=== PATIENT | female | born 1965 | race Caucasian/White ===

== ENCOUNTER 2016-12-06 13:57 | Inpatient (IN) | payer MEDICARE, OTHER ==
[~2016-12-06] VITALS: Ht 144.8 cm; Wt 118.2 kg
[~2016-12-06 13:57] MED LIST: ACET1TAB40 PO; ALBU8.5H3 INH; ASPI-664 PO; ATOR40TA68 PO; CLOP75TA27 PO; DIPH25CA6 PO; FLUO10CA66 PO; GLIP-95 PO; MONT10TA24 PO; NATE120T PO; NYST1POW22 TOPICAL; PANT40TA3 PO; ROPI0.25 PO; SILV20CR13 TOP; SITA1TAB5 PO; VALS80TA2 PO; ZOLP5TAB7 PO
[2016-12-06 14:06] VITALS: Ht 144.8 cm; Wt 118.2 kg
--- NOTE | 2016-12-06 16:15 | ERA ---
ER Documentation Chief Complaint Date/Time DATE: 12/06/16 TIME: 16:10 Chief Complaint CAME IN VIA INTAKE DUE TO SWELLING TO BILATERAL LEGS AND HIGH BP HPI 51-year-old female with history of diabetes mellitus type 2, hypertension, dyslipidemia, coronary artery disease, GERD, chronic venous stasis of the lower extremities and left lower extremity cellulitis presents the ED in her wheelchair complaining of increasing lower extremity swelling with redness of the left lower extremity. She was referred to the ED by Dr. Clarke her PCP for admission. Patient complains of mild, chronic, achy, nonradiating lower extremity pain. No relieving or exacerbating factors. Denies chest pain or palpitations. No abdominal pain, nausea or vomiting. No fevers or chills. She insists that she is compliant with her medications although her home health worker questions this. ROS All systems reviewed and are negative except as per history of present illness. Medications Home Meds Reported Medications Ibuprofen* (Ibuprofen*) 600 Mg Tablet, 600 MG PO BID Y for PAIN, TAB 12/06/16 Metformin Hcl* (Metformin Hcl*) 500 Mg Tablet, 500 MG PO WITH BREAKFAST DINNE, # 60 TAB 12/06/16 Paroxetine Hcl* (Paroxetine*) 10 Mg Tablet, 10 MG PO DAILY, TAB 12/06/16 Albuterol Sulfate* (Ventolin HFA*) 18 Gm Hfa.aer.ad, 2 PUFF INHALATION Q4H, #1 INHALER 12/06/16 Furosemide* (Lasix*) 20 Mg Tablet, 20 MG PO DAILY, TAB 12/06/16 Montelukast Sodium* (Montelukast Sodium*) 10 Mg Tablet, 10 MG PO QHS, #30 TAB 05/05/16 Glipizide* (Glipizide*) 10 Mg Tablet, 10 MG PO BID, TAB 05/05/16 Diphenhydramine Hcl* (Diphenhydramine Hcl*) 25 Mg Capsule, 25 MG PO BID Y for ITCHING, CAP 05/05/16 Atorvastatin* (Atorvastatin*) 40 Mg Tablet, 40 MG PO QHS, #30 TAB 05/05/16 Acetaminophen with Codeine (Acetaminophen-Cod #3 Tablet) 1 Each Tablet, 1 TAB PO Q6H Y for PAIN, #7 TAB 05/05/16 Zolpidem Tartrate* (Zolpidem Tartrate*) 5 Mg Tablet, 5 MG PO QHS Y for INSOMNIA , #30 TAB 05/05/16 Valsartan* (Diovan*) 80 Mg Tablet, 80 MG PO DAILY, TAB 05/05/16 Silver Sulfadiazine* (SSD*) 1% - 20 Gm Cream.gm., 1 APPLIC TOP BID, #1 TUB 05/05/16 Pantoprazole* (Protonix*) 40 Mg Tablet.dr, 40 MG PO DAILY, TAB 05/05/16 Nystatin (Nystatin Powder) 1 Each Powder.ea., 1 APPLIC TOPICAL BID, #1 BOTTLE 05/05/16 Ropinirole Hcl* (Ropinirole Hcl*) 0.25 Mg Tablet, 0.25 MG PO HS, TAB 05/05/16 Clopidogrel Bisulfate (Clopidogrel) 75 Mg Tablet, 75 MG PO DAILY, #30 TAB 05/05/16 Discontinued Reported Medications Albuterol Sulfate* (Proair HFA*) 8.5 Gm Hfa.aer.ad, 2 PUFF INH Q4H Y for WHEEZING AND SOB, #1 INHALER 05/05/16 Fluoxetine Hcl* (Prozac*) 10 Mg Capsule, 10 MG PO DAILY, CAP 05/05/16 Nateglinide* (Nateglinide*) 120 Mg Tablet, 120 MG PO AC MEALS, TAB 05/05/16 Sitagliptin Phos/Metformin HCl (Janumet 50-1,000 mg Tablet) 1 Each Tablet, 1 EACH PO BID, TAB 05/05/16 Aspirin (Low Dose Aspirin) 81 Mg Tablet.dr, 81 MG PO DAILY, #30 TAB 05/05/16 Allergies Allergies: Coded Allergies: Penicillins (Verified Allergy, Unknown, 12/06/16) PT STATES ALLERGY TO PENICILLIN PMhx/Soc Reviewed in chart. As per HPI. History of Surgery: Yes (LT LEG SX) Anesthesia Reaction: No Hx Neurological Disorder: No Hx Respiratory Disorders: No Hx Cardiac Disorders: Yes (HTN, HDL) Hx Psychiatric Problems: No Hx Miscellaneous Medical Probl: Yes (DM, cellulitis) Hx Alcohol Use: No Hx Substance Use: No Hx Tobacco Use: Yes Smoking Status: Current every day smoker FmHx No stroke or cancer. Not relevant to presenting complaint. Physical Exam Vitals Vital Signs Date Time Temp Pulse Resp B/P Pulse Ox O2 Delivery O2 Flow Rate FiO2 12/06/16 14:06 98.5 110 18 188/105 98 Physical Exam Const: Alert, chronically ill-appearing in moderate distress. Head: Atraumatic Eyes: Normal Conjunctiva. Pupils equal reactive to light. Right eye exotropia. ENT: Normal External Ears, Nose and Mouth. Neck: Full range of motion. No JVD. Resp: Breath sounds are equal and clear to auscultation bilaterally Cardio: Regular rate and rhythm, no murmurs Abd: Soft, obese. non tender, non distended. Normal bowel sounds. Large pannus with panniculitis. Skin: No petechiae or rashes Back: No midline or flank tenderness Ext: 4+ edema bilateral lower extremities. Left lower extremity erythematous with mild tenderness. No subcutaneous crepitus or lymphangitic streaking. Lateral distal third wound with necrosis and purulent drainage. Neur: Awake and alert Psych: Normal Mood and Affect Result Diagram: 12/06/16 1635 12/06/16 1635 Results 24 hrs Procedures/MDM DOCUMENTS REVIEWED: ED nurse prior records including multiple clinic notes and admission May 05, 2016 history and physical, progress notes and discharge summary. [employer]ICAL DECISION MAKIN-year-old female with history of diabetes mellitus type 2, hypertension, dyslipidemia, coronary artery disease, GERD, chronic venous stasis of the lower extremities and left lower extremity cellulitis presents the ED in her wheelchair complaining of increasing lower extremity swelling with redness of the left lower extremity. Patient with worsening lower extremity edema and cellulitis of the left lower extremity. Wound culture and vancomycin 1 g IV piggyback as per Dr. Delvalle. No criteria for systemic inflammatory response syndrome or sepsis. Patient will be admitted to [facility] for IV antibiotics, diuresis, wound care, further evaluation and management. Counseled patient regarding diagnosis, diagnostic results and plan for admission. CALLS/CONSULTS: Time 16:10, Dr. Delvalle, Recommends, wound culture, vancomycin and admission to [facility]. PATIENT CARE TRANSITIONED: Time: `16:15, Dr. Delvalle. Departure Diagnosis: Primary Impression: Cellulitis of left lower extremity Additional Impressions: Chronic venous insufficiency Chronic venous stasis dermatitis of both lower extremities Diabetes mellitus type 2 in obese Panniculitis Condition: Serious EDITH WATSON MD Dec 06, 2016 16:15 type 2, hypertension, dyslipidemia, coronary artery disease, GERD, chronic venous stasis of the lower extremities and left lower extremity cellulitis presents the ED in her wheelchair complaining of increasing lower extremity swelling with redness of the left lower extremity. Patient with worsening lower extremity edema and cellulitis of the left lower extremity. Wound culture and vancomycin 1 g IV piggyback as per Dr. Delvalle. No criteria for systemic inflammatory response syndrome or sepsis. Patient will be admitted to [facility] for IV antibiotics, diuresis, wound care, further evaluation and management. Counseled patient regarding diagnosis, diagnostic results and plan for admission. CALLS/CONSULTS: Time 16:10, Dr. Delvalle, Recommends, wound culture, vancomycin and admission to [facility]. PATIENT CARE TRANSITIONED: Time: `16:15, Dr. Delvalle. Departure Diagnosis: Primary Impression: Cellulitis of left lower extremity Additional Impressions: Chronic venous insufficiency Chronic venous stasis dermatitis of both lower extremities Diabetes mellitus type 2 in obese Condition: Serious EDITH WATSON MD Dec 06, 2016 16:15
[2016-12-06] MEDS ORDERED: LIDOCAINE 1% (MDV) 20 ML INJ SC ONE (16:30)
[2016-12-06] MEDS ORDERED: ONDANSETRON 4 MG INJ IV PRN ×2 (16:30→22:00)
[2016-12-06] MEDS ORDERED: VANCOMYCIN 1 GM (PMX) 250 ML IVPB ONE (16:30)
[2016-12-06] MEDS ORDERED: ACETAMINOPHEN 325 MG TAB PO PRN (16:30)
[2016-12-06] MEDS ORDERED: FUROSEMIDE 40 MG INJ IV ONE (16:30)
[2016-12-06 17:02] LABS: ADD SCAN DIFF NO
[2016-12-06 17:05] LABS: BASOPHILS % 0.7 % (0.0-2.0); EOSINOPHILS # 0.1 10^3/ul (0.0-0.5); EOSINOPHILS % 1.6 % (0.0-7.0); HEMATOCRIT 40.4 % (37.0-47.0); HEMOGLOBIN 12.7 g/dl (12.0-16.0); LYMPHOCYTES % 15.8 % (15.0-51.0); MEAN CORPUSCULAR HEMOGLOBIN 25.8 pg (29.0-33.0); MEAN CORPUSCULAR HGB CONC 31.4 g/dl (32.0-37.0); MEAN CORPUSCULAR VOLUME 82.1 fl (82.0-101.0); MEAN PLATELET VOLUME 10.7 fl (7.4-10.4); MONOCYTE # 0.6 10^3/ul (0.3-0.9); MONOCYTES % 9.3 % (0.0-11.0); NEUTROPHIL # 4.4 10^3/ul (1.6-7.5); NEUTROPHILS % 72.1 % (39.0-77.0); PLATELET COUNT 234 10^3/UL (140-415); RED BLOOD COUNT 4.92 10^6/ul (4.20-5.40); RED CELL DISTRIBUTION WIDTH 15.6 % (11.5-14.5); WHITE BLOOD COUNT 6.1 10^3/ul (4.8-10.8)
[2016-12-06 17:17] LABS: ALBUMIN 3.7 g/dl (3.3-4.9)
[2016-12-06 17:18] LABS: POTASSIUM 4.1 mmol/L (3.5-5.1)
[2016-12-06 17:20] LABS: ALBUMIN/GLOBULIN RATIO 1.15; BILIRUBIN,INDIRECT 0.8 mg/dl (0-1.1); BILIRUBIN,TOTAL 0.8 mg/dl (0.2-1.3); CREATININE 0.6 mg/dl (0.44-1.00); TOTAL PROTEIN 6.9 g/dl (6.1-8.1)
[2016-12-06 17:21] LABS: CALCIUM 8.9 mg/dl (8.4-10.2)
--- NOTE | 2016-12-06 18:03 | RADRPT ---
PROCEDURE: Chest x-ray CLINICAL INDICATION: Shortness of breath TECHNIQUE: Chest single view COMPARISON: 05/05/2016 FINDINGS: There is stable moderate cardiomegaly. Pulmonary vessels are borderline prominent. The lungs are c lear. The costophrenic angles are sharp. The visualized bony thorax is unremarkable. IMPRESSION: 1. Stable cardiomegaly. 2. Pulmonary vessels borderline prominent RPTAT: HH .Mark Palmer MD, MD Date Time Electronically viewed and signed by .Mark Palmer MD, on 12/06/2016 18:03 .W/
[2016-12-06] MEDS ORDERED: FURO-110 PO (18:06)
[2016-12-06] MEDS ORDERED: ALBU18HF INHALATION (18:06)
[2016-12-06] MEDS ORDERED: PARO10TA76 PO (18:07)
[2016-12-06] MEDS ORDERED: METF500T4 PO (18:07)
[2016-12-06] MEDS ORDERED: IBUP-1542 PO (18:08)
[2016-12-06 18:16] VITALS: TEMP 98.8
--- NOTE | 2016-12-06 21:53 | HP ---
Date/Time of Note Date/Time of Note DATE: 12/06/16 TIME: 21:44 Assessment/Plan VTE Prophylaxis VTE Prophylaxis Intervention: LMWH Lines/Catheters IV Catheter Type (from Nrs): Peripheral IV Urinary Cath still in place: No Assessment/Plan Chief Complaint/Hosp Course LLE WOUND Problems: Assessment/Plan Acute L Lower Extremity Cellulitis / venous stasis edema HX Large Left Venous stasis wound -> s/p debride ~SEVERAL mos ago PANCULTURE WOUND CULTURE EMPIRIC ATB ID EVAL * HX Wound Cx (+) K PNEUMO ESBL , MULTI DRUG RESISTANT ORGANISM PSEUDOMONAS SPECIES HX POST Excisional sharp debridement of the left lower extremity gangrenous wounds with wound vac placement WOUND CARE HX UTI HX Severe Panniculitis w/pendulous ABD sitting on severe bilateral groin macerated erythematous cellulitis / fungal + bacterial suspected hx R SHOULDER PAIN controlled DMT2 w/DM neuropathies ISS ACCU CHECK GERD COPD Asthma -> possible morbid obese ESTRELLA / hypoventilation syndrome HTN HLD Atherosclerosis HX ANEMIA- COUNT LOOKS COMPENSATED AT PRESENT CONT TO MONITOR BLOOD COUNT CLOSELY OBSERVE FOR BLEEDING AND HEMOLYSIS NO CONTRAINDICATION FOR LOVENOX CHECK COUNT IN AM WILL OBSERVE CLOSELY HPI/ROS Admit Date/Time Admit Date/Time Dec 06, 2016 at 16:27 Hx of Present Illness 51-year-old female with history of diabetes mellitus type 2, hypertension, dyslipidemia, coronary artery disease, chronic anemia,GERD, chronic venous stasis of the lower extremities and left lower extremity cellulitis presents the ED in her wheelchair complaining of increasing lower extremity swelling with redness of the left lower extremity. She was referred to the ED by Dr. Clarke her PCP for admission. Patient complains of mild, chronic, achy, nonradiating lower extremity pain. No relieving or exacerbating factors. Denies chest pain or palpitations. No abdominal pain, nausea or vomiting. No fevers or chills. She insists that she is compliant with her medications although her home health worker questions this. ROS ROS All systems reviewed and are negative except as per history of present illness. Medications Home Meds Reported Medications Albuterol Sulfate* (Proair HFA*) 8.5 Gm Hfa.aer.ad, 2 PUFF INH Q4H Y for WHEEZING AND SOB, #1 INHALER 05/05/16 Montelukast Sodium* (Montelukast Sodium*) 10 Mg Tablet, 10 MG PO QHS, #30 TAB 05/05/16 Glipizide* (Glipizide*) 10 Mg Tablet, 10 MG PO BID, TAB 05/05/16 Diphenhydramine Hcl* (Diphenhydramine Hcl*) 25 Mg Capsule, 25 MG PO Q6 Y for ITCHING, CAP 05/05/16 Atorvastatin* (Atorvastatin*) 40 Mg Tablet, 40 MG PO QHS, #30 TAB 05/05/16 Acetaminophen with Codeine (Acetaminophen-Cod #3 Tablet) 1 Each Tablet, 1 TAB PO Q6H Y for PAIN, #7 TAB 05/05/16 Zolpidem Tartrate* (Zolpidem Tartrate*) 5 Mg Tablet, 5 MG PO QHS Y for INSOMNIA , #30 TAB 05/05/16 Valsartan* (Diovan*) 80 Mg Tablet, 80 MG PO DAILY, TAB 05/05/16 Silver Sulfadiazine* (SSD*) 1% - 20 Gm Cream.gm., 1 APPLIC TOP BID, #1 TUB 05/05/16 Fluoxetine Hcl* (Prozac*) 10 Mg Capsule, 10 MG PO DAILY, CAP 05/05/16 Pantoprazole* (Protonix*) 40 Mg Tablet.dr, 40 MG PO DAILY, TAB 05/05/16 Nystatin (Nystatin Powder) 1 Each Powder.ea., 1 APPLIC TOPICAL BID, #1 BOTTLE 05/05/16 Ropinirole Hcl* (Ropinirole Hcl*) 0.25 Mg Tablet, 0.25 MG PO HS, TAB 05/05/16 Nateglinide* (Nateglinide*) 120 Mg Tablet, 120 MG PO AC MEALS, TAB 05/05/16 Sitagliptin Phos/Metformin HCl (Janumet 50-1,000 mg Tablet) 1 Each Tablet, 1 EACH PO BID, TAB 05/05/16 Clopidogrel Bisulfate (Clopidogrel) 75 Mg Tablet, 75 MG PO DAILY, #30 TAB 05/05/16 Aspirin (Low Dose Aspirin) 81 Mg Tablet.dr, 81 MG PO DAILY, #30 TAB 05/05/16 Allergies Allergies: Coded Allergies: Penicillins (Verified Allergy, Unknown, 05/05/16) PT STATES ALLERGY TO PENICILLIN PMhx/Soc Reviewed in chart. As per HPI. History of Surgery: Yes (LT LEG SX) Anesthesia Reaction: No Hx Neurological Disorder: No Hx Respiratory Disorders: No Hx Cardiac Disorders: Yes (HTN, HDL) Hx Psychiatric Problems: No Hx Miscellaneous Medical Probl: Yes (DM, cellulitis) Hx Alcohol Use: No Hx Substance Use: No Hx Tobacco Use: Yes Smoking Status: Current every day smoker FmHx No stroke or cancer. Not relevant to presenting complaint. PMH/Family/Social Social History Smoking Status: Current every day smoker Exam/Review of Systems Vital Signs Vitals Vital Signs Date Time Temp Pulse Resp B/P Pulse Ox O2 Delivery O2 Flow Rate FiO2 12/06/16 18:16 98.8 100 18 169/102 98 Exam Exam Physical Exam Const: Alert, chronically ill-appearing in moderate distress. Head: Atraumatic Eyes: Normal Conjunctiva. Pupils equal reactive to light. Right eye exotropia. ENT: Normal External Ears, Nose and Mouth. Neck: Full range of motion. No JVD. Resp: Breath sounds are equal and clear to auscultation bilaterally Cardio: Regular rate and rhythm, no murmurs Abd: Soft, obese. non tender, non distended. Normal bowel sounds. Large pannus with panniculitis. Skin: No petechiae or rashes Back: No midline or flank tenderness Ext: 4+ edema bilateral lower extremities. Left lower extremity erythematous with mild tenderness. No subcutaneous crepitus or lymphangitic streaking. Lateral distal third wound with necrosis and purulent drainage. Neur: Awake and alert Psych: Normal Mood and Affect Results 24 hrs Current Medications Medications (Trade) Dose Ordered Sig/Simran Route PRN Reason Start Time Stop Time Status Last Admin Dose Admin Vancomycin HCl (Vancocin) 250 ml @ 125 mls/hr ONCE ONCE IVPB 12/06/16 16:30 12/06/16 18:29 Furosemide (Lasix) 40 mg ONCE ONCE IV 12/06/16 16:30 12/06/16 16:31 Lidocaine (Xylocaine 1% (Mdv) 20 ml) 20 ml ONCE ONCE SC 12/06/16 16:30 12/06/16 16:31 Ondansetron HCl (Zofran Inj) 4 mg BRIDGE ORDER PRN IV NAUSEA AND/OR VOMITING 12/06/16 16:30 12/07/16 16:29 Acetaminophen (Tylenol Tab) 650 mg ER BRIDGE PRN PO MILD PAIN/FEVER 12/06/16 16:30 12/07/16 16:29 Labs Result Diagram: 12/06/16 1635 12/06/16 1635 BLUE JIMÉNEZ MD Dec 06, 2016 21:53
[2016-12-06] MEDS ORDERED: VANCOMYCIN IV PER PHARMACY XX SCH (22:00)
[2016-12-06] MEDS ORDERED: DOCUSATE SODIUM 100 MG CAP PO PRN (22:00)
[2016-12-06] MEDS ORDERED: NA PHOSPHATE/BIPHOS 133 ML ENEMA PR PRN (22:00)
[2016-12-06] MEDS ORDERED: BISACODYL 10 MG SUPP PR PRN (22:00)
[2016-12-06] MEDS ORDERED: NACL 0.9% 3 ML SYG IV SCH (22:00)
[2016-12-06] MEDS ORDERED: ONDANSETRON 4 MG TAB PO PRN (22:00)
[2016-12-06] MEDS ORDERED: BISACODYL (EC) 5 MG TAB PO PRN (22:00)
[2016-12-06] MEDS ORDERED: MAGNESIUM HYDROXIDE 30ML CUP PO PRN (22:00)
[2016-12-07] MEDS: ACETAMINOPHEN 325 MG TAB PO PRN ×2 (01:13→14:39)
[2016-12-07] MEDS: VANCOMYCIN 1.5 GM in SOD CHLORIDE 0.9% 250 ML IVPB SCH ×2 (02:31→13:09)
[2016-12-07 08:10] VITALS: BP 137/78; RESP 17
[2016-12-07] MEDS: ENOXAPARIN 40 MG/0.4 ML SYG SC SCH (08:53)
[2016-12-07] MEDS: FAMOTIDINE 20 MG TAB PO SCH ×2 (08:54→22:12)
[2016-12-07] MEDS ORDERED: IBUPROFEN 600 MG TAB PO PRN (09:30)
[2016-12-07] MEDS ORDERED: GLUCAGON 1 MG INJ IM PRN (09:30)
[2016-12-07] MEDS ORDERED: DEXTROSE 50% 50 ML SYRINGE IV PRN ×2 (09:30)
[2016-12-07] MEDS ORDERED: ZOLPIDEM 5 MG TAB PO PRN (09:30)
[2016-12-07] MEDS ORDERED: GLUCOSE GEL 15 GRAM TUBE PO PRN ×2 (09:30)
[2016-12-07] MEDS ORDERED: GLUCOSE GEL 15 GRAM TUBE BUCCAL PRN (09:30)
[2016-12-07] MEDS: INSULIN ASPART [NOVOLOG] 3 ML PEN SC SCH ×3 (12:00→21:00)
[2016-12-07] MEDS: PAROXETINE 10 MG TAB PO SCH (12:11)
[2016-12-07] MEDS: CLOPIDOGREL 75 MG TAB PO SCH (12:11)
[2016-12-07] MEDS: VALSARTAN 80 MG TAB PO SCH (12:11)
[2016-12-07] MEDS: NYSTATIN 30 GM POWDER BTL TOP SCH ×2 (12:11→22:14)
[2016-12-07] MEDS: SILVER SULFADIAZINE 1% 25 GM CR TOP SCH ×2 (12:11→22:14)
--- NOTE | 2016-12-07 12:45 | CONS ---
DATE OF ADMISSION: 12/06/2016 DATE OF CONSULTATION: 12/07/2016 REASON FOR CONSULTATION: Antibiotic management. HISTORY OF PRESENT ILLNESS: Xiomy Ellison is a 51-year-old female with a number of problems who com es in with acute left lower extremity cellulitis and venous stasis. Her past problems include: 1. Adult-onset diabetes mellitus. 2. Hypertension. 3. Dyslipidemia. 4. Coronary artery disease. 5. Anemia of chronic disease. 6. GERD. 7. Chronic venous stasis of lower extremities and left lower extremity cellulitis. The patient pre sented to the emergency room with increasing lower extremity swelling and redness. She was referred by Dr. Clarke her PCP. She complains of mild chronic aching, nonradiating lower extremity pain. On admission, her white count was 6.1, H and H of 12.7 and 40.4, platelet count 234,000. BUN and cr eatinine are 11/0.6. PAST MEDICAL HISTORY: Operations as outlined. FAMILY HISTORY: Noncontributory. SOCIAL HISTORY: She does not smoke, drink or abuse drugs. ALLERGIES: PENICILLIN. MEDICATIONS: Per chart. REVIEW OF SYSTEMS: As per HPI. PHYSICAL EXAMINATION: GENERAL: The patient is a well-developed, well-nourished female who is chronically ill-appearing, i n moderate distress. SKIN: Without generalized rash. HEENT: Within normal limits. NECK: Supple. LYMPH NODES: None palpable. CHEST: Decreased breath sounds at bases. HEART: Without murmur or gallop. ABDOMEN: Soft, obese, nontender, without organosplenomegaly or masses. She has a large pannus with panniculitis. EXTREMITIES: 4+ edema bilateral lower extremity. Left lower extremity is erythematous and mildly t sachin. The lateral distal third of the wound is necrotic and has purulent drainage. RECTAL AND GENITAL: Deferred. NEUROLOGIC: No focal neurological abnormalities. Of note, is the fact that the patient had previous surgery on the left leg. She was started on vanc omycin. We will check to see if she had blood cultures done or any cultures of the wound. I will d ictate my findings to Dr. Delvalle. Dictated By: FELISHA VIVAR MD, JD/FRACISCO Conf#: [id number] DID#: [id number]
--- NOTE | 2016-12-07 15:40 | RADRPT ---
Vent Rate: 86 bpm RR Interval: 0 msec MN Interval: 228 msec QRS Duration: 88 msec QT Interval: 574 msec QTC Interval: 686 msec P-R-T [place]: 69 - 87 - 70 degrees Sinus rhythm with marked sinus arrhythmia with 1st degree AV block Prolonged QT Abnormal ECG Electronically Signed By: Santana Drake [id number]
[2016-12-07] MEDS: metFORMIN 500 MG TAB PO SCH (17:21)
[2016-12-07 20:12] LABS: ADD UMIC YES; URINE BILIRUBIN (Dip) NEGATIVE (NEGATIVE); URINE BLOOD (Dip) 3+ (NEGATIVE); URINE COLOR LT. YELLOW (YELLOW); URINE GLUCOSE (Dip) NEGATIVE (NEGATIVE); URINE KETONES (Dip) NEGATIVE (NEGATIVE); URINE LEUKOCYTE ESTERASE (Dip) NEGATIVE (NEGATIVE); URINE NITRITE (Dip) NEGATIVE (NEGATIVE); URINE TOTAL PROTEIN (Dip) TRACE (NEGATIVE); URINE UROBILINOGEN (Dip) 0.2 E.U./dL (0.1-1.0)
[2016-12-07 20:29] VITALS: BP 141/87; RESP 20
[2016-12-07] MEDS ORDERED: glipiZIDE 10 MG TAB PO SCH (21:00)
[2016-12-07 21:01] LABS: BACTERIA,URINE FEW; SQUAMOUS EPITHELIAL CELL,UR RARE
[2016-12-07] MEDS: ATORVASTATIN 40 MG TAB PO SCH (22:12)
[2016-12-07] MEDS: ROPINIROLE 0.25 MG TAB PO SCH (22:12)
[2016-12-07] MEDS: MONTELUKAST 10 MG TAB PO SCH (22:12)
[2016-12-07] MEDS: DIPHENHYDRAMINE 25 MG CAP PO PRN (22:28)
--- NOTE | 2016-12-07 23:22 | PN ---
Date/Time of Note Date/Time of Note DATE: 12/07/16 TIME: 23:17 Assessment/Plan VTE Prophylaxis VTE Prophylaxis Intervention: LMWH Lines/Catheters IV [facility] Peripheral IV Urinary Cath still in place: No Assessment/Plan Chief Complaint/Hosp Course LLE WOUND acute left lower extremity cellulitis and venous stasis. CONT CURRENT TREATMENT MONITOR CULTURES WOUND CARE ID [id number] Adult-onset diabetes mellitus. ACCU CHECK ISS Hypertension. CONT CURRENT MEDS Dyslipidemia. Coronary artery disease. Anemia of chronic disease. GERD. Chronic venous stasis of lower extremities HX left lower extremity cellulitis. Problems: Subjective 24 Hr Interval Summary Free Text/Dictation ALL NOTED + PA IN SEEN BY ID ON IV ATB CULTURE-P Exam/Review of Systems Vital Signs Vitals Vital Signs Date Time Temp Pulse Resp B/P Pulse Ox O2 Delivery O2 Flow Rate FiO2 12/07/16 20:29 98.6 103 20 141/87 96 Intake and Output 12/06/16 12/06/16 12/07/16 15:00 23:00 07:00 Intake Total 250 ml 850 ml Output Total 2700 ml Balance 250 ml -1850 ml Exam GENERAL: The patient is a well-developed, well-nourished female who is chronically ill-appearing, in moderate distress. SKIN: Without generalized rash. HEENT: Within normal limits. NECK: Supple. LYMPH NODES: None palpable. CHEST: Decreased breath sounds at bases. HEART: Without murmur or gallop. ABDOMEN: Soft, obese, nontender, without organosplenomegaly or masses. She has a large pannus with panniculitis. EXTREMITIES: 4+ edema bilateral lower extremity. Left lower extremity is erythematous and mildly tender. The lateral distal third of the wound is necrotic and has purulent drainage. RECTAL AND GENITAL: Deferred. NEUROLOGIC: No focal neurological abnormalities. Results Result Diagram: 12/06/16 1635 12/06/16 1635 Results 24 hrs Laboratory Tests Test 12/07/16 04:15 12/07/16 08:06 12/07/16 11:59 12/07/16 17:10 Urine Color LT. YELLOW Urine Clarity SLIGHTLY CLOUDY Urine pH 5.5 Urine Specific [place] 1.015 Urine Ketones NEGATIVE Urine Nitrite NEGATIVE Urine Bilirubin NEGATIVE Urine Urobilinogen 0.2 E.U./dL Urine Leukocyte Esterase NEGATIVE Urine Microscopic RBC 10-25 Urine Microscopic WBC NONE SEEN Urine Squamous Epithelial Cells RARE Urine Bacteria FEW Urine Hemoglobin 3+ H Urine Glucose NEGATIVE Urine Total Protein TRACE Bedside Glucose 135 173 166 Test 12/07/16 22:20 Bedside Glucose 221 H Medications Medications Current Medications Ondansetron HCl (Zofran Tab) 4 mg Q6H PRN PO NAUSEA AND/OR VOMITING; Start 12/06 at 22:00 Ondansetron HCl (Zofran Inj) 4 mg Q6H PRN IV NAUSEA AND/OR VOMITING; Start 12/06 at 22:00 Acetaminophen (Tylenol Tab) 650 mg Q6H PRN PO PAIN LEVEL 1-3 OR FEVER Last administered on 12/07/16 14:39; Admin Dose 650 MG; Start 12/06/16 at 22:00 Acetaminophen/ Hydrocodone Bitart ([place] (5/325)) 1 tab Q6H PRN PO MODERATE PAIN LEVEL 4-6; Start 12/06/16 at 22:00 Docusate Sodium (Colace) 100 mg Q12H PRN PO CONSTIPATION; Start 12/06/16 at 22: 00 Magnesium Hydroxide (Milk Of Mag) 30 ml DAILY PRN PO CONSTIPATION; Start at 22:00 Bisacodyl (Dulcolax) 5 mg DAILY PRN PO CONSTIPATION; Start 12/06/16 at 22:00 Bisacodyl (Dulcolax Supp) 10 mg DAILY PRN SD CONSTIPATION; Start 12/06/16 at 22: 00 Sodium Biphosphate/ Sodium Phosphate (Fleet Enema) 133 ml DAILY PRN SD CONSTIPATION; Start 12/06/16 at 22:00 Famotidine (Pepcid) 20 mg Q12 PO Last administered on 12/07/16 22:12; Admin Dose 20 MG; Start 12/07/16 at 09:00 Enoxaparin Sodium 40 mg 40 mg DAILY SC ; Start 12/07/16 at 09:00 Vancomycin HCl/ Sodium Chloride (Vancocin/NS) 250 ml @ 83.333 mls/ hr Q12H IVPB Last administered on 12/07/16 13:09; Admin Dose 83.333 MLS/HR; Start at 02:00 Diagnostic Test (Pha) (Accu-Chek) 1 ea 02 XX ; Start 12/08/16 at 02:00 Miscellaneous Information 1 ea NOTE XX ; Start 12/07/16 at 09:30 Glucose (Glutose) 15 gm Q15M PRN PO DECREASED GLUCOSE; Start 12/07/16 at 09:30 Glucose (Glutose) 22.5 gm Q15M PRN PO DECREASED GLUCOSE; Start 12/07/16 at 09:30 Dextrose (D50w Syringe) 25 ml Q15M PRN IV DECREASED GLUCOSE; Start 12/07/16 at 09:30 Dextrose (D50w Syringe) 50 ml Q15M PRN IV DECREASED GLUCOSE; Start 12/07/16 at 09:30 Glucagon (Glucagen) 1 mg Q15M PRN IM DECREASED GLUCOSE; Start 12/07/16 at 09:30 Glucose (Glutose) 15 gm Q15M PRN BUCCAL DECREASED GLUCOSE; Start 12/07/16 at 09: 30 Atorvastatin Calcium (Lipitor) 40 mg HS PO Last administered on 12/07/16 22:12 ; Admin Dose 40 MG; Start 12/07/16 at 21:00 Clopidogrel Bisulfate (plaVIX) 75 mg DAILY PO Last administered on 12/07/16 12: 11; Admin Dose 75 MG; Start 12/07/16 at 11:00 Diphenhydramine HCl (Benadryl) 25 mg TID PRN PO ITCHING Last administered on 22:28; Admin Dose 25 MG; Start 12/07/16 at 09:30 Ibuprofen (Motrin) 600 mg BID PRN PO PAIN; Start 12/07/16 at 09:30 Montelukast Sodium (Singulair) 10 mg HS PO Last administered on 12/07/16 22:12 ; Admin Dose 10 MG; Start 12/07/16 at 21:00 Nystatin (Nystatin Powder) 1 applic BID TOP Last administered on 12/07/16 22:14 ; Admin Dose 1 APPLIC; Start 12/07/16 at 11:00 Paroxetine HCl (Paxil) 10 mg DAILY PO Last administered on 12/07/16 12:11; Admin Dose 10 MG; Start 12/07/16 at 11:00 Ropinirole HCl (Requip) 0.25 mg QHS PO Last administered on 12/07/16 22:12; Admin Dose 0.25 MG; Start 12/07/16 at 21:00 Valsartan (Diovan) 80 mg DAILY PO Last administered on 12/07/16 12:11; Admin Dose 80 MG; Start 12/07/16 at 10:00 Zolpidem Tartrate (Ambien) 5 mg HS PRN PO INSOMNIA; Start 12/07/16 at 09:30 Silver Sulfadiazine (Thermazene 1% 25 Gm) 1 applic BID TOP Last administered on 12/07/16 22:14; Admin Dose 1 APPLIC; Start 12/07/16 at 11:00 Miscellaneous Information (*Rx Drug Level Order Reminder*) 1 ONCE ONCE XX ; Start 12/08/16 at 13:00; Stop 12/08/16 at 13:01 BLUE JIMÉNEZ MD Dec 07, 2016 23:22
[2016-12-08] MEDS: ACCU-CHEK XX SCH (02:00)
[2016-12-08] MEDS ORDERED: ACCU-CHEK XX SCH (02:00)
[2016-12-08] MEDS: VANCOMYCIN 1.5 GM in SOD CHLORIDE 0.9% 250 ML IVPB SCH ×3 (02:27→23:07)
[2016-12-08] MEDS: INSULIN ASPART [NOVOLOG] 3 ML PEN SC SCH ×4 (07:44→21:00)
[2016-12-08 08:03] VITALS: BP 136/101; RESP 19
[2016-12-08] MEDS: ENOXAPARIN 40 MG/0.4 ML SYG SC SCH (08:32)
[2016-12-08] MEDS: PAROXETINE 10 MG TAB PO SCH (08:33)
[2016-12-08] MEDS: VALSARTAN 80 MG TAB PO SCH (08:33)
[2016-12-08] MEDS: CLOPIDOGREL 75 MG TAB PO SCH (08:33)
[2016-12-08] MEDS: FAMOTIDINE 20 MG TAB PO SCH ×2 (08:33→21:19)
[2016-12-08] MEDS: metFORMIN 500 MG TAB PO SCH ×2 (08:34→17:24)
[2016-12-08] MEDS: NYSTATIN 30 GM POWDER BTL TOP SCH ×2 (08:35→21:31)
[2016-12-08] MEDS: SILVER SULFADIAZINE 1% 25 GM CR TOP SCH ×2 (08:36→21:31)
[2016-12-08] MEDS: DIPHENHYDRAMINE 25 MG CAP PO PRN (08:38)
--- NOTE | 2016-12-08 10:05 | CONS ---
Date/Time of Note Date/Time of Note DATE: 12/08/16 TIME: 09:59 Consult Date/Type/Reason Admit Date/Time Dec 06, 2016 at 16:27 Initial Consult Date Marietta Ellison is a 51-year-old female with a number of problems who comes in with acute left lower extremity cellulitis and venous stasis. The patient presented to the emergency room with increasing lower extremity swelling and redness. She was referred by Dr. Clarke her PCP. She complains of mild chronic aching, nonradiating lower extremity pain. Of note, is the fact that the patient had previous surgery on the left leg. She was started on vancomycin. co persistent dry cough. seen by ID. PHYSICAL EXAMINATION: GENERAL: The patient is a well-developed, well-nourished female who is chronically ill-appearing, in moderate distress. SKIN: Without generalized rash. HEENT: Within normal limits. NECK: Supple. LYMPH NODES: None palpable. CHEST: Decreased breath sounds at bases. HEART: Without murmur or gallop. ABDOMEN: Soft, obese, nontender, without organosplenomegaly or masses. She has a large pannus with panniculitis. EXTREMITIES: 4+ edema bilateral lower extremity. Left lower extremity is erythematous and mildly tender. The lateral distal third of the wound is necrotic and has purulent drainage. RECTAL AND GENITAL: Deferred. NEUROLOGIC: No focal neurological abnormalities. Objective Vital Signs Date Time Temp Pulse Resp B/P Pulse Ox O2 Delivery O2 Flow Rate FiO2 12/08/16 08:03 97.8 95 19 136/101 98 Intake and Output 12/07/16 12/07/16 12/08/16 15:00 23:00 07:00 Intake Total 750 ml 250 ml Output Total 450 ml Balance 300 ml 250 ml Results/Medications Result Diagram: 12/06/16 1635 12/06/16 1635 Results 24 hrs Laboratory Tests Test 12/07/16 11:59 12/07/16 17:10 12/07/16 22:20 12/08/16 07:39 Bedside Glucose 173 166 221 H 263 H Medications Current Medications Ondansetron HCl (Zofran Tab) 4 mg Q6H PRN PO NAUSEA AND/OR VOMITING; Start 12/06 at 22:00 Ondansetron HCl (Zofran Inj) 4 mg Q6H PRN IV NAUSEA AND/OR VOMITING; Start 12/06 at 22:00 Acetaminophen (Tylenol Tab) 650 mg Q6H PRN PO PAIN LEVEL 1-3 OR FEVER Last administered on 12/07/16 14:39; Admin Dose 650 MG; Start 12/06/16 at 22:00 Acetaminophen/ Hydrocodone Bitart ([place] (5/325)) 1 tab Q6H PRN PO MODERATE PAIN LEVEL 4-6; Start 12/06/16 at 22:00 Docusate Sodium (Colace) 100 mg Q12H PRN PO CONSTIPATION; Start 12/06/16 at 22: 00 Magnesium Hydroxide (Milk Of Mag) 30 ml DAILY PRN PO CONSTIPATION; Start at 22:00 Bisacodyl (Dulcolax) 5 mg DAILY PRN PO CONSTIPATION; Start 12/06/16 at 22:00 Bisacodyl (Dulcolax Supp) 10 mg DAILY PRN [place] CONSTIPATION; Start 12/06/16 at 22: 00 Sodium Biphosphate/ Sodium Phosphate (Fleet Enema) 133 ml DAILY PRN [place] CONSTIPATION; Start 12/06/16 at 22:00 Famotidine (Pepcid) 20 mg Q12 PO Last administered on 12/08/16 08:33; Admin Dose 20 MG; Start 12/07/16 at 09:00 Enoxaparin Sodium 40 mg 40 mg DAILY SC ; Start 12/07/16 at 09:00 Vancomycin HCl/ Sodium Chloride (Vancocin/NS) 250 ml @ 83.333 mls/ hr Q12H IVPB Last administered on 12/08/16 02:27; Admin Dose 83.333 MLS/HR; Start at 02:00 Diagnostic Test (Pha) (Accu-Chek) 1 ea 02 XX ; Start 12/08/16 at 02:00 Miscellaneous Information 1 ea NOTE XX ; Start 12/07/16 at 09:30 Glucose (Glutose) 15 gm Q15M PRN PO DECREASED GLUCOSE; Start 12/07/16 at 09:30 Glucose (Glutose) 22.5 gm Q15M PRN PO DECREASED GLUCOSE; Start 12/07/16 at 09:30 Dextrose (D50w Syringe) 25 ml Q15M PRN IV DECREASED GLUCOSE; Start 12/07/16 at 09:30 Dextrose (D50w Syringe) 50 ml Q15M PRN IV DECREASED GLUCOSE; Start 12/07/16 at 09:30 Glucagon (Glucagen) 1 mg Q15M PRN IM DECREASED GLUCOSE; Start 12/07/16 at 09:30 Glucose (Glutose) 15 gm Q15M PRN BUCCAL DECREASED GLUCOSE; Start 12/07/16 at 09: 30 Atorvastatin Calcium (Lipitor) 40 mg HS PO Last administered on 12/07/16 22:12 ; Admin Dose 40 MG; Start 12/07/16 at 21:00 Clopidogrel Bisulfate (plaVIX) 75 mg DAILY PO Last administered on 12/08/16 08: 33; Admin Dose 75 MG; Start 12/07/16 at 11:00 Diphenhydramine HCl (Benadryl) 25 mg TID PRN PO ITCHING Last administered on 08:38; Admin Dose 25 MG; Start 12/07/16 at 09:30 Ibuprofen (Motrin) 600 mg BID PRN PO PAIN; Start 12/07/16 at 09:30 Montelukast Sodium (Singulair) 10 mg HS PO Last administered on 12/07/16 22:12 ; Admin Dose 10 MG; Start 12/07/16 at 21:00 Nystatin (Nystatin Powder) 1 applic BID TOP Last administered on 12/08/16 08:35 ; Admin Dose 1 APPLIC; Start 12/07/16 at 11:00 Paroxetine HCl (Paxil) 10 mg DAILY PO Last administered on 12/08/16 08:33; Admin Dose 10 MG; Start 12/07/16 at 11:00 Ropinirole HCl (Requip) 0.25 mg QHS PO Last administered on 12/07/16 22:12; Admin Dose 0.25 MG; Start 12/07/16 at 21:00 Valsartan (Diovan) 80 mg DAILY PO Last administered on 12/08/16 08:33; Admin Dose 80 MG; Start 12/07/16 at 10:00 Zolpidem Tartrate (Ambien) 5 mg HS PRN PO INSOMNIA; Start 12/07/16 at 09:30 Silver Sulfadiazine (Thermazene 1% 25 Gm) 1 applic BID TOP Last administered on 12/08/16 08:36; Admin Dose 1 APPLIC; Start 12/07/16 at 11:00 Miscellaneous Information (*Rx Drug Level Order Reminder*) 1 ONCE ONCE XX ; Start 12/08/16 at 13:00; Stop 12/08/16 at 13:01 Assessment/Plan Chief Complaint/Hosp Course 1. cellulitis- started on iv abx. id fu. 2. Hypertension. 3. Dyslipidemia. 4. Coronary artery disease. 5. Anemia of chronic disease. 6. GERD. 7. Chronic venous stasis of lower extremities and left lower extremity cellulitis. 8. Adult-onset diabetes mellitus. 9. cough- cxray neg. poss underlying copd/osas. trial of nebulizer. gentle diuresis. cough meds. Problems: GISSLELE EVANS MD Dec 08, 2016 10:05
[2016-12-08] MEDS: ALBUTEROL HFA 8 GM INHALER INH PRN (10:07)
[2016-12-08 10:27] LABS: ADD SCAN DIFF NO
[2016-12-08 10:44] LABS: BASOPHILS % 0.4 % (0.0-2.0); EOSINOPHILS # 0.2 10^3/ul (0.0-0.5); EOSINOPHILS % 3.7 % (0.0-7.0); HEMATOCRIT 40.2 % (37.0-47.0); HEMOGLOBIN 12.4 g/dl (12.0-16.0); LYMPHOCYTES # 0.6 10^3/ul (0.8-2.9); LYMPHOCYTES % 12.9 % (15.0-51.0); MEAN CORPUSCULAR HEMOGLOBIN 25.4 pg (29.0-33.0); MEAN CORPUSCULAR HGB CONC 30.8 g/dl (32.0-37.0); MEAN CORPUSCULAR VOLUME 82.4 fl (82.0-101.0); MEAN PLATELET VOLUME 10.7 fl (7.4-10.4); MONOCYTE # 0.4 10^3/ul (0.3-0.9); MONOCYTES % 8.2 % (0.0-11.0); NEUTROPHIL # 3.5 10^3/ul (1.6-7.5); NEUTROPHILS % 74.4 % (39.0-77.0); PLATELET COUNT 220 10^3/UL (140-415); RED BLOOD COUNT 4.88 10^6/ul (4.20-5.40); RED CELL DISTRIBUTION WIDTH 15.8 % (11.5-14.5); WHITE BLOOD COUNT 4.6 10^3/ul (4.8-10.8)
[2016-12-08] MEDS: GUAIFENESIN/DM 5ML CUP PO PRN (10:51)
[2016-12-08 10:52] LABS: ALBUMIN 3.1 g/dl (3.3-4.9); POTASSIUM 3.6 mmol/L (3.5-5.1)
[2016-12-08 10:54] LABS: CREATININE 0.5 mg/dl (0.44-1.00)
[2016-12-08 10:55] LABS: BILIRUBIN,INDIRECT 0.7 mg/dl (0-1.1); BILIRUBIN,TOTAL 0.7 mg/dl (0.2-1.3); TOTAL PROTEIN 6.5 g/dl (6.1-8.1)
[2016-12-08 10:56] LABS: ALBUMIN/GLOBULIN RATIO 0.91; CALCIUM 8.2 mg/dl (8.4-10.2)
[2016-12-08] MEDS: ALBUTEROL 0.083% (NEB) 2.5 MG/3 ML AMP HHN PRN (12:12)
--- NOTE | 2016-12-08 15:56 | CONS ---
Date/Time of Note Date/Time of Note DATE: 12/08/16 TIME: 15:56 Assessment/Plan Assessment/Plan Chief Complaint/Hosp Course ID PROGRESS NOTE CURRENT ABX=> Vanco IV + Start Levaquin tonight 24H INTERVAL SUMMARY * Resting confortably, no fevers, VSS, NAD * MICRO: GRAM STAIN Final POLYMORPH. LEUKOCYTE 1+ GRAM NEGATIVE RODS RARE WOUND CULTURE Preliminary Organism 1 STAPHYLOCOCCUS AUREUS QUANTITY 2+ PHYSICAL EXAMINATION: GENERAL: VSS, NAD, Afebrile -> Super Morbid obese HEENT: Unremarkable NECK: Supple -> increased neck circumference CHEST: Rise symmetrical, without dyspnea on observation HEART: Pulse RRR ABDOMEN: Soft (+)Pendulous ABD w/panniculitis EXTREMITIES: Warm 4+ edema bilateral lower extremity. Left lower extremity is erythematous and mildly tender. The lateral distal third of the wound is necrotic and has purulent drainage. ID ASSESSMENT 51 yo super morbid obese F w/BMI >56 admit with: 1. Acute BLEXT venous stasis edema w/ 4+ edema bilateral lower extremity=> Venous insufficiency is due to her super morbid obesity. * Hx of previous surgery on the left leg. 2. Acute LLEXT Cellulitis Left lower extremity is erythematous and mildly tender. The lateral distal third of the wound is necrotic and has purulent drainage. * GRAM STAIN Final POLYMORPH. LEUKOCYTE 1+ GRAM NEGATIVE RODS RARE WOUND CULTURE Preliminary Organism 1 STAPHYLOCOCCUS AUREUS QUANTITY 2+ 3. Panniculitis 4. Adult-onset diabetes mellitus. 5. Hypertension. 6. Dyslipidemia. 7. Coronary artery disease. 8. Anemia of chronic disease. 9. GERD. MRSA Nares -> will order tonight INVASIVES: PIV ABX ALLERGY: PCN CURRENT ABX: => Vanco IV + Start Levaquin tonight ID RECOMMENDATIONS 1. Continue Vanco IV and Start Levaquin high dose to cover GNR seen on Gram Stain => Pending final Micro GRAM NEGATIVE RODS RARE WOUND CULTURE Preliminary Organism 1 STAPHYLOCOCCUS AUREUS QUANTITY 2+ 2. Check MRSA Nares 3. Observe over the weekend on ABX -> Reassess by ID team next week . . Problems: Consultation Date/Type/Reason Admit Date/Time Dec 06, 2016 at 16:27 Initial Consult Date Exam/Review of Systems Vital Signs Vitals Vital Signs Date Time Temp Pulse Resp B/P Pulse Ox O2 Delivery O2 Flow Rate FiO2 12/08/16 12:15 95 18 97 21 12/08/16 08:03 97.8 136/101 Intake and Output 12/07/16 12/07/16 12/08/16 15:00 23:00 07:00 Intake Total 750 ml 250 ml Output Total 450 ml Balance 300 ml 250 ml Results Result Diagram: 12/08/16 1012 12/08/16 1012 Results 24 hrs Laboratory Tests Test 12/07/16 17:10 12/07/16 22:20 12/08/16 07:39 12/08/16 10:12 Bedside Glucose 166 221 H 263 H White Blood Count 4.6 #L Red Blood Count 4.88 Hemoglobin 12.4 Hematocrit 40.2 Mean Corpuscular Volume 82.4 Mean Corpuscular Hemoglobin 25.4 L Mean Corpuscular Hemoglobin Concent 30.8 L Red Cell Distribution Width 15.8 H Platelet Count 220 Mean Platelet Volume 10.7 H Neutrophils % 74.4 Lymphocytes % 12.9 L Monocytes % 8.2 Eosinophils % 3.7 Basophils % 0.4 Nucleated Red Blood Cells % 0.0 Neutrophils # 3.5 Lymphocytes # 0.6 L Monocytes # 0.4 Eosinophils # 0.2 Basophils # 0.0 Nucleated Red Blood Cells # 0.0 Sodium Level 140 Potassium Level 3.6 Chloride Level 103 Carbon Dioxide Level 23 Anion Gap 18 H Blood Urea Nitrogen 13 Creatinine 0.50 Glucose Level 180 Calcium Level 8.2 L Total Bilirubin 0.7 Direct Bilirubin 0.00 Indirect Bilirubin 0.7 Aspartate Amino Transf (AST/SGOT) 15 Alanine Aminotransferase (ALT/SGPT) 19 Alkaline Phosphatase 128 H Total Protein 6.5 Albumin 3.1 L Globulin 3.40 H Albumin/Globulin Ratio 0.91 Random Vancomycin Level 15.2 Test 12/08/16 11:22 Bedside Glucose 250 H Medications Medications Current Medications Ondansetron HCl (Zofran Tab) 4 mg Q6H PRN PO NAUSEA AND/OR VOMITING; Start 12/06 at 22:00 Ondansetron HCl (Zofran Inj) 4 mg Q6H PRN IV NAUSEA AND/OR VOMITING; Start 12/06 at 22:00 Acetaminophen (Tylenol Tab) 650 mg Q6H PRN PO PAIN LEVEL 1-3 OR FEVER Last administered on 12/07/16 14:39; Admin Dose 650 MG; Start 12/06/16 at 22:00 Acetaminophen/ Hydrocodone Bitart ([place] (5/325)) 1 tab Q6H PRN PO MODERATE PAIN LEVEL 4-6; Start 12/06/16 at 22:00 Docusate Sodium (Colace) 100 mg Q12H PRN PO CONSTIPATION; Start 12/06/16 at 22: 00 Magnesium Hydroxide (Milk Of Mag) 30 ml DAILY PRN PO CONSTIPATION; Start at 22:00 Bisacodyl (Dulcolax) 5 mg DAILY PRN PO CONSTIPATION; Start 12/06/16 at 22:00 Bisacodyl (Dulcolax Supp) 10 mg DAILY PRN [place] CONSTIPATION; Start 12/06/16 at 22: 00 Sodium Biphosphate/ Sodium Phosphate (Fleet Enema) 133 ml DAILY PRN [place] CONSTIPATION; Start 12/06/16 at 22:00 Famotidine (Pepcid) 20 mg Q12 PO Last administered on 12/08/16 08:33; Admin Dose 20 MG; Start 12/07/16 at 09:00 Enoxaparin Sodium 40 mg 40 mg DAILY SC ; Start 12/07/16 at 09:00 Vancomycin HCl/ Sodium Chloride (Vancocin/NS) 250 ml @ 83.333 mls/ hr Q12H IVPB Last administered on 12/08/16 11:59; Admin Dose 83.333 MLS/HR; Start at 02:00; Stop 12/08/16 at 16:00 Diagnostic Test (Pha) (Accu-Chek) 1 ea 02 XX ; Start 12/08/16 at 02:00 Miscellaneous Information 1 ea NOTE XX ; Start 12/07/16 at 09:30 Glucose (Glutose) 15 gm Q15M PRN PO DECREASED GLUCOSE; Start 12/07/16 at 09:30 Glucose (Glutose) 22.5 gm Q15M PRN PO DECREASED GLUCOSE; Start 12/07/16 at 09:30 Dextrose (D50w Syringe) 25 ml Q15M PRN IV DECREASED GLUCOSE; Start 12/07/16 at 09:30 Dextrose (D50w Syringe) 50 ml Q15M PRN IV DECREASED GLUCOSE; Start 12/07/16 at 09:30 Glucagon (Glucagen) 1 mg Q15M PRN IM DECREASED GLUCOSE; Start 12/07/16 at 09:30 Glucose (Glutose) 15 gm Q15M PRN BUCCAL DECREASED GLUCOSE; Start 12/07/16 at 09: 30 Atorvastatin Calcium (Lipitor) 40 mg HS PO Last administered on 12/07/16 22:12 ; Admin Dose 40 MG; Start 12/07/16 at 21:00 Clopidogrel Bisulfate (plaVIX) 75 mg DAILY PO Last administered on 12/08/16 08: 33; Admin Dose 75 MG; Start 12/07/16 at 11:00 Diphenhydramine HCl (Benadryl) 25 mg TID PRN PO ITCHING Last administered on 08:38; Admin Dose 25 MG; Start 12/07/16 at 09:30 Ibuprofen (Motrin) 600 mg BID PRN PO PAIN; Start 12/07/16 at 09:30 Montelukast Sodium (Singulair) 10 mg HS PO Last administered on 12/07/16 22:12 ; Admin Dose 10 MG; Start 12/07/16 at 21:00 Nystatin (Nystatin Powder) 1 applic BID TOP Last administered on 12/08/16 08:35 ; Admin Dose 1 APPLIC; Start 12/07/16 at 11:00 Paroxetine HCl (Paxil) 10 mg DAILY PO Last administered on 12/08/16 08:33; Admin Dose 10 MG; Start 12/07/16 at 11:00 Ropinirole HCl (Requip) 0.25 mg QHS PO Last administered on 12/07/16 22:12; Admin Dose 0.25 MG; Start 12/07/16 at 21:00 Valsartan (Diovan) 80 mg DAILY PO Last administered on 12/08/16 08:33; Admin Dose 80 MG; Start 12/07/16 at 10:00 Zolpidem Tartrate (Ambien) 5 mg HS PRN PO INSOMNIA; Start 12/07/16 at 09:30 Silver Sulfadiazine (Thermazene 1% 25 Gm) 1 applic BID TOP Last administered on 12/08/16 08:36; Admin Dose 1 APPLIC; Start 12/07/16 at 11:00 Guaifenesin/ Dextromethorphan 10 ml 10 ml Q4H PRN PO cough Last administered on 12/08/16 10:51; Admin Dose 10 ML; Start 12/08/16 at 11:00 Vancomycin HCl/ Sodium Chloride (Vancocin/NS) 250 ml @ 83.333 mls/ hr Q12H IVPB ; Start 12/08/16 at 23:00 [employer]Y [employer] DES[employer] Dec 08, 2016 15:56
[2016-12-08] MEDS: ACETAMINOPHEN 325 MG TAB PO PRN (16:19)
[2016-12-08] MEDS: ROPINIROLE 0.25 MG TAB PO SCH (21:19)
[2016-12-08] MEDS: ATORVASTATIN 40 MG TAB PO SCH (21:19)
[2016-12-08] MEDS: MONTELUKAST 10 MG TAB PO SCH (21:19)
[2016-12-08] MEDS: LEVOFLOXACIN 750MG/D5W (PMX) 150 ML IVPB SCH (21:22)
[2016-12-08 21:37] VITALS: BP 141/86; RESP 20
--- NOTE | 2016-12-08 23:25 | CONS ---
Date/Time of Note Date/Time of Note DATE: 12/08/16 TIME: 23:24 Assessment/Plan Assessment/Plan Chief Complaint/Hosp Course LLE WOUND acute left lower extremity cellulitis and venous stasis. CONT CURRENT TREATMENT MONITOR CULTURES WOUND CARE ID F-UP- Acute LLEXT Cellulitis Left lower extremity is erythematous and mildly tender. The lateral distal third of the wound is necrotic and has purulent drainage. * GRAM STAIN Final POLYMORPH. LEUKOCYTE 1+ GRAM NEGATIVE RODS RARE WOUND CULTURE Preliminary Organism 1 STAPHYLOCOCCUS AUREUS QUANTITY 2+ Vanco IV + Start Levaquin tonight Adult-onset diabetes mellitus. ACCU CHECK ISS Hypertension. CONT CURRENT MEDS Dyslipidemia. Coronary artery disease. Anemia of chronic disease. GERD. Chronic venous stasis of lower extremities HX left lower extremity cellulitis. Problems: Consultation Date/Type/Reason Admit Date/Time Dec 06, 2016 at 16:27 Initial Consult Date 12.06.16 Type of Consultation: HEMEONC Reason for Consultation ANEMIA Referring Provider: GISSELLE EVANS MD 24 HR Interval Summary Free Text/Dictation all noted on vanco seen by id Exam/Review of Systems Vital Signs Vitals Vital Signs Date Time Temp Pulse Resp B/P Pulse Ox O2 Delivery O2 Flow Rate FiO2 12/08/16 21:37 98.8 20 141/86 97 12/08/16 12:15 95 21 Intake and Output 12/07/16 12/07/16 12/08/16 14:59 22:59 06:59 Intake Total 750 ml 250 ml Output Total 450 ml Balance 300 ml 250 ml Exam GENERAL: The patient is a well-developed, well-nourished female who is chronically ill-appearing, in moderate distress. SKIN: Without generalized rash. HEENT: Within normal limits. NECK: Supple. LYMPH NODES: None palpable. CHEST: Decreased breath sounds at bases. HEART: Without murmur or gallop. ABDOMEN: Soft, obese, nontender, without organosplenomegaly or masses. She has a large pannus with panniculitis. EXTREMITIES: 4+ edema bilateral lower extremity. Left lower extremity is erythematous and mildly tender. The lateral distal third of the wound is necrotic and has purulent drainage. RECTAL AND GENITAL: Deferred. NEUROLOGIC: No focal neurological abnormalities. Results Result Diagram: 12/08/16 1012 12/08/16 1012 Results 24 hrs Laboratory Tests Test 12/08/16 07:39 12/08/16 10:12 12/08/16 11:22 12/08/16 17:12 Bedside Glucose 263 H 250 H 185 White Blood Count 4.6 #L Red Blood Count 4.88 Hemoglobin 12.4 Hematocrit 40.2 Mean Corpuscular Volume 82.4 Mean Corpuscular Hemoglobin 25.4 L Mean Corpuscular Hemoglobin Concent 30.8 L Red Cell Distribution Width 15.8 H Platelet Count 220 Mean Platelet Volume 10.7 H Neutrophils % 74.4 Lymphocytes % 12.9 L Monocytes % 8.2 Eosinophils % 3.7 Basophils % 0.4 Nucleated Red Blood Cells % 0.0 Neutrophils # 3.5 Lymphocytes # 0.6 L Monocytes # 0.4 Eosinophils # 0.2 Basophils # 0.0 Nucleated Red Blood Cells # 0.0 Sodium Level 140 Potassium Level 3.6 Chloride Level 103 Carbon Dioxide Level 23 Anion Gap 18 H Blood Urea Nitrogen 13 Creatinine 0.50 Glucose Level 180 Calcium Level 8.2 L Total Bilirubin 0.7 Direct Bilirubin 0.00 Indirect Bilirubin 0.7 Aspartate Amino Transf (AST/SGOT) 15 Alanine Aminotransferase (ALT/SGPT) 19 Alkaline Phosphatase 128 H Total Protein 6.5 Albumin 3.1 L Globulin 3.40 H Albumin/Globulin Ratio 0.91 Random Vancomycin Level 15.2 Test 12/08/16 21:26 Bedside Glucose 162 Medications Medications Current Medications Ondansetron HCl (Zofran Tab) 4 mg Q6H PRN PO NAUSEA AND/OR VOMITING; Start 12/06 at 22:00 Ondansetron HCl (Zofran Inj) 4 mg Q6H PRN IV NAUSEA AND/OR VOMITING; Start 12/06 at 22:00 Acetaminophen (Tylenol Tab) 650 mg Q6H PRN PO PAIN LEVEL 1-3 OR FEVER Last administered on 12/08/16t 16:19; Admin Dose 650 MG; Start 12/06/16 at 22:00 Acetaminophen/ Hydrocodone Bitart ([place] (5/325)) 1 tab Q6H PRN PO MODERATE PAIN LEVEL 4-6; Start 12/06/16 at 22:00 Docusate Sodium (Colace) 100 mg Q12H PRN PO CONSTIPATION; Start 12/06/16 at 22: 00 Magnesium Hydroxide (Milk Of Mag) 30 ml DAILY PRN PO CONSTIPATION; Start at 22:00 Bisacodyl (Dulcolax) 5 mg DAILY PRN PO CONSTIPATION; Start 12/06/16 at 22:00 Bisacodyl (Dulcolax Supp) 10 mg DAILY PRN [place] CONSTIPATION; Start 12/06/16 at 22: 00 Sodium Biphosphate/ Sodium Phosphate (Fleet Enema) 133 ml DAILY PRN [place] CONSTIPATION; Start 12/06/16 at 22:00 Famotidine (Pepcid) 20 mg Q12 PO Last administered on 12/08/16 21:19; Admin Dose 20 MG; Start 12/07/16 at 09:00 Enoxaparin Sodium (Lovenox) 40 mg DAILY SC ; Start 12/07/16 at 09:00 Diagnostic Test (Pha) (Accu-Chek) 1 ea 02 XX ; Start 12/08/16 at 02:00 Miscellaneous Information 1 ea NOTE XX ; Start 12/07/16 at 09:30 Glucose (Glutose) 15 gm Q15M PRN PO DECREASED GLUCOSE; Start 12/07/16 at 09:30 Glucose (Glutose) 22.5 gm Q15M PRN PO DECREASED GLUCOSE; Start 12/07/16 at 09:30 Dextrose (D50w Syringe) 25 ml Q15M PRN IV DECREASED GLUCOSE; Start 12/07/16 at 09:30 Dextrose (D50w Syringe) 50 ml Q15M PRN IV DECREASED GLUCOSE; Start 12/07/16 at 09:30 Glucagon (Glucagen) 1 mg Q15M PRN IM DECREASED GLUCOSE; Start 12/07/16 at 09:30 Glucose (Glutose) 15 gm Q15M PRN BUCCAL DECREASED GLUCOSE; Start 12/07/16 at 09: 30 Atorvastatin Calcium (Lipitor) 40 mg HS PO Last administered on 12/08/16 21:19 ; Admin Dose 40 MG; Start 12/07/16 at 21:00 Clopidogrel Bisulfate (plaVIX) 75 mg DAILY PO Last administered on 12/08/16 08: 33; Admin Dose 75 MG; Start 12/07/16 at 11:00 Diphenhydramine HCl (Benadryl) 25 mg TID PRN PO ITCHING Last administered on 08:38; Admin Dose 25 MG; Start 12/07/16 at 09:30 Ibuprofen (Motrin) 600 mg BID PRN PO PAIN; Start 12/07/16 at 09:30 Montelukast Sodium (Singulair) 10 mg HS PO Last administered on 12/08/16 21:19 ; Admin Dose 10 MG; Start 12/07/16 at 21:00 Nystatin (Nystatin Powder) 1 applic BID TOP Last administered on 12/08/16 21:31 ; Admin Dose 1 APPLIC; Start 12/07/16 at 11:00 Paroxetine HCl (Paxil) 10 mg DAILY PO Last administered on 12/08/16 08:33; Admin Dose 10 MG; Start 12/07/16 at 11:00 Ropinirole HCl (Requip) 0.25 mg QHS PO Last administered on 12/08/16 21:19; Admin Dose 0.25 MG; Start 12/07/16 at 21:00 Valsartan (Diovan) 80 mg DAILY PO Last administered on 12/08/16 08:33; Admin Dose 80 MG; Start 12/07/16 at 10:00 Zolpidem Tartrate (Ambien) 5 mg HS PRN PO INSOMNIA; Start 12/07/16 at 09:30 Silver Sulfadiazine (Thermazene 1% 25 Gm) 1 applic BID TOP Last administered on 12/08/16 21:31; Admin Dose 1 APPLIC; Start 12/07/16 at 11:00 Guaifenesin/ Dextromethorphan 10 ml 10 ml Q4H PRN PO cough Last administered on 12/08/16 10:51; Admin Dose 10 ML; Start 12/08/16 at 11:00 Vancomycin HCl 1.5 gm/Sodium Chloride 250 ml @ 83.333 mls/ hr Q12H IVPB Last administered on 12/08/16 23:07; Admin Dose 83.333 MLS/HR; Start 12/08/16 at 23:00 Levofloxacin/ Dextrose (Levaquin 750 Mg/ D5W 150 ml (Pmx)) 150 ml @ 100 mls/hr Q24H IVPB Last administered on 12/08/16 21:22; Admin Dose 100 MLS/HR; Start 12/08/16 at 21:00 BLUE JIMÉNEZ MD Dec 08, 2016 23:25
[2016-12-09] MEDS: ACETAMINOPHEN 325 MG TAB PO PRN ×2 (01:28→08:26)
[2016-12-09] MEDS: ACCU-CHEK XX SCH (02:00)
[2016-12-09 08:00] VITALS: BP 146/85; RESP 19
[2016-12-09] MEDS: INSULIN ASPART [NOVOLOG] 3 ML PEN SC SCH ×4 (08:00→21:48)
[2016-12-09] MEDS: metFORMIN 500 MG TAB PO SCH ×2 (08:21→17:33)
[2016-12-09] MEDS: CLOPIDOGREL 75 MG TAB PO SCH (08:21)
[2016-12-09] MEDS: VALSARTAN 80 MG TAB PO SCH (08:21)
[2016-12-09] MEDS: FAMOTIDINE 20 MG TAB PO SCH ×2 (08:21→21:29)
[2016-12-09] MEDS: PAROXETINE 10 MG TAB PO SCH (08:21)
[2016-12-09] MEDS: ENOXAPARIN 40 MG/0.4 ML SYG SC SCH (08:26)
[2016-12-09] MEDS: DIPHENHYDRAMINE 25 MG CAP PO PRN (10:01)
[2016-12-09] MEDS: VANCOMYCIN 1.5 GM in SOD CHLORIDE 0.9% 250 ML IVPB SCH ×2 (11:20→23:16)
--- NOTE | 2016-12-09 11:23 | CONS ---
Date/Time of Note Date/Time of Note DATE: 12/09/16 TIME: 11:22 Consult Date/Type/Reason Admit Date/Time Dec 06, 2016 at 16:27 Type of Consultation: med Ordering Provider: GISSELLE EVANS MD Marietta Ellison is a 51-year-old female with a number of problems who comes in with acute left lower extremity cellulitis and venous stasis. The patient presented to the emergency room with increasing lower extremity swelling and redness. She was referred by Dr. Clarke her PCP. She complains of mild chronic aching, nonradiating lower extremity pain. Of note, is the fact that the patient had previous surgery on the left leg. She was started on vancomycin. co persistent dry cough better on albuterol. seen by ID. PHYSICAL EXAMINATION: GENERAL: The patient is a well-developed, well-nourished female who is chronically ill-appearing, in moderate distress. SKIN: Without generalized rash. HEENT: Within normal limits. NECK: Supple. LYMPH NODES: None palpable. CHEST: Decreased breath sounds at bases. HEART: Without murmur or gallop. ABDOMEN: Soft, obese, nontender, without organosplenomegaly or masses. She has a large pannus with panniculitis. EXTREMITIES: 4+ edema bilateral lower extremity. Left lower extremity is erythematous and mildly tender. The lateral distal third of the wound is necrotic and has purulent drainage. RECTAL AND GENITAL: Deferred. NEUROLOGIC: No focal neurological abnormalities. Objective Vital Signs Date Time Temp Pulse Resp B/P Pulse Ox O2 Delivery O2 Flow Rate FiO2 12/09/16 08:00 97.5 92 19 146/85 97 12/08/16 12:15 21 Intake and Output 12/08/16 12/08/16 12/09/16 15:00 23:00 07:00 Intake Total 1330 ml 1000 ml Output Total 900 ml 800 ml Balance 430 ml 200 ml Results/Medications Result Diagram: 12/08/16 1012 12/08/16 1012 Results 24 hrs Laboratory Tests Test 12/08/16 17:12 12/08/16 21:26 12/09/16 07:43 Bedside Glucose 185 162 171 Medications Current Medications Ondansetron HCl (Zofran Tab) 4 mg Q6H PRN PO NAUSEA AND/OR VOMITING; Start 12/06 at 22:00 Ondansetron HCl (Zofran Inj) 4 mg Q6H PRN IV NAUSEA AND/OR VOMITING; Start 12/06 at 22:00 Acetaminophen (Tylenol Tab) 650 mg Q6H PRN PO PAIN LEVEL 1-3 OR FEVER Last administered on 12/09/16 08:26; Admin Dose 650 MG; Start 12/06/16 at 22:00 Acetaminophen/ Hydrocodone Bitart ([place] (5/325)) 1 tab Q6H PRN PO MODERATE PAIN LEVEL 4-6; Start 12/06/16 at 22:00 Docusate Sodium (Colace) 100 mg Q12H PRN PO CONSTIPATION; Start 12/06/16 at 22: 00 Magnesium Hydroxide (Milk Of Mag) 30 ml DAILY PRN PO CONSTIPATION; Start at 22:00 Bisacodyl (Dulcolax) 5 mg DAILY PRN PO CONSTIPATION; Start 12/06/16 at 22:00 Bisacodyl (Dulcolax Supp) 10 mg DAILY PRN [place] CONSTIPATION; Start 12/06/16 at 22: 00 Sodium Biphosphate/ Sodium Phosphate (Fleet Enema) 133 ml DAILY PRN [place] CONSTIPATION; Start 12/06/16 at 22:00 Famotidine (Pepcid) 20 mg Q12 PO Last administered on 12/09/16 08:21; Admin Dose 20 MG; Start 12/07/16 at 09:00 Enoxaparin Sodium (Lovenox) 40 mg DAILY SC Last administered on 12/09/16 08:26 ; Admin Dose 40 MG; Start 12/07/16 at 09:00 Diagnostic Test (Pha) (Accu-Chek) 1 ea 02 XX ; Start 12/08/16 at 02:00 Miscellaneous Information 1 ea NOTE XX ; Start 12/07/16 at 09:30 Glucose (Glutose) 15 gm Q15M PRN PO DECREASED GLUCOSE; Start 12/07/16 at 09:30 Glucose (Glutose) 22.5 gm Q15M PRN PO DECREASED GLUCOSE; Start 12/07/16 at 09:30 Dextrose (D50w Syringe) 25 ml Q15M PRN IV DECREASED GLUCOSE; Start 12/07/16 at 09:30 Dextrose (D50w Syringe) 50 ml Q15M PRN IV DECREASED GLUCOSE; Start 12/07/16 at 09:30 Glucagon (Glucagen) 1 mg Q15M PRN IM DECREASED GLUCOSE; Start 12/07/16 at 09:30 Glucose (Glutose) 15 gm Q15M PRN BUCCAL DECREASED GLUCOSE; Start 12/07/16 at 09: 30 Atorvastatin Calcium (Lipitor) 40 mg HS PO Last administered on 12/08/16 21:19 ; Admin Dose 40 MG; Start 12/07/16 at 21:00 Clopidogrel Bisulfate (plaVIX) 75 mg DAILY PO Last administered on 12/09/16 08: 21; Admin Dose 75 MG; Start 12/07/16 at 11:00 Diphenhydramine HCl (Benadryl) 25 mg TID PRN PO ITCHING Last administered on 10:01; Admin Dose 25 MG; Start 12/07/16 at 09:30 Ibuprofen (Motrin) 600 mg BID PRN PO PAIN; Start 12/07/16 at 09:30 Montelukast Sodium (Singulair) 10 mg HS PO Last administered on 12/08/16 21:19 ; Admin Dose 10 MG; Start 12/07/16 at 21:00 Nystatin (Nystatin Powder) 1 applic BID TOP Last administered on 12/08/16 21:31 ; Admin Dose 1 APPLIC; Start 12/07/16 at 11:00 Paroxetine HCl (Paxil) 10 mg DAILY PO Last administered on 12/09/16 08:21; Admin Dose 10 MG; Start 12/07/16 at 11:00 Ropinirole HCl (Requip) 0.25 mg QHS PO Last administered on 12/08/16 21:19; Admin Dose 0.25 MG; Start 12/07/16 at 21:00 Valsartan (Diovan) 80 mg DAILY PO Last administered on 12/09/16 08:21; Admin Dose 80 MG; Start 12/07/16 at 10:00 Zolpidem Tartrate (Ambien) 5 mg HS PRN PO INSOMNIA; Start 12/07/16 at 09:30 Silver Sulfadiazine (Thermazene 1% 25 Gm) 1 applic BID TOP Last administered on 12/08/16 21:31; Admin Dose 1 APPLIC; Start 12/07/16 at 11:00 Guaifenesin/ Dextromethorphan 10 ml 10 ml Q4H PRN PO cough Last administered on 12/08/16 10:51; Admin Dose 10 ML; Start 12/08/16 at 11:00 Vancomycin HCl 1.5 gm/Sodium Chloride 250 ml @ 83.333 mls/ hr Q12H IVPB Last administered on 12/09/16 11:20; Admin Dose 83.333 MLS/HR; Start 12/08/16 at 23:00 Levofloxacin/ Dextrose (Levaquin 750 Mg/ D5W 150 ml (Pmx)) 150 ml @ 100 mls/hr Q24H IVPB Last administered on 12/08/16 21:22; Admin Dose 100 MLS/HR; Start 12/08/16 at 21:00 Assessment/Plan Chief Complaint/Hosp Course 1. cellulitis- started on iv abx. id fu. 2. Hypertension. 3. Dyslipidemia. 4. Coronary artery disease. 5. Anemia of chronic disease. 6. GERD. 7. Chronic venous stasis of lower extremities and left lower extremity cellulitis. 8. Adult-onset diabetes mellitus. 9. cough- cxray neg. known history of copd. poss underlying osas. trial of nebulizer. gently diuresed. cough meds. Problems: GISSELLE EVANS MD Dec 09, 2016 11:23
[2016-12-09] MEDS: GUAIFENESIN/DM 5ML CUP PO PRN (11:27)
[2016-12-09] MEDS: NYSTATIN 30 GM POWDER BTL TOP SCH ×2 (14:46→21:38)
[2016-12-09] MEDS: SILVER SULFADIAZINE 1% 25 GM CR TOP SCH ×2 (14:46→21:39)
--- NOTE | 2016-12-09 16:36 | CONS ---
Date/Time of Note Date/Time of Note DATE: 12/09/16 TIME: 16:33 Assessment/Plan Assessment/Plan Chief Complaint/Hosp Course ID PROGRESS NOTE CURRENT ABX=> Vanco IV + Levaquin #2 24H INTERVAL SUMMARY * No new issues -- prefers to sleep -- requests nursing not come in unless she calls * Resting confortably, no fevers, VSS, NAD * MICRO: GRAM STAIN Final POLYMORPH. LEUKOCYTE 1+ GRAM NEGATIVE RODS RARE Organism 1 STAPHYLOCOCCUS AUREUS QUANTITY 2+ S AUREUS M.I.C. RX --------- --- CEFAZOLIN S CIPROFLOXACIN <=0.5 S CLARITHROMYCIN S CLINDAMYCIN <=0.25 S DOXYCYCLINE S ERYTHROMYCIN <=0.25 S LEVOFLOXACIN 0.25 S OXACILLIN 0.5 S PENICILLIN-G >=0.5 R RIFAMPIN <=0.5 S VANCOMYCIN <=0.5 S TRIMETHOPRIM/SULFAMETHOXAZOLE <=10 S PHYSICAL EXAMINATION: GENERAL: VSS, NAD, Afebrile -> Super Morbid obese HEENT: Unremarkable NECK: Supple -> increased neck circumference CHEST: Rise symmetrical, without dyspnea on observation HEART: Pulse RRR ABDOMEN: Soft (+)Pendulous ABD w/panniculitis EXTREMITIES: Warm 4+ edema bilateral lower extremity. Left lower extremity is erythematous and mildly tender. The lateral distal third of the wound is necrotic and has purulent drainage. ID ASSESSMENT 51 yo super morbid obese F w/BMI >56 admit with: 1. Acute BLEXT venous stasis edema w/ 4+ edema bilateral lower extremity=> Venous insufficiency is due to her super morbid obesity. * Hx of previous surgery on the left leg. 2. Acute LLEXT Cellulitis Left lower extremity is erythematous and mildly tender. The lateral distal third of the wound is necrotic and has purulent drainage. * GRAM STAIN Final POLYMORPH. LEUKOCYTE 1+ GRAM NEGATIVE RODS RARE WOUND CULTURE FINAL Organism 1 2+ STAPHYLOCOCCUS AUREUS = [place] QUANTITY 3. Panniculitis 4. Adult-onset diabetes mellitus. 5. Hypertension. 6. Dyslipidemia. 7. Coronary artery disease. 8. Anemia of chronic disease. 9. GERD. MRSA Nares -> will order tonight INVASIVES: PIV ABX ALLERGY: PCN CURRENT ABX: => Vanco IV + Levaquin #2 ID RECOMMENDATIONS 1. Continue Vanco IV and Started on Levaquin high dose to cover GNR seen on Gram Stain => GRAM NEGATIVE RODS RARE 2. Check MRSA Nares 3. Observe over the weekend on ABX -> Reassess by ID team next week . . . Problems: Consultation Date/Type/Reason Admit Date/Time Dec 06, 2016 at 16:27 Type of Consultation: ID Referring Provider: GISSELLE EVANS MD Exam/Review of Systems Vital Signs Vitals Vital Signs Date Time Temp Pulse Resp B/P Pulse Ox O2 Delivery O2 Flow Rate FiO2 12/09/16 08:00 97.5 92 19 146/85 97 12/08/16 12:15 21 Intake and Output 12/08/16 12/08/16 12/09/16 15:00 23:00 07:00 Intake Total 1330 ml 1000 ml Output Total 900 ml 800 ml Balance 430 ml 200 ml Results Result Diagram: 12/08/16 1012 12/08/16 1012 Results 24 hrs Laboratory Tests Test 12/08/16 17:12 12/08/16 21:26 12/09/16 07:43 12/09/16 13:55 Bedside Glucose 185 162 171 188 Medications Medications Current Medications Ondansetron HCl (Zofran Tab) 4 mg Q6H PRN PO NAUSEA AND/OR VOMITING; Start 12/06 at 22:00 Ondansetron HCl (Zofran Inj) 4 mg Q6H PRN IV NAUSEA AND/OR VOMITING; Start 12/06 at 22:00 Acetaminophen (Tylenol Tab) 650 mg Q6H PRN PO PAIN LEVEL 1-3 OR FEVER Last administered on 12/09/16t 08:26; Admin Dose 650 MG; Start 12/06/16 at 22:00 Acetaminophen/ Hydrocodone Bitart ([place] (5/325)) 1 tab Q6H PRN PO MODERATE PAIN LEVEL 4-6; Start 12/06/16 at 22:00 Docusate Sodium (Colace) 100 mg Q12H PRN PO CONSTIPATION; Start 12/06/16 at 22: 00 Magnesium Hydroxide (Milk Of Mag) 30 ml DAILY PRN PO CONSTIPATION; Start at 22:00 Bisacodyl (Dulcolax) 5 mg DAILY PRN PO CONSTIPATION; Start 12/06/16 at 22:00 Bisacodyl (Dulcolax Supp) 10 mg DAILY PRN [place] CONSTIPATION; Start 12/06/16 at 22: 00 Sodium Biphosphate/ Sodium Phosphate (Fleet Enema) 133 ml DAILY PRN [place] CONSTIPATION; Start 12/06/16 at 22:00 Famotidine (Pepcid) 20 mg Q12 PO Last administered on 12/09/16 08:21; Admin Dose 20 MG; Start 12/07/16 at 09:00 Enoxaparin Sodium (Lovenox) 40 mg DAILY SC Last administered on 12/09/16 08:26 ; Admin Dose 40 MG; Start 12/07/16 at 09:00 Diagnostic Test (Pha) (Accu-Chek) 1 ea 02 XX ; Start 12/08/16 at 02:00 Miscellaneous Information 1 ea NOTE XX ; Start 12/07/16 at 09:30 Glucose (Glutose) 15 gm Q15M PRN PO DECREASED GLUCOSE; Start 12/07/16 at 09:30 Glucose (Glutose) 22.5 gm Q15M PRN PO DECREASED GLUCOSE; Start 12/07/16 at 09:30 Dextrose (D50w Syringe) 25 ml Q15M PRN IV DECREASED GLUCOSE; Start 12/07/16 at 09:30 Dextrose (D50w Syringe) 50 ml Q15M PRN IV DECREASED GLUCOSE; Start 12/07/16 at 09:30 Glucagon (Glucagen) 1 mg Q15M PRN IM DECREASED GLUCOSE; Start 12/07/16 at 09:30 Glucose (Glutose) 15 gm Q15M PRN BUCCAL DECREASED GLUCOSE; Start 12/07/16 at 09: 30 Atorvastatin Calcium (Lipitor) 40 mg HS PO Last administered on 12/08/16 21:19 ; Admin Dose 40 MG; Start 12/07/16 at 21:00 Clopidogrel Bisulfate (plaVIX) 75 mg DAILY PO Last administered on 12/09/16 08: 21; Admin Dose 75 MG; Start 12/07/16 at 11:00 Diphenhydramine HCl (Benadryl) 25 mg TID PRN PO ITCHING Last administered on 10:01; Admin Dose 25 MG; Start 12/07/16 at 09:30 Ibuprofen (Motrin) 600 mg BID PRN PO PAIN; Start 12/07/16 at 09:30 Montelukast Sodium (Singulair) 10 mg HS PO Last administered on 12/08/16 21:19 ; Admin Dose 10 MG; Start 12/07/16 at 21:00 Nystatin (Nystatin Powder) 1 applic BID TOP Last administered on 12/09/16 14:46 ; Admin Dose 1 APPLIC; Start 12/07/16 at 11:00 Paroxetine HCl (Paxil) 10 mg DAILY PO Last administered on 12/09/16 08:21; Admin Dose 10 MG; Start 12/07/16 at 11:00 Ropinirole HCl (Requip) 0.25 mg QHS PO Last administered on 12/08/16 21:19; Admin Dose 0.25 MG; Start 12/07/16 at 21:00 Valsartan (Diovan) 80 mg DAILY PO Last administered on 12/09/16 08:21; Admin Dose 80 MG; Start 12/07/16 at 10:00 Zolpidem Tartrate (Ambien) 5 mg HS PRN PO INSOMNIA; Start 12/07/16 at 09:30 Silver Sulfadiazine (Thermazene 1% 25 Gm) 1 applic BID TOP Last administered on 12/09/16 14:46; Admin Dose 1 APPLIC; Start 12/07/16 at 11:00 Guaifenesin/ Dextromethorphan 10 ml 10 ml Q4H PRN PO cough Last administered on 12/09/16 11:27; Admin Dose 10 ML; Start 12/08/16 at 11:00 Vancomycin HCl 1.5 gm/Sodium Chloride 250 ml @ 83.333 mls/ hr Q12H IVPB Last administered on 12/09/16 11:20; Admin Dose 83.333 MLS/HR; Start 12/08/16 at 23:00 Levofloxacin/ Dextrose (Levaquin 750 Mg/ D5W 150 ml (Pmx)) 150 ml @ 100 mls/hr Q24H IVPB Last administered on 12/08/16t 21:22; Admin Dose 100 MLS/HR; Start 12/08/16 at 21:00 AMY SERVIN NP Dec 09, 2016 16:36
[2016-12-09] MEDS ORDERED: LIDOCAINE 5% PATCH TD SCH (20:00)
--- NOTE | 2016-12-09 20:31 | CONS ---
Date/Time of Note Date/Time of Note DATE: 12/09/16 TIME: 20:29 Assessment/Plan Assessment/Plan Chief Complaint/Hosp Course LLE WOUND acute left lower extremity cellulitis and venous stasis. CONT CURRENT TREATMENT MONITOR CULTURES WOUND CARE ID [id number]- Acute LLEXT Cellulitis Left lower extremity is erythematous and mildly tender. The lateral distal third of the wound is necrotic and has purulent drainage. * GRAM STAIN Final POLYMORPH. LEUKOCYTE 1+ GRAM NEGATIVE RODS RARE WOUND CULTURE Preliminary Organism 1 STAPHYLOCOCCUS AUREUS QUANTITY 2+ Vanco IV + Started on Levaquin L shoulder pain LIDODERM PATCH Adult-onset diabetes mellitus. ACCU CHECK ISS Hypertension. CONT CURRENT MEDS Dyslipidemia. Coronary artery disease. Anemia of chronic disease. GERD. Chronic venous stasis of lower extremities HX left lower extremity cellulitis. Problems: Consultation Date/Type/Reason Admit Date/Time Dec 06, 2016 at 16:27 Initial Consult Date 12.06.16 [facility] Referring Provider: GISSELLE EVANS MD 24 HR Interval Summary Free Text/Dictation all noted on atb refusing insulin and lovenox Exam/Review of Systems Vital Signs Vitals Vital Signs Date Time Temp Pulse Resp B/P Pulse Ox O2 Delivery O2 Flow Rate FiO2 12/09/16 08:00 97.5 92 19 146/85 97 12/08/16 12:15 21 Intake and Output 12/08/16 12/08/16 12/09/16 15:00 23:00 07:00 Intake Total 1330 ml 1000 ml Output Total 900 ml 800 ml Balance 430 ml 200 ml Exam PHYSICAL EXAMINATION: GENERAL: VSS, NAD, Afebrile -> Super Morbid obese HEENT: Unremarkable NECK: Supple -> increased neck circumference CHEST: Rise symmetrical, without dyspnea on observation HEART: Pulse RRR ABDOMEN: Soft (+)Pendulous ABD w/panniculitis EXTREMITIES: Warm 4+ edema bilateral lower extremity. Left lower extremity is erythematous and mildly tender. The lateral distal third of the wound is necrotic and has purulent drainage. Results Result Diagram: 12/08/16 1012 12/08/16 1012 Results 24 hrs Laboratory Tests Test 12/08/16 21:26 12/09/16 07:43 12/09/16 13:55 12/09/16 17:32 Bedside Glucose 162 171 188 147 Medications Medications Current Medications Ondansetron HCl (Zofran Tab) 4 mg Q6H PRN PO NAUSEA AND/OR VOMITING; Start 12/06 at 22:00 Ondansetron HCl (Zofran Inj) 4 mg Q6H PRN IV NAUSEA AND/OR VOMITING; Start 12/06 at 22:00 Acetaminophen (Tylenol Tab) 650 mg Q6H PRN PO PAIN LEVEL 1-3 OR FEVER Last administered on 12/09/16 08:26; Admin Dose 650 MG; Start 12/06/16 at 22:00 Acetaminophen/ Hydrocodone Bitart ([place] (5/325)) 1 tab Q6H PRN PO MODERATE PAIN LEVEL 4-6; Start 12/06/16 at 22:00 Docusate Sodium (Colace) 100 mg Q12H PRN PO CONSTIPATION; Start 12/06/16 at 22: 00 Magnesium Hydroxide (Milk Of Mag) 30 ml DAILY PRN PO CONSTIPATION; Start at 22:00 Bisacodyl (Dulcolax) 5 mg DAILY PRN PO CONSTIPATION; Start 12/06/16 at 22:00 Bisacodyl (Dulcolax Supp) 10 mg DAILY PRN [place] CONSTIPATION; Start 12/06/16 at 22: 00 Sodium Biphosphate/ Sodium Phosphate (Fleet Enema) 133 ml DAILY PRN [place] CONSTIPATION; Start 12/06/16 at 22:00 Famotidine (Pepcid) 20 mg Q12 PO Last administered on 12/09/16 08:21; Admin Dose 20 MG; Start 12/07/16 at 09:00 Enoxaparin Sodium (Lovenox) 40 mg DAILY SC Last administered on 12/09/16 08:26 ; Admin Dose 40 MG; Start 12/07/16 at 09:00 Diagnostic Test (Pha) (Accu-Chek) 1 ea 02 XX ; Start 12/08/16 at 02:00 Miscellaneous Information 1 ea NOTE XX ; Start 12/07/16 at 09:30 Glucose (Glutose) 15 gm Q15M PRN PO DECREASED GLUCOSE; Start 12/07/16 at 09:30 Glucose (Glutose) 22.5 gm Q15M PRN PO DECREASED GLUCOSE; Start 12/07/16 at 09:30 Dextrose (D50w Syringe) 25 ml Q15M PRN IV DECREASED GLUCOSE; Start 12/07/16 at 09:30 Dextrose (D50w Syringe) 50 ml Q15M PRN IV DECREASED GLUCOSE; Start 12/07/16 at 09:30 Glucagon (Glucagen) 1 mg Q15M PRN IM DECREASED GLUCOSE; Start 12/07/16 at 09:30 Glucose (Glutose) 15 gm Q15M PRN BUCCAL DECREASED GLUCOSE; Start 12/07/16 at 09: 30 Atorvastatin Calcium (Lipitor) 40 mg HS PO Last administered on 12/08/16 21:19 ; Admin Dose 40 MG; Start 12/07/16 at 21:00 Clopidogrel Bisulfate (plaVIX) 75 mg DAILY PO Last administered on 12/09/16 08: 21; Admin Dose 75 MG; Start 12/07/16 at 11:00 Diphenhydramine HCl (Benadryl) 25 mg TID PRN PO ITCHING Last administered on 10:01; Admin Dose 25 MG; Start 12/07/16 at 09:30 Ibuprofen (Motrin) 600 mg BID PRN PO PAIN; Start 12/07/16 at 09:30 Montelukast Sodium (Singulair) 10 mg HS PO Last administered on 12/08/16 21:19 ; Admin Dose 10 MG; Start 12/07/16 at 21:00 Nystatin (Nystatin Powder) 1 applic BID TOP Last administered on 12/09/16 14:46 ; Admin Dose 1 APPLIC; Start 12/07/16 at 11:00 Paroxetine HCl (Paxil) 10 mg DAILY PO Last administered on 12/09/16 08:21; Admin Dose 10 MG; Start 12/07/16 at 11:00 Ropinirole HCl (Requip) 0.25 mg QHS PO Last administered on 12/08/16 21:19; Admin Dose 0.25 MG; Start 12/07/16 at 21:00 Valsartan (Diovan) 80 mg DAILY PO Last administered on 12/09/16 08:21; Admin Dose 80 MG; Start 12/07/16 at 10:00 Zolpidem Tartrate (Ambien) 5 mg HS PRN PO INSOMNIA; Start 12/07/16 at 09:30 Silver Sulfadiazine (Thermazene 1% 25 Gm) 1 applic BID TOP Last administered on 12/09/16 14:46; Admin Dose 1 APPLIC; Start 12/07/16 at 11:00 Guaifenesin/ Dextromethorphan 10 ml 10 ml Q4H PRN PO cough Last administered on 12/09/16 11:27; Admin Dose 10 ML; Start 12/08/16 at 11:00 Vancomycin HCl 1.5 gm/Sodium Chloride 250 ml @ 83.333 mls/ hr Q12H IVPB Last administered on 12/09/16 11:20; Admin Dose 83.333 MLS/HR; Start 12/08/16 at 23:00 Levofloxacin/ Dextrose (Levaquin 750 Mg/ D5W 150 ml (Pmx)) 150 ml @ 100 mls/hr Q24H IVPB Last administered on 12/08/16 21:22; Admin Dose 100 MLS/HR; Start 12/08/16 at 21:00 Lidocaine (Lidoderm) 1 patch DAILY TD ; Start 12/09/16 at 21:00 BLUE JIMÉNEZ MD Dec 09, 2016 20:31
[2016-12-09 21:23] VITALS: BP 142/79; RESP 19
[2016-12-09] MEDS: ROPINIROLE 0.25 MG TAB PO SCH (21:29)
[2016-12-09] MEDS: LEVOFLOXACIN 750MG/D5W (PMX) 150 ML IVPB SCH (21:29)
[2016-12-09] MEDS: MONTELUKAST 10 MG TAB PO SCH (21:29)
[2016-12-09] MEDS: LIDOCAINE 5% PATCH TD SCH (21:34)
[2016-12-09] MEDS: ATORVASTATIN 40 MG TAB PO SCH (21:34)
--- NOTE | 2016-12-10 01:00 | RADRPT ---
PROCEDURE: XR Chest. CLINICAL INDICATION: Cough. Evaluate for infiltrates TECHNIQUE: Portable AP semi - erect view of the chest was obtained. COMPARISON: 12/06/2016 FINDINGS: The cardiomediastinal silhouette is enlarged but stable. No pulmonary infiltrates are demonstrated. Mild pulmonary vascular congestion is similar to the prior examination with suspected tiny bilater al pleural effusions. The osseous structures are intact with no evidence for acute abnormality. RPTAT:HJJR IMPRESSION: Chronic appearing congestive heart failure pattern is similar to the prior study of 12/06/2016 witho ut evidence of pulmonary infiltrates. Physician Molly Date Time Electronically viewed and signed by Physician Molly on 12/10/2016 01:00 /
[2016-12-10] MEDS: ACCU-CHEK XX SCH (02:00)
[2016-12-10] MEDS: INSULIN ASPART [NOVOLOG] 3 ML PEN SC SCH ×4 (08:00→21:00)
[2016-12-10 08:03] VITALS: BP 139/76; RESP 19
[2016-12-10] MEDS: CLOPIDOGREL 75 MG TAB PO SCH (08:04)
[2016-12-10] MEDS: LIDOCAINE 5% PATCH TD SCH (08:04)
[2016-12-10] MEDS: PAROXETINE 10 MG TAB PO SCH (08:04)
[2016-12-10] MEDS: VALSARTAN 80 MG TAB PO SCH (08:05)
[2016-12-10] MEDS: FAMOTIDINE 20 MG TAB PO SCH ×2 (08:05→22:03)
[2016-12-10] MEDS: metFORMIN 500 MG TAB PO SCH ×2 (08:05→17:55)
[2016-12-10] MEDS: DIPHENHYDRAMINE 25 MG CAP PO PRN (08:14)
[2016-12-10] MEDS: ENOXAPARIN 40 MG/0.4 ML SYG SC SCH (09:00)
[2016-12-10] MEDS: NYSTATIN 30 GM POWDER BTL TOP SCH ×2 (09:00→22:05)
[2016-12-10] MEDS: SILVER SULFADIAZINE 1% 25 GM CR TOP SCH ×2 (11:00→22:05)
[2016-12-10] MEDS: VANCOMYCIN 1.5 GM in SOD CHLORIDE 0.9% 250 ML IVPB SCH ×2 (11:44→23:56)
--- NOTE | 2016-12-10 11:50 | PN ---
DATE: 12/10/2016 SUBJECTIVE: The patient is stable, no acute events overnight. No fevers, chills, nausea, vomiting. No shortness breath. OBJECTIVE: VITAL SIGNS: Blood pressure 139/66, respiration 19, pulse 75, temperature 97.7. HEENT: Head is normocephalic. NECK: Supple. HEART: Regular rate. LUNGS: Show diminished breath sounds at the base. ABDOMEN: Soft, nontender to palpation without rebound or guarding. EXTREMITIES: Negative for clubbing, cyanosis. Trace edema. Positive wound noted on the right lowe r leg surrounding erythema noted with improvement. NEUROLOGIC: No focal deficits. DERMATOLOGIC: No rashes. MUSCULOSKELETAL: No joint effusions. LABORATORY DATA: Has been reviewed. ASSESSMENT AND PLAN: 1. Cellulitis of lower extremity of the left leg. The patient is clinically responding. Continue current antibiotic regimen. Follow up with Infectious Disease. 2. Lower extremity venous stasis wound. Continue wound care, dressing changes and follow up with p odiatry. 3. Diabetes. Continue Accu-Cheks and insulin sliding scale. 4. Hypertension. Continue current blood pressure regimen. 5. Dyslipidemia. Continue statin therapy. 6. Coronary artery disease. Continue medical management. 7. Anemia. Continue to monitor H and H levels. 8. Restless leg syndrome. Continue Requip. 9. Depression. Continue Paxil. 10. GI and deep venous thrombosis prophylaxis. Continue Pepcid and Lovenox. Dictated By: YISSEL CAMARGO/FRACISCO Conf#: [id number] DID#: [id number]
[2016-12-10 16:22] VITALS: BP 156/85
--- NOTE | 2016-12-10 17:04 | CONS ---
Date/Time of Note Date/Time of Note DATE: 12/10/16 TIME: 17:01 Assessment/Plan Assessment/Plan Chief Complaint/Hosp Course LLE WOUND, INFECTED acute left lower extremity cellulitis and venous stasis. CONT CURRENT TREATMENT MONITOR CULTURES WOUND CARE ID F-UP- Acute LLEXT Cellulitis Left lower extremity is erythematous and mildly tender. The lateral distal third of the wound is necrotic and has purulent drainage. * GRAM STAIN Final POLYMORPH. LEUKOCYTE 1+ GRAM NEGATIVE RODS RARE WOUND CULTURE Preliminary Organism 1 STAPHYLOCOCCUS AUREUS QUANTITY 2+ Vanco IV + Started on Levaquin IMPROVING MRSA Nares L shoulder pain LIDODERM PATCH Adult-onset diabetes mellitus. ACCU CHECK ISS Hypertension. CONT CURRENT MEDS Dyslipidemia. Coronary artery disease. Anemia of chronic disease. GERD. Chronic venous stasis of lower extremities HX left lower extremity cellulitis. Problems: Consultation Date/Type/Reason Admit Date/Time Dec 06, 2016 at 16:27 Initial Consult Date 12.06.16 [facility] Referring Provider: GISSELLE EVANS MD 24 HR Interval Summary Free Text/Dictation ALL NOTED + PAIN Exam/Review of Systems Vital Signs Vitals Vital Signs Date Time Temp Pulse Resp B/P Pulse Ox O2 Delivery O2 Flow Rate FiO2 12/10/16 16:22 156/85 12/10/16 08:03 97.7 95 19 98 12/08/16 12:15 21 Intake and Output 12/09/16 12/09/16 12/10/16 15:00 23:00 07:00 Intake Total 250 ml 1310 ml 730 ml Output Total 950 ml 800 ml Balance 250 ml 360 ml -70 ml Exam HEENT: Head is normocephalic. NECK: Supple. HEART: Regular rate. LUNGS: Show diminished breath sounds at the base. ABDOMEN: Soft, nontender to palpation without rebound or guarding. EXTREMITIES: Negative for clubbing, cyanosis. Trace edema. Positive wound noted on the right lower leg surrounding erythema noted with improvement. NEUROLOGIC: No focal deficits. DERMATOLOGIC: No rashes. MUSCULOSKELETAL: No joint effusions. Results Result Diagram: 12/08/16 1012 12/08/16 1012 Results 24 hrs Laboratory Tests Test 12/09/16 17:32 12/09/16 21:46 12/10/16 08:01 12/10/16 11:33 Bedside Glucose 147 204 128 184 Test 12/10/16 16:19 Bedside Glucose 211 Medications Medications Current Medications Ondansetron HCl (Zofran Tab) 4 mg Q6H PRN PO NAUSEA AND/OR VOMITING; Start 12/06 at 22:00 Ondansetron HCl (Zofran Inj) 4 mg Q6H PRN IV NAUSEA AND/OR VOMITING; Start 12/06 at 22:00 Acetaminophen (Tylenol Tab) 650 mg Q6H PRN PO PAIN LEVEL 1-3 OR FEVER Last administered on 12/09/16 08:26; Admin Dose 650 MG; Start 12/06/16 at 22:00 Acetaminophen/ Hydrocodone Bitart ([place] (5/325)) 1 tab Q6H PRN PO MODERATE PAIN LEVEL 4-6; Start 12/06/16 at 22:00 Docusate Sodium (Colace) 100 mg Q12H PRN PO CONSTIPATION; Start 12/06/16 at 22: 00 Magnesium Hydroxide (Milk Of Mag) 30 ml DAILY PRN PO CONSTIPATION; Start at 22:00 Bisacodyl (Dulcolax) 5 mg DAILY PRN PO CONSTIPATION; Start 12/06/16 at 22:00 Bisacodyl (Dulcolax Supp) 10 mg DAILY PRN [place] CONSTIPATION; Start 12/06/16 at 22: 00 Sodium Biphosphate/ Sodium Phosphate (Fleet Enema) 133 ml DAILY PRN [place] CONSTIPATION; Start 12/06/16 at 22:00 Famotidine (Pepcid) 20 mg Q12 PO Last administered on 12/10/16 08:05; Admin Dose 20 MG; Start 12/07/16 at 09:00 Enoxaparin Sodium (Lovenox) 40 mg DAILY SC Last administered on 12/09/16 08:26 ; Admin Dose 40 MG; Start 12/07/16 at 09:00 Diagnostic Test (Pha) (Accu-Chek) 1 ea 02 XX ; Start 12/08/16 at 02:00 Miscellaneous Information 1 ea NOTE XX ; Start 12/07/16 at 09:30 Glucose (Glutose) 15 gm Q15M PRN PO DECREASED GLUCOSE; Start 12/07/16 at 09:30 Glucose (Glutose) 22.5 gm Q15M PRN PO DECREASED GLUCOSE; Start 12/07/16 at 09:30 Dextrose (D50w Syringe) 25 ml Q15M PRN IV DECREASED GLUCOSE; Start 12/07/16 at 09:30 Dextrose (D50w Syringe) 50 ml Q15M PRN IV DECREASED GLUCOSE; Start 12/07/16 at 09:30 Glucagon (Glucagen) 1 mg Q15M PRN IM DECREASED GLUCOSE; Start 12/07/16 at 09:30 Glucose (Glutose) 15 gm Q15M PRN BUCCAL DECREASED GLUCOSE; Start 12/07/16 at 09: 30 Atorvastatin Calcium (Lipitor) 40 mg HS PO Last administered on 12/09/16 21:34 ; Admin Dose 40 MG; Start 12/07/16 at 21:00 Clopidogrel Bisulfate (plaVIX) 75 mg DAILY PO Last administered on 12/10/16 08 :04; Admin Dose 75 MG; Start 12/07/16 at 11:00 Diphenhydramine HCl (Benadryl) 25 mg TID PRN PO ITCHING Last administered on 08:14; Admin Dose 25 MG; Start 12/07/16 at 09:30 Ibuprofen (Motrin) 600 mg BID PRN PO PAIN; Start 12/07/16 at 09:30 Montelukast Sodium (Singulair) 10 mg HS PO Last administered on 12/09/16 21:29 ; Admin Dose 10 MG; Start 12/07/16 at 21:00 Nystatin (Nystatin Powder) 1 applic BID TOP Last administered on 12/10/16 09: 00; Admin Dose 1 APPLIC; Start 12/07/16 at 11:00 Paroxetine HCl (Paxil) 10 mg DAILY PO Last administered on 12/10/16 08:04; Admin Dose 10 MG; Start 12/07/16 at 11:00 Ropinirole HCl (Requip) 0.25 mg QHS PO Last administered on 12/09/16 21:29; Admin Dose 0.25 MG; Start 12/07/16 at 21:00 Valsartan (Diovan) 80 mg DAILY PO Last administered on 12/10/16 08:05; Admin Dose 80 MG; Start 12/07/16 at 10:00 Zolpidem Tartrate (Ambien) 5 mg HS PRN PO INSOMNIA; Start 12/07/16 at 09:30 Silver Sulfadiazine (Thermazene 1% 25 Gm) 1 applic BID TOP Last administered on 12/10/16 11:00; Admin Dose 1 APPLIC; Start 12/07/16 at 11:00 Guaifenesin/ Dextromethorphan 10 ml 10 ml Q4H PRN PO cough Last administered on 12/09/16 11:27; Admin Dose 10 ML; Start 12/08/16 at 11:00 Vancomycin HCl 1.5 gm/Sodium Chloride 250 ml @ 83.333 mls/ hr Q12H IVPB Last administered on 12/10/16 11:44; Admin Dose 83.333 MLS/HR; Start 12/08/16 at 23: 00 Levofloxacin/ Dextrose (Levaquin 750 Mg/ D5W 150 ml (Pmx)) 150 ml @ 100 mls/hr Q24H IVPB Last administered on 12/09/16 21:29; Admin Dose 100 MLS/HR; Start 12/08/16 at 21:00 Lidocaine (Lidoderm) 1 patch DAILY TD Last administered on 12/10/16 08:04; Admin Dose 1 PATCH; Start 12/09/16 at 21:00 Miscellaneous Information (*Rx Drug Level Order Reminder*) 1 ONCE ONCE XX ; Start 12/11/16 at 10:00; Stop 12/11/16 at 10:01 BLUE JIMÉNEZ MD Dec 10, 2016 17:04
--- NOTE | 2016-12-10 18:27 | PN ---
DATE: 12/10/2016 SUBJECTIVE: No acute changes. The patient is alert, looks comfortable. She is afebrile. Wound cu lture growing Staphylococcus aureus, oxacillin sensitive. ANTIMICROBIALS: She is on: 1. Vancomycin. 2. Levaquin. PHYSICAL EXAMINATION: GENERAL: Morbidly obese, middle-aged woman who is in no distress. HEENT: Head atraumatic, normocephalic. Sclerae anicteric. Buccal mucosa dry. NECK: Supple, trachea midline. CHEST: Rise symmetrical. Breath sounds diminished to bases. HEART: S1, S2. ABDOMEN: Soft, bowel tones present. EXTREMITIES: With bilateral edema, chronic lymphedema, left lower extremity open wound. ASSESSMENT: 1. Bilateral lower extremities, acute on chronic cellulitis with left lower extremity nonhealing ch ronic wound, cultures growing oxacillin-sensitive Staphylococcus aureus. 2. Pancolitis. 3. Diabetes. 4. Obesity. PLAN: The patient remained stable on appropriate antimicrobials and overall improving. Continue pr esent care. Dictated By: QUETA PARK [employer] for FELISHA MEDRAON/FRACISCO Conf#: [id number] DID#: [id number]
[2016-12-10 20:35] VITALS: BP 131/80; RESP 18
[2016-12-10] MEDS: ROPINIROLE 0.25 MG TAB PO SCH (22:02)
[2016-12-10] MEDS: MONTELUKAST 10 MG TAB PO SCH (22:03)
[2016-12-10] MEDS: ATORVASTATIN 40 MG TAB PO SCH (22:03)
[2016-12-10] MEDS: LEVOFLOXACIN 750MG/D5W (PMX) 150 ML IVPB SCH (22:04)
[2016-12-10] MEDS: ALBUTEROL 0.083% (NEB) 2.5 MG/3 ML AMP HHN PRN (22:23)
[2016-12-10] MEDS: HYDROCODONE/APAP (5/325) TAB PO PRN (22:58)
[2016-12-11] MEDS: ACCU-CHEK XX SCH (02:00)
[2016-12-11 07:44] VITALS: BP 138/85; RESP 19
[2016-12-11] MEDS: INSULIN ASPART [NOVOLOG] 3 ML PEN SC SCH ×4 (08:00→20:57)
[2016-12-11] MEDS: metFORMIN 500 MG TAB PO SCH ×2 (08:45→18:16)
[2016-12-11] MEDS: LIDOCAINE 5% PATCH TD SCH (08:45)
[2016-12-11] MEDS: HYDROCODONE/APAP (5/325) TAB PO PRN (08:45)
[2016-12-11] MEDS: CLOPIDOGREL 75 MG TAB PO SCH (08:45)
[2016-12-11] MEDS: VALSARTAN 80 MG TAB PO SCH (08:46)
[2016-12-11] MEDS: ENOXAPARIN 40 MG/0.4 ML SYG SC SCH (08:46)
[2016-12-11] MEDS: NYSTATIN 30 GM POWDER BTL TOP SCH ×2 (08:46→20:52)
[2016-12-11] MEDS: FAMOTIDINE 20 MG TAB PO SCH ×2 (08:46→20:43)
[2016-12-11] MEDS: PAROXETINE 10 MG TAB PO SCH (08:46)
[2016-12-11] MEDS: SILVER SULFADIAZINE 1% 25 GM CR TOP SCH ×2 (09:00→20:55)
[2016-12-11] MEDS: DIPHENHYDRAMINE 25 MG CAP PO PRN (09:29)
--- NOTE | 2016-12-11 11:35 | PN ---
DATE: 12/11/2016 SUBJECTIVE: The patient is stable, no acute events overnight. No fevers, chills, nausea or vomitin g. The patient is requesting to want to go home. No other events noted. OBJECTIVE: VITAL SIGNS: Blood pressure 138/85, respiration 19, pulse 92, temperature 98.9. HEENT: Head is normocephalic. NECK: Supple. HEART: Regular rate. LUNGS: Show diminished breath sounds at the base. ABDOMEN: Soft, nontender to palpation. No rebound or guarding. EXTREMITIES: Negative for clubbing, cyanosis. Positive wound noted. NEUROLOGIC: No change in exam. MEDICATIONS: The patient's medications have been reviewed. LABORATORY DATA: Currently pending. ASSESSMENT AND PLAN: 1. Cellulitis of the left lower leg. The patient is currently stable. Continue current antibiotic regimen. Follow up with Infectious Disease. 2. Left lower extremity venous stasis wound. Continue wound care, dressing changes. Follow podiat ry. 3. Diabetes. Continue Accu-Cheks, insulin sliding scale. 4. Hypertension. Continue current blood pressure regimen. 5. Dyslipidemia. Continue statin therapy. 6. Coronary artery disease. Continue current medical management. 7. Anemia. Continue to monitor hemoglobin and hematocrit levels. 8. Obstructive leg syndrome. Continue Requip. 9. Depression. Continue Paxil. 10. Gastrointestinal and deep venous thrombosis prophylaxis. Continue Pepcid, Lovenox. Dictated By: YISSEL CAMARGO/FRACISCO Conf#: [id number] DID#: [id number]
--- NOTE | 2016-12-11 12:52 | CONS ---
Date/Time of Note Date/Time of Note DATE: 12/11/16 TIME: 12:50 Assessment/Plan Assessment/Plan Chief Complaint/Hosp Course SUBJECTIVE: No acute changes. The patient is alert, looks comfortable. No fevers ANTIMICROBIALS: She is on: 1. Vancomycin. 2. Levaquin. PHYSICAL EXAMINATION: GENERAL: Morbidly obese, middle-aged woman who is in no distress. HEENT: Head atraumatic, normocephalic. Sclerae anicteric. Buccal mucosa dry. NECK: Supple, trachea midline. CHEST: Rise symmetrical. Breath sounds diminished to bases. HEART: S1, S2. ABDOMEN: Soft, bowel tones present. EXTREMITIES: With bilateral edema, chronic lymphedema, left lower extremity open wound. ASSESSMENT: 1. Bilateral lower extremities, acute on chronic cellulitis with left lower extremity nonhealing chronic wound, cultures growing oxacillin-sensitive Staphylococcus aureus. 2. Pancolitis. 3. Diabetes. 4. Obesity. PLAN: The patient remained stable, wants to go home, will change abx to oral Cipro for 2 weeks, pt to f/u at wound clinic outpatient for further rec-s, recommend to probiotics [facility] staff Problems: Consultation Date/Type/Reason Admit Date/Time Dec 06, 2016 at 16:27 Initial Consult Date Type of Consultation: id Referring Provider: GISSELLE EVANS MD Exam/Review of Systems Vital Signs Vitals Vital Signs Date Time Temp Pulse Resp B/P Pulse Ox O2 Delivery O2 Flow Rate FiO2 12/11/16 07:44 98.2 92 19 138/85 98 12/10/16 22:23 21 Intake and Output 12/10/16 12/10/16 12/11/16 15:00 23:00 07:00 Intake Total 250 ml 580 ml 880 ml Output Total 500 ml 1250 ml Balance 250 ml 80 ml -370 ml Results Result Diagram: 12/08/16 1012 12/08/16 1012 Results 24 hrs Laboratory Tests Test 12/10/16 16:19 12/10/16 22:01 12/11/16 07:59 Bedside Glucose 211 200 139 Medications Medications Current Medications Ondansetron HCl (Zofran Tab) 4 mg Q6H PRN PO NAUSEA AND/OR VOMITING; Start 12/06 at 22:00 Ondansetron HCl (Zofran Inj) 4 mg Q6H PRN IV NAUSEA AND/OR VOMITING; Start 12/06 at 22:00 Acetaminophen (Tylenol Tab) 650 mg Q6H PRN PO PAIN LEVEL 1-3 OR FEVER Last administered on 12/09/16 08:26; Admin Dose 650 MG; Start 12/06/16 at 22:00 Acetaminophen/ Hydrocodone Bitart ([place] (5/325)) 1 tab Q6H PRN PO MODERATE PAIN LEVEL 4-6 Last administered on 12/11/16 08:45; Admin Dose 1 TAB; Start 12/06/16 at 22:00 Docusate Sodium (Colace) 100 mg Q12H PRN PO CONSTIPATION; Start 12/06/16 at 22: 00 Magnesium Hydroxide (Milk Of Mag) 30 ml DAILY PRN PO CONSTIPATION; Start at 22:00 Bisacodyl (Dulcolax) 5 mg DAILY PRN PO CONSTIPATION; Start 12/06/16 at 22:00 Bisacodyl (Dulcolax Supp) 10 mg DAILY PRN [place]STIPATION; Start 12/06/16 at 22: 00 Sodium Biphosphate/ Sodium Phosphate (Fleet Enema) 133 ml DAILY PRN [place] CONSTIPATION; Start 12/06/16 at 22:00 Famotidine (Pepcid) 20 mg Q12 PO Last administered on 12/11/16 08:46; Admin Dose 20 MG; Start 12/07/16 at 09:00 Enoxaparin Sodium (Lovenox) 40 mg DAILY SC Last administered on 12/09/16 08:26 ; Admin Dose 40 MG; Start 12/07/16 at 09:00 Diagnostic Test (Pha) (Accu-Chek) 1 ea 02 XX ; Start 12/08/16 at 02:00 Miscellaneous Information 1 ea NOTE XX ; Start 12/07/16 at 09:30 Glucose (Glutose) 15 gm Q15M PRN PO DECREASED GLUCOSE; Start 12/07/16 at 09:30 Glucose (Glutose) 22.5 gm Q15M PRN PO DECREASED GLUCOSE; Start 12/07/16 at 09:30 Dextrose (D50w Syringe) 25 ml Q15M PRN IV DECREASED GLUCOSE; Start 12/07/16 at 09:30 Dextrose (D50w Syringe) 50 ml Q15M PRN IV DECREASED GLUCOSE; Start 12/07/16 at 09:30 Glucagon (Glucagen) 1 mg Q15M PRN IM DECREASED GLUCOSE; Start 12/07/16 at 09:30 Glucose (Glutose) 15 gm Q15M PRN BUCCAL DECREASED GLUCOSE; Start 12/07/16 at 09: 30 Atorvastatin Calcium (Lipitor) 40 mg HS PO Last administered on 12/10/16 22:03 ; Admin Dose 40 MG; Start 12/07/16 at 21:00 Clopidogrel Bisulfate (plaVIX) 75 mg DAILY PO Last administered on 12/11/16 08 :45; Admin Dose 75 MG; Start 12/07/16 at 11:00 Diphenhydramine HCl (Benadryl) 25 mg TID PRN PO ITCHING Last administered on 09:29; Admin Dose 25 MG; Start 12/07/16 at 09:30 Ibuprofen (Motrin) 600 mg BID PRN PO PAIN; Start 12/07/16 at 09:30 Montelukast Sodium (Singulair) 10 mg HS PO Last administered on 12/10/16 22:03 ; Admin Dose 10 MG; Start 12/07/16 at 21:00 Nystatin (Nystatin Powder) 1 applic BID TOP Last administered on 12/11/16 08: 46; Admin Dose 1 APPLIC; Start 12/07/16 at 11:00 Paroxetine HCl (Paxil) 10 mg DAILY PO Last administered on 12/11/16 08:46; Admin Dose 10 MG; Start 12/07/16 at 11:00 Ropinirole HCl (Requip) 0.25 mg QHS PO Last administered on 12/10/16 22:02; Admin Dose 0.25 MG; Start 12/07/16 at 21:00 Valsartan (Diovan) 80 mg DAILY PO Last administered on 12/11/16 08:46; Admin Dose 80 MG; Start 12/07/16 at 10:00 Zolpidem Tartrate (Ambien) 5 mg HS PRN PO INSOMNIA; Start 12/07/16 at 09:30 Silver Sulfadiazine (Thermazene 1% 25 Gm) 1 applic BID TOP Last administered on 12/10/16 22:05; Admin Dose 1 APPLIC; Start 12/07/16 at 11:00 Guaifenesin/ Dextromethorphan 10 ml 10 ml Q4H PRN PO cough Last administered on 12/09/16 11:27; Admin Dose 10 ML; Start 12/08/16 at 11:00 Vancomycin HCl 1.5 gm/Sodium Chloride 250 ml @ 83.333 mls/ hr Q12H IVPB Last administered on 12/10/16 23:56; Admin Dose 83.333 MLS/HR; Start 12/08/16 at 23: 00 Levofloxacin/ Dextrose (Levaquin 750 Mg/ D5W 150 ml (Pmx)) 150 ml @ 100 mls/hr Q24H IVPB Last administered on 12/10/16 22:04; Admin Dose 100 MLS/HR; Start at 21:00 Lidocaine (Lidoderm) 1 patch DAILY TD Last administered on 12/11/16 08:45; Admin Dose 1 PATCH; Start 12/09/16 at 21:00 QUETA PARK NP Dec 11, 2016 12:52
[2016-12-11] MEDS: ROPINIROLE 0.25 MG TAB PO SCH (20:43)
[2016-12-11] MEDS: MONTELUKAST 10 MG TAB PO SCH (20:43)
[2016-12-11] MEDS: ATORVASTATIN 40 MG TAB PO SCH (20:43)
[2016-12-11] MEDS: LEVOFLOXACIN 750MG/D5W (PMX) 150 ML IVPB SCH (20:57)
[2016-12-11 21:05] VITALS: BP 160/88; RESP 18
--- NOTE | 2016-12-11 21:24 | CONS ---
Date/Time of Note Date/Time of Note DATE: 12/11/16 TIME: 21:17 Assessment/Plan Assessment/Plan Chief Complaint/Hosp Course LLE WOUND, INFECTED acute left lower extremity cellulitis and venous stasis. CONT CURRENT TREATMENT MONITOR CULTURES WOUND CARE ID F-UP- Acute LLEXT Cellulitis Left lower extremity is erythematous and mildly tender. The lateral distal third of the wound is necrotic and has purulent drainage. * GRAM STAIN Final POLYMORPH. LEUKOCYTE 1+ GRAM NEGATIVE RODS RARE WOUND CULTURE Preliminary Organism 1 STAPHYLOCOCCUS AUREUS QUANTITY 2+ Vanco IV + Started on Levaquin IMPROVING MRSA Nares L shoulder pain LIDODERM PATCH Adult-onset diabetes mellitus. ACCU CHECK ISS Hypertension. CONT CURRENT MEDS Dyslipidemia. Coronary artery disease. Anemia of chronic disease. GERD. Chronic venous stasis of lower extremities HX left lower extremity cellulitis. Problems: Consultation Date/Type/Reason Admit Date/Time Dec 06, 2016 at 16:27 Initial Consult Date 12.06.16 [facility] Referring Provider: GISSELLE EVANS MD 24 HR Interval Summary Free Text/Dictation The patient is stable, no acute events overnight. No fevers, chills, nausea or vomiting. The patient is requesting to want to go home. No other events noted. noncompliant with insulin coverage pain better controlled Exam/Review of Systems Vital Signs Vitals Vital Signs Date Time Temp Pulse Resp B/P Pulse Ox O2 Delivery O2 Flow Rate FiO2 12/11/16 07:44 98.2 92 19 138/85 98 12/10/16 22:23 21 Intake and Output 12/10/16 12/10/16 12/11/16 15:00 23:00 07:00 Intake Total 250 ml 580 ml 880 ml Output Total 500 ml 1250 ml Balance 250 ml 80 ml -370 ml Exam HEENT: Head is normocephalic. NECK: Supple. HEART: Regular rate. LUNGS: Show diminished breath sounds at the base. ABDOMEN: Soft, nontender to palpation without rebound or guarding. EXTREMITIES: Negative for clubbing, cyanosis. Trace edema. Positive wound noted on the right lower leg surrounding erythema noted with improvement. NEUROLOGIC: No focal deficits. DERMATOLOGIC: No rashes. MUSCULOSKELETAL: No joint effusions. Results Result Diagram: 12/08/16 1012 12/08/16 1012 Results 24 hrs Laboratory Tests Test 12/10/16 22:01 12/11/16 07:59 12/11/16 17:02 12/11/16 20:48 Bedside Glucose 200 139 141 165 Medications Medications Current Medications Ondansetron HCl (Zofran Tab) 4 mg Q6H PRN PO NAUSEA AND/OR VOMITING; Start 12/06 at 22:00 Ondansetron HCl (Zofran Inj) 4 mg Q6H PRN IV NAUSEA AND/OR VOMITING; Start 12/06 at 22:00 Acetaminophen (Tylenol Tab) 650 mg Q6H PRN PO PAIN LEVEL 1-3 OR FEVER Last administered on 12/09/16 08:26; Admin Dose 650 MG; Start 12/06/16 at 22:00 Acetaminophen/ Hydrocodone Bitart ([place] (5/325)) 1 tab Q6H PRN PO MODERATE PAIN LEVEL 4-6 Last administered on 12/11/16 08:45; Admin Dose 1 TAB; Start 12/06/16 at 22:00 Docusate Sodium (Colace) 100 mg Q12H PRN PO CONSTIPATION; Start 12/06/16 at 22: 00 Magnesium Hydroxide (Milk Of Mag) 30 ml DAILY PRN PO CONSTIPATION; Start at 22:00 Bisacodyl (Dulcolax) 5 mg DAILY PRN PO CONSTIPATION; Start 12/06/16 at 22:00 Bisacodyl (Dulcolax Supp) 10 mg DAILY PRN [place] CONSTIPATION; Start 12/06/16 at 22: 00 Sodium Biphosphate/ Sodium Phosphate (Fleet Enema) 133 ml DAILY PRN [place] CONSTIPATION; Start 12/06/16 at 22:00 Famotidine (Pepcid) 20 mg Q12 PO Last administered on 12/11/16 20:43; Admin Dose 20 MG; Start 12/07/16 at 09:00 Enoxaparin Sodium (Lovenox) 40 mg DAILY SC Last administered on 12/09/16 08:26 ; Admin Dose 40 MG; Start 12/07/16 at 09:00 Diagnostic Test (Pha) (Accu-Chek) 1 ea 02 XX ; Start 12/08/16 at 02:00 Miscellaneous Information 1 ea NOTE XX ; Start 12/07/16 at 09:30 Glucose (Glutose) 15 gm Q15M PRN PO DECREASED GLUCOSE; Start 12/07/16 at 09:30 Glucose (Glutose) 22.5 gm Q15M PRN PO DECREASED GLUCOSE; Start 12/07/16 at 09:30 Dextrose (D50w Syringe) 25 ml Q15M PRN IV DECREASED GLUCOSE; Start 12/07/16 at 09:30 Dextrose (D50w Syringe) 50 ml Q15M PRN IV DECREASED GLUCOSE; Start 12/07/16 at 09:30 Glucagon (Glucagen) 1 mg Q15M PRN IM DECREASED GLUCOSE; Start 12/07/16 at 09:30 Glucose (Glutose) 15 gm Q15M PRN BUCCAL DECREASED GLUCOSE; Start 12/07/16 at 09: 30 Atorvastatin Calcium (Lipitor) 40 mg HS PO Last administered on 12/11/16 20:43 ; Admin Dose 40 MG; Start 12/07/16 at 21:00 Clopidogrel Bisulfate (plaVIX) 75 mg DAILY PO Last administered on 12/11/16 08 :45; Admin Dose 75 MG; Start 12/07/16 at 11:00 Diphenhydramine HCl (Benadryl) 25 mg TID PRN PO ITCHING Last administered on 09:29; Admin Dose 25 MG; Start 12/07/16 at 09:30 Ibuprofen (Motrin) 600 mg BID PRN PO PAIN; Start 12/07/16 at 09:30 Montelukast Sodium (Singulair) 10 mg HS PO Last administered on 12/11/16 20:43 ; Admin Dose 10 MG; Start 12/07/16 at 21:00 Nystatin (Nystatin Powder) 1 applic BID TOP Last administered on 12/11/16 20: 52; Admin Dose 1 APPLIC; Start 12/07/16 at 11:00 Paroxetine HCl (Paxil) 10 mg DAILY PO Last administered on 12/11/16 08:46; Admin Dose 10 MG; Start 12/07/16 at 11:00 Ropinirole HCl (Requip) 0.25 mg QHS PO Last administered on 12/11/16 20:43; Admin Dose 0.25 MG; Start 12/07/16 at 21:00 Valsartan (Diovan) 80 mg DAILY PO Last administered on 12/11/16 08:46; Admin Dose 80 MG; Start 12/07/16 at 10:00 Zolpidem Tartrate (Ambien) 5 mg HS PRN PO INSOMNIA; Start 12/07/16 at 09:30 Silver Sulfadiazine (Thermazene 1% 25 Gm) 1 applic BID TOP Last administered on 12/11/16 20:55; Admin Dose 1 APPLIC; Start 12/07/16 at 11:00 Guaifenesin/ Dextromethorphan 10 ml 10 ml Q4H PRN PO cough Last administered on 12/09/16 11:27; Admin Dose 10 ML; Start 12/08/16 at 11:00 Levofloxacin/ Dextrose (Levaquin 750 Mg/ D5W 150 ml (Pmx)) 150 ml @ 100 mls/hr Q24H IVPB Last administered on 12/10/16 22:04; Admin Dose 100 MLS/HR; Start at 21:00 Lidocaine (Lidoderm) 1 patch DAILY TD Last administered on 12/11/16 08:45; Admin Dose 1 PATCH; Start 12/09/16 at 21:00 BLUE JIMÉNEZ MD Dec 11, 2016 21:24
[2016-12-12] MEDS: HYDROCODONE/APAP (5/325) TAB PO PRN (00:20)
[2016-12-12] MEDS: ACCU-CHEK XX SCH (02:00)
[2016-12-12 07:35] VITALS: BP 147/81; RESP 20
[2016-12-12] MEDS: INSULIN ASPART [NOVOLOG] 3 ML PEN SC SCH ×4 (08:00→20:28)
[2016-12-12] MEDS: LIDOCAINE 5% PATCH TD SCH (08:37)
[2016-12-12] MEDS: FAMOTIDINE 20 MG TAB PO SCH ×2 (08:38→20:27)
[2016-12-12] MEDS: VALSARTAN 80 MG TAB PO SCH (08:38)
[2016-12-12] MEDS: CLOPIDOGREL 75 MG TAB PO SCH (08:38)
[2016-12-12] MEDS: DIPHENHYDRAMINE 25 MG CAP PO PRN ×2 (08:38→20:31)
[2016-12-12] MEDS: metFORMIN 500 MG TAB PO SCH ×2 (08:38→17:14)
[2016-12-12] MEDS: PAROXETINE 10 MG TAB PO SCH (08:38)
[2016-12-12] MEDS: ENOXAPARIN 40 MG/0.4 ML SYG SC SCH (09:00)
--- NOTE | 2016-12-12 10:35 | PN ---
DATE: 12/12/2016 SUBJECTIVE: The patient is stable, no acute events overnight. No fevers, chills, nausea, vomiting. OBJECTIVE: VITAL SIGNS: Blood pressure 147/81, respirations 20, pulse 80, temperature 98.6. HEENT: Head is normocephalic. NECK: Supple. HEART: Regular rate. LUNGS: Show diminished breath sounds at base. ABDOMEN: Soft, nontender to palpation without rebound or guarding. EXTREMITIES: Negative for clubbing, cyanosis, or edema on her right leg. Left leg has noted wound with surrounding erythema, improved. NEUROLOGIC: No change in exam. MEDICATIONS: The patient's medications have been reviewed. LABORATORY DATA: Have been reviewed. ASSESSMENT AND PLAN: 1. Cellulitis lower leg. The patient is currently stable. Continue current antibiotic regimen. 2. Left lower extremity venous stasis wound. Continue wound care, dressing changes. We will place a vascular surgical consult with Dr. Louise for evaluation. 3. Diabetes, continue Accu-Cheks and sliding scale. 4. Hypertension. Continue current blood pressure regimen. 5. Dyslipidemia. Continue statin therapy. 6. History of coronary artery disease. Continue current medical management. 7. Anemia. Continue to monitor hemoglobin and hematocrit levels. 8. Restless leg syndrome. Continue Requip. 9. Depression. Continue Paxil. 10. Gastrointestinal prophylaxis, continue Pepcid and Lovenox. Dictated By: YISSEL CAMARGO/FRACISCO Conf#: [id number] DID#: [id number]
[2016-12-12] MEDS: ALBUTEROL 0.083% (NEB) 2.5 MG/3 ML AMP HHN PRN ×2 (11:52→18:11)
[2016-12-12] MEDS: NYSTATIN 30 GM POWDER BTL TOP SCH ×2 (15:00→20:27)
--- NOTE | 2016-12-12 15:36 | CONS ---
Date/Time of Note Date/Time of Note DATE: 12/12/16 TIME: 15:35 Assessment/Plan Assessment/Plan Chief Complaint/Hosp Course SUBJECTIVE: No acute changes. The patient is alert, looks comfortable. No fevers ANTIMICROBIALS: Levaquin PHYSICAL EXAMINATION: GENERAL: Morbidly obese, middle-aged woman who is in no distress. HEENT: Head atraumatic, normocephalic. Sclerae anicteric. Buccal mucosa dry. NECK: Supple, trachea midline. CHEST: Rise symmetrical. Breath sounds diminished to bases. HEART: S1, S2. ABDOMEN: Soft, bowel tones present. EXTREMITIES: With bilateral edema, chronic lymphedema, left lower extremity open wound. ASSESSMENT: 1. Bilateral lower extremities, acute on chronic cellulitis with left lower extremity nonhealing chronic wound, cultures growing oxacillin-sensitive Staphylococcus aureus. 2. Pancolitis. 3. Diabetes. 4. Obesity. PLAN: The patient remained stable, continue abx, local wound care, probiotics, topical Clindamycin DW staff Problems: Consultation Date/Type/Reason Admit Date/Time Dec 06, 2016 at 16:27 Type of Consultation: id Referring Provider: GISSELLE EVANS MD Exam/Review of Systems Vital Signs Vitals Vital Signs Date Time Temp Pulse Resp B/P Pulse Ox O2 Delivery O2 Flow Rate FiO2 12/12/16 11:53 88 18 96 21 12/12/16 07:35 98.6 147/81 Intake and Output 12/11/16 12/11/16 12/12/16 15:00 23:00 07:00 Intake Total 720 ml 600 ml Output Total 1050 ml 1400 ml Balance -330 ml -800 ml Results Result Diagram: 12/08/16 1012 12/08/16 1012 Results 24 hrs Laboratory Tests Test 12/11/16 17:02 12/11/16 20:48 12/12/16 11:37 Bedside Glucose 141 165 204 Medications Medications Current Medications Ondansetron HCl (Zofran Tab) 4 mg Q6H PRN PO NAUSEA AND/OR VOMITING; Start 12/06 at 22:00 Ondansetron HCl (Zofran Inj) 4 mg Q6H PRN IV NAUSEA AND/OR VOMITING; Start 12/06 at 22:00 Acetaminophen (Tylenol Tab) 650 mg Q6H PRN PO PAIN LEVEL 1-3 OR FEVER Last administered on 12/09/16 08:26; Admin Dose 650 MG; Start 12/06/16 at 22:00 Acetaminophen/ Hydrocodone Bitart (Winter (5/325)) 1 tab Q6H PRN PO MODERATE PAIN LEVEL 4-6 Last administered on 12/12/16 00:20; Admin Dose 1 TAB; Start 12/06/16 at 22:00 Docusate Sodium (Colace) 100 mg Q12H PRN PO CONSTIPATION; Start 12/06/16 at 22: 00 Magnesium Hydroxide (Milk Of Mag) 30 ml DAILY PRN PO CONSTIPATION; Start at 22:00 Bisacodyl (Dulcolax) 5 mg DAILY PRN PO CONSTIPATION; Start 12/06/16 at 22:00 Bisacodyl (Dulcolax Supp) 10 mg DAILY PRN [place] CONSTIPATION; Start 12/06/16 at 22: 00 Sodium Biphosphate/ Sodium Phosphate (Fleet Enema) 133 ml DAILY PRN [place] CONSTIPATION; Start 12/06/16 at 22:00 Famotidine (Pepcid) 20 mg Q12 PO Last administered on 12/12/16 08:38; Admin Dose 20 MG; Start 12/07/16 at 09:00 Enoxaparin Sodium (Lovenox) 40 mg DAILY SC Last administered on 12/09/16 08:26 ; Admin Dose 40 MG; Start 12/07/16 at 09:00 Diagnostic Test (Pha) (Accu-Chek) 1 ea 02 XX ; Start 12/08/16 at 02:00 Miscellaneous Information 1 ea NOTE XX ; Start 12/07/16 at 09:30 Glucose (Glutose) 15 gm Q15M PRN PO DECREASED GLUCOSE; Start 12/07/16 at 09:30 Glucose (Glutose) 22.5 gm Q15M PRN PO DECREASED GLUCOSE; Start 12/07/16 at 09:30 Dextrose (D50w Syringe) 25 ml Q15M PRN IV DECREASED GLUCOSE; Start 12/07/16 at 09:30 Dextrose (D50w Syringe) 50 ml Q15M PRN IV DECREASED GLUCOSE; Start 12/07/16 at 09:30 Glucagon (Glucagen) 1 mg Q15M PRN IM DECREASED GLUCOSE; Start 12/07/16 at 09:30 Glucose (Glutose) 15 gm Q15M PRN BUCCAL DECREASED GLUCOSE; Start 12/07/16 at 09: 30 Atorvastatin Calcium (Lipitor) 40 mg HS PO Last administered on 12/11/16 20:43 ; Admin Dose 40 MG; Start 12/07/16 at 21:00 Clopidogrel Bisulfate (plaVIX) 75 mg DAILY PO Last administered on 12/12/16 08 :38; Admin Dose 75 MG; Start 12/07/16 at 11:00 Diphenhydramine HCl (Benadryl) 25 mg TID PRN PO ITCHING Last administered on 08:38; Admin Dose 25 MG; Start 12/07/16 at 09:30 Ibuprofen (Motrin) 600 mg BID PRN PO PAIN; Start 12/07/16 at 09:30 Montelukast Sodium (Singulair) 10 mg HS PO Last administered on 12/11/16 20:43 ; Admin Dose 10 MG; Start 12/07/16 at 21:00 Nystatin (Nystatin Powder) 1 applic BID TOP Last administered on 12/11/16 20: 52; Admin Dose 1 APPLIC; Start 12/07/16 at 11:00 Paroxetine HCl (Paxil) 10 mg DAILY PO Last administered on 12/12/16 08:38; Admin Dose 10 MG; Start 12/07/16 at 11:00 Ropinirole HCl (Requip) 0.25 mg QHS PO Last administered on 12/11/16 20:43; Admin Dose 0.25 MG; Start 12/07/16 at 21:00 Valsartan (Diovan) 80 mg DAILY PO Last administered on 12/12/16 08:38; Admin Dose 80 MG; Start 12/07/16 at 10:00 Zolpidem Tartrate (Ambien) 5 mg HS PRN PO INSOMNIA; Start 12/07/16 at 09:30 Silver Sulfadiazine (Thermazene 1% 25 Gm) 1 applic BID TOP Last administered on 12/11/16 20:55; Admin Dose 1 APPLIC; Start 12/07/16 at 11:00 Guaifenesin/ Dextromethorphan 10 ml 10 ml Q4H PRN PO cough Last administered on 12/09/16 11:27; Admin Dose 10 ML; Start 12/08/16 at 11:00 Levofloxacin/ Dextrose (Levaquin 750 Mg/ D5W 150 ml (Pmx)) 150 ml @ 100 mls/hr Q24H IVPB Last administered on 12/10/16 22:04; Admin Dose 100 MLS/HR; Start at 21:00 Lidocaine (Lidoderm) 1 patch DAILY TD Last administered on 12/12/16 08:37; Admin Dose 1 PATCH; Start 12/09/16 at 21:00 QUETA PARK NP Dec 12, 2016 15:36
[2016-12-12] MEDS: SILVER SULFADIAZINE 1% 25 GM CR TOP SCH ×2 (16:00→20:28)
[2016-12-12] MEDS: CIPROFLOXACIN 500 MG TAB GTB SCH (17:13)
[2016-12-12 19:30] VITALS: BP 144/98; RESP 18
[2016-12-12] MEDS: MONTELUKAST 10 MG TAB PO SCH (20:27)
[2016-12-12] MEDS: ATORVASTATIN 40 MG TAB PO SCH (20:27)
[2016-12-12] MEDS: CLINDAMYCIN 1% 30 GM GEL TOP SCH (20:27)
[2016-12-12] MEDS: ROPINIROLE 0.25 MG TAB PO SCH (20:27)
[2016-12-12] MEDS: LACTOBACILLUS CHEW TAB PO SCH (20:27)
--- NOTE | 2016-12-12 23:34 | CONS ---
Date/Time of Note Date/Time of Note DATE: 12/12/16 TIME: 23:33 Assessment/Plan Assessment/Plan Chief Complaint/Hosp Course LLE WOUND, INFECTED acute left lower extremity cellulitis and venous stasis. CONT CURRENT TREATMENT MONITOR CULTURES WOUND CARE ID [id number]- Acute LLEXT Cellulitis Left lower extremity is erythematous and mildly tender. The lateral distal third of the wound is necrotic and has purulent drainage. * GRAM STAIN Final POLYMORPH. LEUKOCYTE 1+ GRAM NEGATIVE RODS RARE WOUND CULTURE Preliminary Organism 1 STAPHYLOCOCCUS AUREUS QUANTITY 2+ Vanco IV + Started on Levaquin IMPROVING MRSA Nares L shoulder pain LIDODERM PATCH Adult-onset diabetes mellitus. ACCU CHECK ISS PVD VASC SURGERY EVAL Hypertension. CONT CURRENT MEDS Dyslipidemia. Coronary artery disease. Anemia of chronic disease. GERD. Chronic venous stasis of lower extremities HX left lower extremity cellulitis. Problems: Consultation Date/Type/Reason Admit Date/Time Dec 06, 2016 at 16:27 Initial Consult Date 12.06.16 Type of Consultation: [facility] Referring Provider: GISSELLE EVANS MD 24 HR Interval Summary Free Text/Dictation ALL NOTED D/W DR MIJARES [facility] SURGERY CALLED Exam/Review of Systems Vital Signs Vitals Vital Signs Date Time Temp Pulse Resp B/P Pulse Ox O2 Delivery O2 Flow Rate FiO2 12/12/16 19:30 97.7 99 18 144/98 97 12/12/16 18:16 2.0 12/12/16 18:12 21 Intake and Output 12/11/16 12/11/16 12/12/16 15:00 23:00 07:00 Intake Total 720 ml 600 ml Output Total 1050 ml 1400 ml Balance -330 ml -800 ml Exam HEENT: Head is normocephalic. NECK: Supple. HEART: Regular rate. LUNGS: Show diminished breath sounds at base. ABDOMEN: Soft, nontender to palpation without rebound or guarding. EXTREMITIES: Negative for clubbing, cyanosis, or edema on her right leg. Left leg has noted wound with surrounding erythema, improved. NEUROLOGIC: No change in exam. Results Result Diagram: 12/08/16 1012 12/08/16 1012 Results 24 hrs Laboratory Tests Test 12/12/16 11:37 12/12/16 16:49 12/12/16 20:26 Bedside Glucose 204 132 135 Medications Medications Current Medications Ondansetron HCl (Zofran Tab) 4 mg Q6H PRN PO NAUSEA AND/OR VOMITING; Start 12/06 at 22:00 Ondansetron HCl (Zofran Inj) 4 mg Q6H PRN IV NAUSEA AND/OR VOMITING; Start 12/06 at 22:00 Acetaminophen (Tylenol Tab) 650 mg Q6H PRN PO PAIN LEVEL 1-3 OR FEVER Last administered on 12/09/16 08:26; Admin Dose 650 MG; Start 12/06/16 at 22:00 Acetaminophen/ Hydrocodone Bitart ([place] (5/325)) 1 tab Q6H PRN PO MODERATE PAIN LEVEL 4-6 Last administered on 12/12/16 00:20; Admin Dose 1 TAB; Start 12/06/16 at 22:00 Docusate Sodium (Colace) 100 mg Q12H PRN PO CONSTIPATION; Start 12/06/16 at 22: 00 Magnesium Hydroxide (Milk Of Mag) 30 ml DAILY PRN PO CONSTIPATION; Start at 22:00 Bisacodyl (Dulcolax) 5 mg DAILY PRN PO CONSTIPATION; Start 12/06/16 at 22:00 Bisacodyl (Dulcolax Supp) 10 mg DAILY PRN [place] CONSTIPATION; Start 12/06/16 at 22: 00 Sodium Biphosphate/ Sodium Phosphate (Fleet Enema) 133 ml DAILY PRN [place] CONSTIPATION; Start 12/06/16 at 22:00 Famotidine (Pepcid) 20 mg Q12 PO Last administered on 12/12/16 20:27; Admin Dose 20 MG; Start 12/07/16 at 09:00 Enoxaparin Sodium (Lovenox) 40 mg DAILY SC Last administered on 12/09/16 08:26 ; Admin Dose 40 MG; Start 12/07/16 at 09:00 Diagnostic Test (Pha) (Accu-Chek) 1 ea 02 XX ; Start 12/08/16 at 02:00 Miscellaneous Information 1 ea NOTE XX ; Start 12/07/16 at 09:30 Glucose (Glutose) 15 gm Q15M PRN PO DECREASED GLUCOSE; Start 12/07/16 at 09:30 Glucose (Glutose) 22.5 gm Q15M PRN PO DECREASED GLUCOSE; Start 12/07/16 at 09:30 Dextrose (D50w Syringe) 25 ml Q15M PRN IV DECREASED GLUCOSE; Start 12/07/16 at 09:30 Dextrose (D50w Syringe) 50 ml Q15M PRN IV DECREASED GLUCOSE; Start 12/07/16 at 09:30 Glucagon (Glucagen) 1 mg Q15M PRN IM DECREASED GLUCOSE; Start 12/07/16 at 09:30 Glucose (Glutose) 15 gm Q15M PRN BUCCAL DECREASED GLUCOSE; Start 12/07/16 at 09: 30 Atorvastatin Calcium (Lipitor) 40 mg HS PO Last administered on 12/12/16 20:27 ; Admin Dose 40 MG; Start 12/07/16 at 21:00 Clopidogrel Bisulfate (plaVIX) 75 mg DAILY PO Last administered on 12/12/16 08 :38; Admin Dose 75 MG; Start 12/07/16 at 11:00 Diphenhydramine HCl (Benadryl) 25 mg TID PRN PO ITCHING Last administered on 20:31; Admin Dose 25 MG; Start 12/07/16 at 09:30 Ibuprofen (Motrin) 600 mg BID PRN PO PAIN; Start 12/07/16 at 09:30 Montelukast Sodium (Singulair) 10 mg HS PO Last administered on 12/12/16 20:27 ; Admin Dose 10 MG; Start 12/07/16 at 21:00 Nystatin (Nystatin Powder) 1 applic BID TOP Last administered on 12/12/16 20: 27; Admin Dose 1 APPLIC; Start 12/07/16 at 11:00 Paroxetine HCl (Paxil) 10 mg DAILY PO Last administered on 12/12/16 08:38; Admin Dose 10 MG; Start 12/07/16 at 11:00 Ropinirole HCl (Requip) 0.25 mg QHS PO Last administered on 12/12/16 20:27; Admin Dose 0.25 MG; Start 12/07/16 at 21:00 Valsartan (Diovan) 80 mg DAILY PO Last administered on 12/12/16 08:38; Admin Dose 80 MG; Start 12/07/16 at 10:00 Zolpidem Tartrate (Ambien) 5 mg HS PRN PO INSOMNIA; Start 12/07/16 at 09:30 Silver Sulfadiazine (Thermazene 1% 25 Gm) 1 applic BID TOP Last administered on 12/12/16 20:28; Admin Dose 1 APPLIC; Start 12/07/16 at 11:00 Guaifenesin/ Dextromethorphan (Robitussin Dm Liquid Cup) 10 ml Q4H PRN PO cough Last administered on 12/09/16 11:27; Admin Dose 10 ML; Start 12/08/16 at 11 :00 Lidocaine (Lidoderm) 1 patch DAILY TD Last administered on 12/12/16 08:37; Admin Dose 1 PATCH; Start 12/09/16 at 21:00 Ciprofloxacin (Cipro) 500 mg BID@06,18 GTB Last administered on 12/12/16 17:13 ; Admin Dose 500 MG; Start 12/12/16 at 18:00 Clindamycin Phosphate (Clindamycin 1% Gel) 1 applic BID TOP Last administered on 12/12/16 20:27; Admin Dose 1 APPLIC; Start 12/12/16 at 21:00 Lactobacillus Acidoph/Bulgaricus (Floranex) 1 tab BID PO Last administered on 20:27; Admin Dose 1 TAB; Start 12/12/16 at 21:00 BLUE JIMÉNEZ MD Dec 12, 2016 23:34
[2016-12-13] MEDS: ACCU-CHEK XX SCH (02:00)
[2016-12-13] MEDS: CIPROFLOXACIN 500 MG TAB GTB SCH ×2 (05:34→17:10)
[2016-12-13 07:53] VITALS: BP 103/96; RESP 16
[2016-12-13] MEDS: INSULIN ASPART [NOVOLOG] 3 ML PEN SC SCH ×4 (07:53→20:16)
[2016-12-13] MEDS: VALSARTAN 80 MG TAB PO SCH (08:07)
[2016-12-13] MEDS: CLOPIDOGREL 75 MG TAB PO SCH (08:11)
[2016-12-13] MEDS: LACTOBACILLUS CHEW TAB PO SCH ×2 (08:11→20:16)
[2016-12-13] MEDS: metFORMIN 500 MG TAB PO SCH ×2 (08:11→17:32)
[2016-12-13] MEDS: FAMOTIDINE 20 MG TAB PO SCH ×2 (08:11→20:16)
[2016-12-13] MEDS: PAROXETINE 10 MG TAB PO SCH (08:11)
[2016-12-13] MEDS: ENOXAPARIN 40 MG/0.4 ML SYG SC SCH (08:12)
[2016-12-13] MEDS: LIDOCAINE 5% PATCH TD SCH (08:12)
[2016-12-13] MEDS: CLINDAMYCIN 1% 30 GM GEL TOP SCH (10:58)
[2016-12-13] MEDS: NYSTATIN 30 GM POWDER BTL TOP SCH ×2 (10:58→20:17)
[2016-12-13] MEDS: SILVER SULFADIAZINE 1% 25 GM CR TOP SCH (10:58)
[2016-12-13] MEDS: ALBUTEROL HFA 8 GM INHALER INH PRN (11:04)
--- NOTE | 2016-12-13 11:23 | PN ---
DATE: 12/13/2016 SUBJECTIVE: The patient is stable, no acute events overnight. The patient is arousable. The patie nt has refused blood draws. The patient is refusing insulin. No other events noted. OBJECTIVE: VITAL SIGNS: Blood pressure 103/96, respirations 16, pulse 87, temperature 97.7. HEENT: Head is normocephalic. NECK: Supple. HEART: Regular rate. LUNGS: Show diminished breath sounds at the base. ABDOMEN: Soft, nontender to palpation without rebound or guarding. EXTREMITIES: The patient has a noted wound on the left lower leg with surrounding erythema that has improved. DERMATOLOGIC: No rashes. MUSCULOSKELETAL: No joint effusions. NEUROLOGIC: No change in exam. MEDICATIONS: Have been reviewed. LABORATORY DATA: Have been reviewed. ASSESSMENT AND PLAN: 1. Cellulitis, left lower extremity. The patient is currently stable. Continue current medical re gimen. 2. Left lower extremity venous stasis wound. The patient's wound appears to be stable. A vascular surgical consult was placed for Dr. Louise for evaluation to see if debridement is necessary. O therwise, continue current treatment plan. 3. Diabetes. Continue current insulin regimen. 4. Hypertension. Continue current blood pressure regimen. 5. Continue statin therapy. 6. History of coronary artery disease. Continue current medical management. 7. Anemia. Continue to monitor hemoglobin and hematocrit levels. 8. Restless legs syndrome. Continue Requip. 9. Depression. Continue Paxil. 10. Gastrointestinal and deep venous thrombosis prophylaxis. Continue Pepcid and Lovenox. Dictated By: YISSEL CAMARGO/FRACISCO Conf#: [id number] DID#: [id number]
[2016-12-13] MEDS: ALBUTEROL 0.083% (NEB) 2.5 MG/3 ML AMP HHN PRN ×2 (13:38→22:12)
--- NOTE | 2016-12-13 14:47 | CONS ---
Date/Time of Note Date/Time of Note DATE: 12/13/16 TIME: 14:46 Assessment/Plan Assessment/Plan Chief Complaint/Hosp Course SUBJECTIVE: No acute changes. Looks comfortable. No fevers ANTIMICROBIALS: Cipro, topical Clindamycin PHYSICAL EXAMINATION: GENERAL: Morbidly obese, middle-aged woman who is in no distress. HEENT: Head atraumatic, normocephalic. Sclerae anicteric. Buccal mucosa dry. NECK: Supple, trachea midline. CHEST: Rise symmetrical. Breath sounds diminished to bases. HEART: S1, S2. ABDOMEN: Soft, bowel tones present. EXTREMITIES: With bilateral edema, chronic lymphedema, left lower extremity open wound. ASSESSMENT: 1. Bilateral lower extremities, acute on chronic cellulitis with left lower extremity nonhealing chronic wound, cultures growing oxacillin-sensitive Staphylococcus aureus. 2. Pancolitis. 3. Diabetes. 4. Obesity. PLAN: The patient remained stable, continue abx, local wound care, probiotics, topical Clindamycin DW staff Problems: Consultation Date/Type/Reason Admit Date/Time Dec 06, 2016 at 16:27 Type of Consultation: id Referring Provider: GISSELLE EVANS MD Exam/Review of Systems Vital Signs Vitals Vital Signs Date Time Temp Pulse Resp B/P Pulse Ox O2 Delivery O2 Flow Rate FiO2 12/13/16 14:01 2.0 12/13/16 13:37 90 20 98 Nasal Cannula 12/13/16 07:53 97.7 103/96 12/12/16 18:12 21 Intake and Output 12/12/16 12/12/16 12/13/16 15:00 23:00 07:00 Intake Total 1120 ml 360 ml Output Total 800 ml Balance 320 ml 360 ml Results Results 24 hrs Laboratory Tests Test 12/12/16 16:49 12/12/16 20:26 12/13/16 07:50 12/13/16 11:09 Bedside Glucose 132 135 161 153 Medications Medications Current Medications Ondansetron HCl (Zofran Tab) 4 mg Q6H PRN PO NAUSEA AND/OR VOMITING; Start 12/06 at 22:00 Ondansetron HCl (Zofran Inj) 4 mg Q6H PRN IV NAUSEA AND/OR VOMITING; Start 12/06 at 22:00 Acetaminophen (Tylenol Tab) 650 mg Q6H PRN PO PAIN LEVEL 1-3 OR FEVER Last administered on 12/09/16 08:26; Admin Dose 650 MG; Start 12/06/16 at 22:00 Acetaminophen/ Hydrocodone Bitart ([place] (5/325)) 1 tab Q6H PRN PO MODERATE PAIN LEVEL 4-6 Last administered on 12/12/16 00:20; Admin Dose 1 TAB; Start 12/06/16 at 22:00 Docusate Sodium (Colace) 100 mg Q12H PRN PO CONSTIPATION; Start 12/06/16 at 22: 00 Magnesium Hydroxide (Milk Of Mag) 30 ml DAILY PRN PO CONSTIPATION; Start at 22:00 Bisacodyl (Dulcolax) 5 mg DAILY PRN PO CONSTIPATION; Start 12/06/16 at 22:00 Bisacodyl (Dulcolax Supp) 10 mg DAILY PRN [place] CONSTIPATION; Start 12/06/16 at 22: 00 Sodium Biphosphate/ Sodium Phosphate (Fleet Enema) 133 ml DAILY PRN [place] CONSTIPATION; Start 12/06/16 at 22:00 Famotidine (Pepcid) 20 mg Q12 PO Last administered on 12/13/16 08:11; Admin Dose 20 MG; Start 12/07/16 at 09:00 Enoxaparin Sodium (Lovenox) 40 mg DAILY SC Last administered on 12/09/16 08:26 ; Admin Dose 40 MG; Start 12/07/16 at 09:00 Diagnostic Test (Pha) (Accu-Chek) 1 ea 02 XX ; Start 12/08/16 at 02:00 Miscellaneous Information 1 ea NOTE XX ; Start 12/07/16 at 09:30 Glucose (Glutose) 15 gm Q15M PRN PO DECREASED GLUCOSE; Start 12/07/16 at 09:30 Glucose (Glutose) 22.5 gm Q15M PRN PO DECREASED GLUCOSE; Start 12/07/16 at 09:30 Dextrose (D50w Syringe) 25 ml Q15M PRN IV DECREASED GLUCOSE; Start 12/07/16 at 09:30 Dextrose (D50w Syringe) 50 ml Q15M PRN IV DECREASED GLUCOSE; Start 12/07/16 at 09:30 Glucagon (Glucagen) 1 mg Q15M PRN IM DECREASED GLUCOSE; Start 12/07/16 at 09:30 Glucose (Glutose) 15 gm Q15M PRN BUCCAL DECREASED GLUCOSE; Start 12/07/16 at 09: 30 Atorvastatin Calcium (Lipitor) 40 mg HS PO Last administered on 12/12/16 20:27 ; Admin Dose 40 MG; Start 12/07/16 at 21:00 Clopidogrel Bisulfate (plaVIX) 75 mg DAILY PO Last administered on 12/13/16 08 :11; Admin Dose 75 MG; Start 12/07/16 at 11:00 Diphenhydramine HCl (Benadryl) 25 mg TID PRN PO ITCHING Last administered on 20:31; Admin Dose 25 MG; Start 12/07/16 at 09:30 Ibuprofen (Motrin) 600 mg BID PRN PO PAIN; Start 12/07/16 at 09:30 Montelukast Sodium (Singulair) 10 mg HS PO Last administered on 12/12/16 20:27 ; Admin Dose 10 MG; Start 12/07/16 at 21:00 Nystatin (Nystatin Powder) 1 applic BID TOP Last administered on 12/13/16 10: 58; Admin Dose 1 APPLIC; Start 12/07/16 at 11:00 Paroxetine HCl (Paxil) 10 mg DAILY PO Last administered on 12/13/16 08:11; Admin Dose 10 MG; Start 12/07/16 at 11:00 Ropinirole HCl (Requip) 0.25 mg QHS PO Last administered on 12/12/16 20:27; Admin Dose 0.25 MG; Start 12/07/16 at 21:00 Valsartan (Diovan) 80 mg DAILY PO Last administered on 12/12/16 08:38; Admin Dose 80 MG; Start 12/07/16 at 10:00 Zolpidem Tartrate (Ambien) 5 mg HS PRN PO INSOMNIA; Start 12/07/16 at 09:30 Silver Sulfadiazine (Thermazene 1% 25 Gm) 1 applic BID TOP Last administered on 12/13/16 10:58; Admin Dose 1 APPLIC; Start 12/07/16 at 11:00 Guaifenesin/ Dextromethorphan (Robitussin Dm Liquid Cup) 10 ml Q4H PRN PO cough Last administered on 12/09/16 11:27; Admin Dose 10 ML; Start 12/08/16 at 11 :00 Lidocaine (Lidoderm) 1 patch DAILY TD Last administered on 12/13/16 08:12; Admin Dose 1 PATCH; Start 12/09/16 at 21:00 Ciprofloxacin (Cipro) 500 mg BID@06,18 GTB Last administered on 12/13/16 05:34 ; Admin Dose 500 MG; Start 12/12/16 at 18:00 Clindamycin Phosphate (Clindamycin 1% Gel) 1 applic BID TOP Last administered on 12/13/16 10:58; Admin Dose 1 APPLIC; Start 12/12/16 at 21:00 Lactobacillus Acidoph/Bulgaricus (Floranex) 1 tab BID PO Last administered on 08:11; Admin Dose 1 TAB; Start 12/12/16 at 21:00 QUETA PARK NP Dec 13, 2016 14:47
--- NOTE | 2016-12-13 17:18 | HP ---
DATE OF ADMISSION: 12/06/2016 TYPE OF CONSULTATION: Vascular surgery consultation. Dear Doctors: Ms. Ellison is a 51-year-old female with a plethora of medical conditions known to our vascular surg derek service secondary to longstanding history of bilateral lower extremity venous insufficiency and a left lower extremity venous stasis ulcer (CEAP classification 6), whom had been following up with us regarding to her local wound care. This wound originally was significantly large and gaping in s [facility] and we have been managing it over the past few months with local wound care and wound VAC therap y. The patient's wound has come along really well and essentially has almost healed. Unfortunately , she now presents with lower extremity cellulitis of the left lower extremity and was admitted for IV antibiotics. At the moment, the patient denies shortness of breath, chest pain, nausea, vomiting , fever or chills. She denies lower extremity rest pain or discomfort. PAST MEDICAL HISTORY: Entails diabetes, hypertension, dyslipidemia, coronary artery disease, anemia of chronic disease, GERD, bilateral lower extremity venous insufficiency with chronic venous stasis ulcer of lower extremities, recurrent cellulitis, morbidly obese, wheelchair bound, nonambulatory. PAST SURGICAL HISTORY: Multiple debridements of the left lower extremity, peripheral neuropathy, hy poventilation syndrome, COPD. FAMILY HISTORY: Positive for hypertension, coronary artery disease. SOCIAL HISTORY: Smoker. Denies alcohol or illicit drug abuse. PHYSICAL EXAMINATION: GENERAL: Alert and oriented x3, no apparent distress. HEENT: Normocephalic, atraumatic. Poor dentition. Mucosa moist. NECK: Supple. No carotid bruit. PULMONARY: Clear to auscultation bilaterally. No crackles. CARDIOVASCULAR: S1, S2 present. No murmurs. ABDOMEN: Soft, nontender, nondistended. Bowel sounds positive. Large truncal obesity. RIGHT LOWER EXTREMITY: Unable to palpate the femoral pulse secondary to body habitus. Nonpalpable pedal pulses secondary to edema and body habitus. Motor, sensory is intact, although the patient no t very mobile at her knee joint and her hip. Capillary refill about 3 seconds. She does have edema of about 2+. LEFT LOWER EXTREMITY: Unable to palpate the femoral pulse secondary to body habitus. Unable to pal aaron the pedal pulses secondary to edema. Motor, sensory is limited secondary to patient not being very mobile at the knee or the hip. The patient has been wheelchair bound for a long period of time . Capillary refill 3 to 4 seconds. There is a ramirez ulcer that has decreased in size tremendously m easuring 5 x 1 x 0.3 cm with some surrounding erythema. The wound essentially almost healed with a dry scab and some fibrinous tissue, edema 2 to 3+. ASSESSMENT AND PLAN: Bilateral lower extremity venous insufficiency and chronic venous stasis ulcer (CEAP classification 6). the patient has developed a new recurrent left lower extremity malcom lulitis in the vicinity of her venous stasis ulcer. At the moment, the patient has been managed wit h local wound care and compression dressings, although I am concerned that the patient has been comp liant recently as she has significant edema. The wound, although it has scabs and some fibrinous ti ssue, it is mostly clean and no further surgical intervention would be needed. We will plan to plac e the patient on an Aquacel silver or a Azul silver specialty dressings in order to facilitate the remainder of the wound to close. Would recommend for the patient to have 14 days of IV antibiotics and follow up with us in our [facility] wound clinic in about a week to 2 weeks. Discussed vascular optimization (BP meds, diet and nutrition, exercise, sugar control, weight loss, antiplatelets). Discussed findings, plan and management with the patient and she understands. Thank you for allowing us to partake in the care of your patient. Please call with any questions. Dictated By: BACILIO ANTUNEZ/FRACISCO Conf#: [id number] DID#: [id number]
[2016-12-13] MEDS: HYDROCODONE/APAP (5/325) TAB PO PRN (17:36)
--- NOTE | 2016-12-13 18:28 | RADRPT ---
PROCEDURE: US bilateral lower extremity arteries. CLINICAL INDICATION: Bilateral leg pain. Claudication that interferes significantly with the janee ent's lifestyle. Left calf nonhealing ulcer and gangrene. TECHNIQUE: Multiple longitudinal and transverse images of the bilateral lower extremity arteries w ere obtained with abdul scale, pulsed Doppler, and color Doppler imaging. COMPARISON: No prior studies are available for comparison. FINDINGS: Right DRAINMAN:71 cm/sec PSFA:71 cm/sec MSFA:93 cm/sec DSFA:88 cm/sec POP:54 cm/sec WASTE PICKER:75 cm/sec DPA:27 cm/sec Left DRAINMAN:56 cm/sec PSFA:84 cm/sec MSFA:83 cm/sec DSFA:82 cm/sec POP:53 cm/sec WASTE PICKER:61 cm/sec DPA:39 cm/sec The right ankle-brachial index is 1.2 and the left ankle-brachial index is unobtainable due to patie nt inability to tolerate the blood pressure cuff. There is normal triphasic flow throughout the vadim rial system bilaterally. Mild plaque is present in the superficial femoral arteries bilaterally. IMPRESSION: 1. Mild plaque formation without evidence for hemodynamically significant stenosis or occlusion. RPTAT: QQ .Brian Wood MD, MD Date Time Electronically viewed and signed by .Brian Wood MD, on 12/13/2016 18:27 .R/
--- NOTE | 2016-12-13 19:29 | CONS ---
Date/Time of Note Date/Time of Note DATE: 12/13/16 TIME: 19:29 Assessment/Plan Assessment/Plan Chief Complaint/Hosp Course LLE WOUND, INFECTED acute left lower extremity cellulitis and venous stasis. CONT CURRENT TREATMENT MONITOR CULTURES WOUND CARE ID F-UP- Acute LLEXT Cellulitis Left lower extremity is erythematous and mildly tender. The lateral distal third of the wound is necrotic and has purulent drainage. * GRAM STAIN Final POLYMORPH. LEUKOCYTE 1+ GRAM NEGATIVE RODS RARE WOUND CULTURE Preliminary Organism 1 STAPHYLOCOCCUS AUREUS QUANTITY 2+ POST Vanco IV + Started on Levaquin IMPROVING- ON Cipro, topical Clindamycin MRSA Nares L shoulder pain LIDODERM PATCH Adult-onset diabetes mellitus. ACCU CHECK ISS PVD VASC SURGERY EVAL Hypertension. CONT CURRENT MEDS Dyslipidemia. Coronary artery disease. Anemia of chronic disease. GERD. Chronic venous stasis of lower extremities HX left lower extremity cellulitis. WILL D/W PT HOME VS SNF FOR WOUND CARE Problems: Consultation Date/Type/Reason Admit Date/Time Dec 06, 2016 at 16:27 Initial Consult Date 12.06.16 Type of Consultation: [facility] Referring Provider: GISSELLE EVANS MD 24 HR Interval Summary Free Text/Dictation ALL NOTED PER VASCULAR- Bilateral lower extremity venous insufficiency and chronic venous stasis ulcer (CEAP classification 6). the patient has developed a new recurrent left lower extremity cellulitis in the vicinity of her venous stasis ulcer. At the moment, the patient has been managed with local wound care and compression dressings, although I am concerned that the patient has been compliant recently as she has significant edema. The wound, although it has scabs and some fibrinous tissue, it is mostly clean and no further surgical intervention would be needed. We will plan to place the patient on an Aquacel silver or a Azul silver specialty dressings in order to facilitate the remainder of the wound to close. Would recommend for the patient to have 14 days of IV antibiotics and follow up with us in our outpatient wound clinic in about a week to 2 weeks. PT WANT TO GO HOME Exam/Review of Systems Vital Signs Vitals Vital Signs Date Time Temp Pulse Resp B/P Pulse Ox O2 Delivery O2 Flow Rate FiO2 12/13/16 14:01 2.0 12/13/16 13:37 90 20 98 Nasal Cannula 12/13/16 07:53 97.7 103/96 12/12/16 18:12 21 Intake and Output 12/12/16 12/12/16 12/13/16 15:00 23:00 07:00 Intake Total 1120 ml 360 ml Output Total 800 ml Balance 320 ml 360 ml Exam ANTIMICROBIALS: Cipro, topical Clindamycin PHYSICAL EXAMINATION: GENERAL: Morbidly obese, middle-aged woman who is in no distress. HEENT: Head atraumatic, normocephalic. Sclerae anicteric. Buccal mucosa dry. NECK: Supple, trachea midline. CHEST: Rise symmetrical. Breath sounds diminished to bases. HEART: S1, S2. ABDOMEN: Soft, bowel tones present. EXTREMITIES: With bilateral edema, chronic lymphedema, left lower extremity open wound.- LOOKS BETTER Results Results 24 hrs Laboratory Tests Test 12/12/16 20:26 12/13/16 07:50 12/13/16 11:09 12/13/16 17:06 Bedside Glucose 135 161 153 151 Medications Medications Current Medications Ondansetron HCl (Zofran Tab) 4 mg Q6H PRN PO NAUSEA AND/OR VOMITING; Start 12/06 at 22:00 Ondansetron HCl (Zofran Inj) 4 mg Q6H PRN IV NAUSEA AND/OR VOMITING; Start 12/06 at 22:00 Acetaminophen (Tylenol Tab) 650 mg Q6H PRN PO PAIN LEVEL 1-3 OR FEVER Last administered on 12/09/16 08:26; Admin Dose 650 MG; Start 12/06/16 at 22:00 Acetaminophen/ Hydrocodone Bitart ([place] (5/325)) 1 tab Q6H PRN PO MODERATE PAIN LEVEL 4-6 Last administered on 12/13/16 17:36; Admin Dose 1 TAB; Start 12/06/16 at 22:00 Docusate Sodium (Colace) 100 mg Q12H PRN PO CONSTIPATION; Start 12/06/16 at 22: 00 Magnesium Hydroxide (Milk Of Mag) 30 ml DAILY PRN PO CONSTIPATION; Start at 22:00 Bisacodyl (Dulcolax) 5 mg DAILY PRN PO CONSTIPATION; Start 12/06/16 at 22:00 Bisacodyl (Dulcolax Supp) 10 mg DAILY PRN [place] CONSTIPATION; Start 12/06/16 at 22: 00 Sodium Biphosphate/ Sodium Phosphate (Fleet Enema) 133 ml DAILY PRN [place] CONSTIPATION; Start 12/06/16 at 22:00 Famotidine (Pepcid) 20 mg Q12 PO Last administered on 12/13/16 08:11; Admin Dose 20 MG; Start 12/07/16 at 09:00 Enoxaparin Sodium (Lovenox) 40 mg DAILY SC Last administered on 12/09/16 08:26 ; Admin Dose 40 MG; Start 12/07/16 at 09:00 Diagnostic Test (Pha) (Accu-Chek) 1 ea 02 XX ; Start 12/08/16 at 02:00 Miscellaneous Information 1 ea NOTE XX ; Start 12/07/16 at 09:30 Glucose (Glutose) 15 gm Q15M PRN PO DECREASED GLUCOSE; Start 12/07/16 at 09:30 Glucose (Glutose) 22.5 gm Q15M PRN PO DECREASED GLUCOSE; Start 12/07/16 at 09:30 Dextrose (D50w Syringe) 25 ml Q15M PRN IV DECREASED GLUCOSE; Start 12/07/16 at 09:30 Dextrose (D50w Syringe) 50 ml Q15M PRN IV DECREASED GLUCOSE; Start 12/07/16 at 09:30 Glucagon (Glucagen) 1 mg Q15M PRN IM DECREASED GLUCOSE; Start 12/07/16 at 09:30 Glucose (Glutose) 15 gm Q15M PRN BUCCAL DECREASED GLUCOSE; Start 12/07/16 at 09: 30 Atorvastatin Calcium (Lipitor) 40 mg HS PO Last administered on 12/12/16 20:27 ; Admin Dose 40 MG; Start 12/07/16 at 21:00 Clopidogrel Bisulfate (plaVIX) 75 mg DAILY PO Last administered on 12/13/16 08 :11; Admin Dose 75 MG; Start 12/07/16 at 11:00 Diphenhydramine HCl (Benadryl) 25 mg TID PRN PO ITCHING Last administered on 20:31; Admin Dose 25 MG; Start 12/07/16 at 09:30 Ibuprofen (Motrin) 600 mg BID PRN PO PAIN; Start 12/07/16 at 09:30 Montelukast Sodium (Singulair) 10 mg HS PO Last administered on 12/12/16 20:27 ; Admin Dose 10 MG; Start 12/07/16 at 21:00 Nystatin (Nystatin Powder) 1 applic BID TOP Last administered on 12/13/16 10: 58; Admin Dose 1 APPLIC; Start 12/07/16 at 11:00 Paroxetine HCl (Paxil) 10 mg DAILY PO Last administered on 12/13/16 08:11; Admin Dose 10 MG; Start 12/07/16 at 11:00 Ropinirole HCl (Requip) 0.25 mg QHS PO Last administered on 12/12/16 20:27; Admin Dose 0.25 MG; Start 12/07/16 at 21:00 Valsartan (Diovan) 80 mg DAILY PO Last administered on 12/12/16 08:38; Admin Dose 80 MG; Start 12/07/16 at 10:00 Zolpidem Tartrate (Ambien) 5 mg HS PRN PO INSOMNIA; Start 12/07/16 at 09:30 Guaifenesin/ Dextromethorphan (Robitussin Dm Liquid Cup) 10 ml Q4H PRN PO cough Last administered on 12/09/16 11:27; Admin Dose 10 ML; Start 12/08/16 at 11 :00 Lidocaine (Lidoderm) 1 patch DAILY TD Last administered on 12/13/16 08:12; Admin Dose 1 PATCH; Start 12/09/16 at 21:00 Ciprofloxacin (Cipro) 500 mg BID@06,18 GTB Last administered on 12/13/16 17:10 ; Admin Dose 500 MG; Start 12/12/16 at 18:00 Lactobacillus Acidoph/Bulgaricus (Floranex) 1 tab BID PO Last administered on 08:11; Admin Dose 1 TAB; Start 12/12/16 at 21:00 BLUE JIMÉNEZ MD Dec 13, 2016 19:29
[2016-12-13] MEDS: MONTELUKAST 10 MG TAB PO SCH (20:16)
[2016-12-13] MEDS: ATORVASTATIN 40 MG TAB PO SCH (20:16)
[2016-12-13 20:17] VITALS: BP 172/94; RESP 19
[2016-12-13] MEDS: ROPINIROLE 0.25 MG TAB PO SCH (20:27)
[2016-12-13 20:30] VITALS: BP 152/68; PULSE 95
[2016-12-13] MEDS: DIPHENHYDRAMINE 25 MG CAP PO PRN (20:31)
[2016-12-14] MEDS: ACCU-CHEK XX SCH (02:00)
[2016-12-14] MEDS: CIPROFLOXACIN 500 MG TAB GTB SCH ×2 (05:28→06:00)
[2016-12-14 07:10] VITALS: BP 132/89; RESP 16
[2016-12-14] MEDS: INSULIN ASPART [NOVOLOG] 3 ML PEN SC SCH (08:00)
[2016-12-14] MEDS: metFORMIN 500 MG TAB PO SCH (08:36)
[2016-12-14] MEDS: ENOXAPARIN 40 MG/0.4 ML SYG SC SCH (08:37)
[2016-12-14] MEDS: LIDOCAINE 5% PATCH TD SCH (08:37)
[2016-12-14] MEDS: CLOPIDOGREL 75 MG TAB PO SCH (08:37)
[2016-12-14] MEDS: FAMOTIDINE 20 MG TAB PO SCH (08:37)
[2016-12-14] MEDS: VALSARTAN 80 MG TAB PO SCH (08:37)
[2016-12-14] MEDS: PAROXETINE 10 MG TAB PO SCH (08:37)
[2016-12-14] MEDS: LACTOBACILLUS CHEW TAB PO SCH (08:37)
[2016-12-14] MEDS: NYSTATIN 30 GM POWDER BTL TOP SCH (08:38)
[2016-12-14] MEDS: DIPHENHYDRAMINE 25 MG CAP PO PRN (08:43)
--- NOTE | 2016-12-14 10:53 | PN ---
Date/Time of Note Date/Time of Note DATE: 12/14/16 TIME: 10:52 Assessment/Plan Lines/Catheters IV Catheter Type (from [facility]): [facility] (from [facility]): No Assessment/Plan Chief Complaint/Hosp Course -Bilateral lower extremity venous insufficiency and chronic venous stasis ulcer (CEAP classification 6). It seems the patient has developed a new recurrent left lower extremity cellulitis in the vicinity of her venous stasis ulcer. At the moment, the patient has been managed with local wound care and compression dressings, although I am concerned that the patient has been compliant recently as she has significant edema. The wound, although it has scabs and some fibrinous tissue, it is mostly clean and no further surgical intervention would be needed. We will plan to place the patient on an Aquacel silver or a Azul silver specialty dressings in order to facilitate the remainder of the wound to close. -Would recommend for the patient to have 14 days of PO antibiotics and follow up with us in our outpatient wound clinic in about a week to 2 weeks. -Discussed vascular optimization (BP meds, diet and nutrition, exercise, sugar control, weight loss, antiplatelets). -Discussed findings, plan and management with the patient and she understands. -Thank you for allowing us to partake in the care of your patient. Please call with any questions. Problems: Subjective 24 Hr Interval Summary no new vascular events overnight Exam/Review of Systems Vital Signs Vitals Vital Signs Date Time Temp Pulse Resp B/P Pulse Ox O2 Delivery O2 Flow Rate FiO2 12/14/16 07:10 97.8 94 16 132/89 98 12/13/16 22:13 21 12/13/16 14:01 2.0 12/13/16 13:37 Nasal Cannula Intake and Output 12/13/16 12/13/16 12/14/16 15:00 23:00 07:00 Intake Total 1680 ml 480 ml Balance 1680 ml 480 ml Exam Free Text/Dictation GENERAL: Alert and oriented x3, PULMONARY: Clear to auscultation bilaterally. No crackles. CARDIOVASCULAR: S1, S2 present. No murmurs. ABDOMEN: Soft, nontender, nondistended. Bowel sounds positive. Large truncal obesity. RIGHT LOWER EXTREMITY: Unable to palpate the femoral pulse secondary to body habitus. Nonpalpable pedal pulses secondary to edema and body habitus. Motor, sensory is intact, although the patient not very mobile at her knee joint and her hip. Capillary refill about 3 seconds. She does have edema of about 2+. LEFT LOWER EXTREMITY: Unable to palpate the femoral pulse secondary to body habitus. Unable to palpate the pedal pulses secondary to edema. Motor, sensory is limited secondary to patient not being very mobile at the knee or the hip. The patient has been wheelchair bound for a long period of time. Capillary refill 3 to 4 seconds. There is a ramirez ulcer that has decreased in size tremendously measuring 5 x 1 x 0.3 cm with some surrounding erythema. The wound essentially almost healed with a dry scab and some fibrinous tissue, edema 2 to 3+. BACILIO CHAPA MD Dec 14, 2016 10:53 BACILIO CHAPA MD Dec 14, 2016 10:53
--- NOTE | 2016-12-14 11:20 | CONS ---
Date/Time of Note Date/Time of Note DATE: 12/14/16 TIME: 11:20 Assessment/Plan Assessment/Plan Chief Complaint/Hosp Course LLE WOUND, INFECTED acute left lower extremity cellulitis and venous stasis. CONT CURRENT TREATMENT MONITOR CULTURES WOUND CARE ID F-UP- Acute LLEXT Cellulitis Left lower extremity is erythematous and mildly tender. The lateral distal third of the wound is necrotic and has purulent drainage. * GRAM STAIN Final POLYMORPH. LEUKOCYTE 1+ GRAM NEGATIVE RODS RARE WOUND CULTURE Preliminary Organism 1 STAPHYLOCOCCUS AUREUS QUANTITY 2+ POST Vanco IV + Started on Levaquin IMPROVING- ON Cipro, topical Clindamycin MRSA Nares L shoulder pain LIDODERM PATCH Adult-onset diabetes mellitus. ACCU CHECK ISS PVD VASC SURGERY EVAL Hypertension. CONT CURRENT MEDS Dyslipidemia. Coronary artery disease. Anemia of chronic disease. GERD. Chronic venous stasis of lower extremities HX left lower extremity cellulitis. WILL D/W PT HOME VS SNF FOR WOUND CARE Problems: Consultation Date/Type/Reason Admit Date/Time Dec 06, 2016 at 16:27 Initial Consult Date 12.06.16 Type of Consultation: [facility] Referring Provider: GISSELLE EVANS MD 24 HR Interval Summary Free Text/Dictation ALL NOTED IMPROVING GOING HOME ON ORAL AB AND WOUND CARE Exam/Review of Systems Vital Signs Vitals Vital Signs Date Time Temp Pulse Resp B/P Pulse Ox O2 Delivery O2 Flow Rate FiO2 12/14/16 07:10 97.8 94 16 132/89 98 12/13/16 22:13 21 12/13/16 14:01 2.0 12/13/16 13:37 Nasal Cannula Intake and Output 12/13/16 12/13/16 12/14/16 14:59 22:59 06:59 Intake Total 1680 ml 480 ml Balance 1680 ml 480 ml Results Results 24 hrs Laboratory Tests Test 12/13/16 17:06 12/13/16 20:15 Bedside Glucose 151 160 Medications Medications Current Medications Ondansetron HCl (Zofran Tab) 4 mg Q6H PRN PO NAUSEA AND/OR VOMITING; Start 12/06 at 22:00 Ondansetron HCl (Zofran Inj) 4 mg Q6H PRN IV NAUSEA AND/OR VOMITING; Start 12/06 at 22:00 Acetaminophen (Tylenol Tab) 650 mg Q6H PRN PO PAIN LEVEL 1-3 OR FEVER Last administered on 12/09/16 08:26; Admin Dose 650 MG; Start 12/06/16 at 22:00 Acetaminophen/ Hydrocodone Bitart ([place] (5/325)) 1 tab Q6H PRN PO MODERATE PAIN LEVEL 4-6 Last administered on 12/13/16 17:36; Admin Dose 1 TAB; Start 12/06/16 at 22:00 Docusate Sodium (Colace) 100 mg Q12H PRN PO CONSTIPATION; Start 12/06/16 at 22: 00 Magnesium Hydroxide (Milk Of Mag) 30 ml DAILY PRN PO CONSTIPATION; Start at 22:00 Bisacodyl (Dulcolax) 5 mg DAILY PRN PO CONSTIPATION; Start 12/06/16 at 22:00 Bisacodyl (Dulcolax Supp) 10 mg DAILY PRN [place] CONSTIPATION; Start 12/06/16 at 22: 00 Sodium Biphosphate/ Sodium Phosphate (Fleet Enema) 133 ml DAILY PRN [place] CONSTIPATION; Start 12/06/16 at 22:00 Famotidine (Pepcid) 20 mg Q12 PO Last administered on 12/14/16 08:37; Admin Dose 20 MG; Start 12/07/16 at 09:00 Enoxaparin Sodium (Lovenox) 40 mg DAILY SC Last administered on 12/09/16 08:26 ; Admin Dose 40 MG; Start 12/07/16 at 09:00 Diagnostic Test (Pha) (Accu-Chek) 1 ea 02 XX ; Start 12/08/16 at 02:00 Miscellaneous Information 1 ea NOTE XX ; Start 12/07/16 at 09:30 Glucose (Glutose) 15 gm Q15M PRN PO DECREASED GLUCOSE; Start 12/07/16 at 09:30 Glucose (Glutose) 22.5 gm Q15M PRN PO DECREASED GLUCOSE; Start 12/07/16 at 09:30 Dextrose (D50w Syringe) 25 ml Q15M PRN IV DECREASED GLUCOSE; Start 12/07/16 at 09:30 Dextrose (D50w Syringe) 50 ml Q15M PRN IV DECREASED GLUCOSE; Start 12/07/16 at 09:30 Glucagon (Glucagen) 1 mg Q15M PRN IM DECREASED GLUCOSE; Start 12/07/16 at 09:30 Glucose (Glutose) 15 gm Q15M PRN BUCCAL DECREASED GLUCOSE; Start 12/07/16 at 09: 30 Atorvastatin Calcium (Lipitor) 40 mg HS PO Last administered on 12/13/16 20:16 ; Admin Dose 40 MG; Start 12/07/16 at 21:00 Clopidogrel Bisulfate (plaVIX) 75 mg DAILY PO Last administered on 12/14/16 08 :37; Admin Dose 75 MG; Start 12/07/16 at 11:00 Diphenhydramine HCl (Benadryl) 25 mg TID PRN PO ITCHING Last administered on 08:43; Admin Dose 25 MG; Start 12/07/16 at 09:30 Ibuprofen (Motrin) 600 mg BID PRN PO PAIN; Start 12/07/16 at 09:30 Montelukast Sodium (Singulair) 10 mg HS PO Last administered on 12/13/16 20:16 ; Admin Dose 10 MG; Start 12/07/16 at 21:00 Nystatin (Nystatin Powder) 1 applic BID TOP Last administered on 12/14/16 08: 38; Admin Dose 1 APPLIC; Start 12/07/16 at 11:00 Paroxetine HCl (Paxil) 10 mg DAILY PO Last administered on 12/14/16 08:37; Admin Dose 10 MG; Start 12/07/16 at 11:00 Ropinirole HCl (Requip) 0.25 mg QHS PO Last administered on 12/13/16 20:27; Admin Dose 0.25 MG; Start 12/07/16 at 21:00 Valsartan (Diovan) 80 mg DAILY PO Last administered on 12/14/16 08:37; Admin Dose 80 MG; Start 12/07/16 at 10:00 Zolpidem Tartrate (Ambien) 5 mg HS PRN PO INSOMNIA; Start 12/07/16 at 09:30 Guaifenesin/ Dextromethorphan (Robitussin Dm Liquid Cup) 10 ml Q4H PRN PO cough Last administered on 12/09/16 11:27; Admin Dose 10 ML; Start 12/08/16 at 11 :00 Lidocaine (Lidoderm) 1 patch DAILY TD Last administered on 12/14/16 08:37; Admin Dose 1 PATCH; Start 12/09/16 at 21:00 Ciprofloxacin (Cipro) 500 mg BID@06,18 GTB Last administered on 12/13/16 17:10 ; Admin Dose 500 MG; Start 12/12/16 at 18:00 Lactobacillus Acidoph/Bulgaricus (Floranex) 1 tab BID PO Last administered on 08:37; Admin Dose 1 TAB; Start 12/12/16 at 21:00 BLUE JIMÉNEZ MD Dec 14, 2016 11:20
--- NOTE | 2016-12-14 12:06 | DS ---
DATE OF ADMISSION: 12/06/2016 DATE OF DISCHARGE: 12/14/2016 HOSPITAL COURSE: This is a 51-year-old female with a past medical history of chronic venous stasis ulcer on the left lower extremity, history of cellulitis, history of diabetes, history of coronary a rtery disease, history of peripheral vascular disease, history of restless legs syndrome, history of depression, history of insomnia who presented to [facility] with worsening lower leg cellulitis. The patient was previously admitted to [facility] with a similar diagnosis was treated with IV antibiotics and discharged home. The patient now presents again, was subsequently admitted to med/surg. In terms of patient's cellulitis, she was seen by infectious dis ease, Dr. Lemus. The patient was placed on IV antibiotics and then converted over to oral p.o. ant ibiotics. She had good clinical response and cellulitis has improved significantly. The patient wi ll continue a 10-day oral course per Infectious Disease. The patient was also seen by vascular surg erica, Dr. Louise, for evaluation of her wound. Per Dr. Louise, the patient's wound is stable a nd can be managed in outpatient setting. The patient will have home health services for wound care. The patient's other medical problems including diabetes, hypertension, coronary artery disease, re stless leg syndrome, depression, have all been stable during the hospital course. Currently at this time, the patient is stable and will be discharged home, where she will follow up with her primary care physician in 1 week's time. She will follow up with Dr. Louise at the [facility] service in 1 to 2 weeks' time. The patient will have home health provided. At the time of discharge, the patient is stable, in no acute distress. FINAL DIAGNOSES: 1. Cellulitis, left lower extremity, resolving. 2. Left lower extremity venous stasis wounds. 3. Diabetes. 4. Hypertension. 5. Dyslipidemia. 6. Coronary artery disease. 7. Anemia. 8. Restless legs syndrome. 9. Depression. 10. Debility. FINAL MEDICATIONS: See reconciliation list. Please note, the patient will also be on doxycycline 1 00 mg p.o. b.i.d. for 10 days. Please note at the time of discharge, the patient is stable, in no acute distress. Please note I spent over 40 minutes of time preparing the patient's discharge. Dictated By: YISSEL CAMARGO/FRACISCO Conf#: [id number] DID#: [id number]
== END 2016-12-14 11:22 | disposition home health service (06) | DRG 603 ==
LOC: FTE 13:57 → PP2 16:27
PROVIDERS: ADMIT Internal Medicine Hematology & Oncology; ATTEND Internal Medicine Hematology & Oncology
DX: L03.116 Cellulitis of left lower limb (principal); E11.40 Type 2 diabetes mellitus with diabetic neuropathy, unspecified; E11.51 Type 2 diabetes mellitus with diabetic peripheral angiopathy without gangrene; L97.929 Non-pressure chronic ulcer of unspecified part of left lower leg with unspecified severity; Z68.43 Body mass index [BMI] 50.0-59.9, adult; I83.029 Varicose veins of left lower extremity with ulcer of unspecified site; K21.9 Gastro-esophageal reflux disease without esophagitis; J44.9 Chronic obstructive pulmonary disease, unspecified; I10 Essential (primary) hypertension; E78.5 Hyperlipidemia, unspecified; I25.10 Atherosclerotic heart disease of native coronary artery without angina pectoris; D63.8 Anemia in other chronic diseases classified elsewhere; M79.3 Panniculitis, unspecified; G25.81 Restless legs syndrome; F32.9 Major depressive disorder, single episode, unspecified; M25.512 Pain in left shoulder; A49.01 Methicillin susceptible Staphylococcus aureus infection, unspecified site; E66.01 Morbid (severe) obesity due to excess calories
CPT/HCPCS: 36415; 71010; 80053; 80202; 81001; 81003; 82962; 83036; 85025; 87040; 87070; 87081; 93005; 93922; 94640; 94664; 96365; 96375; 97162; J1650; J1815; J1940; J1956; J3370; J7050

== ENCOUNTER 2017-02-25 14:13 | Inpatient (IN) | payer MEDICARE, OTHER ==
[~2017-02-25] VITALS: Ht 152.4 cm; Wt 143.6 kg
[~2017-02-25 14:13] MED LIST changes: -ACET1TAB40 PO; +ALBU18HF INHALATION; -ALBU8.5H3 INH; -ASPI-664 PO; -FLUO10CA66 PO; +FURO-110 PO; +IBUP-1542 PO; +METF500T4 PO; -NATE120T PO; +PARO10TA76 PO; -SITA1TAB5 PO
[2017-02-25 14:27] VITALS: Ht 152.4 cm; Wt 143.6 kg
[2017-02-25] MEDS ORDERED: FUROSEMIDE 20 MG INJ IV STA (17:20)
[2017-02-25] MEDS ORDERED: FLUO10CA17 PO (17:43)
[2017-02-25] MEDS ORDERED: SILV400C TP (17:48)
--- NOTE | 2017-02-25 18:07 | RADRPT ---
PROCEDURE: XR Chest. CLINICAL INDICATION: Chest pain. TECHNIQUE: Single frontal view. COMPARISON: 12/09/2016. FINDINGS: There is mild interstitial pulmonary disease bilaterally consistent with pulmonary edema. The lungs are otherwise clear. The heart is enlarged. There is no pleural effusion. There is no pneumothorax. IMPRESSION: 1. Cardiomegaly. 2. Mild pulmonary edema. 3. Otherwise normal chest x-ray. RPTAT: QQ .Brian Wood MD, MD Date Time Electronically viewed and signed by .Brian Wood MD, MD on 02/25/2017 18:07 .R/
[2017-02-25 18:58] LABS: ADD SCAN DIFF NO
[2017-02-25 19:00] LABS: ABNORMAL IP MESSAGE 1; BASOPHILS % 0.7 % (0.0-2.0); EOSINOPHILS # 0.1 10^3/ul (0.0-0.5); EOSINOPHILS % 1.9 % (0.0-7.0); HEMATOCRIT 46.3 % (37.0-47.0); HEMOGLOBIN 14.1 g/dl (12.0-16.0); LYMPHOCYTES # 0.8 10^3/ul (0.8-2.9); LYMPHOCYTES % 14.3 % (15.0-51.0); MEAN CORPUSCULAR HEMOGLOBIN 24.2 pg (29.0-33.0); MEAN CORPUSCULAR HGB CONC 30.5 g/dl (32.0-37.0); MEAN CORPUSCULAR VOLUME 79.4 fl (82.0-101.0); MONOCYTE # 0.5 10^3/ul (0.3-0.9); MONOCYTES % 9.6 % (0.0-11.0); NEUTROPHIL # 3.9 10^3/ul (1.6-7.5); NEUTROPHILS % 72.9 % (39.0-77.0); PLATELET COUNT 176 10^3/UL (140-415); RED BLOOD COUNT 5.83 10^6/ul (4.20-5.40); RED CELL DISTRIBUTION WIDTH 21.2 % (11.5-14.5); WHITE BLOOD COUNT 5.4 10^3/ul (4.8-10.8)
[2017-02-25 19:24] LABS: ALBUMIN 4.5 g/dl (3.3-4.9); ALBUMIN/GLOBULIN RATIO 1.45; BILIRUBIN,INDIRECT 0.6 mg/dl (0-1.1); BILIRUBIN,TOTAL 0.6 mg/dl (0.2-1.3); CALCIUM 8.9 mg/dl (8.4-10.2); CREATININE 0.59 mg/dl (0.44-1.00); POTASSIUM 4.8 mmol/L (3.5-5.1); TOTAL PROTEIN 7.6 g/dl (6.1-8.1)
[2017-02-25 19:36] LABS: TROPONIN-I 0.013 ng/ml (0.00-0.12)
[2017-02-25 20:54] LABS: INR 1.19; PROTIME 15.2 Sec (12.2-14.2); PT RATIO 1.2
[2017-02-25 20:55] LABS: PARTIAL THROMBOPLASTIN TIME 29.8 Sec (25.0-35.0)
[2017-02-25 21:30] VITALS: TEMP 98.2
--- NOTE | 2017-02-25 21:48 | ERA ---
ER Documentation Chief Complaint Date/Time DATE: 02/25/17 TIME: 21:46 Chief Complaint Complains of unable to urinate, abdominal pain and SOB HPI This a 51-year-old female complains of shortness of breath gradually getting worse over the past week. The patient is morbidly obese and relatively nonambulatory. The patient states she has had this problem before where she gets water in her lungs. She states. She also says that she has had no cough no chest pain. She says her shortness of breath has been getting worse because she is retaining water. She says that her legs are getting more swollen as well as her abdomen. ROS All systems reviewed and are negative except as per history of present illness. Medications Home Meds Reported Medications Silver Sulfadiazine (Silver Sulfadiazine) 400 Gm Cream..g., 400 GM TP NEEDED Y for PRN APPLY TO INFECTED AREA 02/25/17 Fluoxetine Hcl* (Fluoxetine Hcl*) 10 Mg Capsule, 10 MG PO DAILY, CAP 02/25/17 Ibuprofen* (Ibuprofen*) 600 Mg Tablet, 600 MG PO Q4H Y for PAIN, TAB 12/06/16 Metformin Hcl* (Metformin Hcl*) 500 Mg Tablet, 500 MG PO WITH BREAKFAST DINNE, # 60 TAB 12/06/16 Paroxetine Hcl* (Paroxetine*) 10 Mg Tablet, 10 MG PO DAILY, TAB 12/06/16 Albuterol Sulfate* (Ventolin HFA*) 18 Gm Hfa.aer.ad, 2 PUFF INHALATION Q4H Y for SHORTNESS OF BREATH, #1 INHALER 12/06/16 Furosemide* (Lasix*) 20 Mg Tablet, 20 MG PO DAILY, TAB 12/06/16 Montelukast Sodium* (Montelukast Sodium*) 10 Mg Tablet, 10 MG PO DAILY, #30 TAB 05/05/16 Glipizide* (Glipizide*) 10 Mg Tablet, 10 MG PO BID, TAB 05/05/16 Diphenhydramine Hcl* (Diphenhydramine Hcl*) 25 Mg Capsule, 25 MG PO TID Y for ITCHING, CAP 05/05/16 Atorvastatin* (Atorvastatin*) 40 Mg Tablet, 40 MG PO DAILY, #30 TAB 05/05/16 Zolpidem Tartrate* (Zolpidem Tartrate*) 5 Mg Tablet, 5 MG PO QHS Y for INSOMNIA , #30 TAB 05/05/16 Valsartan* (Diovan*) 80 Mg Tablet, 80 MG PO DAILY, TAB 05/05/16 Silver Sulfadiazine* (SSD*) 1% - 20 Gm Cream.gm., 1 APPLIC TOP BID, #1 TUB 05/05/16 Pantoprazole* (Protonix*) 40 Mg Tablet.dr, 40 MG PO DAILY, TAB 05/05/16 Nystatin (Nystatin Powder) 1 Each Powder.ea., 1 APPLIC TOPICAL BID, #1 BOTTLE 05/05/16 Ropinirole Hcl* (Ropinirole Hcl*) 0.25 Mg Tablet, 0.25 MG PO DAILY, TAB 05/05/16 Clopidogrel Bisulfate (Clopidogrel) 75 Mg Tablet, 75 MG PO DAILY, #30 TAB 05/05/16 Allergies Allergies: Coded Allergies: Penicillins (Verified Allergy, Unknown, 02/25/17) PT STATES ALLERGY TO PENICILLIN PMhx/Soc History of Surgery: No Anesthesia Reaction: No Hx Neurological Disorder: No Hx Respiratory Disorders: Yes (asthma) Hx Cardiac Disorders: Yes (hypertension) Hx Psychiatric Problems: No Hx Miscellaneous Medical Probl: Yes (R shoulder pain, asthma,htn,htnLLE cellultis s/p debridement) Hx Alcohol Use: No Hx Substance Use: No Hx Tobacco Use: Yes Smoking Status: Current every day smoker FmHx Family History: No coronary disease Physical Exam Vitals Vital Signs Date Time Temp Pulse Resp B/P Pulse Ox O2 Delivery O2 Flow Rate FiO2 02/25/17 21:30 98.2 97 20 151/86 99 Nasal Cannula 2.0 02/25/17 19:11 104 22 157/95 99 Nasal Cannula 2.0 02/25/17 18:53 Nasal Cannula 2 02/25/17 14:27 98.6 103 20 197/109 95 Physical Exam Const: Well-developed, well-nourished Head: Atraumatic, normocephalic Eyes: Normal Conjunctiva, PERRLA, EOMI, normal sclera, no nystagmus ENT: Normal External Ears, Nose and Mouth, moist mucus membranes. Neck: Full range of motion. No meningismus, no lymphadenopathy. Resp: Clear to auscultation bilaterally, no wheezing, rhonchi, rales Cardio: Regular rate and rhythm, no murmurs, S1 S2 present positive gallop Abd: Soft, non tender x 4, massive pannus with edema and hardness normal bowel sounds, no guarding or rebound, no pulsitile abdominal masses or bruits Skin: No petechiae or rashes, no ecchymosis , no maculopapular rash Back: No midline or flank tenderness Ext: No cyanosis severe edema to both legs and edema to her pannus, FROM x 4, normal inspection, neurovascularly intact x 4 Neur: Awake and alert, STR 5/5 x 4, sensation intact x 4, no focal findings, cerebellum intact Psych: Normal Mood and Affect Result Diagram: 02/25/17182902/25/171829 Results 24 hrs Laboratory Tests Test 02/25/17 18:30 02/25/17 18:55 White Blood Count 5.410^3/ul Red Blood Count 5.8310^6/ul Hemoglobin 14.1g/dl Hematocrit 46.3% Mean Corpuscular Volume 79.4fl Mean Corpuscular Hemoglobin 24.2pg Mean Corpuscular Hemoglobin Concent 30.5g/dl Red Cell Distribution Width 21.2% Platelet Count 49836^3/UL Mean Platelet Volume fl Neutrophils % 72.9% Lymphocytes % 14.3% Monocytes % 9.6% Eosinophils % 1.9% Basophils % 0.7% Nucleated Red Blood Cells % 0.0/100WBC Neutrophils # 3.910^3/ul Lymphocytes # 0.810^3/ul Monocytes # 0.510^3/ul Eosinophils # 0.110^3/ul Basophils # 0.010^3/ul Nucleated Red Blood Cells # 0.010^3/ul Sodium Level 141mmol/L Potassium Level 4.8mmol/L Chloride Level 103mmol/L Carbon Dioxide Level 27mmol/L Anion Gap 16 Blood Urea Nitrogen 16mg/dl Creatinine 0.59mg/dl Glucose Level 127mg/dl Calcium Level 8.9mg/dl Total Bilirubin 0.6mg/dl Direct Bilirubin 0.00mg/dl Indirect Bilirubin 0.6mg/dl Aspartate Amino Transf (AST/SGOT) 26IU/L Alanine Aminotransferase (ALT/SGPT) 24IU/L Alkaline Phosphatase 133IU/L Troponin I 0.013ng/ml B-Type Natriuretic Peptide 3020PG/ML Total Protein 7.6g/dl Albumin 4.5g/dl Globulin 3.10g/dl Albumin/Globulin Ratio 1.45 Prothrombin Time 15.2Sec Prothrombin Time Ratio 1.2 INR International Normalized Ratio 1.19 Activated Partial Thromboplast Time 29.8Sec Current Medications Medications (Trade) Dose Ordered Sig/Simran Route PRN Reason Start Time Stop Time Status Last Admin Dose Admin Furosemide (Lasix) 60 mg ONCE STAT IV 02/25/17 17:20 02/25/17 17:22 DC 02/25/17 18:48 Procedures/MDM EKG: Rate/Rhythm: Normal sinus rhythm with a first-degree AV block QRS, ST, QT: NORMAL ND, QRS, prolonged QT] Impression: Abnormal EKG] PROCEDURE: XR Chest. CLINICAL INDICATION: Chest pain. TECHNIQUE: Single frontal view. COMPARISON: 12/09/2016. FINDINGS: There is mild interstitial pulmonary disease bilaterally consistent with pulmonary edema. The lungs are otherwise clear. The heart is enlarged. There is no pleural effusion. There is no pneumothorax. IMPRESSION: 1. Cardiomegaly. 2. Mild pulmonary edema. 3. Otherwise normal chest x-ray. RPTAT: QQ .Brian Wood MD, MD Date Time Electronically viewed and signed by .Brian Wood MD, MD on 02/25/2017 18:07 .R/ CC: LENA CARR DO Patient received IV Lasix. Will get sonogram of her legs and admit for diuresis Departure Diagnosis: Primary Impression: CHF (congestive heart failure) Qualified Code: I50.9 - Congestive heart failure, unspecified congestive heart failure chronicity, unspecified congestive heart failure type Condition: Stable LENA CARR DO Feb 25, 2017 21:48
[2017-02-25] MEDS ORDERED: ONDANSETRON 4 MG INJ IV PRN (22:00)
[2017-02-25] MEDS ORDERED: ACETAMINOPHEN 325 MG TAB PO PRN (22:00)
[2017-02-25 22:35] VITALS: BP 141/89; PULSE 96
--- NOTE | 2017-02-25 23:00 | RADRPT ---
PROCEDURE: US bilateral lower extremity venous Doppler CLINICAL INDICATION: Bilateral swelling TECHNIQUE: Multiple sonographic images of the bilateral lower extremity deep venous system was obt ained utilizing grayscale, color-flow, compressive sonography and Doppler imaging with augmentation. COMPARISON: There are no similar studies submitted for comparison. FINDINGS: The examination is limited by body habitus. Extensive edema. The lower extremity veins are not vis ualized. IMPRESSION: Nondiagnostic examination. Lower extremity deep veins are not visualized due to body habitus. RPTAT: HIKT .Daljit Leigh MD, MD Date Time Electronically viewed and signed by .Daljit Leigh MD, MD on 02/25/2017 23:00 .T/
[2017-02-25 23:31] VITALS: PULSE 100
[2017-02-26] VITALS (13 sets, daily range): BP systolic 108–148; BP diastolic 55–81; PULSE 80–100; RESP 18–20
[2017-02-26] MEDS ORDERED: ACETAMINOPHEN 325 MG TAB PO PRN
[2017-02-26] MEDS ORDERED: ZOLPIDEM 5 MG TAB PO PRN (00:30)
[2017-02-26] MEDS ORDERED: PROVENTIL HFA 6.7GM INHALER INH PRN (00:30)
[2017-02-26] MEDS ORDERED: GLUCAGON 1 MG INJ IM PRN (01:00)
[2017-02-26] MEDS ORDERED: GLUCOSE GEL 15 GRAM TUBE BUCCAL PRN (01:00)
[2017-02-26] MEDS ORDERED: DEXTROSE 50% 50 ML SYRINGE IV PRN ×2 (01:00)
[2017-02-26] MEDS ORDERED: GLUCOSE GEL 15 GRAM TUBE PO PRN ×2 (01:00)
[2017-02-26] MEDS: ACCU-CHEK XX SCH (01:32)
[2017-02-26] MEDS ORDERED: ACCU-CHEK XX SCH (02:00)
[2017-02-26] MEDS: FUROSEMIDE 20 MG INJ IV SCH ×2 (06:09→17:59)
[2017-02-26] MEDS: INSULIN ASPART [NOVOLOG] 3 ML PEN SC SCH ×4 (07:55→21:00)
[2017-02-26] MEDS: NYSTATIN 15 GM POWDER BTL TOP SCH ×2 (08:57→21:51)
[2017-02-26] MEDS: ROPINIROLE 0.25 MG TAB PO SCH (08:58)
[2017-02-26] MEDS: VALSARTAN 80 MG TAB PO SCH (08:58)
[2017-02-26] MEDS: MONTELUKAST 10 MG TAB PO SCH (08:58)
[2017-02-26] MEDS: ATORVASTATIN 40 MG TAB PO SCH (08:58)
[2017-02-26] MEDS: POTASSIUM CHLORIDE (SR) 20 MEQ TAB PO SCH (08:58)
[2017-02-26] MEDS: CLOPIDOGREL 75 MG TAB PO SCH (08:58)
[2017-02-26] MEDS: PANTOPRAZOLE (EC) 40 MG TAB PO SCH (08:58)
[2017-02-26] MEDS: ENOXAPARIN 40 MG/0.4 ML SYG SC SCH (08:59)
[2017-02-26] MEDS: PAROXETINE 10 MG TAB PO SCH (08:59)
[2017-02-26] MEDS: FLUOXETINE 10 MG CAP PO SCH (08:59)
[2017-02-26] MEDS: DIPHENHYDRAMINE 25 MG CAP PO PRN (09:08)
[2017-02-26] MEDS: ALBUTEROL 18 GM INHALER INH PRN (09:57)
--- NOTE | 2017-02-26 16:18 | HP ---
Date/Time of Note Date/Time of Note DATE: 02/26/17 TIME: 15:53 Assessment/Plan VTE Prophylaxis VTE Prophylaxis Intervention: SCD's Lines/Catheters IV C[facility]ter [facility]from [facility] Urinary Cath still in place: Yes Reason Cath still needed: urinary retention Assessment/Plan Assessment/Plan -CHF exacerbation, continue Lasix. Dr. Slater is following in cardiology consultation. -Coronary artery disease, continue Plavix. -Hypertension -Hyperlipidemia, continue statin. -COPD -Diabetes mellitus type 2, will check hemoglobin A1c, continue Lantus and NovoLog per mild algorithm sliding scale. -Morbid obesity with BMI of 61. -Peripheral vascular disease Further recommendations based on clinical course. Plan of care discussed with Dr. Randall. HPI/ROS Admit Date/Time Admit Date/Time Feb 25, 2017 at 21:45 Hx of Present Illness The patient is 51-year-old female with extensive past medical history which includes morbid obesity, wheelchair bound, diabetes, hypertension, dyslipidemia , coronary artery disease, anemia of chronic disease, GERD, bilateral lower extremity cellulitis, peripheral vascular disease, COPD, hypoventilation syndrome. Patient presented to the emergency room with complaints of bilateral lower extremities edema, abdominal swelling and shortness of breath. Chest x- ray revealed cardiomegaly and pulmonary edema. Patient was giving intravenous Lasix in the emergency room and admitted for further evaluation and management to telemetry floor. Patient denies any chest pain denies any nausea vomiting diarrhea. ROS Per HPI PMH/Family/Social Past Medical History Per HPI Past Surgical History Past Surgical Hx: other (Multiple bilateral lower extremity wound debridement) Family History Significant Family History: heart disease, hypertension Social History Alcohol Use: none Smoking Status: Former smoker Drug Use: none Exam/Review of Systems Vital Signs Vitals Vital Signs Date Time Temp Pulse Resp B/P Pulse Ox O2 Delivery O2 Flow Rate FiO2 02/26/17 15:16 97.6 90 20 108/55 65 02/25/17 22:35 Nasal Cannula 2.0 Intake and Output 02/25/17 02/25/17 02/26/17 15:00 23:00 07:00 Intake Total 200 ml Output Total 2300 ml Balance -2100 ml Exam Constitutional: alert, oriented Head: atraumatic, normocephalic Neck: supple Respiratory: diminished breath sounds Cardiovascular: nl pulses, regular rate and rhythm Gastrointestinal: non-tender, soft Extremities: edema, other Neurological: nl mental status Skin: nl turgor Labs Result Diagram: 02/25/170 02/25/17 1830 Medications Medications Current Medications Enoxaparin Sodium (Lovenox) 40 mg DAILY SC ; Start 02/26/17 at 09:00 Acetaminophen (Tylenol Tab) 650 mg Q6H PRN PO PAIN AND OR ELEVATED TEMP; Start 02/26/17 at 00:00 Potassium Chloride (Klor-Con 20) 20 meq DAILY PO Last administered on 08:58; Admin Dose 20 MEQ; Start 02/26/17 at 09:00 Insulin Glargine (Lantus) 10 unit DAILY@20 SC ; Start 02/26/17 at 20:00 Diagnostic Test (Pha) (Accu-Chek) 1 ea 02 XX ; Start 02/26/17 at 02:00 Diagnostic Test (Pha) (Accu-Chek) 1 ea 02 XX ; Start 02/26/17 at 02:00 Atorvastatin Calcium (Lipitor) 40 mg DAILY PO Last administered on 02/26/17 08 :58; Admin Dose 40 MG; Start 02/26/17 at 09:00 Clopidogrel Bisulfate (plaVIX) 75 mg DAILY PO Last administered on 02/26/17 08 :58; Admin Dose 75 MG; Start 02/26/17 at 09:00 Diphenhydramine HCl (Benadryl) 25 mg TID PRN PO ITCHING Last administered on 09:08; Admin Dose 25 MG; Start 02/26/17 at 00:30 Fluoxetine HCl (Prozac) 10 mg DAILY PO Last administered on 02/26/17 08:59; Admin Dose 10 MG; Start 02/26/17 at 09:00 Montelukast Sodium (Singulair) 10 mg DAILY PO Last administered on 02/26/17 08 :58; Admin Dose 10 MG; Start 02/26/17 at 09:00 Nystatin 1 applic BID TOP Last administered on 02/26/17 08:57; Admin Dose 1 APPLIC; Start 02/26/17 at 09:00 Pantoprazole (Protonix Tab) 40 mg DAILY PO Last administered on 02/26/17 08:58 ; Admin Dose 40 MG; Start 02/26/17 at 09:00 Paroxetine HCl (Paxil) 10 mg DAILY PO Last administered on 02/26/17 08:59; Admin Dose 10 MG; Start 02/26/17 at 09:00 Ropinirole HCl (Requip) 0.25 mg DAILY PO Last administered on 02/26/17 08:58; Admin Dose 0.25 MG; Start 02/26/17 at 09:00 Valsartan (Diovan) 80 mg DAILY PO Last administered on 02/26/17 08:58; Admin Dose 80 MG; Start 02/26/17 at 09:00 Zolpidem Tartrate (Ambien) 5 mg QHS PRN PO INSOMNIA; Start 02/26/17 at 00:30 Miscellaneous Information 1 ea NOTE XX ; Start 02/26/17 at 01:00 Glucose (Glutose) 15 gm Q15M PRN PO DECREASED GLUCOSE; Start 02/26/17 at 01:00 Glucose (Glutose) 22.5 gm Q15M PRN PO DECREASED GLUCOSE; Start 02/26/17 at 01: 00 Dextrose (D50w Syringe) 25 ml Q15M PRN IV DECREASED GLUCOSE; Start 02/26/17 at 01:00 Dextrose (D50w Syringe) 50 ml Q15M PRN IV DECREASED GLUCOSE; Start 02/26/17 at 01:00 Glucagon (Glucagen) 1 mg Q15M PRN IM DECREASED GLUCOSE; Start 02/26/17 at 01:00 Glucose (Glutose) 15 gm Q15M PRN BUCCAL DECREASED GLUCOSE; Start 02/26/17 at 01 :00 Albuterol (Ventolin Hfa) 2 puff Q4H PRN INH SHORTNESS OF BREATH Last administered on 02/26/17 09:57; Admin Dose 2 PUFF; Start 02/26/17 at 01:00 ADENIKE DE GUZMAN Feb 26, 2017 16:04
--- NOTE | 2017-02-26 18:21 | CONS ---
Date/Time of Note Date/Time of Note DATE: 02/26/17 TIME: 18:20 Assessment/Plan Assessment/Plan Chief Complaint/Hosp Course MICROCYTOSIS PROCEED WITH W-UP HX ANEMIA MONITOR CLOSELY LOOKS COMPENSATED AT PRESENT LEUKOPENIA RESOLVED MONITOR CHF exacerbation, continue Lasix. Dr. Slater is following in cardiology consultation. Coronary artery disease, continue Plavix. Hypertension Hyperlipidemia, continue statin. COPD Diabetes mellitus type 2, will check hemoglobin A1c, continue Lantus and NovoLog per mild algorithm sliding scale. Morbid obesity with BMI of 61. Peripheral vascular disease Problems: Consultation Date/Type/Reason Admit Date/Time Feb 25, 2017 at 21:45 Initial Consult Date Type of Consultation: HEMEONC Reason for Consultation MICROCYTOSIS ANEMIA Referring Provider: MARILU FRIED MD 24 HR Interval Summary Free Text/Dictation The patient is 51-year-old female with extensive past medical history which includes morbid obesity, wheelchair bound, diabetes, hypertension, dyslipidemia , coronary artery disease, anemia of chronic disease, GERD, bilateral lower extremity cellulitis, peripheral vascular disease, COPD, hypoventilation syndrome. Patient presented to the emergency room with complaints of bilateral lower extremities edema, abdominal swelling and shortness of breath. Chest x- ray revealed cardiomegaly and pulmonary edema. Patient was giving intravenous Lasix in the emergency room and admitted for further evaluation and management to telemetry floor. Patient denies any chest pain denies any nausea vomiting diarrhea. SHE WAS NOTED TO HAVE MICROCYTOSIS,SHE ALSO HAS A HX ANEMIA AND LEUKOPENIA I WAS ASKED TO PROVIDE HEMEONC CONSULT Exam/Review of Systems Vital Signs Vitals Vital Signs Date Time Temp Pulse Resp B/P Pulse Ox O2 Delivery O2 Flow Rate FiO2 02/26/17 16:32 85 02/26/17 15:16 97.6 20 108/55 65 02/25/17 22:35 Nasal Cannula 2.0 Intake and Output 02/25/17 02/25/17 02/26/17 15:00 23:00 07:00 Intake Total 200 ml Output Total 2300 ml Balance -2100 ml Exam Constitutional: alert, oriented Head: atraumatic, normocephalic Neck: supple Respiratory: diminished breath sounds Cardiovascular: nl pulses, regular rate and rhythm Gastrointestinal: non-tender, soft Extremities: edema 2+, other Neurological: nl mental status Skin: nl turgor Results Result Diagram: 02/25/17182902/25/17 1830 Results 24 hrs Laboratory Tests Test 02/25/17 18:30 02/25/17 18:55 02/26/17 08:04 02/26/17 12:28 White Blood Count 5.4 Red Blood Count 5.83 H Hemoglobin 14.1 Hematocrit 46.3 Mean Corpuscular Volume 79.4 L Mean Corpuscular Hemoglobin 24.2 L Mean Corpuscular Hemoglobin Concent 30.5 L Red Cell Distribution Width 21.2 #H Platelet Count 176 Mean Platelet Volume Neutrophils % 72.9 Lymphocytes % 14.3 L Monocytes % 9.6 Eosinophils % 1.9 Basophils % 0.7 Nucleated Red Blood Cells % 0.0 Neutrophils # 3.9 Lymphocytes # 0.8 Monocytes # 0.5 Eosinophils # 0.1 Basophils # 0.0 Nucleated Red Blood Cells # 0.0 Sodium Level 141 Potassium Level 4.8 Chloride Level 103 Carbon Dioxide Level 27 Anion Gap 16 Blood Urea Nitrogen 16 Creatinine 0.59 Glucose Level 127 Calcium Level 8.9 Total Bilirubin 0.6 Direct Bilirubin 0.00 Indirect Bilirubin 0.6 Aspartate Amino Transf (AST/SGOT) 26 Alanine Aminotransferase (ALT/SGPT) 24 Alkaline Phosphatase 133 H Troponin I 0.013 B-Type Natriuretic Peptide 3020 H Total Protein 7.6 Albumin 4.5 Globulin 3.10 Albumin/Globulin Ratio 1.45 Prothrombin Time 15.2 H Prothrombin Time Ratio 1.2 INR International Normalized Ratio 1.19 Activated Partial Thromboplast Time 29.8 Bedside Glucose 127 122 Test 02/26/17 17:23 Bedside Glucose 128 Medications Medications Current Medications Enoxaparin Sodium (Lovenox) 40 mg DAILY SC ; Start 02/26/17 at 09:00 Acetaminophen (Tylenol Tab) 650 mg Q6H PRN PO PAIN AND OR ELEVATED TEMP; Start 02/26/17 at 00:00 Potassium Chloride (Klor-Con 20) 20 meq DAILY PO Last administered on t 08:58; Admin Dose 20 MEQ; Start 02/26/17 at 09:00 Insulin Glargine (Lantus) 10 unit DAILY@20 SC ; Start 02/26/17 at 20:00 Diagnostic Test (Pha) (Accu-Chek) 1 ea 02 XX ; Start 02/26/17 at 02:00 Atorvastatin Calcium (Lipitor) 40 mg DAILY PO Last administered on 02/26/17 08 :58; Admin Dose 40 MG; Start 02/26/17 at 09:00 Clopidogrel Bisulfate (plaVIX) 75 mg DAILY PO Last administered on 02/26/17 08 :58; Admin Dose 75 MG; Start 02/26/17 at 09:00 Diphenhydramine HCl (Benadryl) 25 mg TID PRN PO ITCHING Last administered on 09:08; Admin Dose 25 MG; Start 02/26/17 at 00:30 Fluoxetine HCl (Prozac) 10 mg DAILY PO Last administered on 02/26/17 08:59; Admin Dose 10 MG; Start 02/26/17 at 09:00 Montelukast Sodium (Singulair) 10 mg DAILY PO Last administered on 02/26/17 08 :58; Admin Dose 10 MG; Start 02/26/17 at 09:00 Nystatin 1 applic BID TOP Last administered on 02/26/17 08:57; Admin Dose 1 APPLIC; Start 02/26/17 at 09:00 Pantoprazole (Protonix Tab) 40 mg DAILY PO Last administered on 02/26/17 08:58 ; Admin Dose 40 MG; Start 02/26/17 at 09:00 Paroxetine HCl (Paxil) 10 mg DAILY PO Last administered on 02/26/17 08:59; Admin Dose 10 MG; Start 02/26/17 at 09:00 Ropinirole HCl (Requip) 0.25 mg DAILY PO Last administered on 02/26/17 08:58; Admin Dose 0.25 MG; Start 02/26/17 at 09:00 Valsartan (Diovan) 80 mg DAILY PO Last administered on 02/26/17 08:58; Admin Dose 80 MG; Start 02/26/17 at 09:00 Zolpidem Tartrate (Ambien) 5 mg QHS PRN PO INSOMNIA; Start 02/26/17 at 00:30 Miscellaneous Information 1 ea NOTE XX ; Start 02/26/17 at 01:00 Glucose (Glutose) 15 gm Q15M PRN PO DECREASED GLUCOSE; Start 02/26/17 at 01:00 Glucose (Glutose) 22.5 gm Q15M PRN PO DECREASED GLUCOSE; Start 02/26/17 at 01: 00 Dextrose (D50w Syringe) 25 ml Q15M PRN IV DECREASED GLUCOSE; Start 02/26/17 at 01:00 Dextrose (D50w Syringe) 50 ml Q15M PRN IV DECREASED GLUCOSE; Start 02/26/17 at 01:00 Glucagon (Glucagen) 1 mg Q15M PRN IM DECREASED GLUCOSE; Start 02/26/17 at 01:00 Glucose (Glutose) 15 gm Q15M PRN BUCCAL DECREASED GLUCOSE; Start 02/26/17 at 01 :00 Albuterol (Ventolin Hfa) 2 puff Q4H PRN INH SHORTNESS OF BREATH Last administered on 02/26/17t 09:57; Admin Dose 2 PUFF; Start 02/26/17 at 01:00 Linagliptin (Tradjenta) 5 mg DAILY PO ; Start 02/27/17 at 09:00 BLUE JIMÉNEZ MD Feb 26, 2017 18:20
[2017-02-26] MEDS: INSULIN GLARGINE [LANtus] 3 ML PEN SC SCH (21:56)
[2017-02-26] MEDS ORDERED: IBUPROFEN 200 MG TAB PO PRN (23:30)
[2017-02-26] MEDS: ALBUTEROL/IPRATROPIUM (NEB) 3 ML AMP HHN SCH (23:37)
[2017-02-27] VITALS (7 sets, daily range): BP systolic 115–150; BP diastolic 64–94; PULSE 95; RESP 17–19
[2017-02-27] MEDS ORDERED: ACCU-CHEK XX SCH (02:00)
[2017-02-27] MEDS: ACCU-CHEK XX SCH (02:00)
[2017-02-27] MEDS: FUROSEMIDE 20 MG INJ IV SCH ×2 (06:29→17:42)
[2017-02-27] MEDS: INSULIN ASPART [NOVOLOG] 3 ML PEN SC SCH ×4 (07:55→21:00)
[2017-02-27] MEDS: PANTOPRAZOLE (EC) 40 MG TAB PO SCH (08:04)
[2017-02-27] MEDS: DIPHENHYDRAMINE 25 MG CAP PO PRN (08:05)
[2017-02-27] MEDS ORDERED: VITAMIN A & D 5 GM OINT PACKET TOP ONE (08:08)
[2017-02-27] MEDS: MONTELUKAST 10 MG TAB PO SCH (08:09)
[2017-02-27] MEDS: NYSTATIN 15 GM POWDER BTL TOP SCH ×2 (08:09→21:58)
[2017-02-27] MEDS: ROPINIROLE 0.25 MG TAB PO SCH (08:09)
[2017-02-27] MEDS: FLUOXETINE 10 MG CAP PO SCH (08:09)
[2017-02-27] MEDS: ATORVASTATIN 40 MG TAB PO SCH (08:09)
[2017-02-27] MEDS: POTASSIUM CHLORIDE (SR) 20 MEQ TAB PO SCH (08:09)
[2017-02-27] MEDS: CLOPIDOGREL 75 MG TAB PO SCH (08:09)
[2017-02-27] MEDS: PAROXETINE 10 MG TAB PO SCH (08:09)
[2017-02-27] MEDS: LINAGLIPTIN 5 MG TABLET PO SCH (08:09)
[2017-02-27] MEDS: VALSARTAN 80 MG TAB PO SCH (08:10)
[2017-02-27] MEDS: ENOXAPARIN 40 MG/0.4 ML SYG SC SCH (08:10)
[2017-02-27] MEDS: ALBUTEROL/IPRATROPIUM (NEB) 3 ML AMP HHN SCH ×3 (08:53→16:01)
--- NOTE | 2017-02-27 14:59 | CONS ---
Date/Time of Note Date/Time of Note DATE: 02/27/17 TIME: 14:58 Assessment/Plan Assessment/Plan Chief Complaint/Hosp Course MICROCYTOSIS PROCEED WITH W-UP HX ANEMIA MONITOR CLOSELY LOOKS COMPENSATED AT PRESENT LEUKOPENIA RESOLVED MONITOR CHF exacerbation, continue Lasix. Dr. Slater is following in cardiology consultation. Coronary artery disease, continue Plavix. Hypertension Hyperlipidemia, continue statin. COPD Diabetes mellitus type 2, will check hemoglobin A1c, continue Lantus and NovoLog per mild algorithm sliding scale. Morbid obesity with BMI of 61. Peripheral vascular disease Problems: Consultation Date/Type/Reason Admit Date/Time Feb 25, 2017 at 21:45 Type of Consultation: [facility] Referring Provider: MARILU FRIED MD 24 HR Interval Summary Free Text/Dictation ALL NOTED Exam/Review of Systems Vital Signs Vitals Vital Signs Date Time Temp Pulse Resp B/P Pulse Ox O2 Delivery O2 Flow Rate FiO2 02/27/17 12:49 83 24 98 21 02/27/17 11:15 97.7 122/72 02/26/17 20:00 1.0 02/25/17 22:35 Nasal Cannula Intake and Output 02/26/17 02/26/17 02/27/17 15:00 23:00 07:00 Intake Total 500 ml 400 ml Output Total 1500 ml 1850 ml Balance -1000 ml -1450 ml Exam Constitutional: alert, oriented Head: atraumatic, normocephalic Neck: supple Respiratory: diminished breath sounds Cardiovascular: nl pulses, regular rate and rhythm Gastrointestinal: non-tender, soft Extremities: edema 2+, other Neurological: nl mental status Skin: nl turgor Results Result Diagram: 02/25/17 1830 02/25/17 1830 Results 24 hrs Laboratory Tests Test 02/26/17 17:23 02/26/17 21:53 02/27/17 07:53 02/27/17 12:30 Bedside Glucose 128 132 137 143 Medications Medications Current Medications Enoxaparin Sodium (Lovenox) 40 mg DAILY SC ; Start 02/26/17 at 09:00 Acetaminophen (Tylenol Tab) 650 mg Q6H PRN PO PAIN AND OR ELEVATED TEMP; Start 02/26/17 at 00:00 Potassium Chloride (Klor-Con 20) 20 meq DAILY PO Last administered on t 08:09; Admin Dose 20 MEQ; Start 02/26/17 at 09:00 Insulin Glargine (Lantus) 10 unit DAILY@20 SC ; Start 02/26/17 at 20:00 Diagnostic Test (Pha) (Accu-Chek) 1 ea 02 XX ; Start 02/26/17 at 02:00 Atorvastatin Calcium (Lipitor) 40 mg DAILY PO Last administered on 02/27/17 08 :09; Admin Dose 40 MG; Start 02/26/17 at 09:00 Clopidogrel Bisulfate (plaVIX) 75 mg DAILY PO Last administered on 02/27/17 08 :09; Admin Dose 75 MG; Start 02/26/17 at 09:00 Diphenhydramine HCl (Benadryl) 25 mg TID PRN PO ITCHING Last administered on 08:05; Admin Dose 25 MG; Start 02/26/17 at 00:30 Fluoxetine HCl (Prozac) 10 mg DAILY PO Last administered on 02/27/17 08:09; Admin Dose 10 MG; Start 02/26/17 at 09:00 Montelukast Sodium (Singulair) 10 mg DAILY PO Last administered on 02/27/17 08 :09; Admin Dose 10 MG; Start 02/26/17 at 09:00 Nystatin 1 applic BID TOP Last administered on 02/27/17 08:09; Admin Dose 1 APPLIC; Start 02/26/17 at 09:00 Pantoprazole (Protonix Tab) 40 mg DAILY PO Last administered on 02/27/17 08:04 ; Admin Dose 40 MG; Start 02/26/17 at 09:00 Paroxetine HCl (Paxil) 10 mg DAILY PO Last administered on 02/27/17 08:09; Admin Dose 10 MG; Start 02/26/17 at 09:00 Ropinirole HCl (Requip) 0.25 mg DAILY PO Last administered on 02/27/17 08:09; Admin Dose 0.25 MG; Start 02/26/17 at 09:00 Valsartan (Diovan) 80 mg DAILY PO Last administered on 02/27/17 08:10; Admin Dose 80 MG; Start 02/26/17 at 09:00 Zolpidem Tartrate (Ambien) 5 mg QHS PRN PO INSOMNIA; Start 02/26/17 at 00:30 Miscellaneous Information 1 ea NOTE XX ; Start 02/26/17 at 01:00 Glucose (Glutose) 15 gm Q15M PRN PO DECREASED GLUCOSE; Start 02/26/17 at 01:00 Glucose (Glutose) 22.5 gm Q15M PRN PO DECREASED GLUCOSE; Start 02/26/17 at 01: 00 Dextrose (D50w Syringe) 25 ml Q15M PRN IV DECREASED GLUCOSE; Start 02/26/17 at 01:00 Dextrose (D50w Syringe) 50 ml Q15M PRN IV DECREASED GLUCOSE; Start 02/26/17 at 01:00 Glucagon (Glucagen) 1 mg Q15M PRN IM DECREASED GLUCOSE; Start 02/26/17 at 01:00 Glucose (Glutose) 15 gm Q15M PRN BUCCAL DECREASED GLUCOSE; Start 02/26/17 at 01 :00 Albuterol (Ventolin Hfa) 2 puff Q4H PRN INH SHORTNESS OF BREATH Last administered on 02/26/17 09:57; Admin Dose 2 PUFF; Start 02/26/17 at 01:00 Linagliptin (Tradjenta) 5 mg DAILY PO Last administered on 02/27/17 08:09; Admin Dose 5 MG; Start 02/27/17 at 09:00 Ibuprofen (Motrin) 200 mg Q6H PRN PO PAIN OR TEMP ABOVE 38C; Start 02/26/17 at 23:30 BLUE JIMÉNEZ MD Feb 27, 2017 14:58
--- NOTE | 2017-02-27 16:06 | CONS ---
Date/Time of Note Date/Time of Note DATE: 02/27/17 TIME: 16:02 Assessment/Plan Assessment/Plan Chief Complaint/Hosp Course IMP: 1.CHF-? systolic vs Diastolic acute on chronic 2.HTN 3.HL 4.LE wound/PAD 5.LE edema 6.cad 7. DM Recc: -Tele -serial ecg's -ANDREW -Continue statin -Continue lasix diuresis -Continue diovan Problems: Consultation Date/Type/Reason Admit Date/Time Feb 25, 2017 at 21:45 Date of Consultation: Feb 27, 2017 Type of Consultation: cardiology Reason for Consultation CHF Referring Provider: MARILU FRIED MD Hx of Present Illness The patient is 51-year-old female with extensive past medical history which includes morbid obesity, wheelchair bound, diabetes, hypertension, dyslipidemia , coronary artery disease, anemia of chronic disease, GERD, bilateral lower extremity cellulitis, peripheral vascular disease, COPD, hypoventilation syndrome. Patient presented to the emergency room with complaints of bilateral lower extremities edema, abdominal swelling and shortness of breath. Chest x- ray revealed cardiomegaly and pulmonary edema. Patient was giving intravenous Lasix in the emergency room and admitted for further evaluation and management to telemetry floor. Patient denies any chest pain denies any nausea vomiting diarrhea. Constitutional: no complaints Eyes: no complaints ENT: no complaints Respiratory: shortness of breath Cardiovascular: edema Gastrointestinal: no complaints Genitourinary: no complaints Musculoskeletal: bone/joint pain, swelling Skin: no complaints Neurologic: no complaints Lymphatic: no complaints Psychological: no complaints Past Medical History Medical History: no pertinent history Past Surgical History Past Surgical Hx: other (Multiple bilateral lower extremity wound debridement) Social History Alcohol Use: none Smoking Status: Former smoker Drug Use: none Exam/Review of Systems Vital Signs Vitals Vital Signs Date Time Temp Pulse Resp B/P Pulse Ox O2 Delivery O2 Flow Rate FiO2 02/27/17 15:28 98.3 79 17 126/72 96 02/27/17 12:49 21 02/26/17 20:00 1.0 02/25/17 22:35 Nasal Cannula Intake and Output 02/26/17 02/26/17 02/27/17 15:00 23:00 07:00 Intake Total 500 ml 400 ml Output Total 1500 ml 1850 ml Balance -1000 ml -1450 ml Exam Constitutional: alert Psych: no complaints Head: normocephalic ENMT: mucosa pink and moist Neck: jvd (9 cm water), supple Respiratory: diminished breath sounds (at base/B) Cardiovascular: regular rate and rhythm Gastrointestinal: non-tender, soft Musculoskeletal: muscle tone (normal) Extremities: pitting pedal edema (bilateral) Neurological: other (No focal deficits) Results Result Diagram: 02/25/17 1830 02/25/17 1830 Results 24 hrs Laboratory Tests Test 02/26/17 17:23 02/26/17 21:53 02/27/17 07:53 02/27/17 12:30 Bedside Glucose 128 132 137 143 Medications Medications Current Medications Enoxaparin Sodium (Lovenox) 40 mg DAILY SC ; Start 02/26/17 at 09:00 Acetaminophen (Tylenol Tab) 650 mg Q6H PRN PO PAIN AND OR ELEVATED TEMP; Start 02/26/17 at 00:00 Potassium Chloride (Klor-Con 20) 20 meq DAILY PO Last administered on 08:09; Admin Dose 20 MEQ; Start 02/26/17 at 09:00 Insulin Glargine (Lantus) 10 unit DAILY@20 SC ; Start 02/26/17 at 20:00 Diagnostic Test (Pha) (Accu-Chek) 1 ea 02 XX ; Start 02/26/17 at 02:00 Atorvastatin Calcium (Lipitor) 40 mg DAILY PO Last administered on 02/27/17 08 :09; Admin Dose 40 MG; Start 02/26/17 at 09:00 Clopidogrel Bisulfate (plaVIX) 75 mg DAILY PO Last administered on 02/27/17 08 :09; Admin Dose 75 MG; Start 02/26/17 at 09:00 Diphenhydramine HCl (Benadryl) 25 mg TID PRN PO ITCHING Last administered on 08:05; Admin Dose 25 MG; Start 02/26/17 at 00:30 Fluoxetine HCl (Prozac) 10 mg DAILY PO Last administered on 02/27/17 08:09; Admin Dose 10 MG; Start 02/26/17 at 09:00 Montelukast Sodium (Singulair) 10 mg DAILY PO Last administered on 02/27/17 08 :09; Admin Dose 10 MG; Start 02/26/17 at 09:00 Nystatin 1 applic BID TOP Last administered on 02/27/17 08:09; Admin Dose 1 APPLIC; Start 02/26/17 at 09:00 Pantoprazole (Protonix Tab) 40 mg DAILY PO Last administered on 02/27/17 08:04 ; Admin Dose 40 MG; Start 02/26/17 at 09:00 Paroxetine HCl (Paxil) 10 mg DAILY PO Last administered on 02/27/17 08:09; Admin Dose 10 MG; Start 02/26/17 at 09:00 Ropinirole HCl (Requip) 0.25 mg DAILY PO Last administered on 02/27/17 08:09; Admin Dose 0.25 MG; Start 02/26/17 at 09:00 Valsartan (Diovan) 80 mg DAILY PO Last administered on 02/27/17 08:10; Admin Dose 80 MG; Start 02/26/17 at 09:00 Zolpidem Tartrate (Ambien) 5 mg QHS PRN PO INSOMNIA; Start 02/26/17 at 00:30 Miscellaneous Information 1 ea NOTE XX ; Start 02/26/17 at 01:00 Glucose (Glutose) 15 gm Q15M PRN PO DECREASED GLUCOSE; Start 02/26/17 at 01:00 Glucose (Glutose) 22.5 gm Q15M PRN PO DECREASED GLUCOSE; Start 02/26/17 at 01: 00 Dextrose (D50w Syringe) 25 ml Q15M PRN IV DECREASED GLUCOSE; Start 02/26/17 at 01:00 Dextrose (D50w Syringe) 50 ml Q15M PRN IV DECREASED GLUCOSE; Start 02/26/17 at 01:00 Glucagon (Glucagen) 1 mg Q15M PRN IM DECREASED GLUCOSE; Start 02/26/17 at 01:00 Glucose (Glutose) 15 gm Q15M PRN BUCCAL DECREASED GLUCOSE; Start 02/26/17 at 01 :00 Albuterol (Ventolin Hfa) 2 puff Q4H PRN INH SHORTNESS OF BREATH Last administered on 02/26/17 09:57; Admin Dose 2 PUFF; Start 02/26/17 at 01:00 Linagliptin (Tradjenta) 5 mg DAILY PO Last administered on 02/27/17 08:09; Admin Dose 5 MG; Start 02/27/17 at 09:00 Ibuprofen (Motrin) 200 mg Q6H PRN PO PAIN OR TEMP ABOVE 38C; Start 02/26/17 at 23:30 JACQUELINE HORNE Feb 27, 2017 16:06
--- NOTE | 2017-02-27 16:52 | PN ---
Date/Time of Note Date/Time of Note DATE: 02/27/17 TIME: 16:47 Assessment/Plan VTE Prophylaxis VTE Prophylaxis Intervention: SCD's Lines/Catheters IV Catheter Type (from Nrs): Saline Lock Urinary Cath still in place: Yes Reason Cath still needed: urinary retention Assessment/Plan Chief Complaint/Hosp Course Patient refused a lab draw, denies shortness of breath denies chest pain, complaints of bilateral lower extremity swelling and anasarca, blood sugar is well controlled. Assessment/Plan -CHF exacerbation, continue Lasix. Dr. Slater is following in cardiology consultation. -Coronary artery disease, continue Plavix. -Hypertension -Hyperlipidemia, continue statin. -COPD -Diabetes mellitus type 2, will check hemoglobin A1c, continue Lantus and NovoLog per mild algorithm sliding scale. -Morbid obesity with BMI of 61. -Peripheral vascular disease Further recommendations based on clinical course. Plan of care discussed with Dr. Randall. Problems: Exam/Review of Systems Vital Signs Vitals Vital Signs Date Time Temp Pulse Resp B/P Pulse Ox O2 Delivery O2 Flow Rate FiO2 02/27/17 16:01 80 20 97 21 02/27/17 15:28 98.3 126/72 02/26/17 20:00 1.0 02/25/17 22:35 Nasal Cannula Intake and Output 02/26/17 02/26/17 02/27/17 15:00 23:00 07:00 Intake Total 500 ml 400 ml Output Total 1500 ml 1850 ml Balance -1000 ml -1450 ml Exam Constitutional: alert, oriented Head: atraumatic, normocephalic Neck: supple Respiratory: diminished breath sounds Cardiovascular: nl pulses, regular rate and rhythm Gastrointestinal: non-tender, soft Extremities: edema, other Neurological: nl mental status Skin: nl turgor Results Result Diagram: 02/25/17 1830 02/25/17 1830 Results 24 hrs Laboratory Tests Test 02/26/17 17:23 02/26/17 21:53 02/27/17 07:53 02/27/17 12:30 Bedside Glucose 128 132 137 143 Medications Medications Current Medications Enoxaparin Sodium (Lovenox) 40 mg DAILY SC ; Start 02/26/17 at 09:00 Acetaminophen (Tylenol Tab) 650 mg Q6H PRN PO PAIN AND OR ELEVATED TEMP; Start 02/26/17 at 00:00 Potassium Chloride (Klor-Con 20) 20 meq DAILY PO Last administered on 08:09; Admin Dose 20 MEQ; Start 02/26/17 at 09:00 Insulin Glargine (Lantus) 10 unit DAILY@20 SC ; Start 02/26/17 at 20:00 Diagnostic Test (Pha) (Accu-Chek) 1 ea 02 XX ; Start 02/26/17 at 02:00 Atorvastatin Calcium (Lipitor) 40 mg DAILY PO Last administered on 02/27/17 08 :09; Admin Dose 40 MG; Start 02/26/17 at 09:00 Clopidogrel Bisulfate (plaVIX) 75 mg DAILY PO Last administered on 02/27/17 08 :09; Admin Dose 75 MG; Start 02/26/17 at 09:00 Diphenhydramine HCl (Benadryl) 25 mg TID PRN PO ITCHING Last administered on 08:05; Admin Dose 25 MG; Start 02/26/17 at 00:30 Fluoxetine HCl (Prozac) 10 mg DAILY PO Last administered on 02/27/17 08:09; Admin Dose 10 MG; Start 02/26/17 at 09:00 Montelukast Sodium (Singulair) 10 mg DAILY PO Last administered on 02/27/17 08 :09; Admin Dose 10 MG; Start 02/26/17 at 09:00 Nystatin 1 applic BID TOP Last administered on 02/27/17 08:09; Admin Dose 1 APPLIC; Start 02/26/17 at 09:00 Pantoprazole (Protonix Tab) 40 mg DAILY PO Last administered on 02/27/17 08:04 ; Admin Dose 40 MG; Start 02/26/17 at 09:00 Paroxetine HCl (Paxil) 10 mg DAILY PO Last administered on 02/27/17 08:09; Admin Dose 10 MG; Start 02/26/17 at 09:00 Ropinirole HCl (Requip) 0.25 mg DAILY PO Last administered on 02/27/17 08:09; Admin Dose 0.25 MG; Start 02/26/17 at 09:00 Valsartan (Diovan) 80 mg DAILY PO Last administered on 02/27/17 08:10; Admin Dose 80 MG; Start 02/26/17 at 09:00 Zolpidem Tartrate (Ambien) 5 mg QHS PRN PO INSOMNIA; Start 02/26/17 at 00:30 Miscellaneous Information 1 ea NOTE XX ; Start 02/26/17 at 01:00 Glucose (Glutose) 15 gm Q15M PRN PO DECREASED GLUCOSE; Start 02/26/17 at 01:00 Glucose (Glutose) 22.5 gm Q15M PRN PO DECREASED GLUCOSE; Start 02/26/17 at 01: 00 Dextrose (D50w Syringe) 25 ml Q15M PRN IV DECREASED GLUCOSE; Start 02/26/17 at 01:00 Dextrose (D50w Syringe) 50 ml Q15M PRN IV DECREASED GLUCOSE; Start 02/26/17 at 01:00 Glucagon (Glucagen) 1 mg Q15M PRN IM DECREASED GLUCOSE; Start 02/26/17 at 01:00 Glucose (Glutose) 15 gm Q15M PRN BUCCAL DECREASED GLUCOSE; Start 02/26/17 at 01 :00 Albuterol (Ventolin Hfa) 2 puff Q4H PRN INH SHORTNESS OF BREATH Last administered on 02/26/17 09:57; Admin Dose 2 PUFF; Start 02/26/17 at 01:00 Linagliptin (Tradjenta) 5 mg DAILY PO Last administered on 02/27/17 08:09; Admin Dose 5 MG; Start 02/27/17 at 09:00 Ibuprofen (Motrin) 200 mg Q6H PRN PO PAIN OR TEMP ABOVE 38C; Start 02/26/17 at 23:30 ADENIKE DE GUZMAN Feb 27, 2017 16:52
[2017-02-27] MEDS: INSULIN GLARGINE [LANtus] 3 ML PEN SC SCH (21:56)
[2017-02-28] MEDS: ACCU-CHEK XX SCH (02:00)
[2017-02-28 02:09] VITALS: BP 120/71; RESP 16
[2017-02-28] MEDS: IBUPROFEN 200 MG TAB PO PRN ×2 (04:27→18:03)
[2017-02-28] MEDS: FUROSEMIDE 20 MG INJ IV SCH ×2 (06:00→17:21)
[2017-02-28 07:51] VITALS: BP 125/65; RESP 18
[2017-02-28] MEDS: INSULIN ASPART [NOVOLOG] 3 ML PEN SC SCH ×4 (08:04→20:39)
[2017-02-28] MEDS: FLUOXETINE 10 MG CAP PO SCH (08:18)
[2017-02-28] MEDS: LINAGLIPTIN 5 MG TABLET PO SCH (08:18)
[2017-02-28] MEDS: PANTOPRAZOLE (EC) 40 MG TAB PO SCH (08:18)
[2017-02-28] MEDS: ATORVASTATIN 40 MG TAB PO SCH (08:18)
[2017-02-28] MEDS: DIPHENHYDRAMINE 25 MG CAP PO PRN (08:18)
[2017-02-28] MEDS: MONTELUKAST 10 MG TAB PO SCH (08:18)
[2017-02-28] MEDS: CLOPIDOGREL 75 MG TAB PO SCH (08:19)
[2017-02-28] MEDS: ROPINIROLE 0.25 MG TAB PO SCH (08:19)
[2017-02-28] MEDS: POTASSIUM CHLORIDE (SR) 20 MEQ TAB PO SCH (08:19)
[2017-02-28] MEDS: VALSARTAN 80 MG TAB PO SCH (08:19)
[2017-02-28] MEDS: ENOXAPARIN 40 MG/0.4 ML SYG SC SCH (08:23)
[2017-02-28] MEDS: ALBUTEROL/IPRATROPIUM (NEB) 3 ML AMP HHN SCH ×3 (08:51→17:33)
[2017-02-28] MEDS: PAROXETINE 10 MG TAB PO SCH (09:20)
[2017-02-28] MEDS: NYSTATIN 15 GM POWDER BTL TOP SCH ×2 (09:21→20:42)
[2017-02-28 10:12] LABS: ADD SCAN DIFF NO
[2017-02-28 10:27] LABS: ABNORMAL IP MESSAGE 1; BASOPHILS % 0.5 % (0.0-2.0); EOSINOPHILS # 0.1 10^3/ul (0.0-0.5); EOSINOPHILS % 1.9 % (0.0-7.0); HEMATOCRIT 43.1 % (37.0-47.0); HEMOGLOBIN 12.9 g/dl (12.0-16.0); LYMPHOCYTES # 0.6 10^3/ul (0.8-2.9); LYMPHOCYTES % 9.9 % (15.0-51.0); MEAN CORPUSCULAR HEMOGLOBIN 23.6 pg (29.0-33.0); MEAN CORPUSCULAR HGB CONC 29.9 g/dl (32.0-37.0); MEAN CORPUSCULAR VOLUME 78.9 fl (82.0-101.0); MEAN PLATELET VOLUME 10.4 fl (7.4-10.4); MONOCYTE # 0.5 10^3/ul (0.3-0.9); MONOCYTES % 9.1 % (0.0-11.0); NEUTROPHIL # 4.6 10^3/ul (1.6-7.5); NEUTROPHILS % 78.3 % (39.0-77.0); PLATELET COUNT 200 10^3/UL (140-415); RED BLOOD COUNT 5.46 10^6/ul (4.20-5.40); RED CELL DISTRIBUTION WIDTH 21.6 % (11.5-14.5); WHITE BLOOD COUNT 5.8 10^3/ul (4.8-10.8)
--- NOTE | 2017-02-28 10:39 | RADRPT ---
Vent Rate: 88 bpm RR Interval: 0 msec WA Interval: 226 msec QRS Duration: 86 msec QT Interval: 436 msec QTC Interval: 527 msec P-R-T [place]: 64 - 89 - 66 degrees Sinus rhythm with 1st degree AV block Possible Left atrial enlargement Low voltage QRS Nonspecific T wave abnormality Prolonged QT Abnormal ECG Electronically Signed By: Marcelino Barnard [id number]
[2017-02-28 10:51] LABS: CALCIUM 8.4 mg/dl (8.4-10.2); CREATININE 0.68 mg/dl (0.44-1.00); POTASSIUM 3.7 mmol/L (3.5-5.1)
[2017-02-28 12:12] LABS: CHOL/HDL RATIO 5.1 RATIO
[2017-02-28] MEDS ORDERED: SILVER SULFADIAZINE 1% 25 GM CR TOP SCH (13:00)
--- NOTE | 2017-02-28 13:21 | CONS ---
Date/Time of Note Date/Time of Note DATE: 02/28/17 TIME: 13:18 Assessment/Plan Assessment/Plan Chief Complaint/Hosp Course IMP: 1.CHF-? systolic vs Diastolic acute on chronic 2.HTN 3.HL 4.LE wound/PAD 5.LE edema 6.cad 7. DM Recc: -Tele -serial ecg's -Await Echo -Complete ANDREW -Continue statin -Continue lasix diuresis as patient will comply -Continue diovan Problems: Consultation Date/Type/Reason Admit Date/Time Feb 25, 2017 at 21:45 Initial Consult Date 02/27/17 Type of Consultation: cardiology Reason for Consultation CHF Referring Provider: MARILU FRIED MD Exam/Review of Systems Vital Signs Vitals Vital Signs Date Time Temp Pulse Resp B/P Pulse Ox O2 Delivery O2 Flow Rate FiO2 02/28/17 08:51 98 18 94 21 02/28/17 07:51 97.8 125/65 02/27/17 21:50 1.0 02/25/17 22:35 Nasal Cannula Intake and Output 02/27/17 02/27/17 02/28/17 15:00 23:00 07:00 Intake Total 950 ml 740 ml Output Total 1550 ml 300 ml Balance -600 ml 440 ml Exam Review of Systems: CONSTITUTIONAL: No fevers, chills. PULMONARY: ongoing sob/orthopnea CARDIOVASCULAR: No chest pain/palpitations GASTROINTESTINAL: No nausea/vomiting. GENITOURINARY: No hematuria/dysuria. MUSCULOSKELETAL: No myagias/arthalgias. PSYCHIATRIC: The patient denies depression. NEUROLOGIC: No weakness Constitutional: alert Psych: no complaints Head: normocephalic ENMT: mucosa pink and moist Neck: jvd (9-10 cm wter), supple Respiratory: diminished breath sounds (at bases/B) Cardiovascular: regular rate and rhythm Gastrointestinal: non-tender, other (obese), soft Musculoskeletal: muscle tone (normal) Extremities: pitting pedal edema (bilateral) Results Result Diagram: 02/28/17 0945 02/28/17 0945 Results 24 hrs Laboratory Tests Test 02/27/17 17:41 02/27/17 21:54 02/28/17 08:03 02/28/17 09:00 Bedside Glucose 134 138 164 Hemoglobin A1c 8.3 H Test 02/28/17 09:45 02/28/17 12:19 White Blood Count 5.8 Red Blood Count 5.46 H Hemoglobin 12.9 Hematocrit 43.1 Mean Corpuscular Volume 78.9 L Mean Corpuscular Hemoglobin 23.6 L Mean Corpuscular Hemoglobin Concent 29.9 L Red Cell Distribution Width 21.6 H Platelet Count 200 Mean Platelet Volume 10.4 Neutrophils % 78.3 H Lymphocytes % 9.9 L Monocytes % 9.1 Eosinophils % 1.9 Basophils % 0.5 Nucleated Red Blood Cells % 0.0 Neutrophils # 4.6 Lymphocytes # 0.6 L Monocytes # 0.5 Eosinophils # 0.1 Basophils # 0.0 Nucleated Red Blood Cells # 0.0 Sodium Level 138 Potassium Level 3.7 Chloride Level 99 Carbon Dioxide Level 30 Anion Gap 13 Blood Urea Nitrogen 17 Creatinine 0.68 Glucose Level 145 Calcium Level 8.4 Triglycerides Level 74 Cholesterol Level 119 LDL Cholesterol, Calculated 81 HDL Cholesterol 23 L Cholesterol/HDL Ratio 5.1 Bedside Glucose 155 Medications Medications Current Medications Enoxaparin Sodium (Lovenox) 40 mg DAILY SC ; Start 02/26/17 at 09:00 Acetaminophen (Tylenol Tab) 650 mg Q6H PRN PO PAIN AND OR ELEVATED TEMP; Start 02/26/17 at 00:00 Potassium Chloride (Klor-Con 20) 20 meq DAILY PO Last administered on 08:19; Admin Dose 20 MEQ; Start 02/26/17 at 09:00 Insulin Glargine (Lantus) 10 unit DAILY@20 SC ; Start 02/26/17 at 20:00 Diagnostic Test (Pha) (Accu-Chek) 1 ea 02 XX ; Start 02/26/17 at 02:00 Atorvastatin Calcium (Lipitor) 40 mg DAILY PO Last administered on 02/28/17 08 :18; Admin Dose 40 MG; Start 02/26/17 at 09:00 Clopidogrel Bisulfate (plaVIX) 75 mg DAILY PO Last administered on 02/28/17 08 :19; Admin Dose 75 MG; Start 02/26/17 at 09:00 Diphenhydramine HCl (Benadryl) 25 mg TID PRN PO ITCHING Last administered on 08:18; Admin Dose 25 MG; Start 02/26/17 at 00:30 Fluoxetine HCl (Prozac) 10 mg DAILY PO Last administered on 02/28/17 08:18; Admin Dose 10 MG; Start 02/26/17 at 09:00 Montelukast Sodium (Singulair) 10 mg DAILY PO Last administered on 02/28/17 08 :18; Admin Dose 10 MG; Start 02/26/17 at 09:00 Nystatin 1 applic BID TOP Last administered on 02/28/17 09:21; Admin Dose 1 APPLIC; Start 02/26/17 at 09:00 Pantoprazole (Protonix Tab) 40 mg DAILY PO Last administered on 02/28/17 08:18 ; Admin Dose 40 MG; Start 02/26/17 at 09:00 Paroxetine HCl (Paxil) 10 mg DAILY PO Last administered on 02/28/17 09:20; Admin Dose 10 MG; Start 02/26/17 at 09:00 Ropinirole HCl (Requip) 0.25 mg DAILY PO Last administered on 02/28/17 08:19; Admin Dose 0.25 MG; Start 02/26/17 at 09:00 Valsartan (Diovan) 80 mg DAILY PO Last administered on 02/28/17 08:19; Admin Dose 80 MG; Start 02/26/17 at 09:00 Zolpidem Tartrate (Ambien) 5 mg QHS PRN PO INSOMNIA; Start 02/26/17 at 00:30 Miscellaneous Information 1 ea NOTE XX ; Start 02/26/17 at 01:00 Glucose (Glutose) 15 gm Q15M PRN PO DECREASED GLUCOSE; Start 02/26/17 at 01:00 Glucose (Glutose) 22.5 gm Q15M PRN PO DECREASED GLUCOSE; Start 02/26/17 at 01: 00 Dextrose (D50w Syringe) 25 ml Q15M PRN IV DECREASED GLUCOSE; Start 02/26/17 at 01:00 Dextrose (D50w Syringe) 50 ml Q15M PRN IV DECREASED GLUCOSE; Start 02/26/17 at 01:00 Glucagon (Glucagen) 1 mg Q15M PRN IM DECREASED GLUCOSE; Start 02/26/17 at 01:00 Glucose (Glutose) 15 gm Q15M PRN BUCCAL DECREASED GLUCOSE; Start 02/26/17 at 01 :00 Albuterol (Ventolin Hfa) 2 puff Q4H PRN INH SHORTNESS OF BREATH Last administered on 02/26/17 09:57; Admin Dose 2 PUFF; Start 02/26/17 at 01:00 Linagliptin (Tradjenta) 5 mg DAILY PO Last administered on 02/28/17 08:18; Admin Dose 5 MG; Start 02/27/17 at 09:00 Ibuprofen (Motrin) 200 mg Q6H PRN PO PAIN OR TEMP ABOVE 38C Last administered on 02/28/17 04:27; Admin Dose 200 MG; Start 02/27/17 at 20:30 JACQUELINE HORNE Feb 28, 2017 13:21
--- NOTE | 2017-02-28 16:04 | PN ---
Date/Time of Note Date/Time of Note DATE: 02/28/17 TIME: 16:03 Assessment/Plan VTE Prophylaxis VTE Prophylaxis Intervention: other Lines/Catheters IV [facility] Type [facility] Saline Lock Urinary Cath still in place: Yes Assessment/Plan Assessment/Plan -CHF exacerbation, continue Lasix. Dr. Slater is following in cardiology consultation. -Coronary artery disease, continue Plavix. -Hypertension -Hyperlipidemia, continue statin. -COPD -Diabetes mellitus type 2, will check hemoglobin A1c, continue Lantus and NovoLog per mild algorithm sliding scale. -Morbid obesity with BMI of 61. -Peripheral vascular disease Further recommendations based on clinical course. Plan of care discussed with Dr. Randall. Exam/Review of Systems Vital Signs Vitals Vital Signs Date Time Temp Pulse Resp B/P Pulse Ox O2 Delivery O2 Flow Rate FiO2 02/28/17 13:59 Nasal Cannula 2.0 02/28/17 13:52 83 20 96 21 02/28/17 07:51 97.8 125/65 Intake and Output 02/27/17 02/27/17 02/28/17 15:00 23:00 07:00 Intake Total 950 ml 740 ml Output Total 1550 ml 300 ml Balance -600 ml 440 ml Exam Constitutional: alert, oriented, well developed Respiratory: clear to auscultation, normal air movement Cardiovascular: nl pulses, regular rate and rhythm Gastrointestinal: nl liver, spleen, non-tender Genitourinary - Female: other Extremities: normal pulses Skin: nl turgor Lymph: nontender Results Result Diagram: 02/28/17 0945 02/28/17 0945 Results 24 hrs Laboratory Tests Test 02/27/17 17:41 02/27/17 21:54 02/28/17 08:03 02/28/17 09:00 Bedside Glucose 134 138 164 Hemoglobin A1c 8.3 H Test 02/28/17 09:45 02/28/17 12:19 White Blood Count 5.8 Red Blood Count 5.46 H Hemoglobin 12.9 Hematocrit 43.1 Mean Corpuscular Volume 78.9 L Mean Corpuscular Hemoglobin 23.6 L Mean Corpuscular Hemoglobin Concent 29.9 L Red Cell Distribution Width 21.6 H Platelet Count 200 Mean Platelet Volume 10.4 Neutrophils % 78.3 H Lymphocytes % 9.9 L Monocytes % 9.1 Eosinophils % 1.9 Basophils % 0.5 Nucleated Red Blood Cells % 0.0 Neutrophils # 4.6 Lymphocytes # 0.6 L Monocytes # 0.5 Eosinophils # 0.1 Basophils # 0.0 Nucleated Red Blood Cells # 0.0 Sodium Level 138 Potassium Level 3.7 Chloride Level 99 Carbon Dioxide Level 30 Anion Gap 13 Blood Urea Nitrogen 17 Creatinine 0.68 Glucose Level 145 Calcium Level 8.4 Triglycerides Level 74 Cholesterol Level 119 LDL Cholesterol, Calculated 81 HDL Cholesterol 23 L Cholesterol/HDL Ratio 5.1 Bedside Glucose 155 Medications Medications Current Medications Enoxaparin Sodium (Lovenox) 40 mg DAILY SC ; Start 02/26/17 at 09:00 Acetaminophen (Tylenol Tab) 650 mg Q6H PRN PO PAIN AND OR ELEVATED TEMP; Start 02/26/17 at 00:00 Potassium Chloride (Klor-Con 20) 20 meq DAILY PO Last administered on 08:19; Admin Dose 20 MEQ; Start 02/26/17 at 09:00 Insulin Glargine (Lantus) 10 unit DAILY@20 SC ; Start 02/26/17 at 20:00 Diagnostic Test (Pha) (Accu-Chek) 1 ea 02 XX ; Start 02/26/17 at 02:00 Atorvastatin Calcium (Lipitor) 40 mg DAILY PO Last administered on 02/28/17 08 :18; Admin Dose 40 MG; Start 02/26/17 at 09:00 Clopidogrel Bisulfate (plaVIX) 75 mg DAILY PO Last administered on 02/28/17 08 :19; Admin Dose 75 MG; Start 02/26/17 at 09:00 Diphenhydramine HCl (Benadryl) 25 mg TID PRN PO ITCHING Last administered on 08:18; Admin Dose 25 MG; Start 02/26/17 at 00:30 Fluoxetine HCl (Prozac) 10 mg DAILY PO Last administered on 02/28/17 08:18; Admin Dose 10 MG; Start 02/26/17 at 09:00 Montelukast Sodium (Singulair) 10 mg DAILY PO Last administered on 02/28/17 08 :18; Admin Dose 10 MG; Start 02/26/17 at 09:00 Nystatin 1 applic BID TOP Last administered on 02/28/17 09:21; Admin Dose 1 APPLIC; Start 02/26/17 at 09:00 Pantoprazole (Protonix Tab) 40 mg DAILY PO Last administered on 02/28/17 08:18 ; Admin Dose 40 MG; Start 02/26/17 at 09:00 Paroxetine HCl (Paxil) 10 mg DAILY PO Last administered on 02/28/17 09:20; Admin Dose 10 MG; Start 02/26/17 at 09:00 Ropinirole HCl (Requip) 0.25 mg DAILY PO Last administered on 02/28/17 08:19; Admin Dose 0.25 MG; Start 02/26/17 at 09:00 Valsartan (Diovan) 80 mg DAILY PO Last administered on 02/28/17 08:19; Admin Dose 80 MG; Start 02/26/17 at 09:00 Zolpidem Tartrate (Ambien) 5 mg QHS PRN PO INSOMNIA; Start 02/26/17 at 00:30 Miscellaneous Information 1 ea NOTE XX ; Start 02/26/17 at 01:00 Glucose (Glutose) 15 gm Q15M PRN PO DECREASED GLUCOSE; Start 02/26/17 at 01:00 Glucose (Glutose) 22.5 gm Q15M PRN PO DECREASED GLUCOSE; Start 02/26/17 at 01: 00 Dextrose (D50w Syringe) 25 ml Q15M PRN IV DECREASED GLUCOSE; Start 02/26/17 at 01:00 Dextrose (D50w Syringe) 50 ml Q15M PRN IV DECREASED GLUCOSE; Start 02/26/17 at 01:00 Glucagon (Glucagen) 1 mg Q15M PRN IM DECREASED GLUCOSE; Start 02/26/17 at 01:00 Glucose (Glutose) 15 gm Q15M PRN BUCCAL DECREASED GLUCOSE; Start 02/26/17 at 01 :00 Albuterol (Ventolin Hfa) 2 puff Q4H PRN INH SHORTNESS OF BREATH Last administered on 02/26/17 09:57; Admin Dose 2 PUFF; Start 02/26/17 at 01:00 Linagliptin (Tradjenta) 5 mg DAILY PO Last administered on 02/28/17 08:18; Admin Dose 5 MG; Start 02/27/17 at 09:00 Ibuprofen (Motrin) 200 mg Q6H PRN PO PAIN OR TEMP ABOVE 38C Last administered on 02/28/17 04:27; Admin Dose 200 MG; Start 02/27/17 at 20:30 VERONICA CHERRY Feb 28, 2017 16:04
[2017-02-28 17:21] VITALS: BP 139/84; PULSE 98
[2017-02-28] MEDS ORDERED: ONDANSETRON 4 MG INJ IV PRN (17:30)
[2017-02-28 19:53] VITALS: BP 114/59; RESP 20
[2017-02-28] MEDS: INSULIN GLARGINE [LANtus] 3 ML PEN SC SCH (20:00)
--- NOTE | 2017-02-28 20:20 | RADRPT ---
Echocardiogram Report Patient Name: DAILY JUAREZ Gender: Female Date: 1965 Study Date: 28-Feb-2017 [employer] Worker[facility] Location[facility] Ref. Physician: JACQUELINE SLATER Quality: Technically Difficult Study Procedures: Transthoracic echocardiogram with complete 2D, M-Mode, and doppler examination. Indications: Congestive Heart Failure. 2D/M Mode Doppler Measurement Value Normal Ranges Measurement Value Normal Ranges LVIDd 2D 4.9 3.5 - 5.6 cm AV Peak Abner 0.9 m/sec LVIDs 2D 3.8 2.1 - 4.1 cm AV Peak PG 4.0 mmHg FS 2D 20.8 % LVOT Peak Abner 0.7 m/sec LVPWd 2D 1.0 0.6 - 1.1 cm LVOT Peak PG 2.0 mmHg IVSd 2D 1.2 0.6 - 1.1 cm MV E Peak Abner 1.0 m/sec IVS/LVPW 2D 1.1 MV Decel Time 130 msec AoR Diam 2D 2.7 2.0 - 3.7 cm TR Peak Abner 3.2 m/sec LA/Ao 2D 2 0 - 1 TR Peak PG 40.0 mmHg EDV 2D 115.0 cm3 RVSP 55.0 mmHg ESV 2D 57.1 cm3 LA Dimen 2D 4.2 2.3 - 4.0 cm Findings Left Ventricle: Normal left ventricular cavity size. Mild concentric left ventricular hypertrophy. Severe global left ventricular systolic dysfunction. Ejection fraction is visually estimated at 3035 %. Tissue Doppler/Mitral Doppler indices are consistent with restrictive physiology with markedly elevated left atrial pressure (Stage IIIIV diastolic dysfunction). These segments of the LV are dyskinetic mid septum segment. Right Ventricle: Mild right ventricular systolic dysfunction. Mild enlargement of right ventricle. Mild right ventricular hypokinesis. Left Atrium: There is mild enlargement of left atrium. Right Atrium: There is moderate enlargement of right atrium. Mitral Valve: Mitral valve leaflets appear moderately thickened. Mild mitral annular calcification. Trace mitral regurgitation. Aortic Valve: Normal appearance of the aortic valve. No significant aortic stenosis or insufficiency. Tricuspid Valve: Normal appearance of the tricuspid valve. Estimated peak PA systolic pressure 55 mmHg. There is moderate tricuspid regurgitation. Pulmonic Valve: Normal pulmonic valve appearance. There is mild pulmonic regurgitation. Pericardium: Normal pericardium with no significant pericardial effusion. Pleural effusion seen. Aorta: Normal aortic root. IVC: Dilated IVC without respiratory collapse consistent with elevated right atrial pressure. Conclusions 1.Normal left ventricular cavity size. Mild concentric left ventricular hypertrophy. Moderate to severe global left ventricular systolic dysfunction. Ejection fraction is visually estimated at 30-35 %. Tissue Doppler/Mitral Doppler indices are consistent with restrictive physiology with markedly elevated left atrial pressure (Stage III-IV diastolic dysfunction). These segments of the LV are dyskinetic mid septum segment. 2.Mild right ventricular systolic dysfunction.. Mild enlargement of right ventricle. Mild right ventricular hypokinesis. 3.There is mild enlargement of left atrium. 4.There is moderate enlargement of right atrium. 5.Trace mitral regurgitation. 6.Estimated peak PA systolic pressure 55 mmHg. 7.There is moderate tricuspid regurgitation. 8.There is mild pulmonic regurgitation. Electronically Signed By: Jacqueline Slater 28-Feb-2017 20:19:19 -0700 Patient Name: DAILY JUAREZ Study Date: 28-Feb-2017 [id number]
[2017-02-28] MEDS: MAGNESIUM OXIDE 400 MG TAB PO SCH (20:40)
--- NOTE | 2017-02-28 22:50 | CONS ---
Date/Time of Note Date/Time of Note DATE: 02/28/17 TIME: 22:50 Assessment/Plan Assessment/Plan Problems: (1) Morbid obesity (2) Diabetes, polyneuropathy (3) Venous stasis (4) Venous stasis dermatitis (5) Lower extremity cellulitis (6) Peripheral vascular disease Additional Assessment/Plan No surgery recommended as far as foot and ankle surgery is concerned. Patient requires vascular surgery consultation and compression of the lower extremities. I would recommend application of fluocinonide to the erythematous skin on both lower extremities daily as needed. Patient does not show evidence of heel decubitus ulcerations and precautions will be taken. I will follow patient as needed. Thank you again for involving me in the care of this patient. If you have any questions regarding this case, please feel free to contact me at pager: [phone] or reach me at mobile: [phone]. Consultation Date/Type/Reason Admit Date/Time Feb 25, 2017 at 21:45 Date of Consultation: Feb 28, 2017 Type of Consultation: Foot and ankle surgery Reason for Consultation Evaluation of bilateral lower leg cellulitis Hx of Present Illness Thank you very much for involving me in the care of this patient. As you know this is a 51-year-old female patient with multiple medical problems including morbid obesity, coronary artery disease, diabetes mellitus type 2, peripheral neuropathy, peripheral vascular disease, hypertension, hyperlipidemia, COPD, CHF , GERD, anemia of chronic disease, bilateral lower extremity cellulitis who presented to the emergency room complaining of bilateral lower leg swelling, abdominal swelling and shortness of breath. I was consulted for evaluation of bilateral leg swelling and erythema. Currently patient denies fever and chills. Patient has been on IV antibiotics. Constitutional: no complaints, No chills, No diaphoresis, No disoriented, No febrile, No improved, No other , No poor po, No requiring IVF, No requiring O2 Eyes: no complaints, No discharge, No other, No pain, No redness, No visual change ENT: no complaints, No bleeding, No congestion, No discharge, No dysphagia, No other, No pain, No sore throat Respiratory: shortness of breath, No cough, No no complaints, No other, No pain, No pleuritic pain, No sputum, No wheezing Cardiovascular: edema, No chest pain, No lightheadedness, No no complaints, No orthopenea, No other , No palpitations, No paroxysmal nocturnal dyspnea Gastrointestinal: no complaints Genitourinary: no complaints Musculoskeletal: bone/joint pain, swelling Skin: no complaints Neurologic: no complaints Lymphatic: no complaints Psychological: no complaints Past Medical History As per history of present illness. Medical History: no pertinent history Past Surgical History As per history of present illness. Past Surgical Hx: other (Multiple bilateral lower extremity wound debridement) Social History As per history of present illness. Alcohol Use: none Smoking Status: Former smoker Drug Use: none Exam/Review of Systems Vital Signs Vitals Vital Signs Date Time Temp Pulse Resp B/P Pulse Ox O2 Delivery O2 Flow Rate FiO2 02/28/17 19:53 98.3 99 20 114/59 95 02/28/17 17:33 21 02/28/17 13:59 Nasal Cannula 2.0 Intake and Output 02/27/17 02/27/17 02/28/17 14:59 22:59 06:59 Intake Total 950 ml 740 ml Output Total 1550 ml 300 ml Balance -600 ml 440 ml Exam Morbidly obese female laying supine in bed in no acute distress. Bilateral lower leg edema noted with erythema. There is no evidence of heel decubitus ulceration. On the right medial ankle area there is a fold of skin which is mildly erythematous with no open wound. Dorsalis pedis and posterior tibial pulses are not palpable. Capillary refill time is delayed on all toes. Temperature gradient is slightly decreased. Patient has significant edema of the lower legs and she is morbidly obese. Labs reviewed. Results Result Diagram: 02/28/17 0945 02/28/17 0945 Results 24 hrs Laboratory Tests Test 02/28/17 08:03 02/28/17 09:00 02/28/17 09:45 02/28/17 12:19 Bedside Glucose 164 155 Hemoglobin A1c 8.3 H White Blood Count 5.8 Red Blood Count 5.46 H Hemoglobin 12.9 Hematocrit 43.1 Mean Corpuscular Volume 78.9 L Mean Corpuscular Hemoglobin 23.6 L Mean Corpuscular Hemoglobin Concent 29.9 L Red Cell Distribution Width 21.6 H Platelet Count 200 Mean Platelet Volume 10.4 Neutrophils % 78.3 H Lymphocytes % 9.9 L Monocytes % 9.1 Eosinophils % 1.9 Basophils % 0.5 Nucleated Red Blood Cells % 0.0 Neutrophils # 4.6 Lymphocytes # 0.6 L Monocytes # 0.5 Eosinophils # 0.1 Basophils # 0.0 Nucleated Red Blood Cells # 0.0 Sodium Level 138 Potassium Level 3.7 Chloride Level 99 Carbon Dioxide Level 30 Anion Gap 13 Blood Urea Nitrogen 17 Creatinine 0.68 Glucose Level 145 Calcium Level 8.4 Triglycerides Level 74 Cholesterol Level 119 LDL Cholesterol, Calculated 81 HDL Cholesterol 23 L Cholesterol/HDL Ratio 5.1 Test 02/28/17 17:19 02/28/17 20:38 Bedside Glucose 139 159 Medications Medications Current Medications Enoxaparin Sodium (Lovenox) 40 mg DAILY SC ; Start 02/26/17 at 09:00 Acetaminophen (Tylenol Tab) 650 mg Q6H PRN PO PAIN AND OR ELEVATED TEMP; Start 02/26/17 at 00:00 Potassium Chloride (Klor-Con 20) 20 meq DAILY PO Last administered on 08:19; Admin Dose 20 MEQ; Start 02/26/17 at 09:00 Insulin Glargine (Lantus) 10 unit DAILY@20 SC ; Start 02/26/17 at 20:00 Diagnostic Test (Pha) (Accu-Chek) 1 ea 02 XX ; Start 02/26/17 at 02:00 Atorvastatin Calcium (Lipitor) 40 mg DAILY PO Last administered on 02/28/17 08 :18; Admin Dose 40 MG; Start 02/26/17 at 09:00 Clopidogrel Bisulfate (plaVIX) 75 mg DAILY PO Last administered on 02/28/17 08 :19; Admin Dose 75 MG; Start 02/26/17 at 09:00 Diphenhydramine HCl (Benadryl) 25 mg TID PRN PO ITCHING Last administered on 08:18; Admin Dose 25 MG; Start 02/26/17 at 00:30 Fluoxetine HCl (Prozac) 10 mg DAILY PO Last administered on 02/28/17 08:18; Admin Dose 10 MG; Start 02/26/17 at 09:00 Montelukast Sodium (Singulair) 10 mg DAILY PO Last administered on 02/28/17 08 :18; Admin Dose 10 MG; Start 02/26/17 at 09:00 Nystatin 1 applic BID TOP Last administered on 02/28/17 20:42; Admin Dose 1 APPLIC; Start 02/26/17 at 09:00 Pantoprazole (Protonix Tab) 40 mg DAILY PO Last administered on 02/28/17 08:18 ; Admin Dose 40 MG; Start 02/26/17 at 09:00 Paroxetine HCl (Paxil) 10 mg DAILY PO Last administered on 02/28/17 09:20; Admin Dose 10 MG; Start 02/26/17 at 09:00 Ropinirole HCl (Requip) 0.25 mg DAILY PO Last administered on 02/28/17 08:19; Admin Dose 0.25 MG; Start 02/26/17 at 09:00 Valsartan (Diovan) 80 mg DAILY PO Last administered on 02/28/17 08:19; Admin Dose 80 MG; Start 02/26/17 at 09:00 Zolpidem Tartrate (Ambien) 5 mg QHS PRN PO INSOMNIA; Start 02/26/17 at 00:30 Miscellaneous Information 1 ea NOTE XX ; Start 02/26/17 at 01:00 Glucose (Glutose) 15 gm Q15M PRN PO DECREASED GLUCOSE; Start 02/26/17 at 01:00 Glucose (Glutose) 22.5 gm Q15M PRN PO DECREASED GLUCOSE; Start 02/26/17 at 01: 00 Dextrose (D50w Syringe) 25 ml Q15M PRN IV DECREASED GLUCOSE; Start 02/26/17 at 01:00 Dextrose (D50w Syringe) 50 ml Q15M PRN IV DECREASED GLUCOSE; Start 02/26/17 at 01:00 Glucagon (Glucagen) 1 mg Q15M PRN IM DECREASED GLUCOSE; Start 02/26/17 at 01:00 Glucose (Glutose) 15 gm Q15M PRN BUCCAL DECREASED GLUCOSE; Start 02/26/17 at 01 :00 Albuterol (Ventolin Hfa) 2 puff Q4H PRN INH SHORTNESS OF BREATH Last administered on 02/26/17 09:57; Admin Dose 2 PUFF; Start 02/26/17 at 01:00 Linagliptin (Tradjenta) 5 mg DAILY PO Last administered on 02/28/17 08:18; Admin Dose 5 MG; Start 02/27/17 at 09:00 Ibuprofen (Motrin) 200 mg Q6H PRN PO PAIN OR TEMP ABOVE 38C Last administered on 02/28/17 18:03; Admin Dose 200 MG; Start 02/27/17 at 20:30 Ondansetron HCl (Zofran Inj) 4 mg Q6H PRN IV NAUSEA AND/OR VOMITING; Start at 17:30 Magnesium Oxide (Mag-Ox 400) 400 mg DAILY PO Last administered on 02/28/17 20: 40; Admin Dose 400 MG; Start 02/28/17 at 19:30 BELKIS RAMON DPM Feb 28, 2017 22:50
--- NOTE | 2017-02-28 23:30 | CONS ---
Date/Time of Note Date/Time of Note DATE: 02/28/17 TIME: 23:29 Assessment/Plan Assessment/Plan Chief Complaint/Hosp Course MICROCYTOSIS COMPLETE W-UP HX ANEMIA MONITOR CLOSELY LOOKS COMPENSATED AT PRESENT LEUKOPENIA RESOLVED MONITOR CHF exacerbation, continue Lasix. Dr. Slater is following in cardiology consultation. Coronary artery disease, continue Plavix. Hypertension Hyperlipidemia, continue statin. COPD Diabetes mellitus type 2, will check hemoglobin A1c, continue Lantus and NovoLog per mild algorithm sliding scale. Morbid obesity with BMI of 61. Peripheral vascular disease Problems: Consultation Date/Type/Reason Admit Date/Time Feb 25, 2017 at 21:45 [facility] Referring Provider: MARILU FRIED MD 24 HR Interval Summary Free Text/Dictation ALL NOTED NO NEW EVENTS + MUSCLE CRAMPS Exam/Review of Systems Vital Signs Vitals Vital Signs Date Time Temp Pulse Resp B/P Pulse Ox O2 Delivery O2 Flow Rate FiO2 02/28/17 19:53 98.3 99 20 114/59 95 02/28/17 17:33 21 02/28/17 13:59 Nasal Cannula 2.0 Intake and Output 02/27/17 02/27/17 02/28/17 15:00 23:00 07:00 Intake Total 950 ml 740 ml Output Total 1550 ml 300 ml Balance -600 ml 440 ml Exam Constitutional: alert, oriented Head: atraumatic, normocephalic Neck: supple Respiratory: diminished breath sounds Cardiovascular: nl pulses, regular rate and rhythm Gastrointestinal: non-tender, soft Extremities: edema 2+, other Neurological: nl mental status Skin: nl turgor Results Result Diagram: 02/28/17 0945 02/28/17 0945 Results 24 hrs Laboratory Tests Test 02/28/17 08:03 02/28/17 09:00 02/28/17 09:45 02/28/17 12:19 Bedside Glucose 164 155 Hemoglobin A1c 8.3 H White Blood Count 5.8 Red Blood Count 5.46 H Hemoglobin 12.9 Hematocrit 43.1 Mean Corpuscular Volume 78.9 L Mean Corpuscular Hemoglobin 23.6 L Mean Corpuscular Hemoglobin Concent 29.9 L Red Cell Distribution Width 21.6 H Platelet Count 200 Mean Platelet Volume 10.4 Neutrophils % 78.3 H Lymphocytes % 9.9 L Monocytes % 9.1 Eosinophils % 1.9 Basophils % 0.5 Nucleated Red Blood Cells % 0.0 Neutrophils # 4.6 Lymphocytes # 0.6 L Monocytes # 0.5 Eosinophils # 0.1 Basophils # 0.0 Nucleated Red Blood Cells # 0.0 Sodium Level 138 Potassium Level 3.7 Chloride Level 99 Carbon Dioxide Level 30 Anion Gap 13 Blood Urea Nitrogen 17 Creatinine 0.68 Glucose Level 145 Calcium Level 8.4 Triglycerides Level 74 Cholesterol Level 119 LDL Cholesterol, Calculated 81 HDL Cholesterol 23 L Cholesterol/HDL Ratio 5.1 Test 02/28/17 17:19 02/28/17 20:38 Bedside Glucose 139 159 Medications Medications Current Medications Enoxaparin Sodium (Lovenox) 40 mg DAILY SC ; Start 02/26/17 at 09:00 Acetaminophen (Tylenol Tab) 650 mg Q6H PRN PO PAIN AND OR ELEVATED TEMP; Start 02/26/17 at 00:00 Potassium Chloride (Klor-Con 20) 20 meq DAILY PO Last administered on 08:19; Admin Dose 20 MEQ; Start 02/26/17 at 09:00 Insulin Glargine (Lantus) 10 unit DAILY@20 SC ; Start 02/26/17 at 20:00 Diagnostic Test (Pha) (Accu-Chek) 1 ea 02 XX ; Start 02/26/17 at 02:00 Atorvastatin Calcium (Lipitor) 40 mg DAILY PO Last administered on 02/28/17 08 :18; Admin Dose 40 MG; Start 02/26/17 at 09:00 Clopidogrel Bisulfate (plaVIX) 75 mg DAILY PO Last administered on 02/28/17 08 :19; Admin Dose 75 MG; Start 02/26/17 at 09:00 Diphenhydramine HCl (Benadryl) 25 mg TID PRN PO ITCHING Last administered on 08:18; Admin Dose 25 MG; Start 02/26/17 at 00:30 Fluoxetine HCl (Prozac) 10 mg DAILY PO Last administered on 02/28/17 08:18; Admin Dose 10 MG; Start 02/26/17 at 09:00 Montelukast Sodium (Singulair) 10 mg DAILY PO Last administered on 02/28/17 08 :18; Admin Dose 10 MG; Start 02/26/17 at 09:00 Nystatin 1 applic BID TOP Last administered on 02/28/17 20:42; Admin Dose 1 APPLIC; Start 02/26/17 at 09:00 Pantoprazole (Protonix Tab) 40 mg DAILY PO Last administered on 02/28/17 08:18 ; Admin Dose 40 MG; Start 02/26/17 at 09:00 Paroxetine HCl (Paxil) 10 mg DAILY PO Last administered on 02/28/17 09:20; Admin Dose 10 MG; Start 02/26/17 at 09:00 Ropinirole HCl (Requip) 0.25 mg DAILY PO Last administered on 02/28/17 08:19; Admin Dose 0.25 MG; Start 02/26/17 at 09:00 Valsartan (Diovan) 80 mg DAILY PO Last administered on 02/28/17 08:19; Admin Dose 80 MG; Start 02/26/17 at 09:00 Zolpidem Tartrate (Ambien) 5 mg QHS PRN PO INSOMNIA; Start 02/26/17 at 00:30 Miscellaneous Information 1 ea NOTE XX ; Start 02/26/17 at 01:00 Glucose (Glutose) 15 gm Q15M PRN PO DECREASED GLUCOSE; Start 02/26/17 at 01:00 Glucose (Glutose) 22.5 gm Q15M PRN PO DECREASED GLUCOSE; Start 02/26/17 at 01: 00 Dextrose (D50w Syringe) 25 ml Q15M PRN IV DECREASED GLUCOSE; Start 02/26/17 at 01:00 Dextrose (D50w Syringe) 50 ml Q15M PRN IV DECREASED GLUCOSE; Start 02/26/17 at 01:00 Glucagon (Glucagen) 1 mg Q15M PRN IM DECREASED GLUCOSE; Start 02/26/17 at 01:00 Glucose (Glutose) 15 gm Q15M PRN BUCCAL DECREASED GLUCOSE; Start 02/26/17 at 01 :00 Albuterol (Ventolin Hfa) 2 puff Q4H PRN INH SHORTNESS OF BREATH Last administered on 02/26/17 09:57; Admin Dose 2 PUFF; Start 02/26/17 at 01:00 Linagliptin (Tradjenta) 5 mg DAILY PO Last administered on 02/28/17 08:18; Admin Dose 5 MG; Start 02/27/17 at 09:00 Ibuprofen (Motrin) 200 mg Q6H PRN PO PAIN OR TEMP ABOVE 38C Last administered on 02/28/17 18:03; Admin Dose 200 MG; Start 02/27/17 at 20:30 Ondansetron HCl (Zofran Inj) 4 mg Q6H PRN IV NAUSEA AND/OR VOMITING; Start at 17:30 Magnesium Oxide (Mag-Ox 400) 400 mg DAILY PO Last administered on 02/28/17 20: 40; Admin Dose 400 MG; Start 02/28/17 at 19:30 BLUE JIMÉNEZ MD Feb 28, 2017 23:30
[2017-03-01] MEDS: IBUPROFEN 200 MG TAB PO PRN ×4 (01:52→21:33)
[2017-03-01] MEDS: ACCU-CHEK XX SCH (02:00)
[2017-03-01] MEDS: FUROSEMIDE 20 MG INJ IV SCH ×2 (05:35→18:04)
[2017-03-01 06:36] LABS: ABNORMAL IP MESSAGE 1; BASOPHILS % 0.6 % (0.0-2.0); EOSINOPHILS # 0.1 10^3/ul (0.0-0.5); EOSINOPHILS % 1.8 % (0.0-7.0); HEMATOCRIT 41.9 % (37.0-47.0); HEMOGLOBIN 12.9 g/dl (12.0-16.0); LYMPHOCYTES # 0.5 10^3/ul (0.8-2.9); LYMPHOCYTES % 10.8 % (15.0-51.0); MEAN CORPUSCULAR HEMOGLOBIN 24.1 pg (29.0-33.0); MEAN CORPUSCULAR HGB CONC 30.8 g/dl (32.0-37.0); MEAN CORPUSCULAR VOLUME 78.3 fl (82.0-101.0); MEAN PLATELET VOLUME 10.5 fl (7.4-10.4); MONOCYTE # 0.5 10^3/ul (0.3-0.9); MONOCYTES % 9.2 % (0.0-11.0); NEUTROPHIL # 3.9 10^3/ul (1.6-7.5); NEUTROPHILS % 77.2 % (39.0-77.0); PLATELET COUNT 204 10^3/UL (140-415); RED BLOOD COUNT 5.35 10^6/ul (4.20-5.40); RED CELL DISTRIBUTION WIDTH 21.1 % (11.5-14.5)
[2017-03-01 07:06] LABS: ADD SCAN DIFF NO
[2017-03-01 07:32] LABS: CALCIUM 8.5 mg/dl (8.4-10.2); CREATININE 0.65 mg/dl (0.44-1.00); POTASSIUM 4.3 mmol/L (3.5-5.1)
[2017-03-01 07:33] VITALS: BP 136/79; RESP 20
[2017-03-01] MEDS ORDERED: metFORMIN (XR) 500 MG TAB PO SCH (08:05)
[2017-03-01] MEDS: INSULIN ASPART [NOVOLOG] 3 ML PEN SC SCH ×4 (08:15→20:24)
[2017-03-01] MEDS: MAGNESIUM OXIDE 400 MG TAB PO SCH (08:49)
[2017-03-01] MEDS: POTASSIUM CHLORIDE (SR) 20 MEQ TAB PO SCH (08:49)
[2017-03-01] MEDS: ATORVASTATIN 40 MG TAB PO SCH (08:49)
[2017-03-01] MEDS: CLOPIDOGREL 75 MG TAB PO SCH (08:50)
[2017-03-01] MEDS: ROPINIROLE 0.25 MG TAB PO SCH (08:50)
[2017-03-01] MEDS: PAROXETINE 10 MG TAB PO SCH (08:50)
[2017-03-01] MEDS: PANTOPRAZOLE (EC) 40 MG TAB PO SCH (08:50)
[2017-03-01] MEDS: FLUOXETINE 10 MG CAP PO SCH (08:50)
[2017-03-01] MEDS: LINAGLIPTIN 5 MG TABLET PO SCH (08:51)
[2017-03-01] MEDS: metFORMIN 500 MG TAB PO SCH ×2 (08:51→18:35)
[2017-03-01] MEDS: MONTELUKAST 10 MG TAB PO SCH (08:51)
[2017-03-01] MEDS: VALSARTAN 80 MG TAB PO SCH (08:52)
[2017-03-01] MEDS: ENOXAPARIN 40 MG/0.4 ML SYG SC SCH (09:00)
[2017-03-01] MEDS: ALBUTEROL/IPRATROPIUM (NEB) 3 ML AMP HHN SCH ×3 (09:29→16:03)
[2017-03-01] MEDS: NYSTATIN 15 GM POWDER BTL TOP SCH ×2 (09:39→20:25)
[2017-03-01] MEDS ORDERED: IBUPROFEN 600 MG TAB PO PRN (14:00)
--- NOTE | 2017-03-01 14:23 | PN ---
Date/Time of Note Date/Time of Note DATE: 03/01/17 TIME: 14:20 Assessment/Plan VTE Prophylaxis VTE Prophylaxis Intervention: SCD's Lines/Catheters IV Catheter Type (from Nrs): [place] [facility] Urinary Cath still in place: Yes Reason Cath still needed: urinary retention Assessment/Plan Chief Complaint/Hosp Course Patient denies any chest pain denies short of breath remains afebrile, patient refusing subcutaneous insulin. Assessment/Plan -CHF exacerbation, continue Lasix. Dr. Slater is following in cardiology consultation. -Coronary artery disease, continue Plavix. -Hypertension -Hyperlipidemia, continue statin. -COPD -Diabetes mellitus type 2, hemoglobin A1c is 8.3, continue metformin and Tradjenta, continue Lantus and NovoLog per mild algorithm sliding scale. -Morbid obesity with BMI of 61. -Peripheral vascular disease Further recommendations based on clinical course. Plan of care discussed with Dr. Randall. Problems: Exam/Review of Systems Vital Signs Vitals Vital Signs Date Time Temp Pulse Resp B/P Pulse Ox O2 Delivery O2 Flow Rate FiO2 03/01/17 13:26 94 20 99 21 03/01/17 07:33 97.8 136/79 02/28/17 20:00 Nasal Cannula 2.0 Intake and Output 02/28/17 02/28/17 03/01/17 15:00 23:00 07:00 Intake Total 700 ml Output Total 750 ml Balance -50 ml Exam Constitutional: alert, oriented Head: atraumatic, normocephalic Neck: supple Respiratory: diminished breath sounds Cardiovascular: nl pulses, regular rate and rhythm Gastrointestinal: non-tender, soft Extremities: edema, other Neurological: nl mental status Skin: nl turgor Results Result Diagram: 03/01/17 0510 03/01/17 0510 Results 24 hrs Laboratory Tests Test 02/28/17 17:19 02/28/17 20:38 03/01/17 05:10 03/01/17 08:13 Bedside Glucose 139 159 149 White Blood Count 5.0 Red Blood Count 5.35 Hemoglobin 12.9 Hematocrit 41.9 Mean Corpuscular Volume 78.3 L Mean Corpuscular Hemoglobin 24.1 L Mean Corpuscular Hemoglobin Concent 30.8 L Red Cell Distribution Width 21.1 H Platelet Count 204 Mean Platelet Volume 10.5 H Neutrophils % 77.2 H Lymphocytes % 10.8 L Monocytes % 9.2 Eosinophils % 1.8 Basophils % 0.6 Nucleated Red Blood Cells % 0.0 Neutrophils # 3.9 Lymphocytes # 0.5 L Monocytes # 0.5 Eosinophils # 0.1 Basophils # 0.0 Nucleated Red Blood Cells # 0.0 Sodium Level 136 Potassium Level 4.3 Chloride Level 99 Carbon Dioxide Level 30 Anion Gap 11 Blood Urea Nitrogen 17 Creatinine 0.65 Glucose Level 137 Calcium Level 8.5 Test 03/01/17 12:22 Bedside Glucose 167 Medications Medications Current Medications Enoxaparin Sodium (Lovenox) 40 mg DAILY SC ; Start 02/26/17 at 09:00 Acetaminophen (Tylenol Tab) 650 mg Q6H PRN PO PAIN AND OR ELEVATED TEMP; Start 02/26/17 at 00:00 Potassium Chloride (Klor-Con 20) 20 meq DAILY PO Last administered on 08:49; Admin Dose 20 MEQ; Start 02/26/17 at 09:00 Insulin Glargine (Lantus) 10 unit DAILY@20 SC ; Start 02/26/17 at 20:00 Diagnostic Test (Pha) (Accu-Chek) 1 ea 02 XX ; Start 02/26/17 at 02:00 Atorvastatin Calcium (Lipitor) 40 mg DAILY PO Last administered on 03/01/17 08 :49; Admin Dose 40 MG; Start 02/26/17 at 09:00 Clopidogrel Bisulfate (plaVIX) 75 mg DAILY PO Last administered on 03/01/17 08 :50; Admin Dose 75 MG; Start 02/26/17 at 09:00 Diphenhydramine HCl (Benadryl) 25 mg TID PRN PO ITCHING Last administered on 08:18; Admin Dose 25 MG; Start 02/26/17 at 00:30 Fluoxetine HCl (Prozac) 10 mg DAILY PO Last administered on 03/01/17 08:50; Admin Dose 10 MG; Start 02/26/17 at 09:00 Montelukast Sodium (Singulair) 10 mg DAILY PO Last administered on 03/01/17 08 :51; Admin Dose 10 MG; Start 02/26/17 at 09:00 Nystatin 1 applic BID TOP Last administered on 03/01/17 09:39; Admin Dose 1 APPLIC; Start 02/26/17 at 09:00 Pantoprazole (Protonix Tab) 40 mg DAILY PO Last administered on 03/01/17 08:50 ; Admin Dose 40 MG; Start 02/26/17 at 09:00 Paroxetine HCl (Paxil) 10 mg DAILY PO Last administered on 03/01/17 08:50; Admin Dose 10 MG; Start 02/26/17 at 09:00 Ropinirole HCl (Requip) 0.25 mg DAILY PO Last administered on 03/01/17 08:50; Admin Dose 0.25 MG; Start 02/26/17 at 09:00 Valsartan (Diovan) 80 mg DAILY PO Last administered on 03/01/17 08:52; Admin Dose 80 MG; Start 02/26/17 at 09:00 Zolpidem Tartrate (Ambien) 5 mg QHS PRN PO INSOMNIA; Start 02/26/17 at 00:30 Miscellaneous Information 1 ea NOTE XX ; Start 02/26/17 at 01:00 Glucose (Glutose) 15 gm Q15M PRN PO DECREASED GLUCOSE; Start 02/26/17 at 01:00 Glucose (Glutose) 22.5 gm Q15M PRN PO DECREASED GLUCOSE; Start 02/26/17 at 01: 00 Dextrose (D50w Syringe) 25 ml Q15M PRN IV DECREASED GLUCOSE; Start 02/26/17 at 01:00 Dextrose (D50w Syringe) 50 ml Q15M PRN IV DECREASED GLUCOSE; Start 02/26/17 at 01:00 Glucagon (Glucagen) 1 mg Q15M PRN IM DECREASED GLUCOSE; Start 02/26/17 at 01:00 Glucose (Glutose) 15 gm Q15M PRN BUCCAL DECREASED GLUCOSE; Start 02/26/17 at 01 :00 Albuterol (Ventolin Hfa) 2 puff Q4H PRN INH SHORTNESS OF BREATH Last administered on 02/26/17 09:57; Admin Dose 2 PUFF; Start 02/26/17 at 01:00 Linagliptin (Tradjenta) 5 mg DAILY PO Last administered on 03/01/17 08:51; Admin Dose 5 MG; Start 02/27/17 at 09:00 Ondansetron HCl (Zofran Inj) 4 mg Q6H PRN IV NAUSEA AND/OR VOMITING; Start at 17:30 Magnesium Oxide (Mag-Ox 400) 400 mg DAILY PO Last administered on 03/01/17t 08: 49; Admin Dose 400 MG; Start 02/28/17 at 19:30 Ibuprofen (Motrin) 600 mg Q6H PRN PO PAIN; Start 03/01/17 at 14:00 ADENIKE DE GUZMAN Mar 01, 2017 14:23
--- NOTE | 2017-03-01 14:46 | CONS ---
Date/Time of Note Date/Time of Note DATE: 03/01/17 TIME: 14:42 Assessment/Plan Assessment/Plan Chief Complaint/Hosp Course IMP: 1.CHF-? systolic vs Diastolic acute on chronic. EF 30-35% by echo this admit. 2.HTN 3.HL 4.LE wound/PAD 5.LE edema 6.cad 7. DM Recc: -Tele -serial ecg's -Continue statin -Continue lasix diuresis as patient will comply -Continue diovan and add low dose BB -complete chin Problems: Consultation Date/Type/Reason Admit Date/Time Feb 25, 2017 at 21:45 Initial Consult Date 02/27/17 Type of Consultation: cardiology Reason for Consultation CHF Referring Provider: MARILU FRIED MD Exam/Review of Systems Vital Signs Vitals Vital Signs Date Time Temp Pulse Resp B/P Pulse Ox O2 Delivery O2 Flow Rate FiO2 03/01/17 13:26 94 20 99 21 03/01/17 07:33 97.8 136/79 02/28/17 20:00 Nasal Cannula 2.0 Intake and Output 02/28/17 02/28/17 03/01/17 15:00 23:00 07:00 Intake Total 700 ml Output Total 750 ml Balance -50 ml Exam Review of Systems: CONSTITUTIONAL: No fevers, chills. PULMONARY: ongoing sob CARDIOVASCULAR: No chest pain/palpitations GASTROINTESTINAL: No nausea/vomiting. GENITOURINARY: No hematuria/dysuria. MUSCULOSKELETAL: No myagias/arthalgias. PSYCHIATRIC: The patient denies depression. NEUROLOGIC: No weakness Constitutional: alert, oriented Psych: no complaints Head: normocephalic ENMT: mucosa pink and moist Neck: jvd (water) Respiratory: diminished breath sounds (at bases/B) Cardiovascular: regular rate and rhythm Gastrointestinal: non-tender, soft Musculoskeletal: muscle tone (normal) Extremities: edema (none) Neurological: other Results Result Diagram: 03/01/17 0510 03/01/17 0510 Results 24 hrs Laboratory Tests Test 02/28/17 17:19 02/28/17 20:38 03/01/17 05:10 03/01/17 08:13 Bedside Glucose 139 159 149 White Blood Count 5.0 Red Blood Count 5.35 Hemoglobin 12.9 Hematocrit 41.9 Mean Corpuscular Volume 78.3 L Mean Corpuscular Hemoglobin 24.1 L Mean Corpuscular Hemoglobin Concent 30.8 L Red Cell Distribution Width 21.1 H Platelet Count 204 Mean Platelet Volume 10.5 H Neutrophils % 77.2 H Lymphocytes % 10.8 L Monocytes % 9.2 Eosinophils % 1.8 Basophils % 0.6 Nucleated Red Blood Cells % 0.0 Neutrophils # 3.9 Lymphocytes # 0.5 L Monocytes # 0.5 Eosinophils # 0.1 Basophils # 0.0 Nucleated Red Blood Cells # 0.0 Sodium Level 136 Potassium Level 4.3 Chloride Level 99 Carbon Dioxide Level 30 Anion Gap 11 Blood Urea Nitrogen 17 Creatinine 0.65 Glucose Level 137 Calcium Level 8.5 Test 03/01/17 12:22 Bedside Glucose 167 Medications Medications Current Medications Enoxaparin Sodium (Lovenox) 40 mg DAILY SC ; Start 02/26/17 at 09:00 Acetaminophen (Tylenol Tab) 650 mg Q6H PRN PO PAIN AND OR ELEVATED TEMP; Start 02/26/17 at 00:00 Potassium Chloride (Klor-Con 20) 20 meq DAILY PO Last administered on 08:49; Admin Dose 20 MEQ; Start 02/26/17 at 09:00 Insulin Glargine (Lantus) 10 unit DAILY@20 SC ; Start 02/26/17 at 20:00 Diagnostic Test (Pha) (Accu-Chek) 1 ea 02 XX ; Start 02/26/17 at 02:00 Atorvastatin Calcium (Lipitor) 40 mg DAILY PO Last administered on 03/01/17 08 :49; Admin Dose 40 MG; Start 02/26/17 at 09:00 Clopidogrel Bisulfate (plaVIX) 75 mg DAILY PO Last administered on 03/01/17 08 :50; Admin Dose 75 MG; Start 02/26/17 at 09:00 Diphenhydramine HCl (Benadryl) 25 mg TID PRN PO ITCHING Last administered on 08:18; Admin Dose 25 MG; Start 02/26/17 at 00:30 Fluoxetine HCl (Prozac) 10 mg DAILY PO Last administered on 03/01/17 08:50; Admin Dose 10 MG; Start 02/26/17 at 09:00 Montelukast Sodium (Singulair) 10 mg DAILY PO Last administered on 03/01/17 08 :51; Admin Dose 10 MG; Start 02/26/17 at 09:00 Nystatin 1 applic BID TOP Last administered on 03/01/17 09:39; Admin Dose 1 APPLIC; Start 02/26/17 at 09:00 Pantoprazole (Protonix Tab) 40 mg DAILY PO Last administered on 03/01/17 08:50 ; Admin Dose 40 MG; Start 02/26/17 at 09:00 Paroxetine HCl (Paxil) 10 mg DAILY PO Last administered on 03/01/17 08:50; Admin Dose 10 MG; Start 02/26/17 at 09:00 Ropinirole HCl (Requip) 0.25 mg DAILY PO Last administered on 03/01/17 08:50; Admin Dose 0.25 MG; Start 02/26/17 at 09:00 Valsartan (Diovan) 80 mg DAILY PO Last administered on 03/01/17 08:52; Admin Dose 80 MG; Start 02/26/17 at 09:00 Zolpidem Tartrate (Ambien) 5 mg QHS PRN PO INSOMNIA; Start 02/26/17 at 00:30 Miscellaneous Information 1 ea NOTE XX ; Start 02/26/17 at 01:00 Glucose (Glutose) 15 gm Q15M PRN PO DECREASED GLUCOSE; Start 02/26/17 at 01:00 Glucose (Glutose) 22.5 gm Q15M PRN PO DECREASED GLUCOSE; Start 02/26/17 at 01: 00 Dextrose (D50w Syringe) 25 ml Q15M PRN IV DECREASED GLUCOSE; Start 02/26/17 at 01:00 Dextrose (D50w Syringe) 50 ml Q15M PRN IV DECREASED GLUCOSE; Start 02/26/17 at 01:00 Glucagon (Glucagen) 1 mg Q15M PRN IM DECREASED GLUCOSE; Start 02/26/17 at 01:00 Glucose (Glutose) 15 gm Q15M PRN BUCCAL DECREASED GLUCOSE; Start 02/26/17 at 01 :00 Albuterol (Ventolin Hfa) 2 puff Q4H PRN INH SHORTNESS OF BREATH Last administered on 02/26/17 09:57; Admin Dose 2 PUFF; Start 02/26/17 at 01:00 Linagliptin (Tradjenta) 5 mg DAILY PO Last administered on 03/01/17 08:51; Admin Dose 5 MG; Start 02/27/17 at 09:00 Ondansetron HCl (Zofran Inj) 4 mg Q6H PRN IV NAUSEA AND/OR VOMITING; Start at 17:30 Magnesium Oxide (Mag-Ox 400) 400 mg DAILY PO Last administered on 03/01/17t 08: 49; Admin Dose 400 MG; Start 02/28/17 at 19:30 Ibuprofen (Motrin) 600 mg Q6H PRN PO PAIN; Start 03/01/17 at 14:00 JACQUELINE HORNE Mar 01, 2017 14:45
[2017-03-01 19:28] VITALS: BP 140/76; RESP 20
[2017-03-01] MEDS: INSULIN GLARGINE [LANtus] 3 ML PEN SC SCH (20:00)
--- NOTE | 2017-03-01 20:53 | CONS ---
Date/Time of Note Date/Time of Note DATE: 03/01/17 TIME: 20:52 Assessment/Plan Assessment/Plan Chief Complaint/Hosp Course MICROCYTOSIS COMPLETE W-UP HX ANEMIA MONITOR CLOSELY LOOKS COMPENSATED AT PRESENT LEUKOPENIA RESOLVED MONITOR CHF exacerbation, continue Lasix. Dr. Slater is following in cardiology consultation. Coronary artery disease, continue Plavix. Hypertension Hyperlipidemia, continue statin. COPD Diabetes mellitus type 2, will check hemoglobin A1c, continue Lantus and NovoLog per mild algorithm sliding scale. Morbid obesity with BMI of 61. Peripheral vascular disease Problems: Consultation Date/Type/Reason Admit Date/Time Feb 25, 2017 at 21:45 [facility] Referring Provider: MARILU FRIED MD 24 HR Interval Summary Free Text/Dictation NOTED COUNT STABLE NO BLEEDING Exam/Review of Systems Vital Signs Vitals Vital Signs Date Time Temp Pulse Resp B/P Pulse Ox O2 Delivery O2 Flow Rate FiO2 03/01/17 19:28 98.3 92 20 140/76 95 03/01/17 16:04 21 02/28/17 20:00 Nasal Cannula 2.0 Intake and Output 02/28/17 02/28/17 03/01/17 15:00 23:00 07:00 Intake Total 700 ml Output Total 750 ml Balance -50 ml Exam Constitutional: alert, oriented Head: atraumatic, normocephalic Neck: supple Respiratory: diminished breath sounds Cardiovascular: nl pulses, regular rate and rhythm Gastrointestinal: non-tender, soft Extremities: edema 2+, other Neurological: nl mental status Skin: nl turgor Results Result Diagram: 03/01/17 0510 03/01/17 0510 Results 24 hrs Laboratory Tests Test 03/01/17 05:10 03/01/17 08:13 03/01/17 12:22 03/01/17 17:43 White Blood Count 5.0 Red Blood Count 5.35 Hemoglobin 12.9 Hematocrit 41.9 Mean Corpuscular Volume 78.3 L Mean Corpuscular Hemoglobin 24.1 L Mean Corpuscular Hemoglobin Concent 30.8 L Red Cell Distribution Width 21.1 H Platelet Count 204 Mean Platelet Volume 10.5 H Neutrophils % 77.2 H Lymphocytes % 10.8 L Monocytes % 9.2 Eosinophils % 1.8 Basophils % 0.6 Nucleated Red Blood Cells % 0.0 Neutrophils # 3.9 Lymphocytes # 0.5 L Monocytes # 0.5 Eosinophils # 0.1 Basophils # 0.0 Nucleated Red Blood Cells # 0.0 Sodium Level 136 Potassium Level 4.3 Chloride Level 99 Carbon Dioxide Level 30 Anion Gap 11 Blood Urea Nitrogen 17 Creatinine 0.65 Glucose Level 137 Calcium Level 8.5 Bedside Glucose 149 167 143 Test 03/01/17 20:24 Bedside Glucose 142 Medications Medications Current Medications Enoxaparin Sodium (Lovenox) 40 mg DAILY SC ; Start 02/26/17 at 09:00 Acetaminophen (Tylenol Tab) 650 mg Q6H PRN PO PAIN AND OR ELEVATED TEMP; Start 02/26/17 at 00:00 Potassium Chloride (Klor-Con 20) 20 meq DAILY PO Last administered on 08:49; Admin Dose 20 MEQ; Start 02/26/17 at 09:00 Insulin Glargine (Lantus) 10 unit DAILY@20 SC ; Start 02/26/17 at 20:00 Diagnostic Test (Pha) (Accu-Chek) 1 ea 02 XX ; Start 02/26/17 at 02:00 Atorvastatin Calcium (Lipitor) 40 mg DAILY PO Last administered on 03/01/17 08 :49; Admin Dose 40 MG; Start 02/26/17 at 09:00 Clopidogrel Bisulfate (plaVIX) 75 mg DAILY PO Last administered on 03/01/17 08 :50; Admin Dose 75 MG; Start 02/26/17 at 09:00 Diphenhydramine HCl (Benadryl) 25 mg TID PRN PO ITCHING Last administered on 08:18; Admin Dose 25 MG; Start 02/26/17 at 00:30 Fluoxetine HCl (Prozac) 10 mg DAILY PO Last administered on 03/01/17 08:50; Admin Dose 10 MG; Start 02/26/17 at 09:00 Montelukast Sodium (Singulair) 10 mg DAILY PO Last administered on 03/01/17 08 :51; Admin Dose 10 MG; Start 02/26/17 at 09:00 Nystatin 1 applic BID TOP Last administered on 03/01/17 20:25; Admin Dose 1 APPLIC; Start 02/26/17 at 09:00 Pantoprazole (Protonix Tab) 40 mg DAILY PO Last administered on 03/01/17 08:50 ; Admin Dose 40 MG; Start 02/26/17 at 09:00 Paroxetine HCl (Paxil) 10 mg DAILY PO Last administered on 03/01/17 08:50; Admin Dose 10 MG; Start 02/26/17 at 09:00 Ropinirole HCl (Requip) 0.25 mg DAILY PO Last administered on 03/01/17 08:50; Admin Dose 0.25 MG; Start 02/26/17 at 09:00 Valsartan (Diovan) 80 mg DAILY PO Last administered on 03/01/17 08:52; Admin Dose 80 MG; Start 02/26/17 at 09:00 Zolpidem Tartrate (Ambien) 5 mg QHS PRN PO INSOMNIA; Start 02/26/17 at 00:30 Miscellaneous Information 1 ea NOTE XX ; Start 02/26/17 at 01:00 Glucose (Glutose) 15 gm Q15M PRN PO DECREASED GLUCOSE; Start 02/26/17 at 01:00 Glucose (Glutose) 22.5 gm Q15M PRN PO DECREASED GLUCOSE; Start 02/26/17 at 01: 00 Dextrose (D50w Syringe) 25 ml Q15M PRN IV DECREASED GLUCOSE; Start 02/26/17 at 01:00 Dextrose (D50w Syringe) 50 ml Q15M PRN IV DECREASED GLUCOSE; Start 02/26/17 at 01:00 Glucagon (Glucagen) 1 mg Q15M PRN IM DECREASED GLUCOSE; Start 02/26/17 at 01:00 Glucose (Glutose) 15 gm Q15M PRN BUCCAL DECREASED GLUCOSE; Start 02/26/17 at 01 :00 Albuterol (Ventolin Hfa) 2 puff Q4H PRN INH SHORTNESS OF BREATH Last administered on 02/26/17 09:57; Admin Dose 2 PUFF; Start 02/26/17 at 01:00 Linagliptin (Tradjenta) 5 mg DAILY PO Last administered on 03/01/17 08:51; Admin Dose 5 MG; Start 02/27/17 at 09:00 Ondansetron HCl (Zofran Inj) 4 mg Q6H PRN IV NAUSEA AND/OR VOMITING; Start at 17:30 Magnesium Oxide (Mag-Ox 400) 400 mg DAILY PO Last administered on 03/01/17 08: 49; Admin Dose 400 MG; Start 02/28/17 at 19:30 Carvedilol (Coreg) 3.125 mg BID PO Last administered on 03/01/17 20:25; Admin Dose 3.125 MG; Start 03/01/17 at 21:00 Ibuprofen (Motrin) 600 mg Q6H PRN PO PAIN Last administered on 03/01/17 15:10 ; Admin Dose 600 MG; Start 03/01/17 at 15:30 BLUE JIMÉNEZ MD Mar 01, 2017 20:53
[2017-03-01] MEDS: DIPHENHYDRAMINE 25 MG CAP PO PRN (23:22)
[2017-03-02] MEDS: ACCU-CHEK XX SCH (02:00)
[2017-03-02] MEDS: FUROSEMIDE 20 MG TAB PO SCH ×2 (06:45→17:42)
[2017-03-02] MEDS: INSULIN ASPART [NOVOLOG] 3 ML PEN SC SCH ×4 (08:15→21:00)
[2017-03-02] MEDS: ALBUTEROL/IPRATROPIUM (NEB) 3 ML AMP HHN SCH ×3 (08:42→16:12)
[2017-03-02 08:59] VITALS: BP 132/75; PULSE 89; RESP 18
[2017-03-02] MEDS: ENOXAPARIN 40 MG/0.4 ML SYG SC SCH (09:00)
[2017-03-02] MEDS: CLOPIDOGREL 75 MG TAB PO SCH (09:01)
[2017-03-02] MEDS: PAROXETINE 10 MG TAB PO SCH ×2 (09:01→10:12)
[2017-03-02] MEDS: POTASSIUM CHLORIDE (SR) 20 MEQ TAB PO SCH (09:01)
[2017-03-02] MEDS: metFORMIN 500 MG TAB PO SCH ×2 (09:01→17:40)
[2017-03-02] MEDS: ROPINIROLE 0.25 MG TAB PO SCH (09:01)
[2017-03-02] MEDS: PANTOPRAZOLE (EC) 40 MG TAB PO SCH (09:02)
[2017-03-02] MEDS: ATORVASTATIN 40 MG TAB PO SCH (09:02)
[2017-03-02] MEDS: MAGNESIUM OXIDE 400 MG TAB PO SCH (09:02)
[2017-03-02] MEDS: MONTELUKAST 10 MG TAB PO SCH (09:02)
[2017-03-02] MEDS: LINAGLIPTIN 5 MG TABLET PO SCH (09:02)
[2017-03-02] MEDS: VALSARTAN 80 MG TAB PO SCH (09:03)
[2017-03-02] MEDS: NYSTATIN 15 GM POWDER BTL TOP SCH ×2 (09:06→21:08)
[2017-03-02] MEDS: IBUPROFEN 200 MG TAB PO PRN ×2 (10:14→22:32)
[2017-03-02] MEDS: FLUOXETINE 10 MG CAP PO SCH (10:20)
--- NOTE | 2017-03-02 12:34 | PN ---
Date/Time of Note Date/Time of Note DATE: 03/02/17 TIME: 12:26 Assessment/Plan VTE Prophylaxis VTE Prophylaxis Intervention: SCD's Lines/Catheters IV [facility]from [facility] Urinary Cath still in place: Yes Assessment/Plan Assessment/Plan -CHF exacerbation, continue Lasix. Dr. Slater is following in cardiology consultation. - refuses blood draw today -Coronary artery disease, continue Plavix. -Hypertension- stable -Hyperlipidemia, continue statin. -COPD -Diabetes mellitus type 2, hemoglobin A1c is 8.3, continue metformin and Tradjenta, continue Lantus and NovoLog per mild algorithm sliding scale. -Morbid obesity with BMI of 61. - weight management - dietary consult -Peripheral vascular disease Further recommendations based on clinical course. Plan of care discussed with Dr. Randall. Subjective 24 Hr Interval Summary Free Text/Dictation nad, denies any chest pain, shortness of breath, afebrile, BP stable, patient refusing blood draw today- dw staff Respiratory: no complaints Cardiovascular: no complaints Gastrointestinal: no complaints Genitourinary: no complaints Musculoskeletal: no complaints Exam/Review of Systems Vital Signs Vitals Vital Signs Date Time Temp Pulse Resp B/P Pulse Ox O2 Delivery O2 Flow Rate FiO2 03/02/17 08:59 98.0 89 18 132/75 98 Room Air 03/02/17 08:43 21 03/01/17 20:00 2.0 Intake and Output 03/01/17 03/01/17 03/02/17 15:00 23:00 07:00 Intake Total 920 ml 1880 ml 820 ml Output Total 2400 ml 1850 ml 1150 ml Balance -1480 ml 30 ml -330 ml Exam Constitutional: alert, obese, oriented Respiratory: diminished breath sounds Cardiovascular: nl pulses, regular rate and rhythm Gastrointestinal: non-tender, other, soft Neurological: nl mental status, nl speech Results Result Diagram: 03/01/17 0510 03/01/17 0510 Results 24 hrs Laboratory Tests Test 03/01/17 17:43 03/01/17 20:24 03/02/17 08:37 03/02/17 12:14 Bedside Glucose 143 142 123 138 Medications Medications Current Medications Enoxaparin Sodium (Lovenox) 40 mg DAILY SC ; Start 02/26/17 at 09:00 Acetaminophen (Tylenol Tab) 650 mg Q6H PRN PO PAIN AND OR ELEVATED TEMP; Start 02/26/17 at 00:00 Potassium Chloride (Klor-Con 20) 20 meq DAILY PO Last administered on 03/02/17 09:01; Admin Dose 20 MEQ; Start 02/26/17 at 09:00 Insulin Glargine (Lantus) 10 unit DAILY@20 SC ; Start 02/26/17 at 20:00 Diagnostic Test (Pha) (Accu-Chek) 1 ea 02 XX ; Start 02/26/17 at 02:00 Atorvastatin Calcium (Lipitor) 40 mg DAILY PO Last administered on 03/02/17 09: 02; Admin Dose 40 MG; Start 02/26/17 at 09:00 Clopidogrel Bisulfate (plaVIX) 75 mg DAILY PO Last administered on 03/02/17 09: 01; Admin Dose 75 MG; Start 02/26/17 at 09:00 Diphenhydramine HCl (Benadryl) 25 mg TID PRN PO ITCHING Last administered on 23:22; Admin Dose 25 MG; Start 02/26/17 at 00:30 Fluoxetine HCl (Prozac) 10 mg DAILY PO Last administered on 03/02/17 10:20; Admin Dose 10 MG; Start 02/26/17 at 09:00 Montelukast Sodium (Singulair) 10 mg DAILY PO Last administered on 03/02/17 09: 02; Admin Dose 10 MG; Start 02/26/17 at 09:00 Nystatin 1 applic BID TOP Last administered on 03/02/17 09:06; Admin Dose 1 APPLIC; Start 02/26/17 at 09:00 Pantoprazole (Protonix Tab) 40 mg DAILY PO Last administered on 03/02/17 09:02 ; Admin Dose 40 MG; Start 02/26/17 at 09:00 Paroxetine HCl (Paxil) 10 mg DAILY PO Last administered on 03/02/17 09:01; Admin Dose 10 MG; Start 02/26/17 at 09:00 Ropinirole HCl (Requip) 0.25 mg DAILY PO Last administered on 03/02/17 09:01; Admin Dose 0.25 MG; Start 02/26/17 at 09:00 Valsartan (Diovan) 80 mg DAILY PO Last administered on 03/02/17 09:03; Admin Dose 80 MG; Start 02/26/17 at 09:00 Zolpidem Tartrate (Ambien) 5 mg QHS PRN PO INSOMNIA; Start 02/26/17 at 00:30 Miscellaneous Information 1 ea NOTE XX ; Start 02/26/17 at 01:00 Glucose (Glutose) 15 gm Q15M PRN PO DECREASED GLUCOSE; Start 02/26/17 at 01:00 Glucose (Glutose) 22.5 gm Q15M PRN PO DECREASED GLUCOSE; Start 02/26/17 at 01: 00 Dextrose (D50w Syringe) 25 ml Q15M PRN IV DECREASED GLUCOSE; Start 02/26/17 at 01:00 Dextrose (D50w Syringe) 50 ml Q15M PRN IV DECREASED GLUCOSE; Start 02/26/17 at 01:00 Glucagon (Glucagen) 1 mg Q15M PRN IM DECREASED GLUCOSE; Start 02/26/17 at 01:00 Glucose (Glutose) 15 gm Q15M PRN BUCCAL DECREASED GLUCOSE; Start 02/26/17 at 01 :00 Albuterol (Ventolin Hfa) 2 puff Q4H PRN INH SHORTNESS OF BREATH Last administered on 02/26/17 09:57; Admin Dose 2 PUFF; Start 02/26/17 at 01:00 Linagliptin (Tradjenta) 5 mg DAILY PO Last administered on 03/02/17 09:02; Admin Dose 5 MG; Start 02/27/17 at 09:00 Ondansetron HCl (Zofran Inj) 4 mg Q6H PRN IV NAUSEA AND/OR VOMITING; Start at 17:30 Magnesium Oxide (Mag-Ox 400) 400 mg DAILY PO Last administered on 03/02/17 09: 02; Admin Dose 400 MG; Start 02/28/17 at 19:30 Carvedilol (Coreg) 3.125 mg BID PO Last administered on 03/02/17 09:02; Admin Dose 3.125 MG; Start 03/01/17 at 21:00 Ibuprofen (Motrin) 600 mg Q6H PRN PO PAIN Last administered on 03/02/17 10:14; Admin Dose 600 MG; Start 03/01/17 at 15:30 VERONICA CHERRY Mar 02, 2017 12:34
--- NOTE | 2017-03-02 14:02 | CONS ---
Date/Time of Note Date/Time of Note DATE: 03/02/17 TIME: 14:00 Assessment/Plan Assessment/Plan Additional Assessment/Plan 1.CHF-? systolic vs Diastolic acute on chronic. EF 30-35% by echo this admit- con't diuresis - fluid restriction advises 1L per day. 2.HTN- wrll Rx, con't med tx. 3.HL 4.LE wound/PAD - skin care in place 5.LE edema - con'r elevation - fluid restriction now 6.cad - no CP, con't med rx 7. DM - on meds, keep euglycemic. Consultation Date/Type/Reason Admit Date/Time Feb 25, 2017 at 21:45 Initial Consult Date 02/27/17 Type of Consultation: [facility] Referring Provider: MARILU FRIED MD 24 HR Interval Summary Free Text/Dictation NO acute change - off tele - con't diuresis. ROS: No fever, no chills, no nausea, no vomiting, no diarrhea/constipation No recent weight changes No chest pain, no PND, no orthopnea No dizziness, blurred vision No thirst, no heat or cold intolerance (better) Exam/Review of Systems Vital Signs Vitals Vital Signs Date Time Temp Pulse Resp B/P Pulse Ox O2 Delivery O2 Flow Rate FiO2 03/02/17 13:29 78 16 95 21 03/02/17 08:59 98.0 132/75 Room Air 03/01/17 20:00 2.0 Intake and Output 03/01/17 03/01/17 03/02/17 15:00 23:00 07:00 Intake Total 920 ml 1880 ml 820 ml Output Total 2400 ml 1850 ml 1150 ml Balance -1480 ml 30 ml -330 ml Exam General: WN/WD/NAD, AOx 3 HEENT: Unicetric/atraumatic/EOMI (follow commands) NECK: JVD elevated, no thyromegaly Lymph: no lymphadenopathy HEART: regular with no S3, II/ systolic murmur at apex LUNGS: Coarse sounds ABD: soft, NT, ND, +BS : Intact Neuro: non focal SKIN: chronic changes EXT: 2-3+ edema Results Result Diagram: 03/01/17 0510 03/01/17 0510 Results 24 hrs Laboratory Tests Test 03/01/17 17:43 03/01/17 20:24 03/02/17 08:37 03/02/17 12:14 Bedside Glucose 143 142 123 138 Medications Medications Current Medications Enoxaparin Sodium (Lovenox) 40 mg DAILY SC ; Start 02/26/17 at 09:00 Acetaminophen (Tylenol Tab) 650 mg Q6H PRN PO PAIN AND OR ELEVATED TEMP; Start 02/26/17 at 00:00 Potassium Chloride (Klor-Con 20) 20 meq DAILY PO Last administered on 03/02/17 09:01; Admin Dose 20 MEQ; Start 02/26/17 at 09:00 Insulin Glargine (Lantus) 10 unit DAILY@20 SC ; Start 02/26/17 at 20:00 Diagnostic Test (Pha) (Accu-Chek) 1 ea 02 XX ; Start 02/26/17 at 02:00 Atorvastatin Calcium (Lipitor) 40 mg DAILY PO Last administered on 03/02/17 09: 02; Admin Dose 40 MG; Start 02/26/17 at 09:00 Clopidogrel Bisulfate (plaVIX) 75 mg DAILY PO Last administered on 03/02/17 09: 01; Admin Dose 75 MG; Start 02/26/17 at 09:00 Diphenhydramine HCl (Benadryl) 25 mg TID PRN PO ITCHING Last administered on 23:22; Admin Dose 25 MG; Start 02/26/17 at 00:30 Fluoxetine HCl (Prozac) 10 mg DAILY PO Last administered on 03/02/17 10:20; Admin Dose 10 MG; Start 02/26/17 at 09:00 Montelukast Sodium (Singulair) 10 mg DAILY PO Last administered on 03/02/17 09: 02; Admin Dose 10 MG; Start 02/26/17 at 09:00 Nystatin 1 applic BID TOP Last administered on 03/02/17 09:06; Admin Dose 1 APPLIC; Start 02/26/17 at 09:00 Pantoprazole (Protonix Tab) 40 mg DAILY PO Last administered on 03/02/17 09:02 ; Admin Dose 40 MG; Start 02/26/17 at 09:00 Paroxetine HCl (Paxil) 10 mg DAILY PO Last administered on 03/02/17 09:01; Admin Dose 10 MG; Start 02/26/17 at 09:00 Ropinirole HCl (Requip) 0.25 mg DAILY PO Last administered on 03/02/17 09:01; Admin Dose 0.25 MG; Start 02/26/17 at 09:00 Valsartan (Diovan) 80 mg DAILY PO Last administered on 03/02/17 09:03; Admin Dose 80 MG; Start 02/26/17 at 09:00 Zolpidem Tartrate (Ambien) 5 mg QHS PRN PO INSOMNIA; Start 02/26/17 at 00:30 Miscellaneous Information 1 ea NOTE XX ; Start 02/26/17 at 01:00 Glucose (Glutose) 15 gm Q15M PRN PO DECREASED GLUCOSE; Start 02/26/17 at 01:00 Glucose (Glutose) 22.5 gm Q15M PRN PO DECREASED GLUCOSE; Start 02/26/17 at 01: 00 Dextrose (D50w Syringe) 25 ml Q15M PRN IV DECREASED GLUCOSE; Start 02/26/17 at 01:00 Dextrose (D50w Syringe) 50 ml Q15M PRN IV DECREASED GLUCOSE; Start 02/26/17 at 01:00 Glucagon (Glucagen) 1 mg Q15M PRN IM DECREASED GLUCOSE; Start 02/26/17 at 01:00 Glucose (Glutose) 15 gm Q15M PRN BUCCAL DECREASED GLUCOSE; Start 02/26/17 at 01 :00 Albuterol (Ventolin Hfa) 2 puff Q4H PRN INH SHORTNESS OF BREATH Last administered on 02/26/17 09:57; Admin Dose 2 PUFF; Start 02/26/17 at 01:00 Linagliptin (Tradjenta) 5 mg DAILY PO Last administered on 03/02/17 09:02; Admin Dose 5 MG; Start 02/27/17 at 09:00 Ondansetron HCl (Zofran Inj) 4 mg Q6H PRN IV NAUSEA AND/OR VOMITING; Start at 17:30 Magnesium Oxide (Mag-Ox 400) 400 mg DAILY PO Last administered on 03/02/17 09: 02; Admin Dose 400 MG; Start 02/28/17 at 19:30 Carvedilol (Coreg) 3.125 mg BID PO Last administered on 03/02/17 09:02; Admin Dose 3.125 MG; Start 03/01/17 at 21:00 Ibuprofen (Motrin) 600 mg Q6H PRN PO PAIN Last administered on 03/02/17t 10:14; Admin Dose 600 MG; Start 03/01/17 at 15:30 ITZ BRAGA MD Mar 02, 2017 14:02
[2017-03-02 14:50] LABS: BASOPHILS % 0.6 % (0.0-2.0); EOSINOPHILS # 0.1 10^3/ul (0.0-0.5); EOSINOPHILS % 2.4 % (0.0-7.0); HEMATOCRIT 42.8 % (37.0-47.0); HEMOGLOBIN 13.2 g/dl (12.0-16.0); LYMPHOCYTES # 0.6 10^3/ul (0.8-2.9); LYMPHOCYTES % 11.2 % (15.0-51.0); MEAN CORPUSCULAR HGB CONC 30.8 g/dl (32.0-37.0); MEAN CORPUSCULAR VOLUME 77.8 fl (82.0-101.0); MONOCYTE # 0.5 10^3/ul (0.3-0.9); MONOCYTES % 8.9 % (0.0-11.0); NEUTROPHIL # 4.1 10^3/ul (1.6-7.5); NEUTROPHILS % 76.5 % (39.0-77.0); PLATELET COUNT 182 10^3/UL (140-415); RED CELL DISTRIBUTION WIDTH 21.3 % (11.5-14.5); WHITE BLOOD COUNT 5.4 10^3/ul (4.8-10.8)
[2017-03-02 15:19] LABS: CALCIUM 8.6 mg/dl (8.4-10.2); CREATININE 0.71 mg/dl (0.44-1.00); POTASSIUM 4.4 mmol/L (3.5-5.1)
[2017-03-02 15:20] LABS: IRON 51 ug/dl (35-150)
[2017-03-02 15:21] LABS: ADD SCAN DIFF NO
[2017-03-02 15:29] LABS: TOTAL IRON BINDING CAPACITY 328 ug/dl (241-421)
--- NOTE | 2017-03-02 17:22 | CONS ---
Date/Time of Note Date/Time of Note DATE: 03/02/17 TIME: 17:18 Assessment/Plan Assessment/Plan Chief Complaint/Hosp Course MICROCYTOSIS COMPLETE W-UP HX ANEMIA MONITOR CLOSELY LOOKS COMPENSATED AT PRESENT LEUKOPENIA RESOLVED MONITOR CHF exacerbation, continue Lasix. Dr. Slater is following in cardiology consultation. Coronary artery disease, continue Plavix. Hypertension Hyperlipidemia, continue statin. COPD Diabetes mellitus type 2, will check hemoglobin A1c, continue Lantus and NovoLog per mild algorithm sliding scale. Morbid obesity with BMI of 61. Peripheral vascular disease Problems: Consultation Date/Type/Reason Admit Date/Time Feb 25, 2017 at 21:45 [facility]ation: [facility] Referring Provider: MARILU FRIED MD 24 HR Interval Summary Free Text/Dictation ALL NOTED FELLING BETTER Exam/Review of Systems Vital Signs Vitals Vital Signs Date Time Temp Pulse Resp B/P Pulse Ox O2 Delivery O2 Flow Rate FiO2 03/02/17 16:12 81 18 98 21 03/02/17 08:59 98.0 132/75 Room Air 03/01/17 20:00 2.0 Intake and Output 03/01/17 03/01/17 03/02/17 14:59 22:59 06:59 Intake Total 920 ml 1880 ml 820 ml Output Total 2400 ml 1850 ml 1150 ml Balance -1480 ml 30 ml -330 ml Exam Constitutional: alert, oriented Head: atraumatic, normocephalic Neck: supple Respiratory: diminished breath sounds Cardiovascular: nl pulses, regular rate and rhythm Gastrointestinal: non-tender, soft Extremities: edema 2+, other Neurological: nl mental status Skin: nl turgor Results Result Diagram: 03/02/17 1420 03/02/17 1420 Results 24 hrs Laboratory Tests Test 03/01/17 17:43 03/01/17 20:24 03/02/17 08:37 03/02/17 12:14 Bedside Glucose 143 142 123 138 Test 03/02/17 14:20 White Blood Count 5.4 Red Blood Count 5.50 H Hemoglobin 13.2 Hematocrit 42.8 Mean Corpuscular Volume 77.8 L Mean Corpuscular Hemoglobin 24.0 L Mean Corpuscular Hemoglobin Concent 30.8 L Red Cell Distribution Width 21.3 H Platelet Count 182 Mean Platelet Volume 10.0 Neutrophils % 76.5 Lymphocytes % 11.2 L Monocytes % 8.9 Eosinophils % 2.4 Basophils % 0.6 Nucleated Red Blood Cells % 0.0 Neutrophils # 4.1 Lymphocytes # 0.6 L Monocytes # 0.5 Eosinophils # 0.1 Basophils # 0.0 Nucleated Red Blood Cells # 0.0 Sodium Level 135 Potassium Level 4.4 Chloride Level 101 Carbon Dioxide Level 24 Anion Gap 14 Blood Urea Nitrogen 20 Creatinine 0.71 Glucose Level 141 Calcium Level 8.6 Iron Level 51 Total Iron Binding Capacity 328 Percent Iron Saturation 16 L Medications Medications Current Medications Enoxaparin Sodium (Lovenox) 40 mg DAILY SC ; Start 02/26/17 at 09:00 Acetaminophen (Tylenol Tab) 650 mg Q6H PRN PO PAIN AND OR ELEVATED TEMP; Start 02/26/17 at 00:00 Potassium Chloride (Klor-Con 20) 20 meq DAILY PO Last administered on 03/02/17 09:01; Admin Dose 20 MEQ; Start 02/26/17 at 09:00 Insulin Glargine (Lantus) 10 unit DAILY@20 SC ; Start 02/26/17 at 20:00 Diagnostic Test (Pha) (Accu-Chek) 1 ea 02 XX ; Start 02/26/17 at 02:00 Atorvastatin Calcium (Lipitor) 40 mg DAILY PO Last administered on 03/02/17 09: 02; Admin Dose 40 MG; Start 02/26/17 at 09:00 Clopidogrel Bisulfate (plaVIX) 75 mg DAILY PO Last administered on 03/02/17 09: 01; Admin Dose 75 MG; Start 02/26/17 at 09:00 Diphenhydramine HCl (Benadryl) 25 mg TID PRN PO ITCHING Last administered on 23:22; Admin Dose 25 MG; Start 02/26/17 at 00:30 Fluoxetine HCl (Prozac) 10 mg DAILY PO Last administered on 03/02/17 10:20; Admin Dose 10 MG; Start 02/26/17 at 09:00 Montelukast Sodium (Singulair) 10 mg DAILY PO Last administered on 03/02/17 09: 02; Admin Dose 10 MG; Start 02/26/17 at 09:00 Nystatin 1 applic BID TOP Last administered on 03/02/17 09:06; Admin Dose 1 APPLIC; Start 02/26/17 at 09:00 Pantoprazole (Protonix Tab) 40 mg DAILY PO Last administered on 03/02/17 09:02 ; Admin Dose 40 MG; Start 02/26/17 at 09:00 Paroxetine HCl (Paxil) 10 mg DAILY PO Last administered on 03/02/17 09:01; Admin Dose 10 MG; Start 02/26/17 at 09:00 Ropinirole HCl (Requip) 0.25 mg DAILY PO Last administered on 03/02/17 09:01; Admin Dose 0.25 MG; Start 02/26/17 at 09:00 Valsartan (Diovan) 80 mg DAILY PO Last administered on 03/02/17 09:03; Admin Dose 80 MG; Start 02/26/17 at 09:00 Zolpidem Tartrate (Ambien) 5 mg QHS PRN PO INSOMNIA; Start 02/26/17 at 00:30 Miscellaneous Information 1 ea NOTE XX ; Start 02/26/17 at 01:00 Glucose (Glutose) 15 gm Q15M PRN PO DECREASED GLUCOSE; Start 02/26/17 at 01:00 Glucose (Glutose) 22.5 gm Q15M PRN PO DECREASED GLUCOSE; Start 02/26/17 at 01: 00 Dextrose (D50w Syringe) 25 ml Q15M PRN IV DECREASED GLUCOSE; Start 02/26/17 at 01:00 Dextrose (D50w Syringe) 50 ml Q15M PRN IV DECREASED GLUCOSE; Start 02/26/17 at 01:00 Glucagon (Glucagen) 1 mg Q15M PRN IM DECREASED GLUCOSE; Start 02/26/17 at 01:00 Glucose (Glutose) 15 gm Q15M PRN BUCCAL DECREASED GLUCOSE; Start 02/26/17 at 01 :00 Albuterol (Ventolin Hfa) 2 puff Q4H PRN INH SHORTNESS OF BREATH Last administered on 02/26/17 09:57; Admin Dose 2 PUFF; Start 02/26/17 at 01:00 Linagliptin (Tradjenta) 5 mg DAILY PO Last administered on 03/02/17 09:02; Admin Dose 5 MG; Start 02/27/17 at 09:00 Ondansetron HCl (Zofran Inj) 4 mg Q6H PRN IV NAUSEA AND/OR VOMITING; Start at 17:30 Magnesium Oxide (Mag-Ox 400) 400 mg DAILY PO Last administered on 03/02/17 09: 02; Admin Dose 400 MG; Start 02/28/17 at 19:30 Carvedilol (Coreg) 3.125 mg BID PO Last administered on 03/02/17 09:02; Admin Dose 3.125 MG; Start 03/01/17 at 21:00 Ibuprofen (Motrin) 600 mg Q6H PRN PO PAIN Last administered on 03/02/17 10:14; Admin Dose 600 MG; Start 03/01/17 at 15:30 BLUE JIMÉNEZ MD Mar 02, 2017 17:21
[2017-03-02] MEDS: INSULIN GLARGINE [LANtus] 3 ML PEN SC SCH (20:00)
[2017-03-02 20:04] VITALS: BP 125/74; RESP 18
[2017-03-03] MEDS: ACCU-CHEK XX SCH (02:00)
[2017-03-03] MEDS: FUROSEMIDE 20 MG TAB PO SCH ×2 (05:41→17:05)
[2017-03-03 08:05] VITALS: BP 123/80; RESP 16
[2017-03-03] MEDS: ALBUTEROL/IPRATROPIUM (NEB) 3 ML AMP HHN SCH ×3 (08:10→16:57)
[2017-03-03] MEDS: INSULIN ASPART [NOVOLOG] 3 ML PEN SC SCH ×4 (08:11→20:16)
[2017-03-03] MEDS: metFORMIN 500 MG TAB PO SCH ×2 (08:19→17:05)
[2017-03-03] MEDS: MONTELUKAST 10 MG TAB PO SCH (08:20)
[2017-03-03] MEDS: ATORVASTATIN 40 MG TAB PO SCH (08:20)
[2017-03-03] MEDS: CLOPIDOGREL 75 MG TAB PO SCH (08:20)
[2017-03-03] MEDS: FLUOXETINE 10 MG CAP PO SCH (08:20)
[2017-03-03] MEDS: ROPINIROLE 0.25 MG TAB PO SCH (08:20)
[2017-03-03] MEDS: POTASSIUM CHLORIDE (SR) 20 MEQ TAB PO SCH (08:20)
[2017-03-03] MEDS: MAGNESIUM OXIDE 400 MG TAB PO SCH (08:20)
[2017-03-03] MEDS: LINAGLIPTIN 5 MG TABLET PO SCH (08:20)
[2017-03-03] MEDS: VALSARTAN 80 MG TAB PO SCH (08:20)
[2017-03-03] MEDS: PAROXETINE 10 MG TAB PO SCH (08:20)
[2017-03-03] MEDS: ENOXAPARIN 40 MG/0.4 ML SYG SC SCH (08:21)
[2017-03-03] MEDS: NYSTATIN 15 GM POWDER BTL TOP SCH ×2 (08:21→20:16)
[2017-03-03] MEDS: PANTOPRAZOLE (EC) 40 MG TAB PO SCH (08:21)
[2017-03-03] MEDS: DIPHENHYDRAMINE 25 MG CAP PO PRN (09:12)
--- NOTE | 2017-03-03 13:20 | PN ---
Date/Time of Note Date/Time of Note DATE: 03/03/17 TIME: 13:15 Assessment/Plan VTE Prophylaxis VTE Prophylaxis Intervention: other Lines/Catheters IV [facility] Urinary Cath still in place: Yes Assessment/Plan Assessment/Plan -CHF exacerbation, continue Lasix. Dr. Slater is following in cardiology consultation. - refuses blood draw today -Coronary artery disease, continue Plavix. -Hypertension- stable -Hyperlipidemia, continue statin. -COPD -Diabetes mellitus type 2, hemoglobin A1c is 8.3, continue metformin and Tradjenta, continue Lantus and NovoLog per mild algorithm sliding scale. -Morbid obesity with BMI of 61. - weight management - dietary consult -Peripheral vascular disease -Bed bound - Physical Therapy Further recommendations based on clinical course. Plan of care discussed with Dr. Randall. Exam/Review of Systems Vital Signs Vitals Vital Signs Date Time Temp Pulse Resp B/P Pulse Ox O2 Delivery O2 Flow Rate FiO2 03/03/17 08:10 90 18 97 21 03/03/17 08:05 98.3 123/80 03/03/17 08:00 Nasal Cannula 03/02/17 20:00 2.0 Intake and Output 03/02/17 03/02/17 03/03/17 15:00 23:00 07:00 Intake Total 840 ml Output Total 1300 ml Balance -460 ml Exam Constitutional: alert, obese, oriented Respiratory: clear to auscultation, normal air movement Cardiovascular: nl pulses, regular rate and rhythm Gastrointestinal: non-tender, soft Genitourinary - Female: other (fc) Musculoskeletal: muscle weakness Neurological: nl mental status, nl speech Results Result Diagram: 03/02/17 1420 03/02/17 1420 Results 24 hrs Laboratory Tests Test 03/02/17 14:20 03/02/17 17:38 03/02/17 21:06 03/03/17 08:06 White Blood Count 5.4 Red Blood Count 5.50 H Hemoglobin 13.2 Hematocrit 42.8 Mean Corpuscular Volume 77.8 L Mean Corpuscular Hemoglobin 24.0 L Mean Corpuscular Hemoglobin Concent 30.8 L Red Cell Distribution Width 21.3 H Platelet Count 182 Mean Platelet Volume 10.0 Neutrophils % 76.5 Lymphocytes % 11.2 L Monocytes % 8.9 Eosinophils % 2.4 Basophils % 0.6 Nucleated Red Blood Cells % 0.0 Neutrophils # 4.1 Lymphocytes # 0.6 L Monocytes # 0.5 Eosinophils # 0.1 Basophils # 0.0 Nucleated Red Blood Cells # 0.0 Sodium Level 135 Potassium Level 4.4 Chloride Level 101 Carbon Dioxide Level 24 Anion Gap 14 Blood Urea Nitrogen 20 Creatinine 0.71 Glucose Level 141 Calcium Level 8.6 Iron Level 51 Total Iron Binding Capacity 328 Percent Iron Saturation 16 L Ferritin 22.0 Bedside Glucose 133 131 123 Test 03/03/17 12:00 Bedside Glucose 130 Medications Medications Current Medications Enoxaparin Sodium (Lovenox) 40 mg DAILY SC ; Start 02/26/17 at 09:00 Acetaminophen (Tylenol Tab) 650 mg Q6H PRN PO PAIN AND OR ELEVATED TEMP; Start 02/26/17 at 00:00 Potassium Chloride (Klor-Con 20) 20 meq DAILY PO Last administered on 03/03/17 08:20; Admin Dose 20 MEQ; Start 02/26/17 at 09:00 Insulin Glargine (Lantus) 10 unit DAILY@20 SC ; Start 02/26/17 at 20:00 Diagnostic Test (Pha) (Accu-Chek) 1 ea 02 XX ; Start 02/26/17 at 02:00 Atorvastatin Calcium (Lipitor) 40 mg DAILY PO Last administered on 03/03/17 08: 20; Admin Dose 40 MG; Start 02/26/17 at 09:00 Clopidogrel Bisulfate (plaVIX) 75 mg DAILY PO Last administered on 03/03/17 08: 20; Admin Dose 75 MG; Start 02/26/17 at 09:00 Diphenhydramine HCl (Benadryl) 25 mg TID PRN PO ITCHING Last administered on 09:12; Admin Dose 25 MG; Start 02/26/17 at 00:30 Fluoxetine HCl (Prozac) 10 mg DAILY PO Last administered on 03/03/17 08:20; Admin Dose 10 MG; Start 02/26/17 at 09:00 Montelukast Sodium (Singulair) 10 mg DAILY PO Last administered on 03/03/17 08: 20; Admin Dose 10 MG; Start 02/26/17 at 09:00 Nystatin 1 applic BID TOP Last administered on 03/03/17 08:21; Admin Dose 1 APPLIC; Start 02/26/17 at 09:00 Pantoprazole (Protonix Tab) 40 mg DAILY PO Last administered on 03/03/17 08:21 ; Admin Dose 40 MG; Start 02/26/17 at 09:00 Paroxetine HCl (Paxil) 10 mg DAILY PO Last administered on 03/03/17 08:20; Admin Dose 10 MG; Start 02/26/17 at 09:00 Ropinirole HCl (Requip) 0.25 mg DAILY PO Last administered on 03/03/17 08:20; Admin Dose 0.25 MG; Start 02/26/17 at 09:00 Valsartan (Diovan) 80 mg DAILY PO Last administered on 03/03/17 08:20; Admin Dose 80 MG; Start 02/26/17 at 09:00 Zolpidem Tartrate (Ambien) 5 mg QHS PRN PO INSOMNIA; Start 02/26/17 at 00:30 Miscellaneous Information 1 ea NOTE XX ; Start 02/26/17 at 01:00 Glucose (Glutose) 15 gm Q15M PRN PO DECREASED GLUCOSE; Start 02/26/17 at 01:00 Glucose (Glutose) 22.5 gm Q15M PRN PO DECREASED GLUCOSE; Start 02/26/17 at 01: 00 Dextrose (D50w Syringe) 25 ml Q15M PRN IV DECREASED GLUCOSE; Start 02/26/17 at 01:00 Dextrose (D50w Syringe) 50 ml Q15M PRN IV DECREASED GLUCOSE; Start 02/26/17 at 01:00 Glucagon (Glucagen) 1 mg Q15M PRN IM DECREASED GLUCOSE; Start 02/26/17 at 01:00 Glucose (Glutose) 15 gm Q15M PRN BUCCAL DECREASED GLUCOSE; Start 02/26/17 at 01 :00 Albuterol (Ventolin Hfa) 2 puff Q4H PRN INH SHORTNESS OF BREATH Last administered on 02/26/17 09:57; Admin Dose 2 PUFF; Start 02/26/17 at 01:00 Linagliptin (Tradjenta) 5 mg DAILY PO Last administered on 03/03/17 08:20; Admin Dose 5 MG; Start 02/27/17 at 09:00 Ondansetron HCl (Zofran Inj) 4 mg Q6H PRN IV NAUSEA AND/OR VOMITING; Start at 17:30 Magnesium Oxide (Mag-Ox 400) 400 mg DAILY PO Last administered on 03/03/17 08: 20; Admin Dose 400 MG; Start 02/28/17 at 19:30 Carvedilol (Coreg) 3.125 mg BID PO Last administered on 03/03/17 08:21; Admin Dose 3.125 MG; Start 03/01/17 at 21:00 Ibuprofen (Motrin) 600 mg Q6H PRN PO PAIN Last administered on 03/02/17 22:32; Admin Dose 600 MG; Start 03/01/17 at 15:30 VERONICA CHERRY Mar 03, 2017 13:20
--- NOTE | 2017-03-03 13:50 | CONS ---
Date/Time of Note Date/Time of Note DATE: 03/03/17 TIME: 13:49 Assessment/Plan Assessment/Plan Additional Assessment/Plan 1.CHF-? systolic vs Diastolic acute on chronic. EF 30-35% by echo this admit- con't diuresis - fluid restriction advises 1L per day - STILL ONGOING, con't DIURESIS 2.HTN- wrll Rx, con't med tx. - IN GOOD RANGE NOW 3.HL 4.LE wound/PAD - skin care in place 5.LE edema - con'r elevation - fluid restriction now - IMPROVED, con't t restrict fluids 6.cad - no CP, con't med rx 7. DM - on meds, keep euglycemic. Consultation Date/Type/Reason Admit Date/Time Feb 25, 2017 at 21:45 Initial Consult Date 02/27/17 Type of Consultation: [facility] Referring Provider: MARILU FRIED MD 24 HR Interval Summary Free Text/Dictation NO acute events - con't CHF Rx - NO CP now ROS: No fever, no chills, no nausea, no vomiting, no diarrhea/constipation No recent weight changes No chest pain, no PND, no orthopnea + SOB chronic No dizziness, blurred vision No thirst, no heat or cold intolerance Exam/Review of Systems Vital Signs Vitals Vital Signs Date Time Temp Pulse Resp B/P Pulse Ox O2 Delivery O2 Flow Rate FiO2 03/03/17 13:37 77 18 98 21 03/03/17 08:05 98.3 123/80 03/03/17 08:00 Nasal Cannula 03/02/17 20:00 2.0 Intake and Output 03/02/17 03/02/17 03/03/17 15:00 23:00 07:00 Intake Total 840 ml Output Total 1300 ml Balance -460 ml Exam General: WN/WD/NAD, AOx 3 HEENT: Unicetric/atraumatic/EOMI (follow commands) NECK: JVD elevated, no thyromegaly Lymph: no lymphadenopathy HEART: regular with no S3, II/ systolic murmur at apex LUNGS: Coarse sounds ABD: soft, NT, ND, +BS : Intact Neuro: non focal SKIN: chronic changes EXT: 3+ edema Results Result Diagram: 03/02/17 1420 03/02/17 1420 Results 24 hrs Laboratory Tests Test 03/02/17 14:20 03/02/17 17:38 03/02/17 21:06 03/03/17 08:06 White Blood Count 5.4 Red Blood Count 5.50 H Hemoglobin 13.2 Hematocrit 42.8 Mean Corpuscular Volume 77.8 L Mean Corpuscular Hemoglobin 24.0 L Mean Corpuscular Hemoglobin Concent 30.8 L Red Cell Distribution Width 21.3 H Platelet Count 182 Mean Platelet Volume 10.0 Neutrophils % 76.5 Lymphocytes % 11.2 L Monocytes % 8.9 Eosinophils % 2.4 Basophils % 0.6 Nucleated Red Blood Cells % 0.0 Neutrophils # 4.1 Lymphocytes # 0.6 L Monocytes # 0.5 Eosinophils # 0.1 Basophils # 0.0 Nucleated Red Blood Cells # 0.0 Sodium Level 135 Potassium Level 4.4 Chloride Level 101 Carbon Dioxide Level 24 Anion Gap 14 Blood Urea Nitrogen 20 Creatinine 0.71 Glucose Level 141 Calcium Level 8.6 Iron Level 51 Total Iron Binding Capacity 328 Percent Iron Saturation 16 L Ferritin 22.0 Bedside Glucose 133 131 123 Test 03/03/17 12:00 Bedside Glucose 130 Medications Medications Current Medications Enoxaparin Sodium (Lovenox) 40 mg DAILY SC ; Start 02/26/17 at 09:00 Acetaminophen (Tylenol Tab) 650 mg Q6H PRN PO PAIN AND OR ELEVATED TEMP; Start 02/26/17 at 00:00 Potassium Chloride (Klor-Con 20) 20 meq DAILY PO Last administered on 03/03/17 08:20; Admin Dose 20 MEQ; Start 02/26/17 at 09:00 Insulin Glargine (Lantus) 10 unit DAILY@20 SC ; Start 02/26/17 at 20:00 Diagnostic Test (Pha) (Accu-Chek) 1 ea 02 XX ; Start 02/26/17 at 02:00 Atorvastatin Calcium (Lipitor) 40 mg DAILY PO Last administered on 03/03/17 08: 20; Admin Dose 40 MG; Start 02/26/17 at 09:00 Clopidogrel Bisulfate (plaVIX) 75 mg DAILY PO Last administered on 03/03/17 08: 20; Admin Dose 75 MG; Start 02/26/17 at 09:00 Diphenhydramine HCl (Benadryl) 25 mg TID PRN PO ITCHING Last administered on 09:12; Admin Dose 25 MG; Start 02/26/17 at 00:30 Fluoxetine HCl (Prozac) 10 mg DAILY PO Last administered on 03/03/17 08:20; Admin Dose 10 MG; Start 02/26/17 at 09:00 Montelukast Sodium (Singulair) 10 mg DAILY PO Last administered on 03/03/17 08: 20; Admin Dose 10 MG; Start 02/26/17 at 09:00 Nystatin 1 applic BID TOP Last administered on 03/03/17 08:21; Admin Dose 1 APPLIC; Start 02/26/17 at 09:00 Pantoprazole (Protonix Tab) 40 mg DAILY PO Last administered on 03/03/17 08:21 ; Admin Dose 40 MG; Start 02/26/17 at 09:00 Paroxetine HCl (Paxil) 10 mg DAILY PO Last administered on 03/03/17 08:20; Admin Dose 10 MG; Start 02/26/17 at 09:00 Ropinirole HCl (Requip) 0.25 mg DAILY PO Last administered on 03/03/17 08:20; Admin Dose 0.25 MG; Start 02/26/17 at 09:00 Valsartan (Diovan) 80 mg DAILY PO Last administered on 03/03/17 08:20; Admin Dose 80 MG; Start 02/26/17 at 09:00 Zolpidem Tartrate (Ambien) 5 mg QHS PRN PO INSOMNIA; Start 02/26/17 at 00:30 Miscellaneous Information 1 ea NOTE XX ; Start 02/26/17 at 01:00 Glucose (Glutose) 15 gm Q15M PRN PO DECREASED GLUCOSE; Start 02/26/17 at 01:00 Glucose (Glutose) 22.5 gm Q15M PRN PO DECREASED GLUCOSE; Start 02/26/17 at 01: 00 Dextrose (D50w Syringe) 25 ml Q15M PRN IV DECREASED GLUCOSE; Start 02/26/17 at 01:00 Dextrose (D50w Syringe) 50 ml Q15M PRN IV DECREASED GLUCOSE; Start 02/26/17 at 01:00 Glucagon (Glucagen) 1 mg Q15M PRN IM DECREASED GLUCOSE; Start 02/26/17 at 01:00 Glucose (Glutose) 15 gm Q15M PRN BUCCAL DECREASED GLUCOSE; Start 02/26/17 at 01 :00 Albuterol (Ventolin Hfa) 2 puff Q4H PRN INH SHORTNESS OF BREATH Last administered on 02/26/17 09:57; Admin Dose 2 PUFF; Start 02/26/17 at 01:00 Linagliptin (Tradjenta) 5 mg DAILY PO Last administered on 03/03/17 08:20; Admin Dose 5 MG; Start 02/27/17 at 09:00 Ondansetron HCl (Zofran Inj) 4 mg Q6H PRN IV NAUSEA AND/OR VOMITING; Start at 17:30 Magnesium Oxide (Mag-Ox 400) 400 mg DAILY PO Last administered on 03/03/17 08: 20; Admin Dose 400 MG; Start 02/28/17 at 19:30 Carvedilol (Coreg) 3.125 mg BID PO Last administered on 03/03/17 08:21; Admin Dose 3.125 MG; Start 03/01/17 at 21:00 Ibuprofen (Motrin) 600 mg Q6H PRN PO PAIN Last administered on 03/02/17 22:32; Admin Dose 600 MG; Start 03/01/17 at 15:30 ITZ BRAGA MD Mar 03, 2017 13:50
[2017-03-03 19:35] VITALS: BP 128/70; RESP 18
[2017-03-03] MEDS: INSULIN GLARGINE [LANtus] 3 ML PEN SC SCH ×2 (20:00→20:16)
--- NOTE | 2017-03-04 00:12 | CONS ---
Date/Time of Note Date/Time of Note DATE: 03/03/17 TIME: 18:11 Assessment/Plan Assessment/Plan Chief Complaint/Hosp Course MICROCYTOSIS MONITOR IRON DEFICIENCY PO IRON HX ANEMIA MONITOR CLOSELY LOOKS COMPENSATED AT PRESENT LEUKOPENIA RESOLVED MONITOR CHF exacerbation, continue Lasix. Dr. Slater is following in cardiology consultation. Coronary artery disease, continue Plavix. Hypertension Hyperlipidemia, continue statin. COPD Diabetes mellitus type 2, will check hemoglobin A1c, continue Lantus and NovoLog per mild algorithm sliding scale. Morbid obesity with BMI of 61. Peripheral vascular disease Problems: Consultation Date/Type/Reason Admit Date/Time Feb 25, 2017 at 21:45 [facility]: [facility] Referring Provider: MARILU FRIED MD 24 HR Interval Summary Free Text/Dictation ALL NOTED NO NEW EVENTS REFUSING BLOOD WORK Exam/Review of Systems Vital Signs Vitals Vital Signs Date Time Temp Pulse Resp B/P Pulse Ox O2 Delivery O2 Flow Rate FiO2 03/03/17 20:30 Nasal Cannula 2.0 03/03/17 19:35 98.2 87 18 128/70 96 03/03/17 16:57 21 Intake and Output 03/03/17 03/03/17 03/04/17 15:00 23:00 07:00 Intake Total 1440 ml Output Total 800 ml Balance 640 ml Exam General: WN/WD/NAD, AOx 3 HEENT: Unicetric/atraumatic/EOMI ( follow commands) NECK: JVD elevated, no thyromegaly Lymph: no lymphadenopathy HEART: regular with no S3, II/ systolic murmur at apex LUNGS: Coarse sounds ABD: soft, NT, ND, +BS : Intact Neuro: non focal SKIN: chronic changes EXT: edema Results Result Diagram: 03/02/17 1420 03/02/17 1420 Results 24 hrs Laboratory Tests Test 03/03/17 08:06 03/03/17 12:00 03/03/17 17:07 03/03/17 20:14 Bedside Glucose 123 130 107 119 Medications Medications Current Medications Enoxaparin Sodium (Lovenox) 40 mg DAILY SC ; Start 02/26/17 at 09:00 Acetaminophen (Tylenol Tab) 650 mg Q6H PRN PO PAIN AND OR ELEVATED TEMP; Start 02/26/17 at 00:00 Potassium Chloride (Klor-Con 20) 20 meq DAILY PO Last administered on 03/03/17 08:20; Admin Dose 20 MEQ; Start 02/26/17 at 09:00 Insulin Glargine (Lantus) 10 unit DAILY@20 SC ; Start 02/26/17 at 20:00 Diagnostic Test (Pha) (Accu-Chek) 1 ea 02 XX ; Start 02/26/17 at 02:00 Atorvastatin Calcium (Lipitor) 40 mg DAILY PO Last administered on 03/03/17 08: 20; Admin Dose 40 MG; Start 02/26/17 at 09:00 Clopidogrel Bisulfate (plaVIX) 75 mg DAILY PO Last administered on 03/03/17 08: 20; Admin Dose 75 MG; Start 02/26/17 at 09:00 Diphenhydramine HCl (Benadryl) 25 mg TID PRN PO ITCHING Last administered on 09:12; Admin Dose 25 MG; Start 02/26/17 at 00:30 Fluoxetine HCl (Prozac) 10 mg DAILY PO Last administered on 03/03/17 08:20; Admin Dose 10 MG; Start 02/26/17 at 09:00 Montelukast Sodium (Singulair) 10 mg DAILY PO Last administered on 03/03/17 08: 20; Admin Dose 10 MG; Start 02/26/17 at 09:00 Nystatin 1 applic BID TOP Last administered on 03/03/17 20:16; Admin Dose 1 APPLIC; Start 02/26/17 at 09:00 Pantoprazole (Protonix Tab) 40 mg DAILY PO Last administered on 03/03/17 08:21 ; Admin Dose 40 MG; Start 02/26/17 at 09:00 Paroxetine HCl (Paxil) 10 mg DAILY PO Last administered on 03/03/17 08:20; Admin Dose 10 MG; Start 02/26/17 at 09:00 Ropinirole HCl (Requip) 0.25 mg DAILY PO Last administered on 03/03/17 08:20; Admin Dose 0.25 MG; Start 02/26/17 at 09:00 Valsartan (Diovan) 80 mg DAILY PO Last administered on 03/03/17 08:20; Admin Dose 80 MG; Start 02/26/17 at 09:00 Zolpidem Tartrate (Ambien) 5 mg QHS PRN PO INSOMNIA; Start 02/26/17 at 00:30 Miscellaneous Information 1 ea NOTE XX ; Start 02/26/17 at 01:00 Glucose (Glutose) 15 gm Q15M PRN PO DECREASED GLUCOSE; Start 02/26/17 at 01:00 Glucose (Glutose) 22.5 gm Q15M PRN PO DECREASED GLUCOSE; Start 02/26/17 at 01: 00 Dextrose (D50w Syringe) 25 ml Q15M PRN IV DECREASED GLUCOSE; Start 02/26/17 at 01:00 Dextrose (D50w Syringe) 50 ml Q15M PRN IV DECREASED GLUCOSE; Start 02/26/17 at 01:00 Glucagon (Glucagen) 1 mg Q15M PRN IM DECREASED GLUCOSE; Start 02/26/17 at 01:00 Glucose (Glutose) 15 gm Q15M PRN BUCCAL DECREASED GLUCOSE; Start 02/26/17 at 01 :00 Albuterol (Ventolin Hfa) 2 puff Q4H PRN INH SHORTNESS OF BREATH Last administered on 02/26/17 09:57; Admin Dose 2 PUFF; Start 02/26/17 at 01:00 Linagliptin (Tradjenta) 5 mg DAILY PO Last administered on 03/03/17 08:20; Admin Dose 5 MG; Start 02/27/17 at 09:00 Ondansetron HCl (Zofran Inj) 4 mg Q6H PRN IV NAUSEA AND/OR VOMITING; Start at 17:30 Magnesium Oxide (Mag-Ox 400) 400 mg DAILY PO Last administered on 03/03/17 08: 20; Admin Dose 400 MG; Start 02/28/17 at 19:30 Carvedilol (Coreg) 3.125 mg BID PO Last administered on 03/03/17 20:21; Admin Dose 3.125 MG; Start 03/01/17 at 21:00 Ibuprofen (Motrin) 600 mg Q6H PRN PO PAIN Last administered on 03/02/17 22:32; Admin Dose 600 MG; Start 03/01/17 at 15:30 BLUE JIMÉNEZ MD Mar 04, 2017 00:11
[2017-03-04] MEDS: ACCU-CHEK XX SCH (01:07)
[2017-03-04] MEDS: FUROSEMIDE 20 MG TAB PO SCH ×2 (05:44→17:39)
[2017-03-04 07:20] VITALS: BP 118/72; RESP 18
[2017-03-04] MEDS: FLUOXETINE 10 MG CAP PO SCH (08:14)
[2017-03-04] MEDS: ATORVASTATIN 40 MG TAB PO SCH (08:14)
[2017-03-04] MEDS: ROPINIROLE 0.25 MG TAB PO SCH (08:15)
[2017-03-04] MEDS: metFORMIN 500 MG TAB PO SCH ×2 (08:15→17:39)
[2017-03-04] MEDS: INSULIN ASPART [NOVOLOG] 3 ML PEN SC SCH ×4 (08:15→20:43)
[2017-03-04] MEDS: VALSARTAN 80 MG TAB PO SCH (08:16)
[2017-03-04] MEDS: MONTELUKAST 10 MG TAB PO SCH (08:16)
[2017-03-04] MEDS: MAGNESIUM OXIDE 400 MG TAB PO SCH (08:16)
[2017-03-04] MEDS: POTASSIUM CHLORIDE (SR) 20 MEQ TAB PO SCH (08:16)
[2017-03-04] MEDS: PANTOPRAZOLE (EC) 40 MG TAB PO SCH (08:16)
[2017-03-04] MEDS: CLOPIDOGREL 75 MG TAB PO SCH (08:16)
[2017-03-04] MEDS: LINAGLIPTIN 5 MG TABLET PO SCH (08:17)
[2017-03-04] MEDS: ENOXAPARIN 40 MG/0.4 ML SYG SC SCH (08:19)
[2017-03-04] MEDS: NYSTATIN 15 GM POWDER BTL TOP SCH ×2 (08:20→20:45)
[2017-03-04] MEDS: PAROXETINE 10 MG TAB PO SCH (08:59)
[2017-03-04] MEDS: ALBUTEROL/IPRATROPIUM (NEB) 3 ML AMP HHN SCH ×3 (09:05→16:51)
--- NOTE | 2017-03-04 09:53 | CONS ---
Date/Time of Note Date/Time of Note DATE: 03/04/17 TIME: 09:52 Assessment/Plan Assessment/Plan Chief Complaint/Hosp Course -No vascular intervention at this time, Continue with antibiotics -Consult Wound management team for two layer compression layer dressing Problems: Consultation Date/Type/Reason Admit Date/Time Feb 25, 2017 at 21:45 Constitutional: no complaints Eyes: no complaints ENT: no complaints Respiratory: no complaints Cardiovascular: no complaints Gastrointestinal: no complaints Genitourinary: no complaints Musculoskeletal: no complaints Skin: no complaints Neurologic: no complaints Lymphatic: no complaints Psychological: no complaints Past Medical History Medical History: no pertinent history Past Surgical History Past Surgical Hx: other (Multiple bilateral lower extremity wound debridement) Social History Alcohol Use: none Smoking Status: Former smoker Drug Use: none Exam/Review of Systems Vital Signs Vitals Vital Signs Date Time Temp Pulse Resp B/P Pulse Ox O2 Delivery O2 Flow Rate FiO2 03/04/17 09:05 87 18 99 21 03/04/17 07:20 98.6 118/72 03/03/17 20:30 Nasal Cannula 2.0 Intake and Output 03/03/17 03/03/17 03/04/17 15:00 23:00 07:00 Intake Total 1440 ml 820 ml Output Total 800 ml 1600 ml Balance 640 ml -780 ml Results Result Diagram: 03/02/17 1420 03/02/17 1420 Results 24 hrs Laboratory Tests Test 03/03/17 12:00 03/03/17 17:07 03/03/17 20:14 03/04/17 08:13 Bedside Glucose 130 107 119 172 Medications Medications Current Medications Enoxaparin Sodium (Lovenox) 40 mg DAILY SC ; Start 02/26/17 at 09:00 Acetaminophen (Tylenol Tab) 650 mg Q6H PRN PO PAIN AND OR ELEVATED TEMP; Start 02/26/17 at 00:00 Potassium Chloride (Klor-Con 20) 20 meq DAILY PO Last administered on 03/04/17t 08:16; Admin Dose 20 MEQ; Start 02/26/17 at 09:00 Insulin Glargine (Lantus) 10 unit DAILY@20 SC ; Start 02/26/17 at 20:00 Diagnostic Test (Pha) (Accu-Chek) 1 02 XX ; Start 02/26/17 at 02:00 Atorvastatin Calcium (Lipitor) 40 mg DAILY PO Last administered on 03/04/17 08: 14; Admin Dose 40 MG; Start 02/26/17 at 09:00 Clopidogrel Bisulfate (plaVIX) 75 mg DAILY PO Last administered on 03/04/17 08: 16; Admin Dose 75 MG; Start 02/26/17 at 09:00 Diphenhydramine HCl (Benadryl) 25 mg TID PRN PO ITCHING Last administered on 09:12; Admin Dose 25 MG; Start 02/26/17 at 00:30 Fluoxetine HCl (Prozac) 10 mg DAILY PO Last administered on 03/04/17 08:14; Admin Dose 10 MG; Start 02/26/17 at 09:00 Montelukast Sodium (Singulair) 10 mg DAILY PO Last administered on 03/04/17 08: 16; Admin Dose 10 MG; Start 02/26/17 at 09:00 Nystatin 1 applic BID TOP Last administered on 03/04/17 08:20; Admin Dose 1 APPLIC; Start 02/26/17 at 09:00 Pantoprazole (Protonix Tab) 40 mg DAILY PO Last administered on 03/04/17 08:16 ; Admin Dose 40 MG; Start 02/26/17 at 09:00 Paroxetine HCl (Paxil) 10 mg DAILY PO Last administered on 03/04/17 08:59; Admin Dose 10 MG; Start 02/26/17 at 09:00 Ropinirole HCl (Requip) 0.25 mg DAILY PO Last administered on 03/04/17 08:15; Admin Dose 0.25 MG; Start 02/26/17 at 09:00 Valsartan (Diovan) 80 mg DAILY PO Last administered on 03/04/17 08:16; Admin Dose 80 MG; Start 02/26/17 at 09:00 Zolpidem Tartrate (Ambien) 5 mg QHS PRN PO INSOMNIA; Start 02/26/17 at 00:30 Miscellaneous Information 1 ea NOTE XX ; Start 02/26/17 at 01:00 Glucose (Glutose) 15 gm Q15M PRN PO DECREASED GLUCOSE; Start 02/26/17 at 01:00 Glucose (Glutose) 22.5 gm Q15M PRN PO DECREASED GLUCOSE; Start 02/26/17 at 01: 00 Dextrose (D50w Syringe) 25 ml Q15M PRN IV DECREASED GLUCOSE; Start 02/26/17 at 01:00 Dextrose (D50w Syringe) 50 ml Q15M PRN IV DECREASED GLUCOSE; Start 02/26/17 at 01:00 Glucagon (Glucagen) 1 mg Q15M PRN IM DECREASED GLUCOSE; Start 02/26/17 at 01:00 Glucose (Glutose) 15 gm Q15M PRN BUCCAL DECREASED GLUCOSE; Start 02/26/17 at 01 :00 Albuterol (Ventolin Hfa) 2 puff Q4H PRN INH SHORTNESS OF BREATH Last administered on 02/26/17 09:57; Admin Dose 2 PUFF; Start 02/26/17 at 01:00 Linagliptin (Tradjenta) 5 mg DAILY PO Last administered on 03/04/17 08:17; Admin Dose 5 MG; Start 02/27/17 at 09:00 Ondansetron HCl (Zofran Inj) 4 mg Q6H PRN IV NAUSEA AND/OR VOMITING; Start at 17:30 Magnesium Oxide (Mag-Ox 400) 400 mg DAILY PO Last administered on 03/04/17 08: 16; Admin Dose 400 MG; Start 02/28/17 at 19:30 Carvedilol (Coreg) 3.125 mg BID PO Last administered on 03/04/17 08:16; Admin Dose 3.125 MG; Start 03/01/17 at 21:00 Ibuprofen (Motrin) 600 mg Q6H PRN PO PAIN Last administered on 03/02/17 22:32; Admin Dose 600 MG; Start 03/01/17 at 15:30 BACILIO CHAPA MD Mar 04, 2017 09:53
--- NOTE | 2017-03-04 11:21 | CONS ---
Date/Time of Note Date/Time of Note DATE: 03/04/17 TIME: 11:19 Assessment/Plan Assessment/Plan Additional Assessment/Plan 1.CHF-? systolic vs Diastolic acute on chronic. EF 30-35% by echo this admit- con't diuresis - fluid restriction advises 1L per day - STILL ONGOING, con't DIURESIS - overall unchanged. 2.HTN- wrll Rx, con't med tx. - IN GOOD RANGE NOW 3.HL 4.LE wound/PAD - skin care in place - stable 5.LE edema - con'r elevation - fluid restriction now - IMPROVED, con't t restrict fluids 6.cad - no CP, con't med rx 7. DM - on meds, keep euglycemic. Consultation Date/Type/Reason Admit Date/Time Feb 25, 2017 at 21:45 Initial Consult Date 02/27/17 Type of Consultation: [facility] Referring Provider: MARILU FRIED MD 24 HR Interval Summary Free Text/Dictation No acute change - BP in good range. ROS: No fever, no chills, no nausea, no vomiting, no diarrhea/constipation No recent weight changes No chest pain, no PND, no orthopnea No dizziness, blurred vision No thirst, no heat or cold intolerance Exam/Review of Systems Vital Signs Vitals Vital Signs Date Time Temp Pulse Resp B/P Pulse Ox O2 Delivery O2 Flow Rate FiO2 03/04/17 09:05 87 18 99 21 03/04/17 07:20 98.6 118/72 03/03/17 20:30 Nasal Cannula 2.0 Intake and Output 03/03/17 03/03/17 03/04/17 14:59 22:59 06:59 Intake Total 1440 ml 820 ml Output Total 800 ml 1600 ml Balance 640 ml -780 ml Exam General: WN/WD/NAD, AOx 3 HEENT: Unicetric/atraumatic/EOMI ( follow commands) NECK: JVD elevated, no thyromegaly Lymph: no lymphadenopathy HEART: regular with no S3, II/ systolic murmur at apex LUNGS: Coarse sounds ABD: soft, NT, ND, +BS : Intact Neuro: non focal SKIN: chronic changes EXT: edema Results Result Diagram: 03/02/17 1420 03/02/17 1420 Results 24 hrs Laboratory Tests Test 03/03/17 12:00 7/2/17 17:07 03/03/17 20:14 03/04/17 08:13 Bedside Glucose 130 107 119 172 Medications Medications Current Medications Enoxaparin Sodium (Lovenox) 40 mg DAILY SC ; Start 02/26/17 at 09:00 Acetaminophen (Tylenol Tab) 650 mg Q6H PRN PO PAIN AND OR ELEVATED TEMP; Start 02/26/17 at 00:00 Potassium Chloride (Klor-Con 20) 20 meq DAILY PO Last administered on 03/04/17 08:16; Admin Dose 20 MEQ; Start 02/26/17 at 09:00 Insulin Glargine (Lantus) 10 unit DAILY@20 SC ; Start 02/26/17 at 20:00 Diagnostic Test (Pha) (Accu-Chek) 1 ea 02 XX ; Start 02/26/17 at 02:00 Atorvastatin Calcium (Lipitor) 40 mg DAILY PO Last administered on 03/04/17 08: 14; Admin Dose 40 MG; Start 02/26/17 at 09:00 Clopidogrel Bisulfate (plaVIX) 75 mg DAILY PO Last administered on 03/04/17 08: 16; Admin Dose 75 MG; Start 02/26/17 at 09:00 Diphenhydramine HCl (Benadryl) 25 mg TID PRN PO ITCHING Last administered on 09:12; Admin Dose 25 MG; Start 02/26/17 at 00:30 Fluoxetine HCl (Prozac) 10 mg DAILY PO Last administered on 03/04/17 08:14; Admin Dose 10 MG; Start 02/26/17 at 09:00 Montelukast Sodium (Singulair) 10 mg DAILY PO Last administered on 03/04/17 08: 16; Admin Dose 10 MG; Start 02/26/17 at 09:00 Nystatin 1 applic BID TOP Last administered on 03/04/17 08:20; Admin Dose 1 APPLIC; Start 02/26/17 at 09:00 Pantoprazole (Protonix Tab) 40 mg DAILY PO Last administered on 03/04/17 08:16 ; Admin Dose 40 MG; Start 02/26/17 at 09:00 Paroxetine HCl (Paxil) 10 mg DAILY PO Last administered on 03/04/17 08:59; Admin Dose 10 MG; Start 02/26/17 at 09:00 Ropinirole HCl (Requip) 0.25 mg DAILY PO Last administered on 03/04/17 08:15; Admin Dose 0.25 MG; Start 02/26/17 at 09:00 Valsartan (Diovan) 80 mg DAILY PO Last administered on 03/04/17 08:16; Admin Dose 80 MG; Start 02/26/17 at 09:00 Zolpidem Tartrate (Ambien) 5 mg QHS PRN PO INSOMNIA; Start 02/26/17 at 00:30 Miscellaneous Information 1 ea NOTE XX ; Start 02/26/17 at 01:00 Glucose (Glutose) 15 gm Q15M PRN PO DECREASED GLUCOSE; Start 02/26/17 at 01:00 Glucose (Glutose) 22.5 gm Q15M PRN PO DECREASED GLUCOSE; Start 02/26/17 at 01: 00 Dextrose (D50w Syringe) 25 ml Q15M PRN IV DECREASED GLUCOSE; Start 02/26/17 at 01:00 Dextrose (D50w Syringe) 50 ml Q15M PRN IV DECREASED GLUCOSE; Start 02/26/17 at 01:00 Glucagon (Glucagen) 1 mg Q15M PRN IM DECREASED GLUCOSE; Start 02/26/17 at 01:00 Glucose (Glutose) 15 gm Q15M PRN BUCCAL DECREASED GLUCOSE; Start 02/26/17 at 01 :00 Albuterol (Ventolin Hfa) 2 puff Q4H PRN INH SHORTNESS OF BREATH Last administered on 02/26/17 09:57; Admin Dose 2 PUFF; Start 02/26/17 at 01:00 Linagliptin (Tradjenta) 5 mg DAILY PO Last administered on 03/04/17 08:17; Admin Dose 5 MG; Start 02/27/17 at 09:00 Ondansetron HCl (Zofran Inj) 4 mg Q6H PRN IV NAUSEA AND/OR VOMITING; Start at 17:30 Magnesium Oxide (Mag-Ox 400) 400 mg DAILY PO Last administered on 03/04/17 08: 16; Admin Dose 400 MG; Start 02/28/17 at 19:30 Carvedilol (Coreg) 3.125 mg BID PO Last administered on 03/04/17 08:16; Admin Dose 3.125 MG; Start 03/01/17 at 21:00 Ibuprofen (Motrin) 600 mg Q6H PRN PO PAIN Last administered on 03/02/17 22:32; Admin Dose 600 MG; Start 03/01/17 at 15:30 ITZ BRAGA MD Mar 04, 2017 11:21
[2017-03-04 14:28] LABS: ADD SCAN DIFF NO
[2017-03-04 14:30] LABS: ABNORMAL IP MESSAGE 1; BASOPHIL # 0.1 10^3/ul (0.0-0.1); EOSINOPHILS # 0.1 10^3/ul (0.0-0.5); EOSINOPHILS % 1.6 % (0.0-7.0); HEMATOCRIT 47.3 % (37.0-47.0); HEMOGLOBIN 14.1 g/dl (12.0-16.0); LYMPHOCYTES # 0.6 10^3/ul (0.8-2.9); LYMPHOCYTES % 11.4 % (15.0-51.0); MEAN CORPUSCULAR HEMOGLOBIN 23.6 pg (29.0-33.0); MEAN CORPUSCULAR HGB CONC 29.8 g/dl (32.0-37.0); MEAN CORPUSCULAR VOLUME 79.2 fl (82.0-101.0); MEAN PLATELET VOLUME 11.3 fl (7.4-10.4); MONOCYTE # 0.5 10^3/ul (0.3-0.9); NEUTROPHIL # 3.7 10^3/ul (1.6-7.5); NEUTROPHILS % 75.6 % (39.0-77.0); PLATELET COUNT 208 10^3/UL (140-415); RED BLOOD COUNT 5.97 10^6/ul (4.20-5.40); RED CELL DISTRIBUTION WIDTH 21.6 % (11.5-14.5); WHITE BLOOD COUNT 4.9 10^3/ul (4.8-10.8)
[2017-03-04 14:53] LABS: CALCIUM 9.3 mg/dl (8.4-10.2); CREATININE 0.59 mg/dl (0.44-1.00); POTASSIUM 3.9 mmol/L (3.5-5.1)
--- NOTE | 2017-03-04 15:29 | PN ---
Date/Time of Note Date/Time of Note DATE: 03/04/17 TIME: 15:26 Assessment/Plan VTE Prophylaxis VTE Prophylaxis Intervention: SCD's Lines/Catheters IV [facility] [place] [facility] Urinary Cath still in place: Yes Reason Cath still needed: urinary retention Assessment/Plan Chief Complaint/Hosp Course Patient denies any chest pain, denies shortness of breath, blood sugar is adequately controlled. Assessment/Plan -CHF exacerbation, continue Lasix. Dr. Slater is following in cardiology consultation. -Coronary artery disease, continue Plavix. -Hypertension, continue Coreg. -Hyperlipidemia, continue statin. -COPD, continue DuoNeb. -Diabetes mellitus type 2, hemoglobin A1c is 8.3, continue metformin and Tradjenta, continue Lantus and NovoLog per mild algorithm sliding scale. -Morbid obesity with BMI of 61. -Peripheral vascular disease, continue Plavix. Dr. Louise is following in vascular surgery consultation. Further recommendations based on clinical course. Plan of care discussed with Dr. Randall. Problems: Exam/Review of Systems Vital Signs Vitals Vital Signs Date Time Temp Pulse Resp B/P Pulse Ox O2 Delivery O2 Flow Rate FiO2 03/04/17 12:39 84 16 98 21 03/04/17 07:20 98.6 118/72 03/03/17 20:30 Nasal Cannula 2.0 Intake and Output 03/03/17 03/03/17 03/04/17 15:00 23:00 07:00 Intake Total 1440 ml 820 ml Output Total 800 ml 1600 ml Balance 640 ml -780 ml Exam Constitutional: alert, oriented Head: atraumatic, normocephalic Neck: supple Respiratory: diminished breath sounds Cardiovascular: nl pulses, regular rate and rhythm Gastrointestinal: non-tender, soft Extremities: edema, other Neurological: nl mental status Skin: nl turgor Results Result Diagram: 03/04/17 1400 03/04/17 1400 Results 24 hrs Laboratory Tests Test 03/03/17 17:07 03/03/17 20:14 03/04/17 08:13 03/04/17 12:25 Bedside Glucose 107 119 172 129 Test 03/04/17 14:00 White Blood Count 4.9 Red Blood Count 5.97 H Hemoglobin 14.1 Hematocrit 47.3 H Mean Corpuscular Volume 79.2 L Mean Corpuscular Hemoglobin 23.6 L Mean Corpuscular Hemoglobin Concent 29.8 L Red Cell Distribution Width 21.6 H Platelet Count 208 Mean Platelet Volume 11.3 H Neutrophils % 75.6 Lymphocytes % 11.4 L Monocytes % 10.0 Eosinophils % 1.6 Basophils % 1.0 Nucleated Red Blood Cells % 0.0 Neutrophils # 3.7 Lymphocytes # 0.6 L Monocytes # 0.5 Eosinophils # 0.1 Basophils # 0.1 Nucleated Red Blood Cells # 0.0 Sodium Level 139 Potassium Level 3.9 Chloride Level 95 L Carbon Dioxide Level 27 Anion Gap 21 #H Blood Urea Nitrogen 21 H Creatinine 0.59 Glucose Level 121 Calcium Level 9.3 Medications Medications Current Medications Enoxaparin Sodium (Lovenox) 40 mg DAILY SC ; Start 02/26/17 at 09:00 Acetaminophen (Tylenol Tab) 650 mg Q6H PRN PO PAIN AND OR ELEVATED TEMP; Start 02/26/17 at 00:00 Potassium Chloride (Klor-Con 20) 20 meq DAILY PO Last administered on 03/04/17 08:16; Admin Dose 20 MEQ; Start 02/26/17 at 09:00 Insulin Glargine (Lantus) 10 unit DAILY@20 SC ; Start 02/26/17 at 20:00 Diagnostic Test (Pha) (Accu-Chek) 1 ea 02 XX ; Start 02/26/17 at 02:00 Atorvastatin Calcium (Lipitor) 40 mg DAILY PO Last administered on 03/04/17 08: 14; Admin Dose 40 MG; Start 02/26/17 at 09:00 Clopidogrel Bisulfate (plaVIX) 75 mg DAILY PO Last administered on 03/04/17 08: 16; Admin Dose 75 MG; Start 02/26/17 at 09:00 Diphenhydramine HCl (Benadryl) 25 mg TID PRN PO ITCHING Last administered on 09:12; Admin Dose 25 MG; Start 02/26/17 at 00:30 Fluoxetine HCl (Prozac) 10 mg DAILY PO Last administered on 03/04/17 08:14; Admin Dose 10 MG; Start 02/26/17 at 09:00 Montelukast Sodium (Singulair) 10 mg DAILY PO Last administered on 03/04/17 08: 16; Admin Dose 10 MG; Start 02/26/17 at 09:00 Nystatin 1 applic BID TOP Last administered on 03/04/17 08:20; Admin Dose 1 APPLIC; Start 02/26/17 at 09:00 Pantoprazole (Protonix Tab) 40 mg DAILY PO Last administered on 03/04/17 08:16 ; Admin Dose 40 MG; Start 02/26/17 at 09:00 Paroxetine HCl (Paxil) 10 mg DAILY PO Last administered on 03/04/17 08:59; Admin Dose 10 MG; Start 02/26/17 at 09:00 Ropinirole HCl (Requip) 0.25 mg DAILY PO Last administered on 03/04/17 08:15; Admin Dose 0.25 MG; Start 02/26/17 at 09:00 Valsartan (Diovan) 80 mg DAILY PO Last administered on 03/04/17 08:16; Admin Dose 80 MG; Start 02/26/17 at 09:00 Zolpidem Tartrate (Ambien) 5 mg QHS PRN PO INSOMNIA; Start 02/26/17 at 00:30 Miscellaneous Information 1 ea NOTE XX ; Start 02/26/17 at 01:00 Glucose (Glutose) 15 gm Q15M PRN PO DECREASED GLUCOSE; Start 02/26/17 at 01:00 Glucose (Glutose) 22.5 gm Q15M PRN PO DECREASED GLUCOSE; Start 02/26/17 at 01: 00 Dextrose (D50w Syringe) 25 ml Q15M PRN IV DECREASED GLUCOSE; Start 02/26/17 at 01:00 Dextrose (D50w Syringe) 50 ml Q15M PRN IV DECREASED GLUCOSE; Start 02/26/17 at 01:00 Glucagon (Glucagen) 1 mg Q15M PRN IM DECREASED GLUCOSE; Start 02/26/17 at 01:00 Glucose (Glutose) 15 gm Q15M PRN BUCCAL DECREASED GLUCOSE; Start 02/26/17 at 01 :00 Albuterol (Ventolin Hfa) 2 puff Q4H PRN INH SHORTNESS OF BREATH Last administered on 02/26/17 09:57; Admin Dose 2 PUFF; Start 02/26/17 at 01:00 Linagliptin (Tradjenta) 5 mg DAILY PO Last administered on 03/04/17 08:17; Admin Dose 5 MG; Start 6/28/17 at 09:00 Ondansetron HCl (Zofran Inj) 4 mg Q6H PRN IV NAUSEA AND/OR VOMITING; Start at 17:30 Magnesium Oxide (Mag-Ox 400) 400 mg DAILY PO Last administered on 03/04/17 08: 16; Admin Dose 400 MG; Start 02/28/17 at 19:30 Carvedilol (Coreg) 3.125 mg BID PO Last administered on 03/04/17 08:16; Admin Dose 3.125 MG; Start 03/01/17 at 21:00 Ibuprofen (Motrin) 600 mg Q6H PRN PO PAIN Last administered on 03/02/17 22:32; Admin Dose 600 MG; Start 03/01/17 at 15:30 ADENIKE DE GUZMAN Mar 04, 2017 15:29
[2017-03-04] MEDS: IBUPROFEN 200 MG TAB PO PRN (16:03)
[2017-03-04 19:50] VITALS: BP 144/81; RESP 18
[2017-03-04] MEDS: INSULIN GLARGINE [LANtus] 3 ML PEN SC SCH (20:00)
--- NOTE | 2017-03-04 22:19 | CONS ---
Date/Time of Note Date/Time of Note DATE: 03/04/17 TIME: 22:19 Assessment/Plan Assessment/Plan Chief Complaint/Hosp Course MICROCYTOSIS MONITOR IRON DEFICIENCY PO IRON HX ANEMIA MONITOR CLOSELY LOOKS COMPENSATED AT PRESENT LEUKOPENIA RESOLVED MONITOR CHF exacerbation, continue Lasix. Dr. Slater is following in cardiology consultation. Coronary artery disease, continue Plavix. Hypertension Hyperlipidemia, continue statin. COPD Diabetes mellitus type 2, will check hemoglobin A1c, continue Lantus and NovoLog per mild algorithm sliding scale. Morbid obesity with BMI of 61. Peripheral vascular disease Problems: Consultation Date/Type/Reason Admit Date/Time Feb 25, 2017 at 21:45 [facility] of Consultation: [facility] Referring Provider: MARILU FRIED MD 24 HR Interval Summary Free Text/Dictation NON NEW EVENTS REFUSING BLOOD WORK ORAL IRON ORDERED Exam/Review of Systems Vital Signs Vitals Vital Signs Date Time Temp Pulse Resp B/P Pulse Ox O2 Delivery O2 Flow Rate FiO2 03/04/17 20:00 Nasal Cannula 2.0 03/04/17 19:50 98.2 87 18 144/81 97 03/04/17 16:52 21 Intake and Output 03/03/17 03/03/17 03/04/17 15:00 23:00 07:00 Intake Total 1440 ml 820 ml Output Total 800 ml 1600 ml Balance 640 ml -780 ml Exam General: WN/WD/NAD, AOx 3 HEENT: Unicetric/atraumatic/EOMI ( follow commands) NECK: JVD elevated, no thyromegaly Lymph: no lymphadenopathy HEART: regular with no S3, II/ systolic murmur at apex LUNGS: Coarse sounds ABD: soft, NT, ND, +BS : Intact Neuro: non focal SKIN: chronic changes EXT: edema Results Result Diagram: 03/04/17 1400 03/04/17 1400 Results 24 hrs Laboratory Tests Test 03/04/17 08:13 03/04/17 12:25 03/04/17 14:00 03/04/17 17:38 Bedside Glucose 172 129 117 White Blood Count 4.9 Red Blood Count 5.97 H Hemoglobin 14.1 Hematocrit 47.3 H Mean Corpuscular Volume 79.2 L Mean Corpuscular Hemoglobin 23.6 L Mean Corpuscular Hemoglobin Concent 29.8 L Red Cell Distribution Width 21.6 H Platelet Count 208 Mean Platelet Volume 11.3 H Neutrophils % 75.6 Lymphocytes % 11.4 L Monocytes % 10.0 Eosinophils % 1.6 Basophils % 1.0 Nucleated Red Blood Cells % 0.0 Neutrophils # 3.7 Lymphocytes # 0.6 L Monocytes # 0.5 Eosinophils # 0.1 Basophils # 0.1 Nucleated Red Blood Cells # 0.0 Sodium Level 139 Potassium Level 3.9 Chloride Level 95 L Carbon Dioxide Level 27 Anion Gap 21 #H Blood Urea Nitrogen 21 H Creatinine 0.59 Glucose Level 121 Calcium Level 9.3 Test 03/04/17 20:42 Bedside Glucose 121 Medications Medications Current Medications Enoxaparin Sodium (Lovenox) 40 mg DAILY SC ; Start 02/26/17 at 09:00 Acetaminophen (Tylenol Tab) 650 mg Q6H PRN PO PAIN AND OR ELEVATED TEMP; Start 02/26/17 at 00:00 Potassium Chloride (Klor-Con 20) 20 meq DAILY PO Last administered on 03/04/17 08:16; Admin Dose 20 MEQ; Start 02/26/17 at 09:00 Insulin Glargine (Lantus) 10 unit DAILY@20 SC ; Start 02/26/17 at 20:00 Diagnostic Test (Pha) (Accu-Chek) 1 ea 02 XX ; Start 02/26/17 at 02:00 Atorvastatin Calcium (Lipitor) 40 mg DAILY PO Last administered on 03/04/17 08: 14; Admin Dose 40 MG; Start 02/26/17 at 09:00 Clopidogrel Bisulfate (plaVIX) 75 mg DAILY PO Last administered on 03/04/17 08: 16; Admin Dose 75 MG; Start 02/26/17 at 09:00 Diphenhydramine HCl (Benadryl) 25 mg TID PRN PO ITCHING Last administered on 09:12; Admin Dose 25 MG; Start 02/26/17 at 00:30 Fluoxetine HCl (Prozac) 10 mg DAILY PO Last administered on 03/04/17 08:14; Admin Dose 10 MG; Start 02/26/17 at 09:00 Montelukast Sodium (Singulair) 10 mg DAILY PO Last administered on 03/04/17 08: 16; Admin Dose 10 MG; Start 02/26/17 at 09:00 Nystatin 1 applic BID TOP Last administered on 03/04/17 20:45; Admin Dose 1 APPLIC; Start 02/26/17 at 09:00 Pantoprazole (Protonix Tab) 40 mg DAILY PO Last administered on 03/04/17 08:16 ; Admin Dose 40 MG; Start 02/26/17 at 09:00 Paroxetine HCl (Paxil) 10 mg DAILY PO Last administered on 03/04/17 08:59; Admin Dose 10 MG; Start 02/26/17 at 09:00 Ropinirole HCl (Requip) 0.25 mg DAILY PO Last administered on 03/04/17 08:15; Admin Dose 0.25 MG; Start 02/26/17 at 09:00 Valsartan (Diovan) 80 mg DAILY PO Last administered on 03/04/17 08:16; Admin Dose 80 MG; Start 02/26/17 at 09:00 Zolpidem Tartrate (Ambien) 5 mg QHS PRN PO INSOMNIA; Start 02/26/17 at 00:30 Miscellaneous Information 1 ea NOTE XX ; Start 02/26/17 at 01:00 Glucose (Glutose) 15 gm Q15M PRN PO DECREASED GLUCOSE; Start 02/26/17 at 01:00 Glucose (Glutose) 22.5 gm Q15M PRN PO DECREASED GLUCOSE; Start 02/26/17 at 01: 00 Dextrose (D50w Syringe) 25 ml Q15M PRN IV DECREASED GLUCOSE; Start 02/26/17 at 01:00 Dextrose (D50w Syringe) 50 ml Q15M PRN IV DECREASED GLUCOSE; Start 02/26/17 at 01:00 Glucagon (Glucagen) 1 mg Q15M PRN IM DECREASED GLUCOSE; Start 02/26/17 at 01:00 Glucose (Glutose) 15 gm Q15M PRN BUCCAL DECREASED GLUCOSE; Start 02/26/17 at 01 :00 Albuterol (Ventolin Hfa) 2 puff Q4H PRN INH SHORTNESS OF BREATH Last administered on 02/26/17 09:57; Admin Dose 2 PUFF; Start 02/26/17 at 01:00 Linagliptin (Tradjenta) 5 mg DAILY PO Last administered on 03/04/17 08:17; Admin Dose 5 MG; Start 02/27/17 at 09:00 Ondansetron HCl (Zofran Inj) 4 mg Q6H PRN IV NAUSEA AND/OR VOMITING; Start at 17:30 Magnesium Oxide (Mag-Ox 400) 400 mg DAILY PO Last administered on 03/04/17 08: 16; Admin Dose 400 MG; Start 02/28/17 at 19:30 Carvedilol (Coreg) 3.125 mg BID PO Last administered on 03/04/17 20:44; Admin Dose 3.125 MG; Start 03/01/17 at 21:00 Ibuprofen (Motrin) 600 mg Q6H PRN PO PAIN Last administered on 03/04/17 16:03; Admin Dose 600 MG; Start 03/01/17 at 15:30 BLUE JIMÉNEZ MD Mar 04, 2017 22:19
[2017-03-05] MEDS: ACCU-CHEK XX SCH (01:11)
[2017-03-05] MEDS: FUROSEMIDE 20 MG TAB PO SCH ×2 (06:15→17:44)
[2017-03-05 07:43] VITALS: BP 120/69; RESP 16
[2017-03-05] MEDS: ALBUTEROL/IPRATROPIUM (NEB) 3 ML AMP HHN SCH ×3 (08:00→16:22)
[2017-03-05] MEDS: INSULIN ASPART [NOVOLOG] 3 ML PEN SC SCH ×4 (08:15→20:55)
[2017-03-05] MEDS: PAROXETINE 10 MG TAB PO SCH (08:50)
[2017-03-05] MEDS: MAGNESIUM OXIDE 400 MG TAB PO SCH (08:50)
[2017-03-05] MEDS: MONTELUKAST 10 MG TAB PO SCH (08:50)
[2017-03-05] MEDS: LINAGLIPTIN 5 MG TABLET PO SCH (08:50)
[2017-03-05] MEDS: VALSARTAN 80 MG TAB PO SCH (08:50)
[2017-03-05] MEDS: metFORMIN 500 MG TAB PO SCH ×2 (08:50→17:45)
[2017-03-05] MEDS: ROPINIROLE 0.25 MG TAB PO SCH (08:50)
[2017-03-05] MEDS: FLUOXETINE 10 MG CAP PO SCH (08:50)
[2017-03-05] MEDS: POTASSIUM CHLORIDE (SR) 20 MEQ TAB PO SCH (08:50)
[2017-03-05] MEDS: FERROUS SULFATE (EC) 325 MG TAB PO SCH ×3 (08:51→20:54)
[2017-03-05] MEDS: CLOPIDOGREL 75 MG TAB PO SCH (08:51)
[2017-03-05] MEDS: PANTOPRAZOLE (EC) 40 MG TAB PO SCH (08:51)
[2017-03-05] MEDS: ATORVASTATIN 40 MG TAB PO SCH (08:51)
[2017-03-05] MEDS: NYSTATIN 15 GM POWDER BTL TOP SCH ×2 (08:52→20:56)
[2017-03-05] MEDS: ENOXAPARIN 40 MG/0.4 ML SYG SC SCH (08:53)
--- NOTE | 2017-03-05 12:51 | PN ---
Date/Time of Note Date/Time of Note DATE: 03/05/17 TIME: 12:50 Assessment/Plan VTE Prophylaxis VTE Prophylaxis Intervention: other Lines/Catheters IV Catheter Type (from [facility] Urinary Cath still in place: Yes Assessment/Plan Assessment/Plan -CHF exacerbation, continue Lasix. Dr. Slater is following in cardiology consultation. -Coronary artery disease, continue Plavix. -Hypertension, continue Coreg. -Hyperlipidemia, continue statin. -COPD, continue DuoNeb. -Diabetes mellitus type 2, hemoglobin A1c is 8.3, continue metformin and Tradjenta, continue Lantus and NovoLog per mild algorithm sliding scale. -Morbid obesity with BMI of 61. -Peripheral vascular disease, continue Plavix. Dr. Louise is following in vascular surgery consultation. Further recommendations based on clinical course. Plan of care discussed with Dr. Randall. Exam/Review of Systems Vital Signs Vitals Vital Signs Date Time Temp Pulse Resp B/P Pulse Ox O2 Delivery O2 Flow Rate FiO2 03/05/17 08:00 96 18 95 21 03/05/17 07:43 97.5 120/69 03/04/17 20:00 Nasal Cannula 2.0 Intake and Output 03/04/17 03/04/17 03/05/17 15:00 23:00 07:00 Intake Total 1560 ml 420 ml Output Total 1600 ml 600 ml Balance -40 ml -180 ml Exam Constitutional: alert, obese Respiratory: clear to auscultation, normal air movement Cardiovascular: nl pulses, regular rate and rhythm Gastrointestinal: non-tender, other, soft Musculoskeletal: muscle weakness Extremities: edema Results Result Diagram: 03/04/17 1400 03/04/17 1400 Results 24 hrs Laboratory Tests Test 03/04/17 14:00 03/04/17 17:38 03/04/17 20:42 03/05/17 07:54 White Blood Count 4.9 Red Blood Count 5.97 H Hemoglobin 14.1 Hematocrit 47.3 H Mean Corpuscular Volume 79.2 L Mean Corpuscular Hemoglobin 23.6 L Mean Corpuscular Hemoglobin Concent 29.8 L Red Cell Distribution Width 21.6 H Platelet Count 208 Mean Platelet Volume 11.3 H Neutrophils % 75.6 Lymphocytes % 11.4 L Monocytes % 10.0 Eosinophils % 1.6 Basophils % 1.0 Nucleated Red Blood Cells % 0.0 Neutrophils # 3.7 Lymphocytes # 0.6 L Monocytes # 0.5 Eosinophils # 0.1 Basophils # 0.1 Nucleated Red Blood Cells # 0.0 Sodium Level 139 Potassium Level 3.9 Chloride Level 95 L Carbon Dioxide Level 27 Anion Gap 21 #H Blood Urea Nitrogen 21 H Creatinine 0.59 Glucose Level 121 Calcium Level 9.3 Bedside Glucose 117 121 114 Test 03/05/17 12:14 Bedside Glucose 145 Medications Medications Current Medications Enoxaparin Sodium (Lovenox) 40 mg DAILY SC ; Start 02/26/17 at 09:00 Acetaminophen (Tylenol Tab) 650 mg Q6H PRN PO PAIN AND OR ELEVATED TEMP; Start 02/26/17 at 00:00 Potassium Chloride (Klor-Con 20) 20 meq DAILY PO Last administered on 03/05/17 08:50; Admin Dose 20 MEQ; Start 02/26/17 at 09:00 Insulin Glargine (Lantus) 10 unit DAILY@20 SC ; Start 02/26/17 at 20:00 Diagnostic Test (Pha) (Accu-Chek) 1 ea 02 XX ; Start 02/26/17 at 02:00 Atorvastatin Calcium (Lipitor) 40 mg DAILY PO Last administered on 03/05/17 08: 51; Admin Dose 40 MG; Start 02/26/17 at 09:00 Clopidogrel Bisulfate (plaVIX) 75 mg DAILY PO Last administered on 03/05/17 08: 51; Admin Dose 75 MG; Start 02/26/17 at 09:00 Diphenhydramine HCl (Benadryl) 25 mg TID PRN PO ITCHING Last administered on 09:12; Admin Dose 25 MG; Start 02/26/17 at 00:30 Fluoxetine HCl (Prozac) 10 mg DAILY PO Last administered on 03/05/17 08:50; Admin Dose 10 MG; Start 02/26/17 at 09:00 Montelukast Sodium (Singulair) 10 mg DAILY PO Last administered on 03/05/17 08: 50; Admin Dose 10 MG; Start 02/26/17 at 09:00 Nystatin 1 applic BID TOP Last administered on 03/05/17 08:52; Admin Dose 1 APPLIC; Start 02/26/17 at 09:00 Pantoprazole (Protonix Tab) 40 mg DAILY PO Last administered on 03/05/17 08:51 ; Admin Dose 40 MG; Start 02/26/17 at 09:00 Paroxetine HCl (Paxil) 10 mg DAILY PO Last administered on 03/05/17 08:50; Admin Dose 10 MG; Start 02/26/17 at 09:00 Ropinirole HCl (Requip) 0.25 mg DAILY PO Last administered on 03/05/17 08:50; Admin Dose 0.25 MG; Start 02/26/17 at 09:00 Valsartan (Diovan) 80 mg DAILY PO Last administered on 03/05/17 08:50; Admin Dose 80 MG; Start 02/26/17 at 09:00 Zolpidem Tartrate (Ambien) 5 mg QHS PRN PO INSOMNIA; Start 02/26/17 at 00:30 Miscellaneous Information 1 ea NOTE XX ; Start 02/26/17 at 01:00 Glucose (Glutose) 15 gm Q15M PRN PO DECREASED GLUCOSE; Start 02/26/17 at 01:00 Glucose (Glutose) 22.5 gm Q15M PRN PO DECREASED GLUCOSE; Start 02/26/17 at 01: 00 Dextrose (D50w Syringe) 25 ml Q15M PRN IV DECREASED GLUCOSE; Start 02/26/17 at 01:00 Dextrose (D50w Syringe) 50 ml Q15M PRN IV DECREASED GLUCOSE; Start 02/26/17 at 01:00 Glucagon (Glucagen) 1 mg Q15M PRN IM DECREASED GLUCOSE; Start 02/26/17 at 01:00 Glucose (Glutose) 15 gm Q15M PRN BUCCAL DECREASED GLUCOSE; Start 02/26/17 at 01 :00 Albuterol (Ventolin Hfa) 2 puff Q4H PRN INH SHORTNESS OF BREATH Last administered on 02/26/17 09:57; Admin Dose 2 PUFF; Start 02/26/17 at 01:00 Linagliptin (Tradjenta) 5 mg DAILY PO Last administered on 03/05/17 08:50; Admin Dose 5 MG; Start 02/27/17 at 09:00 Ondansetron HCl (Zofran Inj) 4 mg Q6H PRN IV NAUSEA AND/OR VOMITING; Start at 17:30 Magnesium Oxide (Mag-Ox 400) 400 mg DAILY PO Last administered on 03/05/17 08: 50; Admin Dose 400 MG; Start 02/28/17 at 19:30 Carvedilol (Coreg) 3.125 mg BID PO Last administered on 03/05/17 08:51; Admin Dose 3.125 MG; Start 03/01/17 at 21:00 Ibuprofen (Motrin) 600 mg Q6H PRN PO PAIN Last administered on 03/04/17 16:03; Admin Dose 600 MG; Start 03/01/17 at 15:30 Ferrous Sulfate (Ferrous Sulfate (Ec)) 325 mg TID PO Last administered on 12:11; Admin Dose 325 MG; Start 03/05/17 at 09:00 VERONICA CHERRY Mar 05, 2017 12:51
--- NOTE | 2017-03-05 13:19 | CONS ---
Date/Time of Note Date/Time of Note DATE: 03/05/17 TIME: 13:17 Assessment/Plan Assessment/Plan Additional Assessment/Plan 1.CHF- Diastolic acute on chronic. EF 30-35% by echo this admit- con't diuresis - fluid restriction advises 1L per day - STILL ONGOING, con't DIURESIS - overall unchanged. STABLE URINE OUTPUT. 2.HTN- wrll Rx, con't med tx. - IN GOOD RANGE NOW 3.HL 4.LE wound/PAD - skin care in place - stable 5.LE edema - con'r elevation - fluid restriction now - IMPROVED, con't t restrict fluids 6.cad - no CP, con't med rx 7. DM - on meds, keep euglycemic. Consultation Date/Type/Reason Admit Date/Time Feb 25, 2017 at 21:45 Initial Consult Date 02/27/17 Type of Consultation: [facility] Referring Provider: MARILU FRIED MD 24 HR Interval Summary Free Text/Dictation Stable urine output - con't diuresis ROS: No fever, no chills, no nausea, no vomiting, no diarrhea/constipation No recent weight changes No chest pain, no PND, no orthopnea No dizziness, blurred vision No thirst, no heat or cold intolerance Exam/Review of Systems Vital Signs Vitals Vital Signs Date Time Temp Pulse Resp B/P Pulse Ox O2 Delivery O2 Flow Rate FiO2 03/05/17 08:00 96 18 95 21 03/05/17 07:43 97.5 120/69 03/04/17 20:00 Nasal Cannula 2.0 Intake and Output 03/04/17 03/04/17 03/05/17 15:00 23:00 07:00 Intake Total 1560 ml 420 ml Output Total 1600 ml 600 ml Balance -40 ml -180 ml Exam General: WN/WD/NAD, AOx 3 HEENT: Unicetric/atraumatic/EOMI (follow commands) NECK: JVD elevated, no thyromegaly Lymph: no lymphadenopathy HEART: regular with no S3, II/ systolic murmur at apex LUNGS: Coarse sounds ABD: soft, NT, ND, +BS : Intact Neuro: non focal SKIN: chronic changes EXT: better edema 2-3+_ Results Result Diagram: 03/04/17 1400 03/04/17 1400 Results 24 hrs Laboratory Tests Test 03/04/17 14:00 03/04/17 17:38 03/04/17 20:42 03/05/17 07:54 White Blood Count 4.9 Red Blood Count 5.97 H Hemoglobin 14.1 Hematocrit 47.3 H Mean Corpuscular Volume 79.2 L Mean Corpuscular Hemoglobin 23.6 L Mean Corpuscular Hemoglobin Concent 29.8 L Red Cell Distribution Width 21.6 H Platelet Count 208 Mean Platelet Volume 11.3 H Neutrophils % 75.6 Lymphocytes % 11.4 L Monocytes % 10.0 Eosinophils % 1.6 Basophils % 1.0 Nucleated Red Blood Cells % 0.0 Neutrophils # 3.7 Lymphocytes # 0.6 L Monocytes # 0.5 Eosinophils # 0.1 Basophils # 0.1 Nucleated Red Blood Cells # 0.0 Sodium Level 139 Potassium Level 3.9 Chloride Level 95 L Carbon Dioxide Level 27 Anion Gap 21 #H Blood Urea Nitrogen 21 H Creatinine 0.59 Glucose Level 121 Calcium Level 9.3 Bedside Glucose 117 121 114 Test 03/05/17 12:14 Bedside Glucose 145 Medications Medications Current Medications Enoxaparin Sodium (Lovenox) 40 mg DAILY SC ; Start 02/26/17 at 09:00 Acetaminophen (Tylenol Tab) 650 mg Q6H PRN PO PAIN AND OR ELEVATED TEMP; Start 02/26/17 at 00:00 Potassium Chloride (Klor-Con 20) 20 meq DAILY PO Last administered on 03/05/17 08:50; Admin Dose 20 MEQ; Start 02/26/17 at 09:00 Insulin Glargine (Lantus) 10 unit DAILY@20 SC ; Start 02/26/17 at 20:00 Diagnostic Test (Pha) (Accu-Chek) 1 ea 02 XX ; Start 02/26/17 at 02:00 Atorvastatin Calcium (Lipitor) 40 mg DAILY PO Last administered on 03/05/17 08: 51; Admin Dose 40 MG; Start 02/26/17 at 09:00 Clopidogrel Bisulfate (plaVIX) 75 mg DAILY PO Last administered on 03/05/17 08: 51; Admin Dose 75 MG; Start 02/26/17 at 09:00 Diphenhydramine HCl (Benadryl) 25 mg TID PRN PO ITCHING Last administered on 09:12; Admin Dose 25 MG; Start 02/26/17 at 00:30 Fluoxetine HCl (Prozac) 10 mg DAILY PO Last administered on 03/05/17 08:50; Admin Dose 10 MG; Start 02/26/17 at 09:00 Montelukast Sodium (Singulair) 10 mg DAILY PO Last administered on 03/05/17 08: 50; Admin Dose 10 MG; Start 02/26/17 at 09:00 Nystatin 1 applic BID TOP Last administered on 03/05/17 08:52; Admin Dose 1 APPLIC; Start 02/26/17 at 09:00 Pantoprazole (Protonix Tab) 40 mg DAILY PO Last administered on 03/05/17 08:51 ; Admin Dose 40 MG; Start 02/26/17 at 09:00 Paroxetine HCl (Paxil) 10 mg DAILY PO Last administered on 03/05/17 08:50; Admin Dose 10 MG; Start 02/26/17 at 09:00 Ropinirole HCl (Requip) 0.25 mg DAILY PO Last administered on 03/05/17 08:50; Admin Dose 0.25 MG; Start 02/26/17 at 09:00 Valsartan (Diovan) 80 mg DAILY PO Last administered on 03/05/17 08:50; Admin Dose 80 MG; Start 02/26/17 at 09:00 Zolpidem Tartrate (Ambien) 5 mg QHS PRN PO INSOMNIA; Start 02/26/17 at 00:30 Miscellaneous Information 1 ea NOTE XX ; Start 02/26/17 at 01:00 Glucose (Glutose) 15 gm Q15M PRN PO DECREASED GLUCOSE; Start 02/26/17 at 01:00 Glucose (Glutose) 22.5 gm Q15M PRN PO DECREASED GLUCOSE; Start 02/26/17 at 01: 00 Dextrose (D50w Syringe) 25 ml Q15M PRN IV DECREASED GLUCOSE; Start 02/26/17 at 01:00 Dextrose (D50w Syringe) 50 ml Q15M PRN IV DECREASED GLUCOSE; Start 02/26/17 at 01:00 Glucagon (Glucagen) 1 mg Q15M PRN IM DECREASED GLUCOSE; Start 02/26/17 at 01:00 Glucose (Glutose) 15 gm Q15M PRN BUCCAL DECREASED GLUCOSE; Start 02/26/17 at 01 :00 Albuterol (Ventolin Hfa) 2 puff Q4H PRN INH SHORTNESS OF BREATH Last administered on 02/26/17 09:57; Admin Dose 2 PUFF; Start 02/26/17 at 01:00 Linagliptin (Tradjenta) 5 mg DAILY PO Last administered on 03/05/17 08:50; Admin Dose 5 MG; Start 02/27/17 at 09:00 Ondansetron HCl (Zofran Inj) 4 mg Q6H PRN IV NAUSEA AND/OR VOMITING; Start at 17:30 Magnesium Oxide (Mag-Ox 400) 400 mg DAILY PO Last administered on 03/05/17 08: 50; Admin Dose 400 MG; Start 02/28/17 at 19:30 Carvedilol (Coreg) 3.125 mg BID PO Last administered on 03/05/17 08:51; Admin Dose 3.125 MG; Start 03/01/17 at 21:00 Ibuprofen (Motrin) 600 mg Q6H PRN PO PAIN Last administered on 03/04/17 16:03; Admin Dose 600 MG; Start 03/01/17 at 15:30 Ferrous Sulfate (Ferrous Sulfate (Ec)) 325 mg TID PO Last administered on 12:11; Admin Dose 325 MG; Start 03/05/17 at 09:00 ITZ BRAGA MD Mar 05, 2017 13:18
[2017-03-05 19:43] VITALS: BP 151/83; RESP 16
[2017-03-05] MEDS: INSULIN GLARGINE [LANtus] 3 ML PEN SC SCH (20:00)
[2017-03-05] MEDS: IBUPROFEN 200 MG TAB PO PRN (22:59)
--- NOTE | 2017-03-06 00:24 | CONS ---
Date/Time of Note Date/Time of Note DATE: 03/05/17 TIME: 19:13 vk le Assessment/Plan Assessment/Plan Chief Complaint/Hosp Course MICROCYTOSIS MONITOR IRON DEFICIENCY PO IRON HX ANEMIA MONITOR CLOSELY LOOKS COMPENSATED AT PRESENT LEUKOPENIA RESOLVED MONITOR CHF exacerbation, continue Lasix. Dr. Slater is following in cardiology consultation. Coronary artery disease, continue Plavix. Hypertension Hyperlipidemia, continue statin. COPD Diabetes mellitus type 2, will check hemoglobin A1c, continue Lantus and NovoLog per mild algorithm sliding scale. Morbid obesity with BMI of 61. Peripheral vascular disease Problems: Consultation Date/Type/Reason Admit Date/Time Feb 25, 2017 at 21:45 [facility]: [facility] Referring Provider: MARILU FRIED MD 24 HR Interval Summary Free Text/Dictation ALL NOTED Exam/Review of Systems Vital Signs Vitals Vital Signs Date Time Temp Pulse Resp B/P Pulse Ox O2 Delivery O2 Flow Rate FiO2 03/05/17 19:43 97.9 91 16 151/83 98 03/05/17 16:24 21 03/05/17 08:00 Nasal Cannula 2.0 Intake and Output 03/05/17 03/05/17 03/06/17 15:00 23:00 07:00 Intake Total 1440 ml Output Total 2000 ml Balance -560 ml Exam General: WN/WD/NAD, AOx 3 HEENT: Unicetric/atraumatic/EOMI ( follow commands) NECK: JVD elevated, no thyromegaly Lymph: no lymphadenopathy HEART: regular with no S3, II/ systolic murmur at apex LUNGS: Coarse sounds ABD: soft, NT, ND, +BS : Intact Neuro: non focal SKIN: chronic changes EXT: edema Results Result Diagram: 03/04/17 1400 03/04/17 1400 Results 24 hrs Laboratory Tests Test 03/05/17 07:54 03/05/17 12:14 03/05/17 17:37 03/05/17 20:53 Bedside Glucose 114 145 183 154 Medications Medications Current Medications Enoxaparin Sodium (Lovenox) 40 mg DAILY SC ; Start 02/26/17 at 09:00 Acetaminophen (Tylenol Tab) 650 mg Q6H PRN PO PAIN AND OR ELEVATED TEMP; Start 02/26/17 at 00:00 Potassium Chloride (Klor-Con 20) 20 meq DAILY PO Last administered on 03/05/17 08:50; Admin Dose 20 MEQ; Start 02/26/17 at 09:00 Insulin Glargine (Lantus) 10 unit DAILY@20 SC ; Start 02/26/17 at 20:00 Diagnostic Test (Pha) (Accu-Chek) 1 ea 02 XX ; Start 02/26/17 at 02:00 Atorvastatin Calcium (Lipitor) 40 mg DAILY PO Last administered on 03/05/17 08: 51; Admin Dose 40 MG; Start 02/26/17 at 09:00 Clopidogrel Bisulfate (plaVIX) 75 mg DAILY PO Last administered on 03/05/17 08: 51; Admin Dose 75 MG; Start 02/26/17 at 09:00 Diphenhydramine HCl (Benadryl) 25 mg TID PRN PO ITCHING Last administered on 09:12; Admin Dose 25 MG; Start 02/26/17 at 00:30 Fluoxetine HCl (Prozac) 10 mg DAILY PO Last administered on 03/05/17 08:50; Admin Dose 10 MG; Start 02/26/17 at 09:00 Montelukast Sodium (Singulair) 10 mg DAILY PO Last administered on 03/05/17 08: 50; Admin Dose 10 MG; Start 02/26/17 at 09:00 Nystatin 1 applic BID TOP Last administered on 03/05/17 20:56; Admin Dose 1 APPLIC; Start 02/26/17 at 09:00 Pantoprazole (Protonix Tab) 40 mg DAILY PO Last administered on 03/05/17 08:51 ; Admin Dose 40 MG; Start 02/26/17 at 09:00 Paroxetine HCl (Paxil) 10 mg DAILY PO Last administered on 03/05/17 08:50; Admin Dose 10 MG; Start 02/26/17 at 09:00 Ropinirole HCl (Requip) 0.25 mg DAILY PO Last administered on 03/05/17 08:50; Admin Dose 0.25 MG; Start 02/26/17 at 09:00 Valsartan (Diovan) 80 mg DAILY PO Last administered on 03/05/17 08:50; Admin Dose 80 MG; Start 02/26/17 at 09:00 Zolpidem Tartrate (Ambien) 5 mg QHS PRN PO INSOMNIA; Start 02/26/17 at 00:30 Miscellaneous Information 1 ea NOTE XX ; Start 02/26/17 at 01:00 Glucose (Glutose) 15 gm Q15M PRN PO DECREASED GLUCOSE; Start 02/26/17 at 01:00 Glucose (Glutose) 22.5 gm Q15M PRN PO DECREASED GLUCOSE; Start 02/26/17 at 01: 00 Dextrose (D50w Syringe) 25 ml Q15M PRN IV DECREASED GLUCOSE; Start 02/26/17 at 01:00 Dextrose (D50w Syringe) 50 ml Q15M PRN IV DECREASED GLUCOSE; Start 02/26/17 at 01:00 Glucagon (Glucagen) 1 mg Q15M PRN IM DECREASED GLUCOSE; Start 02/26/17 at 01:00 Glucose (Glutose) 15 gm Q15M PRN BUCCAL DECREASED GLUCOSE; Start 02/26/17 at 01 :00 Albuterol (Ventolin Hfa) 2 puff Q4H PRN INH SHORTNESS OF BREATH Last administered on 02/26/17 09:57; Admin Dose 2 PUFF; Start 02/26/17 at 01:00 Linagliptin (Tradjenta) 5 mg DAILY PO Last administered on 03/05/17 08:50; Admin Dose 5 MG; Start 02/27/17 at 09:00 Ondansetron HCl (Zofran Inj) 4 mg Q6H PRN IV NAUSEA AND/OR VOMITING; Start at 17:30 Magnesium Oxide (Mag-Ox 400) 400 mg DAILY PO Last administered on 03/05/17 08: 50; Admin Dose 400 MG; Start 02/28/17 at 19:30 Carvedilol (Coreg) 3.125 mg BID PO Last administered on 03/05/17 20:54; Admin Dose 3.125 MG; Start 03/01/17 at 21:00 Ibuprofen (Motrin) 600 mg Q6H PRN PO PAIN Last administered on 03/05/17 22:59; Admin Dose 600 MG; Start 03/01/17 at 15:30 Ferrous Sulfate (Ferrous Sulfate (Ec)) 325 mg TID PO Last administered on 20:54; Admin Dose 325 MG; Start 03/05/17 at 09:00 BLUE JIMÉNEZ MD Mar 06, 2017 00:23
[2017-03-06] MEDS: ACCU-CHEK XX SCH (01:24)
[2017-03-06] MEDS: FUROSEMIDE 20 MG TAB PO SCH (06:25)
[2017-03-06 07:15] VITALS: BP 125/70; RESP 18
[2017-03-06] MEDS: ALBUTEROL/IPRATROPIUM (NEB) 3 ML AMP HHN SCH ×3 (08:05→16:44)
[2017-03-06] MEDS: INSULIN ASPART [NOVOLOG] 3 ML PEN SC SCH ×4 (08:15→20:46)
[2017-03-06] MEDS: ENOXAPARIN 40 MG/0.4 ML SYG SC SCH (09:00)
[2017-03-06] MEDS: MAGNESIUM OXIDE 400 MG TAB PO SCH (09:14)
[2017-03-06] MEDS: LINAGLIPTIN 5 MG TABLET PO SCH (09:14)
[2017-03-06] MEDS: FLUOXETINE 10 MG CAP PO SCH (09:14)
[2017-03-06] MEDS: POTASSIUM CHLORIDE (SR) 20 MEQ TAB PO SCH (09:14)
[2017-03-06] MEDS: ATORVASTATIN 40 MG TAB PO SCH (09:14)
[2017-03-06] MEDS: ROPINIROLE 0.25 MG TAB PO SCH (09:14)
[2017-03-06] MEDS: CLOPIDOGREL 75 MG TAB PO SCH (09:14)
[2017-03-06] MEDS: PAROXETINE 10 MG TAB PO SCH (09:14)
[2017-03-06] MEDS: MONTELUKAST 10 MG TAB PO SCH (09:15)
[2017-03-06] MEDS: FERROUS SULFATE (EC) 325 MG TAB PO SCH ×3 (09:15→20:46)
[2017-03-06] MEDS: metFORMIN 500 MG TAB PO SCH ×2 (09:15→17:44)
[2017-03-06] MEDS: PANTOPRAZOLE (EC) 40 MG TAB PO SCH (09:15)
[2017-03-06] MEDS: VALSARTAN 80 MG TAB PO SCH (09:19)
[2017-03-06] MEDS: NYSTATIN 15 GM POWDER BTL TOP SCH ×2 (09:26→20:46)
--- NOTE | 2017-03-06 11:10 | CONS ---
Date/Time of Note Date/Time of Note DATE: 03/06/17 TIME: 11:10 Assessment/Plan Assessment/Plan Chief Complaint/Hosp Course MICROCYTOSIS MONITOR IRON DEFICIENCY PO IRON HX ANEMIA MONITOR CLOSELY LOOKS COMPENSATED AT PRESENT LEUKOPENIA RESOLVED MONITOR CHF exacerbation, continue Lasix. Dr. Slater is following in cardiology consultation. Coronary artery disease, continue Plavix. Hypertension Hyperlipidemia, continue statin. COPD Diabetes mellitus type 2, will check hemoglobin A1c, continue Lantus and NovoLog per mild algorithm sliding scale. Morbid obesity with BMI of 61. Peripheral vascular disease Problems: Consultation Date/Type/Reason Admit Date/Time Feb 25, 2017 at 21:45 [facility] Consultation: [facility] Referring Provider: MARILU FRIED MD 24 HR Interval Summary Free Text/Dictation FELLING BETTER COUNT REVIEWED NO BLEEDING Exam/Review of Systems Vital Signs Vitals Vital Signs Date Time Temp Pulse Resp B/P Pulse Ox O2 Delivery O2 Flow Rate FiO2 03/06/17 08:05 71 18 97 21 03/06/17 07:15 97.5 125/70 03/05/17 08:00 Nasal Cannula 2.0 Intake and Output 03/05/17 03/05/17 03/06/17 15:00 23:00 07:00 Intake Total 1440 ml 800 ml Output Total 2000 ml 900 ml Balance -560 ml -100 ml Exam General: WN/WD/NAD, AOx 3 HEENT: Unicetric/atraumatic/EOMI ( follow commands) NECK: JVD elevated, no thyromegaly Lymph: no lymphadenopathy HEART: regular with no S3, II/ systolic murmur at apex LUNGS: Coarse sounds ABD: soft, NT, ND, +BS : Intact Neuro: non focal SKIN: chronic changes EXT: edema Results Result Diagram: 03/04/17 1400 03/04/17 1400 Results 24 hrs Laboratory Tests Test 03/05/17 12:14 03/05/17 17:37 03/05/17 20:53 03/06/17 08:26 Bedside Glucose 145 183 154 111 Medications Medications Current Medications Enoxaparin Sodium (Lovenox) 40 mg DAILY SC ; Start 02/26/17 at 09:00 Acetaminophen (Tylenol Tab) 650 mg Q6H PRN PO PAIN AND OR ELEVATED TEMP; Start 02/26/17 at 00:00 Potassium Chloride (Klor-Con 20) 20 meq DAILY PO Last administered on 03/06/17 09:14; Admin Dose 20 MEQ; Start 02/26/17 at 09:00 Insulin Glargine (Lantus) 10 unit DAILY@20 SC ; Start 02/26/17 at 20:00 Diagnostic Test (Pha) (Accu-Chek) 1 ea 02 XX ; Start 02/26/17 at 02:00 Atorvastatin Calcium (Lipitor) 40 mg DAILY PO Last administered on 03/06/17 09: 14; Admin Dose 40 MG; Start 02/26/17 at 09:00 Clopidogrel Bisulfate (plaVIX) 75 mg DAILY PO Last administered on 03/06/17 09: 14; Admin Dose 75 MG; Start 02/26/17 at 09:00 Diphenhydramine HCl (Benadryl) 25 mg TID PRN PO ITCHING Last administered on 09:12; Admin Dose 25 MG; Start 02/26/17 at 00:30 Fluoxetine HCl (Prozac) 10 mg DAILY PO Last administered on 03/06/17 09:14; Admin Dose 10 MG; Start 02/26/17 at 09:00 Montelukast Sodium (Singulair) 10 mg DAILY PO Last administered on 03/06/17 09: 15; Admin Dose 10 MG; Start 02/26/17 at 09:00 Nystatin 1 applic BID TOP Last administered on 03/06/17 09:26; Admin Dose 1 APPLIC; Start 02/26/17 at 09:00 Pantoprazole (Protonix Tab) 40 mg DAILY PO Last administered on 03/06/17 09:15 ; Admin Dose 40 MG; Start 02/26/17 at 09:00 Paroxetine HCl (Paxil) 10 mg DAILY PO Last administered on 03/06/17 09:14; Admin Dose 10 MG; Start 02/26/17 at 09:00 Ropinirole HCl (Requip) 0.25 mg DAILY PO Last administered on 03/06/17 09:14; Admin Dose 0.25 MG; Start 02/26/17 at 09:00 Valsartan (Diovan) 80 mg DAILY PO Last administered on 03/06/17 09:19; Admin Dose 80 MG; Start 02/26/17 at 09:00 Zolpidem Tartrate (Ambien) 5 mg QHS PRN PO INSOMNIA; Start 02/26/17 at 00:30 Miscellaneous Information 1 ea NOTE XX ; Start 02/26/17 at 01:00 Glucose (Glutose) 15 gm Q15M PRN PO DECREASED GLUCOSE; Start 02/26/17 at 01:00 Glucose (Glutose) 22.5 gm Q15M PRN PO DECREASED GLUCOSE; Start 02/26/17 at 01: 00 Dextrose (D50w Syringe) 25 ml Q15M PRN IV DECREASED GLUCOSE; Start 02/26/17 at 01:00 Dextrose (D50w Syringe) 50 ml Q15M PRN IV DECREASED GLUCOSE; Start 02/26/17 at 01:00 Glucagon (Glucagen) 1 mg Q15M PRN IM DECREASED GLUCOSE; Start 02/26/17 at 01:00 Glucose (Glutose) 15 gm Q15M PRN BUCCAL DECREASED GLUCOSE; Start 02/26/17 at 01 :00 Albuterol (Ventolin Hfa) 2 puff Q4H PRN INH SHORTNESS OF BREATH Last administered on 02/26/17 09:57; Admin Dose 2 PUFF; Start 02/26/17 at 01:00 Linagliptin (Tradjenta) 5 mg DAILY PO Last administered on 03/06/17 09:14; Admin Dose 5 MG; Start 02/27/17 at 09:00 Ondansetron HCl (Zofran Inj) 4 mg Q6H PRN IV NAUSEA AND/OR VOMITING; Start at 17:30 Magnesium Oxide (Mag-Ox 400) 400 mg DAILY PO Last administered on 03/06/17 09: 14; Admin Dose 400 MG; Start 02/28/17 at 19:30 Carvedilol (Coreg) 3.125 mg BID PO Last administered on 03/06/17 09:19; Admin Dose 3.125 MG; Start 03/01/17 at 21:00 Ibuprofen (Motrin) 600 mg Q6H PRN PO PAIN Last administered on 03/05/17 22:59; Admin Dose 600 MG; Start 03/01/17 at 15:30 Ferrous Sulfate (Ferrous Sulfate (Ec)) 325 mg TID PO Last administered on 09:15; Admin Dose 325 MG; Start 03/05/17 at 09:00 BLUE JIMÉNEZ MD Mar 06, 2017 11:10
--- NOTE | 2017-03-06 13:37 | CONS ---
Date/Time of Note Date/Time of Note DATE: 03/06/17 TIME: 13:34 Assessment/Plan Assessment/Plan Chief Complaint/Hosp Course IMP: 1.CHF-? systolic vs Diastolic acute on chronic. EF 30-35% by echo this admit. 2.HTN 3.HL 4.LE wound/PAD 5.LE edema 6.cad 7. DM 8. Anemia Recc: -Tele -serial ecg's -Continue statin -Continue lasix diuresis as patient will comply with slight increase -Continue diovan/BB -Ongoing heme eval -NO troponin sent? did patient refuse them Problems: Consultation Date/Type/Reason Admit Date/Time Feb 25, 2017 at 21:45 Initial Consult Date 02/27/17 Type of Consultation: cardiology Reason for Consultation CHF Referring Provider: MARILU RFIED MD Exam/Review of Systems Vital Signs Vitals Vital Signs Date Time Temp Pulse Resp B/P Pulse Ox O2 Delivery O2 Flow Rate FiO2 03/06/17 13:24 87 20 96 21 03/06/17 07:15 97.5 125/70 03/05/17 08:00 Nasal Cannula 2.0 Intake and Output 03/05/17 03/05/17 03/06/17 15:00 23:00 07:00 Intake Total 1440 ml 800 ml Output Total 2000 ml 900 ml Balance -560 ml -100 ml Exam Review of Systems: CONSTITUTIONAL: No fevers, chills. PULMONARY: Mild sob CARDIOVASCULAR: No chest pain/palpitations GASTROINTESTINAL: No nausea/vomiting. GENITOURINARY: No hematuria/dysuria. MUSCULOSKELETAL: No myagias/arthalgias. PSYCHIATRIC: The patient denies depression. NEUROLOGIC: lethargic Constitutional: alert Psych: no complaints Head: normocephalic ENMT: mucosa pink and moist Neck: jvd (9-10 cm water), supple Respiratory: diminished breath sounds (at bases/B) Cardiovascular: regular rate and rhythm Gastrointestinal: non-tender, soft Musculoskeletal: muscle tone (normal) Extremities: pitting pedal edema (Bilateral) Neurological: lethargic Results Result Diagram: 03/04/17 1400 03/04/17 1400 Results 24 hrs Laboratory Tests Test 03/05/17 17:37 03/05/17 20:53 03/06/17 08:26 03/06/17 11:55 Bedside Glucose 183 154 111 143 Medications Medications Current Medications Enoxaparin Sodium (Lovenox) 40 mg DAILY SC ; Start 02/26/17 at 09:00 Acetaminophen (Tylenol Tab) 650 mg Q6H PRN PO PAIN AND OR ELEVATED TEMP; Start 02/26/17 at 00:00 Potassium Chloride (Klor-Con 20) 20 meq DAILY PO Last administered on 03/06/17 09:14; Admin Dose 20 MEQ; Start 02/26/17 at 09:00 Insulin Glargine (Lantus) 10 unit DAILY@20 SC ; Start 02/26/17 at 20:00 Diagnostic Test (Pha) (Accu-Chek) 1 ea 02 XX ; Start 02/26/17 at 02:00 Atorvastatin Calcium (Lipitor) 40 mg DAILY PO Last administered on 03/06/17 09: 14; Admin Dose 40 MG; Start 02/26/17 at 09:00 Clopidogrel Bisulfate (plaVIX) 75 mg DAILY PO Last administered on 03/06/17 09: 14; Admin Dose 75 MG; Start 02/26/17 at 09:00 Diphenhydramine HCl (Benadryl) 25 mg TID PRN PO ITCHING Last administered on 09:12; Admin Dose 25 MG; Start 02/26/17 at 00:30 Fluoxetine HCl (Prozac) 10 mg DAILY PO Last administered on 03/06/17 09:14; Admin Dose 10 MG; Start 02/26/17 at 09:00 Montelukast Sodium (Singulair) 10 mg DAILY PO Last administered on 03/06/17 09: 15; Admin Dose 10 MG; Start 02/26/17 at 09:00 Nystatin 1 applic BID TOP Last administered on 03/06/17 09:26; Admin Dose 1 APPLIC; Start 02/26/17 at 09:00 Pantoprazole (Protonix Tab) 40 mg DAILY PO Last administered on 03/06/17 09:15 ; Admin Dose 40 MG; Start 02/26/17 at 09:00 Paroxetine HCl (Paxil) 10 mg DAILY PO Last administered on 03/06/17 09:14; Admin Dose 10 MG; Start 02/26/17 at 09:00 Ropinirole HCl (Requip) 0.25 mg DAILY PO Last administered on 03/06/17 09:14; Admin Dose 0.25 MG; Start 02/26/17 at 09:00 Valsartan (Diovan) 80 mg DAILY PO Last administered on 03/06/17 09:19; Admin Dose 80 MG; Start 02/26/17 at 09:00 Zolpidem Tartrate (Ambien) 5 mg QHS PRN PO INSOMNIA; Start 02/26/17 at 00:30 Miscellaneous Information 1 ea NOTE XX ; Start 02/26/17 at 01:00 Glucose (Glutose) 15 gm Q15M PRN PO DECREASED GLUCOSE; Start 02/26/17 at 01:00 Glucose (Glutose) 22.5 gm Q15M PRN PO DECREASED GLUCOSE; Start 02/26/17 at 01: 00 Dextrose (D50w Syringe) 25 ml Q15M PRN IV DECREASED GLUCOSE; Start 02/26/17 at 01:00 Dextrose (D50w Syringe) 50 ml Q15M PRN IV DECREASED GLUCOSE; Start 02/26/17 at 01:00 Glucagon (Glucagen) 1 mg Q15M PRN IM DECREASED GLUCOSE; Start 02/26/17 at 01:00 Glucose (Glutose) 15 gm Q15M PRN BUCCAL DECREASED GLUCOSE; Start 02/26/17 at 01 :00 Albuterol (Ventolin Hfa) 2 puff Q4H PRN INH SHORTNESS OF BREATH Last administered on 02/26/17 09:57; Admin Dose 2 PUFF; Start 02/26/17 at 01:00 Linagliptin (Tradjenta) 5 mg DAILY PO Last administered on 03/06/17 09:14; Admin Dose 5 MG; Start 02/27/17 at 09:00 Ondansetron HCl (Zofran Inj) 4 mg Q6H PRN IV NAUSEA AND/OR VOMITING; Start at 17:30 Magnesium Oxide (Mag-Ox 400) 400 mg DAILY PO Last administered on 03/06/17 09: 14; Admin Dose 400 MG; Start 02/28/17 at 19:30 Carvedilol (Coreg) 3.125 mg BID PO Last administered on 03/06/17 09:19; Admin Dose 3.125 MG; Start 03/01/17 at 21:00 Ibuprofen (Motrin) 600 mg Q6H PRN PO PAIN Last administered on 03/05/17 22:59; Admin Dose 600 MG; Start 03/01/17 at 15:30 Ferrous Sulfate (Ferrous Sulfate (Ec)) 325 mg TID PO Last administered on 13:30; Admin Dose 325 MG; Start 03/05/17 at 09:00 JACQUELINE HORNE Mar 06, 2017 13:37
--- NOTE | 2017-03-06 15:13 | PN ---
Date/Time of Note Date/Time of Note DATE: 03/06/17 TIME: 15:12 Assessment/Plan VTE Prophylaxis VTE Prophylaxis Intervention: LMWH, SCD's Lines/Catheters IV Catheter Type (from Nrs): Saline Lock Urinary Cath still in place: Yes Reason Cath still needed: urinary retention Assessment/Plan Chief Complaint/Hosp Course Patient looks comfortable, slight decrease in bilateral lower extremities edema , denies any chest pain, denies shortness of breath, blood sugar is adequately controlled. Assessment/Plan -CHF exacerbation, continue Lasix. Dr. Slater is following in cardiology consultation. -Coronary artery disease, continue Plavix. -Hypertension, continue Coreg. -Hyperlipidemia, continue statin. -COPD, continue DuoNeb. -Diabetes mellitus type 2, hemoglobin A1c is 8.3, continue metformin and Tradjenta, continue Lantus and NovoLog per mild algorithm sliding scale. -Morbid obesity with BMI of 61. -Peripheral vascular disease, continue Plavix. Dr. Louise is following in vascular surgery consultation. Further recommendations based on clinical course. Plan of care discussed with Dr. Randall. Problems: Exam/Review of Systems Vital Signs Vitals Vital Signs Date Time Temp Pulse Resp B/P Pulse Ox O2 Delivery O2 Flow Rate FiO2 03/06/17 13:24 87 20 96 21 03/06/17 07:15 97.5 125/70 03/05/17 08:00 Nasal Cannula 2.0 Intake and Output 03/05/17 03/05/17 03/06/17 15:00 23:00 07:00 Intake Total 1440 ml 800 ml Output Total 2000 ml 900 ml Balance -560 ml -100 ml Exam Constitutional: alert, oriented Head: atraumatic, normocephalic Neck: supple Respiratory: diminished breath sounds Cardiovascular: nl pulses, regular rate and rhythm Gastrointestinal: non-tender, soft Extremities: edema, other Neurological: nl mental status Skin: nl turgor Results Result Diagram: 03/04/17 1400 03/04/17 1400 Results 24 hrs Laboratory Tests Test 03/05/17 17:37 03/05/17 20:53 03/06/17 08:26 03/06/17 11:55 Bedside Glucose 183 154 111 143 Medications Medications Current Medications Enoxaparin Sodium (Lovenox) 40 mg DAILY SC ; Start 02/26/17 at 09:00 Acetaminophen (Tylenol Tab) 650 mg Q6H PRN PO PAIN AND OR ELEVATED TEMP; Start 02/26/17 at 00:00 Potassium Chloride (Klor-Con 20) 20 meq DAILY PO Last administered on 03/06/17 09:14; Admin Dose 20 MEQ; Start 02/26/17 at 09:00 Insulin Glargine (Lantus) 10 unit DAILY@20 SC ; Start 02/26/17 at 20:00 Diagnostic Test (Pha) (Accu-Chek) 1 ea 02 XX ; Start 02/26/17 at 02:00 Atorvastatin Calcium (Lipitor) 40 mg DAILY PO Last administered on 03/06/17 09: 14; Admin Dose 40 MG; Start 02/26/17 at 09:00 Clopidogrel Bisulfate (plaVIX) 75 mg DAILY PO Last administered on 03/06/17 09: 14; Admin Dose 75 MG; Start 02/26/17 at 09:00 Diphenhydramine HCl (Benadryl) 25 mg TID PRN PO ITCHING Last administered on 09:12; Admin Dose 25 MG; Start 02/26/17 at 00:30 Fluoxetine HCl (Prozac) 10 mg DAILY PO Last administered on 03/06/17 09:14; Admin Dose 10 MG; Start 02/26/17 at 09:00 Montelukast Sodium (Singulair) 10 mg DAILY PO Last administered on 03/06/17 09: 15; Admin Dose 10 MG; Start 02/26/17 at 09:00 Nystatin 1 applic BID TOP Last administered on 03/06/17 09:26; Admin Dose 1 APPLIC; Start 02/26/17 at 09:00 Pantoprazole (Protonix Tab) 40 mg DAILY PO Last administered on 03/06/17 09:15 ; Admin Dose 40 MG; Start 02/26/17 at 09:00 Paroxetine HCl (Paxil) 10 mg DAILY PO Last administered on 03/06/17 09:14; Admin Dose 10 MG; Start 02/26/17 at 09:00 Ropinirole HCl (Requip) 0.25 mg DAILY PO Last administered on 03/06/17 09:14; Admin Dose 0.25 MG; Start 02/26/17 at 09:00 Valsartan (Diovan) 80 mg DAILY PO Last administered on 03/06/17 09:19; Admin Dose 80 MG; Start 02/26/17 at 09:00 Zolpidem Tartrate (Ambien) 5 mg QHS PRN PO INSOMNIA; Start 02/26/17 at 00:30 Miscellaneous Information 1 ea NOTE XX ; Start 02/26/17 at 01:00 Glucose (Glutose) 15 gm Q15M PRN PO DECREASED GLUCOSE; Start 02/26/17 at 01:00 Glucose (Glutose) 22.5 gm Q15M PRN PO DECREASED GLUCOSE; Start 02/26/17 at 01: 00 Dextrose (D50w Syringe) 25 ml Q15M PRN IV DECREASED GLUCOSE; Start 02/26/17 at 01:00 Dextrose (D50w Syringe) 50 ml Q15M PRN IV DECREASED GLUCOSE; Start 02/26/17 at 01:00 Glucagon (Glucagen) 1 mg Q15M PRN IM DECREASED GLUCOSE; Start 02/26/17 at 01:00 Glucose (Glutose) 15 gm Q15M PRN BUCCAL DECREASED GLUCOSE; Start 02/26/17 at 01 :00 Albuterol (Ventolin Hfa) 2 puff Q4H PRN INH SHORTNESS OF BREATH Last administered on 02/26/17 09:57; Admin Dose 2 PUFF; Start 02/26/17 at 01:00 Linagliptin (Tradjenta) 5 mg DAILY PO Last administered on 03/06/17 09:14; Admin Dose 5 MG; Start 02/27/17 at 09:00 Ondansetron HCl (Zofran Inj) 4 mg Q6H PRN IV NAUSEA AND/OR VOMITING; Start at 17:30 Magnesium Oxide (Mag-Ox 400) 400 mg DAILY PO Last administered on 03/06/17 09: 14; Admin Dose 400 MG; Start 02/28/17 at 19:30 Carvedilol (Coreg) 3.125 mg BID PO Last administered on 03/06/17 09:19; Admin Dose 3.125 MG; Start 03/01/17 at 21:00 Ibuprofen (Motrin) 600 mg Q6H PRN PO PAIN Last administered on 03/05/17 22:59; Admin Dose 600 MG; Start 03/01/17 at 15:30 Ferrous Sulfate (Ferrous Sulfate (Ec)) 325 mg TID PO Last administered on t 13:30; Admin Dose 325 MG; Start 03/05/17 at 09:00 ADENIKE DE GUZMAN Mar 06, 2017 15:13
[2017-03-06] MEDS: FUROSEMIDE 40 MG TAB PO SCH (17:47)
[2017-03-06 19:42] VITALS: BP 131/91; RESP 18
[2017-03-06] MEDS: INSULIN GLARGINE [LANtus] 3 ML PEN SC SCH (20:00)
[2017-03-07] MEDS: ACCU-CHEK XX SCH (01:32)
[2017-03-07] MEDS: FUROSEMIDE 40 MG TAB PO SCH ×2 (05:30→18:03)
[2017-03-07 07:44] VITALS: BP 139/84; RESP 18
[2017-03-07] MEDS: ALBUTEROL/IPRATROPIUM (NEB) 3 ML AMP HHN SCH ×3 (07:53→16:03)
[2017-03-07] MEDS: INSULIN ASPART [NOVOLOG] 3 ML PEN SC SCH ×4 (08:15→20:16)
[2017-03-07] MEDS: metFORMIN 500 MG TAB PO SCH ×2 (08:34→17:36)
[2017-03-07] MEDS: FERROUS SULFATE (EC) 325 MG TAB PO SCH ×3 (09:02→20:14)
[2017-03-07] MEDS: MONTELUKAST 10 MG TAB PO SCH (09:02)
[2017-03-07] MEDS: PANTOPRAZOLE (EC) 40 MG TAB PO SCH (09:02)
[2017-03-07] MEDS: CLOPIDOGREL 75 MG TAB PO SCH (09:02)
[2017-03-07] MEDS: MAGNESIUM OXIDE 400 MG TAB PO SCH (09:02)
[2017-03-07] MEDS: ROPINIROLE 0.25 MG TAB PO SCH (09:02)
[2017-03-07] MEDS: POTASSIUM CHLORIDE (SR) 20 MEQ TAB PO SCH (09:02)
[2017-03-07] MEDS: FLUOXETINE 10 MG CAP PO SCH (09:03)
[2017-03-07] MEDS: LINAGLIPTIN 5 MG TABLET PO SCH (09:03)
[2017-03-07] MEDS: ATORVASTATIN 40 MG TAB PO SCH (09:04)
[2017-03-07] MEDS: VALSARTAN 80 MG TAB PO SCH (09:04)
[2017-03-07] MEDS: NYSTATIN 15 GM POWDER BTL TOP SCH ×2 (09:10→20:17)
[2017-03-07] MEDS: ENOXAPARIN 40 MG/0.4 ML SYG SC SCH (09:15)
[2017-03-07] MEDS: IBUPROFEN 200 MG TAB PO PRN ×2 (09:21→14:47)
[2017-03-07] MEDS: PAROXETINE 10 MG TAB PO SCH (09:21)
--- NOTE | 2017-03-07 09:38 | CONS ---
Date/Time of Note Date/Time of Note DATE: 02/25/17 TIME: 21:34 VK LE Assessment/Plan Assessment/Plan Chief Complaint/Hosp Course MICROCYTOSIS PROCEED WITH W-UP MONITOR HX IRON DEFICIENCY may need PO IRON HX ANEMIA MONITOR CLOSELY LOOKS COMPENSATED AT PRESENT LEUKOPENIA RESOLVED MONITOR CHF exacerbation, continue Lasix. cardiology consultation. Coronary artery disease, continue Plavix. Hypertension Hyperlipidemia, continue statin. COPD Diabetes mellitus type 2, will check hemoglobin A1c, continue Lantus and NovoLog per mild algorithm sliding scale. Morbid obesity with BMI of 61. Peripheral vascular disease Problems: Consultation Date/Type/Reason Admit Date/Time Feb 25, 2017 at 21:45 Date of Consultation: Feb 25, 2017 Type of Consultation: hemeonc Reason for Consultation microcytosis anemia Referring Provider: MARILU FRIED MD Hx of Present Illness This a 51-year-old female complains of shortness of breath gradually getting worse over the past week. The patient is morbidly obese and relatively nonambulatory. The patient states she has had this problem before where she gets water in her lungs. She states. She also says that she has had no cough no chest pain. She says her shortness of breath has been getting worse because she is retaining water. She says that her legs are getting more swollen as well as her abdomen. ROS All systems reviewed and are negative except as per history of present illness. Medications Home Meds Reported Medications Silver Sulfadiazine (Silver Sulfadiazine) 400 Gm Cream..g., 400 GM TP NEEDED Y for PRN APPLY TO INFECTED AREA 02/25/17 Fluoxetine Hcl* (Fluoxetine Hcl*) 10 Mg Capsule, 10 MG PO DAILY, CAP 02/25/17 Ibuprofen* (Ibuprofen*) 600 Mg Tablet, 600 MG PO Q4H Y for PAIN, TAB 12/06/16 Metformin Hcl* (Metformin Hcl*) 500 Mg Tablet, 500 MG PO WITH BREAKFAST DINNE, # 60 TAB 12/06/16 Paroxetine Hcl* (Paroxetine*) 10 Mg Tablet, 10 MG PO DAILY, TAB 12/06/16 Albuterol Sulfate* (Ventolin HFA*) 18 Gm Hfa.aer.ad, 2 PUFF INHALATION Q4H Y for SHORTNESS OF BREATH, #1 INHALER 12/06/16 Furosemide* (Lasix*) 20 Mg Tablet, 20 MG PO DAILY, TAB 12/06/16 Montelukast Sodium* (Montelukast Sodium*) 10 Mg Tablet, 10 MG PO DAILY, #30 TAB 05/05/16 Glipizide* (Glipizide*) 10 Mg Tablet, 10 MG PO BID, TAB 05/05/16 Diphenhydramine Hcl* (Diphenhydramine Hcl*) 25 Mg Capsule, 25 MG PO TID Y for ITCHING, CAP 05/05/16 Atorvastatin* (Atorvastatin*) 40 Mg Tablet, 40 MG PO DAILY, #30 TAB 05/05/16 Zolpidem Tartrate* (Zolpidem Tartrate*) 5 Mg Tablet, 5 MG PO QHS Y for INSOMNIA , #30 TAB 05/05/16 Valsartan* (Diovan*) 80 Mg Tablet, 80 MG PO DAILY, TAB 05/05/16 Silver Sulfadiazine* (SSD*) 1% - 20 Gm Cream.gm., 1 APPLIC TOP BID, #1 TUB 05/05/16 Pantoprazole* (Protonix*) 40 Mg Tablet.dr, 40 MG PO DAILY, TAB 05/05/16 Nystatin (Nystatin Powder) 1 Each Powder.ea., 1 APPLIC TOPICAL BID, #1 BOTTLE 05/05/16 Ropinirole Hcl* (Ropinirole Hcl*) 0.25 Mg Tablet, 0.25 MG PO DAILY, TAB 05/05/16 Clopidogrel Bisulfate (Clopidogrel) 75 Mg Tablet, 75 MG PO DAILY, #30 TAB 05/05/16 Allergies Allergies: Coded Allergies: Penicillins (Verified Allergy, Unknown, 02/25/17) PT STATES ALLERGY TO PENICILLIN PMhx/Soc History of Surgery: No Anesthesia Reaction: No Hx Neurological Disorder: No Hx Respiratory Disorders: Yes (asthma) Hx Cardiac Disorders: Yes (hypertension) Hx Psychiatric Problems: No Hx Miscellaneous Medical Probl: Yes (R shoulder pain, asthma,htn,htnLLE cellultis s/p debridement) Hx Alcohol Use: No Hx Substance Use: No Hx Tobacco Use: Yes Smoking Status: Current every day smoker FmHx Family History: No coronary disease Constitutional: no complaints Eyes: no complaints ENT: no complaints Respiratory: no complaints Cardiovascular: no complaints Gastrointestinal: no complaints Genitourinary: no complaints Musculoskeletal: no complaints Skin: no complaints Neurologic: no complaints Lymphatic: no complaints Psychological: no complaints Past Medical History Medical History: no pertinent history Past Surgical History Past Surgical Hx: other (Multiple bilateral lower extremity wound debridement) Social History Alcohol Use: none Smoking Status: Former smoker Drug Use: none Exam/Review of Systems Vital Signs Vitals Vital Signs Date Time Temp Pulse Resp B/P Pulse Ox O2 Delivery O2 Flow Rate FiO2 02/25/17 21:30 98.2 97 20 151/86 99 Nasal Cannula 2.0 02/25/17 19:11 104 22 157/95 99 Nasal Cannula 2.0 02/25/17 18:53 Nasal Cannula 2 02/25/17 14:27 98.6 103 20 197/109 95 Exam Physical Exam Const: Well-developed, well-nourished Head: Atraumatic, normocephalic Eyes: Normal Conjunctiva, PERRLA, EOMI, normal sclera, no nystagmus ENT: Normal External Ears, Nose and Mouth, moist mucus membranes. Neck: Full range of motion. No meningismus, no lymphadenopathy. Resp: Clear to auscultation bilaterally, no wheezing, rhonchi, rales Cardio: Regular rate and rhythm, no murmurs, S1 S2 present positive gallop Abd: Soft, non tender x 4, massive pannus with edema and hardness normal bowel sounds, no guarding or rebound, no pulsitile abdominal masses or bruits Skin: No petechiae or rashes, no ecchymosis , no maculopapular rash Back: No midline or flank tenderness Ext: No cyanosis severe edema to both legs and edema to her pannus, FROM x 4, normal inspection, neurovascularly intact x 4 Neur: Awake and alert, STR 5/5 x 4, sensation intact x 4, no focal findings, cerebellum intact Psych: Normal Mood and Affect Results Result Diagram: 02/25/17182902/25/171829 Results 24 hrs Laboratory Tests Test 02/25/17 18:30 02/25/17 18:55 White Blood Count 5.410^3/ul Red Blood Count 5.8310^6/ul Hemoglobin 14.1g/dl Hematocrit 46.3% Mean Corpuscular Volume 79.4fl Mean Corpuscular Hemoglobin 24.2pg Mean Corpuscular Hemoglobin Concent 30.5g/dl Red Cell Distribution Width 21.2% Platelet Count 70270^3/UL Mean Platelet Volume fl Neutrophils % 72.9% Lymphocytes % 14.3% Monocytes % 9.6% Eosinophils % 1.9% Basophils % 0.7% Nucleated Red Blood Cells % 0.0/100WBC Neutrophils # 3.910^3/ul Lymphocytes # 0.810^3/ul Monocytes # 0.510^3/ul Eosinophils # 0.110^3/ul Basophils # 0.010^3/ul Nucleated Red Blood Cells # 0.010^3/ul Sodium Level 141mmol/L Potassium Level 4.8mmol/L Chloride Level 103mmol/L Carbon Dioxide Level 27mmol/L Anion Gap 16 Blood Urea Nitrogen 16mg/dl Creatinine 0.59mg/dl Glucose Level 127mg/dl Calcium Level 8.9mg/dl Total Bilirubin 0.6mg/dl Direct Bilirubin 0.00mg/dl Indirect Bilirubin 0.6mg/dl Aspartate Amino Transf (AST/SGOT) 26IU/L Alanine Aminotransferase (ALT/SGPT) 24IU/L Alkaline Phosphatase 133IU/L Troponin I 0.013ng/ml B-Type Natriuretic Peptide 3020PG/ML Total Protein 7.6g/dl Albumin 4.5g/dl Globulin 3.10g/dl Albumin/Globulin Ratio 1.45 Prothrombin Time 15.2Sec Prothrombin Time Ratio 1.2 INR International Normalized Ratio 1.19 Activated Partial Thromboplast Time 29.8Sec Current Medications Medications (Trade) Dose Ordered Sig/Simran Route PRN Reason Start Time Stop Time Status Last Admin Dose Admin Furosemide (Lasix) 60 mg ONCE STAT IV 02/25/17 17:20 02/25/17 17:22 DC 02/25/17 18:48 Procedures/MDM EKG: Rate/Rhythm: Normal sinus rhythm with a first-degree AV block QRS, ST, QT: NORMAL NV, QRS, prolonged QT] Impression: Abnormal EKG] PROCEDURE: XR Chest. CLINICAL INDICATION: Chest pain. TECHNIQUE: Single frontal view. COMPARISON: 12/09/2016. FINDINGS: There is mild interstitial pulmonary disease bilaterally consistent with pulmonary edema. The lungs are otherwise clear. The heart is enlarged. There is no pleural effusion. There is no pneumothorax. IMPRESSION: 1. Cardiomegaly. 2. Mild pulmonary edema. 3. Otherwise normal chest x-ray. RPTAT: QQ .Brian Wood MD, MD Date Time Electronically viewed and signed by .Brian Wood MD, MD on 02/25/2017 18:07 .R/ CC: LENA CARR DO Result Diagram: 03/04/17 1400 03/04/17 1400 Results 24 hrs Laboratory Tests Test 03/06/17 11:55 03/06/17 17:43 03/06/17 18:30 03/06/17 20:45 Bedside Glucose 143 112 143 Troponin I < 0.012 Test 03/07/17 07:55 Bedside Glucose 128 Medications Medications Current Medications Enoxaparin Sodium (Lovenox) 40 mg DAILY SC Last administered on 03/07/17 09:15 ; Admin Dose 40 MG; Start 02/26/17 at 09:00 Acetaminophen (Tylenol Tab) 650 mg Q6H PRN PO PAIN AND OR ELEVATED TEMP; Start 02/26/17 at 00:00 Potassium Chloride (Klor-Con 20) 20 meq DAILY PO Last administered on 03/07/17 09:02; Admin Dose 20 MEQ; Start 02/26/17 at 09:00 Insulin Glargine (Lantus) 10 unit DAILY@20 SC ; Start 02/26/17 at 20:00 Diagnostic Test (Pha) (Accu-Chek) 1 ea 02 XX ; Start 02/26/17 at 02:00 Atorvastatin Calcium (Lipitor) 40 mg DAILY PO Last administered on 03/07/17 09: 04; Admin Dose 40 MG; Start 02/26/17 at 09:00 Clopidogrel Bisulfate (plaVIX) 75 mg DAILY PO Last administered on 03/07/17 09: 02; Admin Dose 75 MG; Start 02/26/17 at 09:00 Diphenhydramine HCl (Benadryl) 25 mg TID PRN PO ITCHING Last administered on 09:12; Admin Dose 25 MG; Start 02/26/17 at 00:30 Fluoxetine HCl (Prozac) 10 mg DAILY PO Last administered on 03/07/17 09:03; Admin Dose 10 MG; Start 02/26/17 at 09:00 Montelukast Sodium (Singulair) 10 mg DAILY PO Last administered on 03/07/17 09: 02; Admin Dose 10 MG; Start 02/26/17 at 09:00 Nystatin 1 applic BID TOP Last administered on 03/07/17 09:10; Admin Dose 1 APPLIC; Start 02/26/17 at 09:00 Pantoprazole (Protonix Tab) 40 mg DAILY PO Last administered on 03/07/17 09:02 ; Admin Dose 40 MG; Start 02/26/17 at 09:00 Paroxetine HCl (Paxil) 10 mg DAILY PO Last administered on 03/07/17 09:21; Admin Dose 10 MG; Start 02/26/17 at 09:00 Ropinirole HCl (Requip) 0.25 mg DAILY PO Last administered on 03/07/17 09:02; Admin Dose 0.25 MG; Start 02/26/17 at 09:00 Valsartan (Diovan) 80 mg DAILY PO Last administered on 03/07/17 09:04; Admin Dose 80 MG; Start 02/26/17 at 09:00 Zolpidem Tartrate (Ambien) 5 mg QHS PRN PO INSOMNIA; Start 02/26/17 at 00:30 Miscellaneous Information 1 ea NOTE XX ; Start 02/26/17 at 01:00 Glucose (Glutose) 15 gm Q15M PRN PO DECREASED GLUCOSE; Start 02/26/17 at 01:00 Glucose (Glutose) 22.5 gm Q15M PRN PO DECREASED GLUCOSE; Start 02/26/17 at 01: 00 Dextrose (D50w Syringe) 25 ml Q15M PRN IV DECREASED GLUCOSE; Start 02/26/17 at 01:00 Dextrose (D50w Syringe) 50 ml Q15M PRN IV DECREASED GLUCOSE; Start 02/26/17 at 01:00 Glucagon (Glucagen) 1 mg Q15M PRN IM DECREASED GLUCOSE; Start 02/26/17 at 01:00 Glucose (Glutose) 15 gm Q15M PRN BUCCAL DECREASED GLUCOSE; Start 02/26/17 at 01 :00 Albuterol (Ventolin Hfa) 2 puff Q4H PRN INH SHORTNESS OF BREATH Last administered on 02/26/17 09:57; Admin Dose 2 PUFF; Start 02/26/17 at 01:00 Linagliptin (Tradjenta) 5 mg DAILY PO Last administered on 03/07/17 09:03; Admin Dose 5 MG; Start 02/27/17 at 09:00 Ondansetron HCl (Zofran Inj) 4 mg Q6H PRN IV NAUSEA AND/OR VOMITING; Start at 17:30 Magnesium Oxide (Mag-Ox 400) 400 mg DAILY PO Last administered on 03/07/17 09: 02; Admin Dose 400 MG; Start 02/28/17 at 19:30 Carvedilol (Coreg) 3.125 mg BID PO Last administered on 03/07/17 09:03; Admin Dose 3.125 MG; Start 03/01/17 at 21:00 Ibuprofen (Motrin) 600 mg Q6H PRN PO PAIN Last administered on 03/07/17 09:21; Admin Dose 600 MG; Start 03/01/17 at 15:30 Ferrous Sulfate (Ferrous Sulfate (Ec)) 325 mg TID PO Last administered on 09:02; Admin Dose 325 MG; Start 03/05/17 at 09:00 BLUE JIMÉNEZ MD Mar 07, 2017 09:38
--- NOTE | 2017-03-07 11:20 | CONS ---
Date/Time of Note Date/Time of Note DATE: 03/07/17 TIME: 11:17 Assessment/Plan Assessment/Plan Chief Complaint/Hosp Course IMP: 1.CHF-systolic acute on chronic. EF 30-35% by echo this admit. 2.HTN 3.HL 4.LE wound/PAD 5.LE edema 6.cad 7. DM 8. Anemia Recc: -Now on med-eurg -Continue statin -Continue lasix diuresis as patient will comply at current dose and follow volume status closely -Continue diovan/BB -Ongoing heme eval Problems: Consultation Date/Type/Reason Admit Date/Time Feb 25, 2017 at 21:45 Initial Consult Date 02/27/17 Type of Consultation: cardiology Reason for Consultation CHF Referring Provider: MARILU FRIED MD Exam/Review of Systems Vital Signs Vitals Vital Signs Date Time Temp Pulse Resp B/P Pulse Ox O2 Delivery O2 Flow Rate FiO2 03/07/17 07:53 91 18 96 21 03/07/17 07:44 97.7 139/84 03/06/17 22:03 Nasal Cannula 2.0 Intake and Output 03/06/17 03/06/17 03/07/17 15:00 23:00 07:00 Intake Total 560 ml 880 ml Output Total 1000 ml 1700 ml Balance -440 ml -820 ml Exam Review of Systems: CONSTITUTIONAL: No fevers, chills. PULMONARY: No sob CARDIOVASCULAR: No chest pain/palpitations GASTROINTESTINAL: No nausea/vomiting. GENITOURINARY: No hematuria/dysuria. MUSCULOSKELETAL: No myagias/arthalgias. PSYCHIATRIC: The patient denies depression. NEUROLOGIC: No weakness Constitutional: alert, oriented Psych: no complaints Head: normocephalic ENMT: mucosa pink and moist Neck: jvd, supple Respiratory: diminished breath sounds (at bases/B) Cardiovascular: regular rate and rhythm Gastrointestinal: non-tender, soft Musculoskeletal: muscle tone (normal) Extremities: pitting pedal edema (Bilateral) Neurological: other (No focal deficits) Results Result Diagram: 03/04/17 1400 03/04/17 1400 Results 24 hrs Laboratory Tests Test 03/06/17 11:55 03/06/17 17:43 03/06/17 18:30 03/06/17 20:45 Bedside Glucose 143 112 143 Troponin I < 0.012 Test 03/07/17 07:55 Bedside Glucose 128 Medications Medications Current Medications Enoxaparin Sodium (Lovenox) 40 mg DAILY SC Last administered on 03/07/17 09:15 ; Admin Dose 40 MG; Start 02/26/17 at 09:00 Acetaminophen (Tylenol Tab) 650 mg Q6H PRN PO PAIN AND OR ELEVATED TEMP; Start 02/26/17 at 00:00 Potassium Chloride (Klor-Con 20) 20 meq DAILY PO Last administered on 03/07/17 09:02; Admin Dose 20 MEQ; Start 02/26/17 at 09:00 Insulin Glargine (Lantus) 10 unit DAILY@20 SC ; Start 02/26/17 at 20:00 Diagnostic Test (Pha) (Accu-Chek) 1 ea 02 XX ; Start 02/26/17 at 02:00 Atorvastatin Calcium (Lipitor) 40 mg DAILY PO Last administered on 03/07/17 09: 04; Admin Dose 40 MG; Start 02/26/17 at 09:00 Clopidogrel Bisulfate (plaVIX) 75 mg DAILY PO Last administered on 03/07/17 09: 02; Admin Dose 75 MG; Start 02/26/17 at 09:00 Diphenhydramine HCl (Benadryl) 25 mg TID PRN PO ITCHING Last administered on 09:12; Admin Dose 25 MG; Start 02/26/17 at 00:30 Fluoxetine HCl (Prozac) 10 mg DAILY PO Last administered on 03/07/17 09:03; Admin Dose 10 MG; Start 02/26/17 at 09:00 Montelukast Sodium (Singulair) 10 mg DAILY PO Last administered on 03/07/17 09: 02; Admin Dose 10 MG; Start 02/26/17 at 09:00 Nystatin 1 applic BID TOP Last administered on 03/07/17 09:10; Admin Dose 1 APPLIC; Start 02/26/17 at 09:00 Pantoprazole (Protonix Tab) 40 mg DAILY PO Last administered on 03/07/17 09:02 ; Admin Dose 40 MG; Start 02/26/17 at 09:00 Paroxetine HCl (Paxil) 10 mg DAILY PO Last administered on 03/07/17 09:21; Admin Dose 10 MG; Start 02/26/17 at 09:00 Ropinirole HCl (Requip) 0.25 mg DAILY PO Last administered on 03/07/17 09:02; Admin Dose 0.25 MG; Start 02/26/17 at 09:00 Valsartan (Diovan) 80 mg DAILY PO Last administered on 03/07/17 09:04; Admin Dose 80 MG; Start 02/26/17 at 09:00 Zolpidem Tartrate (Ambien) 5 mg QHS PRN PO INSOMNIA; Start 02/26/17 at 00:30 Miscellaneous Information 1 ea NOTE XX ; Start 02/26/17 at 01:00 Glucose (Glutose) 15 gm Q15M PRN PO DECREASED GLUCOSE; Start 02/26/17 at 01:00 Glucose (Glutose) 22.5 gm Q15M PRN PO DECREASED GLUCOSE; Start 02/26/17 at 01: 00 Dextrose (D50w Syringe) 25 ml Q15M PRN IV DECREASED GLUCOSE; Start 02/26/17 at 01:00 Dextrose (D50w Syringe) 50 ml Q15M PRN IV DECREASED GLUCOSE; Start 02/26/17 at 01:00 Glucagon (Glucagen) 1 mg Q15M PRN IM DECREASED GLUCOSE; Start 02/26/17 at 01:00 Glucose (Glutose) 15 gm Q15M PRN BUCCAL DECREASED GLUCOSE; Start 02/26/17 at 01 :00 Albuterol (Ventolin Hfa) 2 puff Q4H PRN INH SHORTNESS OF BREATH Last administered on 02/26/17 09:57; Admin Dose 2 PUFF; Start 02/26/17 at 01:00 Linagliptin (Tradjenta) 5 mg DAILY PO Last administered on 03/07/17 09:03; Admin Dose 5 MG; Start 02/27/17 at 09:00 Ondansetron HCl (Zofran Inj) 4 mg Q6H PRN IV NAUSEA AND/OR VOMITING; Start at 17:30 Magnesium Oxide (Mag-Ox 400) 400 mg DAILY PO Last administered on 03/07/17 09: 02; Admin Dose 400 MG; Start 02/28/17 at 19:30 Carvedilol (Coreg) 3.125 mg BID PO Last administered on 03/07/17 09:03; Admin Dose 3.125 MG; Start 03/01/17 at 21:00 Ibuprofen (Motrin) 600 mg Q6H PRN PO PAIN Last administered on 03/07/17 09:21; Admin Dose 600 MG; Start 03/01/17 at 15:30 Ferrous Sulfate (Ferrous Sulfate (Ec)) 325 mg TID PO Last administered on 09:02; Admin Dose 325 MG; Start 03/05/17 at 09:00 JACQUELINE HORNE Mar 07, 2017 11:20
--- NOTE | 2017-03-07 12:11 | PN ---
Date/Time of Note Date/Time of Note DATE: 03/07/17 TIME: 12:08 Assessment/Plan VTE Prophylaxis VTE Prophylaxis Intervention: other Lines/Catheters IV Catheter Type (from Nrs): [facility] Lock Urinary Cath still in place: Yes Assessment/Plan Assessment/Plan -CHF exacerbation, continue Lasix. Dr. Slater is following in cardiology consultation. -Coronary artery disease, continue Plavix. -Hypertension, continue Coreg. -Hyperlipidemia, continue statin. -COPD, continue DuoNeb. -Diabetes mellitus type 2, hemoglobin A1c is 8.3, continue metformin and Tradjenta, continue Lantus and NovoLog per mild algorithm sliding scale. -Morbid obesity with BMI of 61. -Peripheral vascular disease, continue Plavix. Dr. Louise is following in vascular surgery consultation. Further recommendations based on clinical course. Plan of care discussed with Dr. Randall. Exam/Review of Systems Vital Signs Vitals Vital Signs Date Time Temp Pulse Resp B/P Pulse Ox O2 Delivery O2 Flow Rate FiO2 03/07/17 07:53 91 18 96 21 03/07/17 07:44 97.7 139/84 03/06/17 22:03 Nasal Cannula 2.0 Intake and Output 03/06/17 03/06/17 03/07/17 15:00 23:00 07:00 Intake Total 560 ml 880 ml Output Total 1000 ml 1700 ml Balance -440 ml -820 ml Exam Constitutional: alert, obese, well developed Respiratory: clear to auscultation Cardiovascular: nl pulses, regular rate and rhythm Musculoskeletal: nl extremities to inspection Extremities: normal pulses Neurological: nl mental status, nl speech Results Result Diagram: 03/04/17 1400 03/04/17 1400 Results 24 hrs Laboratory Tests Test 03/06/17 17:43 03/06/17 18:30 03/06/17 20:45 03/07/17 07:55 Bedside Glucose 112 143 128 Troponin I < 0.012 Test 03/07/17 12:00 Bedside Glucose 117 Medications Medications Current Medications Enoxaparin Sodium (Lovenox) 40 mg DAILY SC Last administered on 03/07/17t 09:15 ; Admin Dose 40 MG; Start 02/26/17 at 09:00 Acetaminophen (Tylenol Tab) 650 mg Q6H PRN PO PAIN AND OR ELEVATED TEMP; Start 02/26/17 at 00:00 Potassium Chloride (Klor-Con 20) 20 meq DAILY PO Last administered on 03/07/17 09:02; Admin Dose 20 MEQ; Start 02/26/17 at 09:00 Insulin Glargine (Lantus) 10 unit DAILY@20 SC ; Start 02/26/17 at 20:00 Diagnostic Test (Pha) (Accu-Chek) 1 ea 02 XX ; Start 02/26/17 at 02:00 Atorvastatin Calcium (Lipitor) 40 mg DAILY PO Last administered on 03/07/17 09: 04; Admin Dose 40 MG; Start 02/26/17 at 09:00 Clopidogrel Bisulfate (plaVIX) 75 mg DAILY PO Last administered on 03/07/17 09: 02; Admin Dose 75 MG; Start 02/26/17 at 09:00 Diphenhydramine HCl (Benadryl) 25 mg TID PRN PO ITCHING Last administered on 09:12; Admin Dose 25 MG; Start 02/26/17 at 00:30 Fluoxetine HCl (Prozac) 10 mg DAILY PO Last administered on 03/07/17 09:03; Admin Dose 10 MG; Start 02/26/17 at 09:00 Montelukast Sodium (Singulair) 10 mg DAILY PO Last administered on 03/07/17 09: 02; Admin Dose 10 MG; Start 02/26/17 at 09:00 Nystatin 1 applic BID TOP Last administered on 03/07/17 09:10; Admin Dose 1 APPLIC; Start 02/26/17 at 09:00 Pantoprazole (Protonix Tab) 40 mg DAILY PO Last administered on 03/07/17 09:02 ; Admin Dose 40 MG; Start 02/26/17 at 09:00 Paroxetine HCl (Paxil) 10 mg DAILY PO Last administered on 03/07/17 09:21; Admin Dose 10 MG; Start 02/26/17 at 09:00 Ropinirole HCl (Requip) 0.25 mg DAILY PO Last administered on 03/07/17 09:02; Admin Dose 0.25 MG; Start 02/26/17 at 09:00 Valsartan (Diovan) 80 mg DAILY PO Last administered on 03/07/17 09:04; Admin Dose 80 MG; Start 02/26/17 at 09:00 Zolpidem Tartrate (Ambien) 5 mg QHS PRN PO INSOMNIA; Start 02/26/17 at 00:30 Miscellaneous Information 1 ea NOTE XX ; Start 02/26/17 at 01:00 Glucose (Glutose) 15 gm Q15M PRN PO DECREASED GLUCOSE; Start 02/26/17 at 01:00 Glucose (Glutose) 22.5 gm Q15M PRN PO DECREASED GLUCOSE; Start 02/26/17 at 01: 00 Dextrose (D50w Syringe) 25 ml Q15M PRN IV DECREASED GLUCOSE; Start 02/26/17 at 01:00 Dextrose (D50w Syringe) 50 ml Q15M PRN IV DECREASED GLUCOSE; Start 02/26/17 at 01:00 Glucagon (Glucagen) 1 mg Q15M PRN IM DECREASED GLUCOSE; Start 02/26/17 at 01:00 Glucose (Glutose) 15 gm Q15M PRN BUCCAL DECREASED GLUCOSE; Start 02/26/17 at 01 :00 Albuterol (Ventolin Hfa) 2 puff Q4H PRN INH SHORTNESS OF BREATH Last administered on 02/26/17 09:57; Admin Dose 2 PUFF; Start 02/26/17 at 01:00 Linagliptin (Tradjenta) 5 mg DAILY PO Last administered on 03/07/17 09:03; Admin Dose 5 MG; Start 02/27/17 at 09:00 Ondansetron HCl (Zofran Inj) 4 mg Q6H PRN IV NAUSEA AND/OR VOMITING; Start at 17:30 Magnesium Oxide (Mag-Ox 400) 400 mg DAILY PO Last administered on 03/07/17 09: 02; Admin Dose 400 MG; Start 02/28/17 at 19:30 Carvedilol (Coreg) 3.125 mg BID PO Last administered on 03/07/17 09:03; Admin Dose 3.125 MG; Start 03/01/17 at 21:00 Ibuprofen (Motrin) 600 mg Q6H PRN PO PAIN Last administered on 03/07/17 09:21; Admin Dose 600 MG; Start 03/01/17 at 15:30 Ferrous Sulfate (Ferrous Sulfate (Ec)) 325 mg TID PO Last administered on 09:02; Admin Dose 325 MG; Start 03/05/17 at 09:00 VERONICA CHERRY Mar 07, 2017 12:10
[2017-03-07 14:31] LABS: POTASSIUM 3.9 mmol/L (3.5-5.1)
[2017-03-07 14:32] LABS: CALCIUM 8.6 mg/dl (8.4-10.2); CREATININE 0.64 mg/dl (0.44-1.00)
[2017-03-07 19:45] VITALS: BP 125/81; RESP 20
[2017-03-07] MEDS: INSULIN GLARGINE [LANtus] 3 ML PEN SC SCH (20:00)
--- NOTE | 2017-03-07 23:15 | CONS ---
Date/Time of Note Date/Time of Note DATE: 03/07/17 TIME: 23:14 Assessment/Plan Assessment/Plan Chief Complaint/Hosp Course MICROCYTOSIS PROCEED WITH W-UP MONITOR HX IRON DEFICIENCY may need PO IRON HX ANEMIA MONITOR CLOSELY LOOKS COMPENSATED AT PRESENT LEUKOPENIA RESOLVED MONITOR CHF exacerbation, continue Lasix. cardiology consultation. Coronary artery disease, continue Plavix. Hypertension Hyperlipidemia, continue statin. COPD Diabetes mellitus type 2, will check hemoglobin A1c, continue Lantus and NovoLog per mild algorithm sliding scale. Morbid obesity with BMI of 61. Peripheral vascular disease Problems: Consultation Date/Type/Reason Admit Date/Time Feb 25, 2017 at 21:45 [facility] Consultation: [facility] Referring Provider: MARILU FRIED MD 24 HR Interval Summary Free Text/Dictation ALL NOTED Exam/Review of Systems Vital Signs Vitals Vital Signs Date Time Temp Pulse Resp B/P Pulse Ox O2 Delivery O2 Flow Rate FiO2 03/07/17 19:45 98.5 79 20 125/81 99 03/07/17 16:04 21 03/06/17 22:03 Nasal Cannula 2.0 Intake and Output 03/06/17 03/06/17 03/07/17 15:00 23:00 07:00 Intake Total 560 ml 880 ml Output Total 1000 ml 1700 ml Balance -440 ml -820 ml Exam Const: Well-developed, well-nourished Head: Atraumatic, normocephalic Eyes: Normal Conjunctiva, PERRLA, EOMI, normal sclera, no nystagmus ENT: Normal External Ears, Nose and Mouth, moist mucus membranes. Neck: Full range of motion. No meningismus, no lymphadenopathy. Resp: Clear to auscultation bilaterally, no wheezing, rhonchi, rales Cardio: Regular rate and rhythm, no murmurs, S1 S2 present positive gallop Abd: Soft, non tender x 4, massive pannus with edema and hardness normal bowel sounds, no guarding or rebound, no pulsitile abdominal masses or bruits Skin: No petechiae or rashes, no ecchymosis , no maculopapular rash Back: No midline or flank tenderness Ext: No cyanosis severe edema to both legs and edema to her pannus, FROM x 4, normal inspection, neurovascularly intact x 4 Neur: Awake and alert, STR 5/5 x 4, sensation intact x 4, no focal findings, cerebellum intact Psych: Normal Mood and Affect Results Result Diagram: 03/04/17 1400 03/07/17 1350 Results 24 hrs Laboratory Tests Test 03/07/17 07:55 03/07/17 12:00 03/07/17 13:50 03/07/17 17:16 Bedside Glucose 128 117 118 Sodium Level 137 Potassium Level 3.9 Chloride Level 97 Carbon Dioxide Level 29 Anion Gap 15 Blood Urea Nitrogen 17 Creatinine 0.64 Glucose Level 110 Calcium Level 8.6 Test 03/07/17 19:55 Bedside Glucose 149 Medications Medications Current Medications Enoxaparin Sodium (Lovenox) 40 mg DAILY SC Last administered on 03/07/17 09:15 ; Admin Dose 40 MG; Start 02/26/17 at 09:00 Acetaminophen (Tylenol Tab) 650 mg Q6H PRN PO PAIN AND OR ELEVATED TEMP; Start 02/26/17 at 00:00 Potassium Chloride (Klor-Con 20) 20 meq DAILY PO Last administered on 03/07/17 09:02; Admin Dose 20 MEQ; Start 02/26/17 at 09:00 Insulin Glargine (Lantus) 10 unit DAILY@20 SC ; Start 02/26/17 at 20:00 Diagnostic Test (Pha) (Accu-Chek) 1 ea 02 XX ; Start 02/26/17 at 02:00 Atorvastatin Calcium (Lipitor) 40 mg DAILY PO Last administered on 03/07/17 09: 04; Admin Dose 40 MG; Start 02/26/17 at 09:00 Clopidogrel Bisulfate (plaVIX) 75 mg DAILY PO Last administered on 03/07/17 09: 02; Admin Dose 75 MG; Start 02/26/17 at 09:00 Diphenhydramine HCl (Benadryl) 25 mg TID PRN PO ITCHING Last administered on 09:12; Admin Dose 25 MG; Start 02/26/17 at 00:30 Fluoxetine HCl (Prozac) 10 mg DAILY PO Last administered on 03/07/17 09:03; Admin Dose 10 MG; Start 02/26/17 at 09:00 Montelukast Sodium (Singulair) 10 mg DAILY PO Last administered on 03/07/17 09: 02; Admin Dose 10 MG; Start 02/26/17 at 09:00 Nystatin 1 applic BID TOP Last administered on 03/07/17 20:17; Admin Dose 1 APPLIC; Start 02/26/17 at 09:00 Pantoprazole (Protonix Tab) 40 mg DAILY PO Last administered on 03/07/17 09:02 ; Admin Dose 40 MG; Start 02/26/17 at 09:00 Paroxetine HCl (Paxil) 10 mg DAILY PO Last administered on 03/07/17 09:21; Admin Dose 10 MG; Start 02/26/17 at 09:00 Ropinirole HCl (Requip) 0.25 mg DAILY PO Last administered on 03/07/17 09:02; Admin Dose 0.25 MG; Start 02/26/17 at 09:00 Valsartan (Diovan) 80 mg DAILY PO Last administered on 03/07/17 09:04; Admin Dose 80 MG; Start 02/26/17 at 09:00 Zolpidem Tartrate (Ambien) 5 mg QHS PRN PO INSOMNIA; Start 02/26/17 at 00:30 Miscellaneous Information 1 ea NOTE XX ; Start 02/26/17 at 01:00 Glucose (Glutose) 15 gm Q15M PRN PO DECREASED GLUCOSE; Start 02/26/17 at 01:00 Glucose (Glutose) 22.5 gm Q15M PRN PO DECREASED GLUCOSE; Start 02/26/17 at 01: 00 Dextrose (D50w Syringe) 25 ml Q15M PRN IV DECREASED GLUCOSE; Start 02/26/17 at 01:00 Dextrose (D50w Syringe) 50 ml Q15M PRN IV DECREASED GLUCOSE; Start 02/26/17 at 01:00 Glucagon (Glucagen) 1 mg Q15M PRN IM DECREASED GLUCOSE; Start 02/26/17 at 01:00 Glucose (Glutose) 15 gm Q15M PRN BUCCAL DECREASED GLUCOSE; Start 02/26/17 at 01 :00 Albuterol (Ventolin Hfa) 2 puff Q4H PRN INH SHORTNESS OF BREATH Last administered on 02/26/17 09:57; Admin Dose 2 PUFF; Start 02/26/17 at 01:00 Linagliptin (Tradjenta) 5 mg DAILY PO Last administered on 03/07/17 09:03; Admin Dose 5 MG; Start 6/28/17 at 09:00 Ondansetron HCl (Zofran Inj) 4 mg Q6H PRN IV NAUSEA AND/OR VOMITING; Start at 17:30 Magnesium Oxide (Mag-Ox 400) 400 mg DAILY PO Last administered on 03/07/17 09: 02; Admin Dose 400 MG; Start 02/28/17 at 19:30 Carvedilol (Coreg) 3.125 mg BID PO Last administered on 03/07/17 20:14; Admin Dose 3.125 MG; Start 03/01/17 at 21:00 Ibuprofen (Motrin) 600 mg Q6H PRN PO PAIN Last administered on 03/07/17 14:47; Admin Dose 600 MG; Start 03/01/17 at 15:30 Ferrous Sulfate (Ferrous Sulfate (Ec)) 325 mg TID PO Last administered on 20:14; Admin Dose 325 MG; Start 03/05/17 at 09:00 BLUE JIMÉNEZ MD Mar 07, 2017 23:15
[2017-03-08] MEDS: IBUPROFEN 200 MG TAB PO PRN ×3 (01:16→23:30)
[2017-03-08] MEDS: ACCU-CHEK XX SCH ×2 (01:42→20:09)
[2017-03-08 02:00] VITALS: BP 125/69; RESP 20
[2017-03-08] MEDS: FUROSEMIDE 40 MG TAB PO SCH ×2 (05:25→17:36)
[2017-03-08 05:26] VITALS: BP 130/63
[2017-03-08] MEDS: INSULIN ASPART [NOVOLOG] 3 ML PEN SC SCH ×4 (07:59→20:09)
[2017-03-08 08:15] VITALS: BP 108/55; RESP 20
[2017-03-08] MEDS: ALBUTEROL/IPRATROPIUM (NEB) 3 ML AMP HHN SCH ×3 (08:40→16:30)
[2017-03-08] MEDS: ENOXAPARIN 40 MG/0.4 ML SYG SC SCH (09:00)
[2017-03-08] MEDS: POTASSIUM CHLORIDE (SR) 20 MEQ TAB PO SCH (10:00)
[2017-03-08] MEDS: PANTOPRAZOLE (EC) 40 MG TAB PO SCH (10:00)
[2017-03-08] MEDS: LINAGLIPTIN 5 MG TABLET PO SCH (10:00)
[2017-03-08] MEDS: metFORMIN 500 MG TAB PO SCH ×2 (10:00→17:36)
[2017-03-08] MEDS: ROPINIROLE 0.25 MG TAB PO SCH (10:00)
[2017-03-08] MEDS: PAROXETINE 10 MG TAB PO SCH (10:01)
[2017-03-08] MEDS: MAGNESIUM OXIDE 400 MG TAB PO SCH (10:01)
[2017-03-08] MEDS: FERROUS SULFATE (EC) 325 MG TAB PO SCH ×3 (10:01→20:09)
[2017-03-08] MEDS: VALSARTAN 80 MG TAB PO SCH (10:01)
[2017-03-08] MEDS: FLUOXETINE 10 MG CAP PO SCH (10:01)
[2017-03-08] MEDS: CLOPIDOGREL 75 MG TAB PO SCH (10:01)
[2017-03-08] MEDS: MONTELUKAST 10 MG TAB PO SCH (10:01)
[2017-03-08] MEDS: ATORVASTATIN 40 MG TAB PO SCH (10:02)
[2017-03-08] MEDS: NYSTATIN 15 GM POWDER BTL TOP SCH ×2 (10:07→20:09)
[2017-03-08 10:08] VITALS: BP 125/60; PULSE 84
--- NOTE | 2017-03-08 12:25 | CONS ---
Date/Time of Note Date/Time of Note DATE: 03/08/17 TIME: 12:23 Assessment/Plan Assessment/Plan Chief Complaint/Hosp Course IMP: 1.CHF-systolic acute on chronic. EF 30-35% by echo this admit. 2.HTN 3.HL 4.LE wound/PAD 5.LE edema 6.cad 7. DM 8. Anemia Recc: -Now on med-eurg -Continue statin -Continue lasix diuresis as patient will comply at current dose and follow volume status closely -Continue diovan/BB -Ongoing heme eval Problems: Consultation Date/Type/Reason Admit Date/Time Feb 25, 2017 at 21:45 Initial Consult Date 02/27/17 Type of Consultation: cardiology Reason for Consultation CHF Referring Provider: MARILU FRIED MD Exam/Review of Systems Vital Signs Vitals Vital Signs Date Time Temp Pulse Resp B/P Pulse Ox O2 Delivery O2 Flow Rate FiO2 03/08/17 10:08 84 125/60 03/08/17 08:40 18 97 21 03/08/17 08:15 98.2 03/06/17 22:03 Nasal Cannula 2.0 Intake and Output 03/07/17 03/07/17 03/08/17 15:00 23:00 07:00 Intake Total 1200 ml 300 ml Output Total 2400 ml 1700 ml Balance -1200 ml -1400 ml Exam Review of Systems: CONSTITUTIONAL: No fevers, chills. PULMONARY: mild sob-improving CARDIOVASCULAR: No chest pain/palpitations GASTROINTESTINAL: No nausea/vomiting. GENITOURINARY: No hematuria/dysuria. MUSCULOSKELETAL: No myagias/arthalgias. PSYCHIATRIC: The patient denies depression. NEUROLOGIC: No weakness Constitutional: alert Psych: no complaints Head: normocephalic ENMT: mucosa pink and moist Neck: jvd (9 cm water), supple Respiratory: diminished breath sounds (at bases/B) Cardiovascular: regular rate and rhythm Gastrointestinal: non-tender, soft Musculoskeletal: muscle tone (nomal) Extremities: pitting pedal edema (Bilateral LE) Neurological: other (No focal deficits) Results Result Diagram: 03/04/17 1400 03/07/17 1350 Results 24 hrs Laboratory Tests Test 03/07/17 13:50 03/07/17 17:16 03/07/17 19:55 03/08/17 07:59 Sodium Level 137 Potassium Level 3.9 Chloride Level 97 Carbon Dioxide Level 29 Anion Gap 15 Blood Urea Nitrogen 17 Creatinine 0.64 Glucose Level 110 Calcium Level 8.6 Bedside Glucose 118 149 103 Test 03/08/17 12:07 Bedside Glucose 132 Medications Medications Current Medications Enoxaparin Sodium (Lovenox) 40 mg DAILY SC Last administered on 03/07/17 09:15 ; Admin Dose 40 MG; Start 02/26/17 at 09:00 Acetaminophen (Tylenol Tab) 650 mg Q6H PRN PO PAIN AND OR ELEVATED TEMP; Start 02/26/17 at 00:00 Potassium Chloride (Klor-Con 20) 20 meq DAILY PO Last administered on 03/08/17 10:00; Admin Dose 20 MEQ; Start 02/26/17 at 09:00 Insulin Glargine (Lantus) 10 unit DAILY@20 SC ; Start 02/26/17 at 20:00 Diagnostic Test (Pha) (Accu-Chek) 1 ea 02 XX ; Start 02/26/17 at 02:00 Atorvastatin Calcium (Lipitor) 40 mg DAILY PO Last administered on 03/08/17 10: 02; Admin Dose 40 MG; Start 02/26/17 at 09:00 Clopidogrel Bisulfate (plaVIX) 75 mg DAILY PO Last administered on 03/08/17 10: 01; Admin Dose 75 MG; Start 02/26/17 at 09:00 Diphenhydramine HCl (Benadryl) 25 mg TID PRN PO ITCHING Last administered on 09:12; Admin Dose 25 MG; Start 02/26/17 at 00:30 Fluoxetine HCl (Prozac) 10 mg DAILY PO Last administered on 03/08/17 10:01; Admin Dose 10 MG; Start 02/26/17 at 09:00 Montelukast Sodium (Singulair) 10 mg DAILY PO Last administered on 03/08/17 10: 01; Admin Dose 10 MG; Start 02/26/17 at 09:00 Nystatin 1 applic BID TOP Last administered on 03/08/17 10:07; Admin Dose 1 APPLIC; Start 02/26/17 at 09:00 Pantoprazole (Protonix Tab) 40 mg DAILY PO Last administered on 03/08/17 10:00 ; Admin Dose 40 MG; Start 02/26/17 at 09:00 Paroxetine HCl (Paxil) 10 mg DAILY PO Last administered on 03/08/17 10:01; Admin Dose 10 MG; Start 02/26/17 at 09:00 Ropinirole HCl (Requip) 0.25 mg DAILY PO Last administered on 03/08/17 10:00; Admin Dose 0.25 MG; Start 02/26/17 at 09:00 Valsartan (Diovan) 80 mg DAILY PO Last administered on 03/08/17 10:01; Admin Dose 80 MG; Start 02/26/17 at 09:00 Zolpidem Tartrate (Ambien) 5 mg QHS PRN PO INSOMNIA; Start 02/26/17 at 00:30 Miscellaneous Information 1 ea NOTE XX ; Start 02/26/17 at 01:00 Glucose (Glutose) 15 gm Q15M PRN PO DECREASED GLUCOSE; Start 02/26/17 at 01:00 Glucose (Glutose) 22.5 gm Q15M PRN PO DECREASED GLUCOSE; Start 02/26/17 at 01: 00 Dextrose (D50w Syringe) 25 ml Q15M PRN IV DECREASED GLUCOSE; Start 02/26/17 at 01:00 Dextrose (D50w Syringe) 50 ml Q15M PRN IV DECREASED GLUCOSE; Start 02/26/17 at 01:00 Glucagon (Glucagen) 1 mg Q15M PRN IM DECREASED GLUCOSE; Start 02/26/17 at 01:00 Glucose (Glutose) 15 gm Q15M PRN BUCCAL DECREASED GLUCOSE; Start 02/26/17 at 01 :00 Albuterol (Ventolin Hfa) 2 puff Q4H PRN INH SHORTNESS OF BREATH Last administered on 02/26/17 09:57; Admin Dose 2 PUFF; Start 02/26/17 at 01:00 Linagliptin (Tradjenta) 5 mg DAILY PO Last administered on 03/08/17 10:00; Admin Dose 5 MG; Start 02/27/17 at 09:00 Ondansetron HCl (Zofran Inj) 4 mg Q6H PRN IV NAUSEA AND/OR VOMITING; Start at 17:30 Magnesium Oxide (Mag-Ox 400) 400 mg DAILY PO Last administered on 03/08/17 10: 01; Admin Dose 400 MG; Start 02/28/17 at 19:30 Carvedilol (Coreg) 3.125 mg BID PO Last administered on 03/08/17 10:02; Admin Dose 3.125 MG; Start 03/01/17 at 21:00 Ibuprofen (Motrin) 600 mg Q6H PRN PO PAIN Last administered on 03/08/17 10:55; Admin Dose 600 MG; Start 03/01/17 at 15:30 Ferrous Sulfate (Ferrous Sulfate (Ec)) 325 mg TID PO Last administered on 10:01; Admin Dose 325 MG; Start 03/05/17 at 09:00 JACQUELINE HORNE Mar 08, 2017 12:25
[2017-03-08 13:57] LABS: ADD SCAN DIFF NO
[2017-03-08 14:00] LABS: ABNORMAL IP MESSAGE 1; BASOPHIL # 0.1 10^3/ul (0.0-0.1); BASOPHILS % 1.1 % (0.0-2.0); EOSINOPHILS # 0.1 10^3/ul (0.0-0.5); EOSINOPHILS % 2.4 % (0.0-7.0); LYMPHOCYTES # 0.5 10^3/ul (0.8-2.9); LYMPHOCYTES % 11.5 % (15.0-51.0); MEAN CORPUSCULAR HEMOGLOBIN 24.5 pg (29.0-33.0); MEAN CORPUSCULAR VOLUME 79.1 fl (82.0-101.0); MEAN PLATELET VOLUME 10.2 fl (7.4-10.4); MONOCYTE # 0.4 10^3/ul (0.3-0.9); NEUTROPHIL # 3.5 10^3/ul (1.6-7.5); NEUTROPHILS % 76.8 % (39.0-77.0); PLATELET COUNT 165 10^3/UL (140-415); RED BLOOD COUNT 5.31 10^6/ul (4.20-5.40); RED CELL DISTRIBUTION WIDTH 20.9 % (11.5-14.5); WHITE BLOOD COUNT 4.5 10^3/ul (4.8-10.8)
[2017-03-08 14:20] LABS: CALCIUM 8.6 mg/dl (8.4-10.2); CREATININE 0.68 mg/dl (0.44-1.00); POTASSIUM 4.2 mmol/L (3.5-5.1)
--- NOTE | 2017-03-08 15:36 | PN ---
Date/Time of Note Date/Time of Note DATE: 03/08/17 TIME: 15:34 Assessment/Plan VTE Prophylaxis VTE Prophylaxis Intervention: SCD's Lines/Catheters IV Catheter Type (from [facility]): Saline Lock Central line still needed: Yes Urinary Cath still in place: Yes Reason Cath still needed: urinary retention Assessment/Plan Chief Complaint/Hosp Course Patient remains hemodynamically stable, blood sugar is well controlled, denies shortness of breath denies chest pain. Assessment/Plan -CHF exacerbation, continue Lasix. Dr. Slater is following in cardiology consultation. -Coronary artery disease, continue Plavix. -Hypertension, continue Coreg. -Hyperlipidemia, continue statin. -COPD, continue DuoNeb. -Diabetes mellitus type 2, hemoglobin A1c is 8.3, continue metformin, Tradjenta , Lantus, and NovoLog per mild algorithm sliding scale. -Morbid obesity with BMI of 61. -Peripheral vascular disease, continue Plavix. Dr. Louise is following in vascular surgery consultation. Further recommendations based on clinical course. Plan of care discussed with Dr. Randall. Problems: Exam/Review of Systems Vital Signs Vitals Vital Signs Date Time Temp Pulse Resp B/P Pulse Ox O2 Delivery O2 Flow Rate FiO2 03/08/17 13:15 77 20 98 21 03/08/17 10:08 125/60 03/08/17 08:15 98.2 03/06/17 22:03 Nasal Cannula 2.0 Intake and Output 03/07/17 03/07/17 03/08/17 15:00 23:00 07:00 Intake Total 1200 ml 300 ml Output Total 2400 ml 1700 ml Balance -1200 ml -1400 ml Exam Constitutional: alert, oriented Head: atraumatic, normocephalic Neck: supple Respiratory: diminished breath sounds Cardiovascular: nl pulses Gastrointestinal: non-tender, soft Extremities: edema, other Neurological: nl mental status Skin: nl turgor Results Result Diagram: 03/08/17 1330 03/08/17 1330 Results 24 hrs Laboratory Tests Test 03/07/17 17:16 03/07/17 19:55 03/08/17 07:59 03/08/17 12:07 Bedside Glucose 118 149 103 132 Test 03/08/17 13:30 White Blood Count 4.5 L Red Blood Count 5.31 Hemoglobin 13.0 Hematocrit 42.0 Mean Corpuscular Volume 79.1 L Mean Corpuscular Hemoglobin 24.5 L Mean Corpuscular Hemoglobin Concent 31.0 L Red Cell Distribution Width 20.9 H Platelet Count 165 # Mean Platelet Volume 10.2 Neutrophils % 76.8 Lymphocytes % 11.5 L Monocytes % 8.0 Eosinophils % 2.4 Basophils % 1.1 Nucleated Red Blood Cells % 0.0 Neutrophils # 3.5 Lymphocytes # 0.5 L Monocytes # 0.4 Eosinophils # 0.1 Basophils # 0.1 Nucleated Red Blood Cells # 0.0 Sodium Level 137 Potassium Level 4.2 Chloride Level 101 Carbon Dioxide Level 27 Anion Gap 13 Blood Urea Nitrogen 20 Creatinine 0.68 Glucose Level 109 Calcium Level 8.6 Medications Medications Current Medications Enoxaparin Sodium (Lovenox) 40 mg DAILY SC Last administered on 03/07/17 09:15 ; Admin Dose 40 MG; Start 02/26/17 at 09:00 Acetaminophen (Tylenol Tab) 650 mg Q6H PRN PO PAIN AND OR ELEVATED TEMP; Start 02/26/17 at 00:00 Potassium Chloride (Klor-Con 20) 20 meq DAILY PO Last administered on 03/08/17 10:00; Admin Dose 20 MEQ; Start 02/26/17 at 09:00 Insulin Glargine (Lantus) 10 unit DAILY@20 SC ; Start 02/26/17 at 20:00 Diagnostic Test (Pha) (Accu-Chek) 1 ea 02 XX ; Start 02/26/17 at 02:00 Atorvastatin Calcium (Lipitor) 40 mg DAILY PO Last administered on 03/08/17 10: 02; Admin Dose 40 MG; Start 02/26/17 at 09:00 Clopidogrel Bisulfate (plaVIX) 75 mg DAILY PO Last administered on 03/08/17 10: 01; Admin Dose 75 MG; Start 02/26/17 at 09:00 Diphenhydramine HCl (Benadryl) 25 mg TID PRN PO ITCHING Last administered on 09:12; Admin Dose 25 MG; Start 02/26/17 at 00:30 Fluoxetine HCl (Prozac) 10 mg DAILY PO Last administered on 03/08/17 10:01; Admin Dose 10 MG; Start 02/26/17 at 09:00 Montelukast Sodium (Singulair) 10 mg DAILY PO Last administered on 03/08/17 10: 01; Admin Dose 10 MG; Start 02/26/17 at 09:00 Nystatin 1 applic BID TOP Last administered on 03/08/17 10:07; Admin Dose 1 APPLIC; Start 02/26/17 at 09:00 Pantoprazole (Protonix Tab) 40 mg DAILY PO Last administered on 03/08/17 10:00 ; Admin Dose 40 MG; Start 02/26/17 at 09:00 Paroxetine HCl (Paxil) 10 mg DAILY PO Last administered on 03/08/17 10:01; Admin Dose 10 MG; Start 02/26/17 at 09:00 Ropinirole HCl (Requip) 0.25 mg DAILY PO Last administered on 03/08/17 10:00; Admin Dose 0.25 MG; Start 02/26/17 at 09:00 Valsartan (Diovan) 80 mg DAILY PO Last administered on 03/08/17 10:01; Admin Dose 80 MG; Start 02/26/17 at 09:00 Zolpidem Tartrate (Ambien) 5 mg QHS PRN PO INSOMNIA; Start 02/26/17 at 00:30 Miscellaneous Information 1 ea NOTE XX ; Start 02/26/17 at 01:00 Glucose (Glutose) 15 gm Q15M PRN PO DECREASED GLUCOSE; Start 02/26/17 at 01:00 Glucose (Glutose) 22.5 gm Q15M PRN PO DECREASED GLUCOSE; Start 02/26/17 at 01: 00 Dextrose (D50w Syringe) 25 ml Q15M PRN IV DECREASED GLUCOSE; Start 02/26/17 at 01:00 Dextrose (D50w Syringe) 50 ml Q15M PRN IV DECREASED GLUCOSE; Start 02/26/17 at 01:00 Glucagon (Glucagen) 1 mg Q15M PRN IM DECREASED GLUCOSE; Start 02/26/17 at 01:00 Glucose (Glutose) 15 gm Q15M PRN BUCCAL DECREASED GLUCOSE; Start 02/26/17 at 01 :00 Albuterol (Ventolin Hfa) 2 puff Q4H PRN INH SHORTNESS OF BREATH Last administered on 02/26/17 09:57; Admin Dose 2 PUFF; Start 02/26/17 at 01:00 Linagliptin (Tradjenta) 5 mg DAILY PO Last administered on 03/08/17 10:00; Admin Dose 5 MG; Start 02/27/17 at 09:00 Ondansetron HCl (Zofran Inj) 4 mg Q6H PRN IV NAUSEA AND/OR VOMITING; Start at 17:30 Magnesium Oxide (Mag-Ox 400) 400 mg DAILY PO Last administered on 03/08/17 10: 01; Admin Dose 400 MG; Start 02/28/17 at 19:30 Carvedilol (Coreg) 3.125 mg BID PO Last administered on 03/08/17 10:02; Admin Dose 3.125 MG; Start 03/01/17 at 21:00 Ibuprofen (Motrin) 600 mg Q6H PRN PO PAIN Last administered on 03/08/17 10:55; Admin Dose 600 MG; Start 03/01/17 at 15:30 Ferrous Sulfate (Ferrous Sulfate (Ec)) 325 mg TID PO Last administered on 12:46; Admin Dose 325 MG; Start 03/05/17 at 09:00 ADENIKE DE GUZMAN Mar 08, 2017 15:36
[2017-03-08 17:37] VITALS: BP 127/76; PULSE 80
[2017-03-08 19:31] VITALS: BP 123/73; RESP 20
[2017-03-08] MEDS: INSULIN GLARGINE [LANtus] 3 ML PEN SC SCH (20:00)
--- NOTE | 2017-03-08 23:43 | CONS ---
Date/Time of Note Date/Time of Note DATE: 03/08/17 TIME: 23:42 Assessment/Plan Assessment/Plan Chief Complaint/Hosp Course MICROCYTOSIS PROCEED WITH W-UP MONITOR HX IRON DEFICIENCY may need PO IRON HX ANEMIA MONITOR CLOSELY LOOKS COMPENSATED AT PRESENT LEUKOPENIA RESOLVED MONITOR CHF exacerbation, continue Lasix. cardiology consultation. Coronary artery disease, continue Plavix. Hypertension Hyperlipidemia, continue statin. COPD Diabetes mellitus type 2, will check hemoglobin A1c, continue Lantus and NovoLog per mild algorithm sliding scale. Morbid obesity with BMI of 61. Peripheral vascular disease Problems: Consultation Date/Type/Reason Admit Date/Time Feb 25, 2017 at 21:45 [facility] Referring Provider: MARILU FRIED MD 24 HR Interval Summary Free Text/Dictation ALL NOTED Exam/Review of Systems Vital Signs Vitals Vital Signs Date Time Temp Pulse Resp B/P Pulse Ox O2 Delivery O2 Flow Rate FiO2 03/08/17 19:31 99.0 84 20 123/73 95 03/08/17 16:50 21 03/06/17 22:03 Nasal Cannula 2.0 Intake and Output 03/07/17 03/07/17 03/08/17 15:00 23:00 07:00 Intake Total 1200 ml 300 ml Output Total 2400 ml 1700 ml Balance -1200 ml -1400 ml Exam Const: Well-developed, well-nourished Head: Atraumatic, normocephalic Eyes: Normal Conjunctiva, PERRLA, EOMI, normal sclera, no nystagmus ENT: Normal External Ears, Nose and Mouth, moist mucus membranes. Neck: Full range of motion. No meningismus, no lymphadenopathy. Resp: Clear to auscultation bilaterally, no wheezing, rhonchi, rales Cardio: Regular rate and rhythm, no murmurs, S1 S2 present positive gallop Abd: Soft, non tender x 4, massive pannus with edema and hardness normal bowel sounds, no guarding or rebound, no pulsitile abdominal masses or bruits Skin: No petechiae or rashes, no ecchymosis , no maculopapular rash Back: No midline or flank tenderness Ext: No cyanosis severe edema to both legs and edema to her pannus, FROM x 4, normal inspection, neurovascularly intact x 4 Neur: Awake and alert, STR 5/5 x 4, sensation intact x 4, no focal findings, cerebellum intact Psych: Normal Mood and Affect Results Result Diagram: 03/08/17 1330 03/08/17 1330 Results 24 hrs Laboratory Tests Test 03/08/17 07:59 03/08/17 12:07 03/08/17 13:30 03/08/17 17:34 Bedside Glucose 103 132 104 White Blood Count 4.5 L Red Blood Count 5.31 Hemoglobin 13.0 Hematocrit 42.0 Mean Corpuscular Volume 79.1 L Mean Corpuscular Hemoglobin 24.5 L Mean Corpuscular Hemoglobin Concent 31.0 L Red Cell Distribution Width 20.9 H Platelet Count 165 # Mean Platelet Volume 10.2 Neutrophils % 76.8 Lymphocytes % 11.5 L Monocytes % 8.0 Eosinophils % 2.4 Basophils % 1.1 Nucleated Red Blood Cells % 0.0 Neutrophils # 3.5 Lymphocytes # 0.5 L Monocytes # 0.4 Eosinophils # 0.1 Basophils # 0.1 Nucleated Red Blood Cells # 0.0 Sodium Level 137 Potassium Level 4.2 Chloride Level 101 Carbon Dioxide Level 27 Anion Gap 13 Blood Urea Nitrogen 20 Creatinine 0.68 Glucose Level 109 Calcium Level 8.6 Test 03/08/17 20:07 Bedside Glucose 138 Medications Medications Current Medications Enoxaparin Sodium (Lovenox) 40 mg DAILY SC Last administered on 03/07/17 09:15 ; Admin Dose 40 MG; Start 02/26/17 at 09:00 Acetaminophen (Tylenol Tab) 650 mg Q6H PRN PO PAIN AND OR ELEVATED TEMP; Start 02/26/17 at 00:00 Potassium Chloride (Klor-Con 20) 20 meq DAILY PO Last administered on 03/08/17 10:00; Admin Dose 20 MEQ; Start 02/26/17 at 09:00 Insulin Glargine (Lantus) 10 unit DAILY@20 SC ; Start 02/26/17 at 20:00 Diagnostic Test (Pha) (Accu-Chek) 1 ea 02 XX ; Start 02/26/17 at 02:00 Atorvastatin Calcium (Lipitor) 40 mg DAILY PO Last administered on 03/08/17 10: 02; Admin Dose 40 MG; Start 02/26/17 at 09:00 Clopidogrel Bisulfate (plaVIX) 75 mg DAILY PO Last administered on 03/08/17 10: 01; Admin Dose 75 MG; Start 02/26/17 at 09:00 Diphenhydramine HCl (Benadryl) 25 mg TID PRN PO ITCHING Last administered on 09:12; Admin Dose 25 MG; Start 02/26/17 at 00:30 Fluoxetine HCl (Prozac) 10 mg DAILY PO Last administered on 03/08/17 10:01; Admin Dose 10 MG; Start 02/26/17 at 09:00 Montelukast Sodium (Singulair) 10 mg DAILY PO Last administered on 03/08/17 10: 01; Admin Dose 10 MG; Start 02/26/17 at 09:00 Nystatin 1 applic BID TOP Last administered on 03/08/17 20:09; Admin Dose 1 APPLIC; Start 02/26/17 at 09:00 Pantoprazole (Protonix Tab) 40 mg DAILY PO Last administered on 03/08/17 10:00 ; Admin Dose 40 MG; Start 02/26/17 at 09:00 Paroxetine HCl (Paxil) 10 mg DAILY PO Last administered on 03/08/17 10:01; Admin Dose 10 MG; Start 02/26/17 at 09:00 Ropinirole HCl (Requip) 0.25 mg DAILY PO Last administered on 03/08/17 10:00; Admin Dose 0.25 MG; Start 02/26/17 at 09:00 Valsartan (Diovan) 80 mg DAILY PO Last administered on 03/08/17 10:01; Admin Dose 80 MG; Start 02/26/17 at 09:00 Zolpidem Tartrate (Ambien) 5 mg QHS PRN PO INSOMNIA; Start 02/26/17 at 00:30 Miscellaneous Information 1 ea NOTE XX ; Start 02/26/17 at 01:00 Glucose (Glutose) 15 gm Q15M PRN PO DECREASED GLUCOSE; Start 02/26/17 at 01:00 Glucose (Glutose) 22.5 gm Q15M PRN PO DECREASED GLUCOSE; Start 02/26/17 at 01: 00 Dextrose (D50w Syringe) 25 ml Q15M PRN IV DECREASED GLUCOSE; Start 02/26/17 at 01:00 Dextrose (D50w Syringe) 50 ml Q15M PRN IV DECREASED GLUCOSE; Start 02/26/17 at 01:00 Glucagon (Glucagen) 1 mg Q15M PRN IM DECREASED GLUCOSE; Start 02/26/17 at 01:00 Glucose (Glutose) 15 gm Q15M PRN BUCCAL DECREASED GLUCOSE; Start 02/26/17 at 01 :00 Albuterol (Ventolin Hfa) 2 puff Q4H PRN INH SHORTNESS OF BREATH Last administered on 02/26/17 09:57; Admin Dose 2 PUFF; Start 02/26/17 at 01:00 Linagliptin (Tradjenta) 5 mg DAILY PO Last administered on 03/08/17 10:00; Admin Dose 5 MG; Start 02/27/17 at 09:00 Ondansetron HCl (Zofran Inj) 4 mg Q6H PRN IV NAUSEA AND/OR VOMITING; Start at 17:30 Magnesium Oxide (Mag-Ox 400) 400 mg DAILY PO Last administered on 03/08/17 10: 01; Admin Dose 400 MG; Start 02/28/17 at 19:30 Carvedilol (Coreg) 3.125 mg BID PO Last administered on 03/08/17 20:08; Admin Dose 3.125 MG; Start 03/01/17 at 21:00 Ibuprofen (Motrin) 600 mg Q6H PRN PO PAIN Last administered on 03/08/17 23:30; Admin Dose 600 MG; Start 03/01/17 at 15:30 Ferrous Sulfate (Ferrous Sulfate (Ec)) 325 mg TID PO Last administered on 12:46; Admin Dose 325 MG; Start 03/05/17 at 09:00 BLUE JIMÉNEZ MD Mar 08, 2017 23:43
[2017-03-09 01:58] VITALS: BP 111/63; RESP 20
[2017-03-09] MEDS: FUROSEMIDE 40 MG TAB PO SCH ×2 (05:38→17:49)
--- NOTE | 2017-03-09 07:07 | CONS ---
Date/Time of Note Date/Time of Note DATE: 03/09/17 TIME: 07:05 Assessment/Plan Assessment/Plan Chief Complaint/Hosp Course IMP: 1.CHF-systolic acute on chronic. EF 30-35% by echo this admit. 2.HTN 3.HL 4.LE wound/PAD 5.LE edema 6.cad 7. DM 8. Anemia Recc: -Now on med-eurg -Continue statin -Continue lasix diuresis as patient will comply at current dose and follow volume status closely -Continue diovan/BB -Ongoing heme eval Problems: Consultation Date/Type/Reason Admit Date/Time Feb 25, 2017 at 21:45 Initial Consult Date 02/27/17 Type of Consultation: cardiology Reason for Consultation CHF Referring Provider: MARILU FRIED MD Exam/Review of Systems Vital Signs Vitals Vital Signs Date Time Temp Pulse Resp B/P Pulse Ox O2 Delivery O2 Flow Rate FiO2 03/09/17 01:58 98.0 76 20 111/63 96 03/08/17 16:50 21 03/06/17 22:03 Nasal Cannula 2.0 Intake and Output 03/08/17 03/08/17 03/09/17 15:00 23:00 07:00 Intake Total 600 ml 360 ml Output Total 1000 ml 2100 ml Balance -400 ml -1740 ml Exam Review of Systems: CONSTITUTIONAL: No fevers, chills. PULMONARY: No sob CARDIOVASCULAR: No chest pain/palpitations GASTROINTESTINAL: No nausea/vomiting. GENITOURINARY: No hematuria/dysuria. MUSCULOSKELETAL: No myagias/arthalgias. PSYCHIATRIC: The patient denies depression. NEUROLOGIC: somewhat lethargic Constitutional: alert Psych: no complaints Head: normocephalic ENMT: mucosa pink and moist Neck: jvd (9 cm water), supple Respiratory: diminished breath sounds (at bases/B) Cardiovascular: regular rate and rhythm Gastrointestinal: non-tender, soft Musculoskeletal: muscle tone (normal) Extremities: edema (none) Neurological: other (No focal deficits) Results Result Diagram: 03/08/17 1330 03/08/17 1330 Results 24 hrs Laboratory Tests Test 03/08/17 07:59 03/08/17 12:07 03/08/17 13:30 03/08/17 17:34 Bedside Glucose 103 132 104 White Blood Count 4.5 L Red Blood Count 5.31 Hemoglobin 13.0 Hematocrit 42.0 Mean Corpuscular Volume 79.1 L Mean Corpuscular Hemoglobin 24.5 L Mean Corpuscular Hemoglobin Concent 31.0 L Red Cell Distribution Width 20.9 H Platelet Count 165 # Mean Platelet Volume 10.2 Neutrophils % 76.8 Lymphocytes % 11.5 L Monocytes % 8.0 Eosinophils % 2.4 Basophils % 1.1 Nucleated Red Blood Cells % 0.0 Neutrophils # 3.5 Lymphocytes # 0.5 L Monocytes # 0.4 Eosinophils # 0.1 Basophils # 0.1 Nucleated Red Blood Cells # 0.0 Sodium Level 137 Potassium Level 4.2 Chloride Level 101 Carbon Dioxide Level 27 Anion Gap 13 Blood Urea Nitrogen 20 Creatinine 0.68 Glucose Level 109 Calcium Level 8.6 Test 03/08/17 20:07 Bedside Glucose 138 Medications Medications Current Medications Enoxaparin Sodium (Lovenox) 40 mg DAILY SC Last administered on 03/07/17 09:15 ; Admin Dose 40 MG; Start 02/26/17 at 09:00 Acetaminophen (Tylenol Tab) 650 mg Q6H PRN PO PAIN AND OR ELEVATED TEMP; Start 02/26/17 at 00:00 Potassium Chloride (Klor-Con 20) 20 meq DAILY PO Last administered on 03/08/17 10:00; Admin Dose 20 MEQ; Start 02/26/17 at 09:00 Insulin Glargine (Lantus) 10 unit DAILY@20 SC ; Start 02/26/17 at 20:00 Diagnostic Test (Pha) (Accu-Chek) 1 ea 02 XX ; Start 02/26/17 at 02:00 Atorvastatin Calcium (Lipitor) 40 mg DAILY PO Last administered on 03/08/17 10: 02; Admin Dose 40 MG; Start 02/26/17 at 09:00 Clopidogrel Bisulfate (plaVIX) 75 mg DAILY PO Last administered on 03/08/17 10: 01; Admin Dose 75 MG; Start 02/26/17 at 09:00 Diphenhydramine HCl (Benadryl) 25 mg TID PRN PO ITCHING Last administered on 09:12; Admin Dose 25 MG; Start 02/26/17 at 00:30 Fluoxetine HCl (Prozac) 10 mg DAILY PO Last administered on 03/08/17 10:01; Admin Dose 10 MG; Start 02/26/17 at 09:00 Montelukast Sodium (Singulair) 10 mg DAILY PO Last administered on 03/08/17 10: 01; Admin Dose 10 MG; Start 02/26/17 at 09:00 Nystatin 1 applic BID TOP Last administered on 03/08/17 20:09; Admin Dose 1 APPLIC; Start 02/26/17 at 09:00 Pantoprazole (Protonix Tab) 40 mg DAILY PO Last administered on 03/08/17 10:00 ; Admin Dose 40 MG; Start 02/26/17 at 09:00 Paroxetine HCl (Paxil) 10 mg DAILY PO Last administered on 03/08/17 10:01; Admin Dose 10 MG; Start 02/26/17 at 09:00 Ropinirole HCl (Requip) 0.25 mg DAILY PO Last administered on 03/08/17 10:00; Admin Dose 0.25 MG; Start 02/26/17 at 09:00 Valsartan (Diovan) 80 mg DAILY PO Last administered on 03/08/17 10:01; Admin Dose 80 MG; Start 02/26/17 at 09:00 Zolpidem Tartrate (Ambien) 5 mg QHS PRN PO INSOMNIA; Start 02/26/17 at 00:30 Miscellaneous Information 1 ea NOTE XX ; Start 02/26/17 at 01:00 Glucose (Glutose) 15 gm Q15M PRN PO DECREASED GLUCOSE; Start 02/26/17 at 01:00 Glucose (Glutose) 22.5 gm Q15M PRN PO DECREASED GLUCOSE; Start 02/26/17 at 01: 00 Dextrose (D50w Syringe) 25 ml Q15M PRN IV DECREASED GLUCOSE; Start 02/26/17 at 01:00 Dextrose (D50w Syringe) 50 ml Q15M PRN IV DECREASED GLUCOSE; Start 02/26/17 at 01:00 Glucagon (Glucagen) 1 mg Q15M PRN IM DECREASED GLUCOSE; Start 02/26/17 at 01:00 Glucose (Glutose) 15 gm Q15M PRN BUCCAL DECREASED GLUCOSE; Start 02/26/17 at 01 :00 Albuterol (Ventolin Hfa) 2 puff Q4H PRN INH SHORTNESS OF BREATH Last administered on 02/26/17 09:57; Admin Dose 2 PUFF; Start 02/26/17 at 01:00 Linagliptin (Tradjenta) 5 mg DAILY PO Last administered on 03/08/17 10:00; Admin Dose 5 MG; Start 02/27/17 at 09:00 Ondansetron HCl (Zofran Inj) 4 mg Q6H PRN IV NAUSEA AND/OR VOMITING; Start at 17:30 Magnesium Oxide (Mag-Ox 400) 400 mg DAILY PO Last administered on 03/08/17 10: 01; Admin Dose 400 MG; Start 02/28/17 at 19:30 Carvedilol (Coreg) 3.125 mg BID PO Last administered on 03/08/17 20:08; Admin Dose 3.125 MG; Start 03/01/17 at 21:00 Ibuprofen (Motrin) 600 mg Q6H PRN PO PAIN Last administered on 03/08/17 23:30; Admin Dose 600 MG; Start 03/01/17 at 15:30 Ferrous Sulfate (Ferrous Sulfate (Ec)) 325 mg TID PO Last administered on 12:46; Admin Dose 325 MG; Start 03/05/17 at 09:00 JACQUELINE HORNE Mar 09, 2017 07:07
[2017-03-09 07:20] VITALS: BP 129/74; RESP 20
[2017-03-09] MEDS: INSULIN ASPART [NOVOLOG] 3 ML PEN SC SCH ×4 (08:03→20:35)
[2017-03-09] MEDS: ENOXAPARIN 40 MG/0.4 ML SYG SC SCH (09:00)
[2017-03-09] MEDS: ALBUTEROL/IPRATROPIUM (NEB) 3 ML AMP HHN SCH ×3 (09:04→16:45)
[2017-03-09] MEDS: POTASSIUM CHLORIDE (SR) 20 MEQ TAB PO SCH (09:50)
[2017-03-09] MEDS: metFORMIN 500 MG TAB PO SCH ×2 (09:50→17:46)
[2017-03-09] MEDS: ATORVASTATIN 40 MG TAB PO SCH (09:51)
[2017-03-09] MEDS: VALSARTAN 80 MG TAB PO SCH (09:51)
[2017-03-09] MEDS: FLUOXETINE 10 MG CAP PO SCH (09:52)
[2017-03-09] MEDS: MAGNESIUM OXIDE 400 MG TAB PO SCH (09:52)
[2017-03-09] MEDS: MONTELUKAST 10 MG TAB PO SCH (09:52)
[2017-03-09] MEDS: FERROUS SULFATE (EC) 325 MG TAB PO SCH ×3 (09:52→20:36)
[2017-03-09] MEDS: PAROXETINE 10 MG TAB PO SCH (09:53)
[2017-03-09] MEDS: CLOPIDOGREL 75 MG TAB PO SCH (09:54)
[2017-03-09] MEDS: PANTOPRAZOLE (EC) 40 MG TAB PO SCH (09:54)
[2017-03-09] MEDS: LINAGLIPTIN 5 MG TABLET PO SCH (09:54)
[2017-03-09] MEDS: ROPINIROLE 0.25 MG TAB PO SCH (09:54)
[2017-03-09] MEDS: NYSTATIN 15 GM POWDER BTL TOP SCH ×2 (09:55→20:37)
[2017-03-09] MEDS: IBUPROFEN 200 MG TAB PO PRN ×2 (10:00→17:49)
--- NOTE | 2017-03-09 10:53 | PN ---
Date/Time of Note Date/Time of Note DATE: 03/09/17 TIME: 10:52 Assessment/Plan VTE Prophylaxis VTE Prophylaxis Intervention: other Lines/Catheters IV Catheter Type (from Nrs): [facility]ine [facility] Urinary Cath still in place: Yes Reason Cath still needed: skin wounds contaminated by urine Assessment/Plan Chief Complaint/Hosp Course -CHF exacerbation, continue Lasix. Dr. Slater is following in cardiology consultation. -Coronary artery disease, continue Plavix. -Hypertension, continue Coreg. -Hyperlipidemia, continue statin. -COPD, continue DuoNeb. -Diabetes mellitus type 2, hemoglobin A1c is 8.3, continue metformin, Tradjenta , Lantus, and NovoLog per mild algorithm sliding scale. -Morbid obesity with BMI of 61. -Peripheral vascular disease, continue Plavix. Dr. Louise is following in vascular surgery consultation. Problems: Subjective 24 Hr Interval Summary Free Text/Dictation Patient has no complaints Exam/Review of Systems Vital Signs Vitals Vital Signs Date Time Temp Pulse Resp B/P Pulse Ox O2 Delivery O2 Flow Rate FiO2 03/09/17 09:04 72 20 97 21 03/09/17 07:20 98.3 129/74 03/06/17 22:03 Nasal Cannula 2.0 Intake and Output 03/08/17 03/08/17 03/09/17 15:00 23:00 07:00 Intake Total 600 ml 360 ml Output Total 1000 ml 2100 ml Balance -400 ml -1740 ml Exam Constitutional: well developed Head: atraumatic, normocephalic Neck: supple Respiratory: clear to auscultation Cardiovascular: regular rate and rhythm Gastrointestinal: non-tender, soft Extremities: edema, normal pulses Results Result Diagram: 03/08/17 1330 03/08/17 1330 Results 24 hrs Laboratory Tests Test 03/08/17 12:07 03/08/17 13:30 03/08/17 17:34 03/08/17 20:07 Bedside Glucose 132 104 138 White Blood Count 4.5 L Red Blood Count 5.31 Hemoglobin 13.0 Hematocrit 42.0 Mean Corpuscular Volume 79.1 L Mean Corpuscular Hemoglobin 24.5 L Mean Corpuscular Hemoglobin Concent 31.0 L Red Cell Distribution Width 20.9 H Platelet Count 165 # Mean Platelet Volume 10.2 Neutrophils % 76.8 Lymphocytes % 11.5 L Monocytes % 8.0 Eosinophils % 2.4 Basophils % 1.1 Nucleated Red Blood Cells % 0.0 Neutrophils # 3.5 Lymphocytes # 0.5 L Monocytes # 0.4 Eosinophils # 0.1 Basophils # 0.1 Nucleated Red Blood Cells # 0.0 Sodium Level 137 Potassium Level 4.2 Chloride Level 101 Carbon Dioxide Level 27 Anion Gap 13 Blood Urea Nitrogen 20 Creatinine 0.68 Glucose Level 109 Calcium Level 8.6 Test 03/09/17 07:59 Bedside Glucose 121 Medications Medications Current Medications Enoxaparin Sodium (Lovenox) 40 mg DAILY SC Last administered on 03/07/17 09:15 ; Admin Dose 40 MG; Start 02/26/17 at 09:00 Acetaminophen (Tylenol Tab) 650 mg Q6H PRN PO PAIN AND OR ELEVATED TEMP; Start 02/26/17 at 00:00 Potassium Chloride (Klor-Con 20) 20 meq DAILY PO Last administered on 03/09/17 09:50; Admin Dose 20 MEQ; Start 02/26/17 at 09:00 Insulin Glargine (Lantus) 10 unit DAILY@20 SC ; Start 02/26/17 at 20:00 Diagnostic Test (Pha) (Accu-Chek) 1 ea 02 XX ; Start 02/26/17 at 02:00 Atorvastatin Calcium (Lipitor) 40 mg DAILY PO Last administered on 03/09/17 09: 51; Admin Dose 40 MG; Start 02/26/17 at 09:00 Clopidogrel Bisulfate (plaVIX) 75 mg DAILY PO Last administered on 03/09/17 09: 54; Admin Dose 75 MG; Start 02/26/17 at 09:00 Diphenhydramine HCl (Benadryl) 25 mg TID PRN PO ITCHING Last administered on 09:12; Admin Dose 25 MG; Start 02/26/17 at 00:30 Fluoxetine HCl (Prozac) 10 mg DAILY PO Last administered on 03/09/17 09:52; Admin Dose 10 MG; Start 02/26/17 at 09:00 Montelukast Sodium (Singulair) 10 mg DAILY PO Last administered on 03/09/17 09: 52; Admin Dose 10 MG; Start 02/26/17 at 09:00 Nystatin 1 applic BID TOP Last administered on 03/09/17 09:55; Admin Dose 1 APPLIC; Start 02/26/17 at 09:00 Pantoprazole (Protonix Tab) 40 mg DAILY PO Last administered on 03/09/17 09:54 ; Admin Dose 40 MG; Start 02/26/17 at 09:00 Paroxetine HCl (Paxil) 10 mg DAILY PO Last administered on 03/09/17 09:53; Admin Dose 10 MG; Start 02/26/17 at 09:00 Ropinirole HCl (Requip) 0.25 mg DAILY PO Last administered on 03/09/17 09:54; Admin Dose 0.25 MG; Start 02/26/17 at 09:00 Valsartan (Diovan) 80 mg DAILY PO Last administered on 03/09/17 09:51; Admin Dose 80 MG; Start 02/26/17 at 09:00 Zolpidem Tartrate (Ambien) 5 mg QHS PRN PO INSOMNIA; Start 02/26/17 at 00:30 Miscellaneous Information 1 ea NOTE XX ; Start 02/26/17 at 01:00 Glucose (Glutose) 15 gm Q15M PRN PO DECREASED GLUCOSE; Start 02/26/17 at 01:00 Glucose (Glutose) 22.5 gm Q15M PRN PO DECREASED GLUCOSE; Start 02/26/17 at 01: 00 Dextrose (D50w Syringe) 25 ml Q15M PRN IV DECREASED GLUCOSE; Start 02/26/17 at 01:00 Dextrose (D50w Syringe) 50 ml Q15M PRN IV DECREASED GLUCOSE; Start 02/26/17 at 01:00 Glucagon (Glucagen) 1 mg Q15M PRN IM DECREASED GLUCOSE; Start 02/26/17 at 01:00 Glucose (Glutose) 15 gm Q15M PRN BUCCAL DECREASED GLUCOSE; Start 02/26/17 at 01 :00 Albuterol (Ventolin Hfa) 2 puff Q4H PRN INH SHORTNESS OF BREATH Last administered on 02/26/17 09:57; Admin Dose 2 PUFF; Start 02/26/17 at 01:00 Linagliptin (Tradjenta) 5 mg DAILY PO Last administered on 03/09/17 09:54; Admin Dose 5 MG; Start 02/27/17 at 09:00 Ondansetron HCl (Zofran Inj) 4 mg Q6H PRN IV NAUSEA AND/OR VOMITING; Start at 17:30 Magnesium Oxide (Mag-Ox 400) 400 mg DAILY PO Last administered on 03/09/17 09: 52; Admin Dose 400 MG; Start 02/28/17 at 19:30 Carvedilol (Coreg) 3.125 mg BID PO Last administered on 03/09/17 09:52; Admin Dose 3.125 MG; Start 03/01/17 at 21:00 Ibuprofen (Motrin) 600 mg Q6H PRN PO PAIN Last administered on 03/09/17 10:00; Admin Dose 600 MG; Start 03/01/17 at 15:30 Ferrous Sulfate (Ferrous Sulfate (Ec)) 325 mg TID PO Last administered on 09:52; Admin Dose 325 MG; Start 03/05/17 at 09:00 CHOLO KEEN Mar 09, 2017 10:52
[2017-03-09] MEDS: ALBUTEROL 18 GM INHALER INH PRN (11:08)
--- NOTE | 2017-03-09 18:47 | CONS ---
Date/Time of Note Date/Time of Note DATE: 03/09/17 TIME: 18:46 Assessment/Plan Assessment/Plan Chief Complaint/Hosp Course MICROCYTOSIS MONITOR IRON DEFICIENCY PO IRON HX ANEMIA MONITOR CLOSELY LOOKS COMPENSATED AT PRESENT LEUKOPENIA RESOLVED MONITOR CHF exacerbation, continue Lasix. cardiology consultation. Coronary artery disease, continue Plavix. Hypertension Hyperlipidemia, continue statin. COPD Diabetes mellitus type 2, will check hemoglobin A1c, continue Lantus and NovoLog per mild algorithm sliding scale. Morbid obesity with BMI of 61. Peripheral vascular disease Problems: Consultation Date/Type/Reason Admit Date/Time Feb 25, 2017 at 21:45 Type of Consultation: HEMEON Referring Provider: MARILU FRIED MD 24 HR Interval Summary Free Text/Dictation ALL NOTED Exam/Review of Systems Vital Signs Vitals Vital Signs Date Time Temp Pulse Resp B/P Pulse Ox O2 Delivery O2 Flow Rate FiO2 03/09/17 16:45 79 20 99 21 03/09/17 07:20 98.3 129/74 03/06/17 22:03 Nasal Cannula 2.0 Intake and Output 03/08/17 03/08/17 03/09/17 15:00 23:00 07:00 Intake Total 600 ml 360 ml Output Total 1000 ml 2100 ml Balance -400 ml -1740 ml Exam Const: Well-developed, well-nourished Head: Atraumatic, normocephalic Eyes: Normal Conjunctiva, PERRLA, EOMI, normal sclera, no nystagmus ENT: Normal External Ears, Nose and Mouth, moist mucus membranes. Neck: Full range of motion. No meningismus, no lymphadenopathy. Resp: Clear to auscultation bilaterally, no wheezing, rhonchi, rales Cardio: Regular rate and rhythm, no murmurs, S1 S2 present positive gallop Abd: Soft, non tender x 4, massive pannus with edema and hardness normal bowel sounds, no guarding or rebound, no pulsitile abdominal masses or bruits Skin: No petechiae or rashes, no ecchymosis , no maculopapular rash Back: No midline or flank tenderness Ext: No cyanosis severe edema to both legs and edema to her pannus, FROM x 4, normal inspection, neurovascularly intact x 4 Neur: Awake and alert, STR 5/5 x 4, sensation intact x 4, no focal findings, cerebellum intact Psych: Normal Mood and Affect Results Result Diagram: 03/08/17 1330 03/08/17 1330 Results 24 hrs Laboratory Tests Test 03/08/17 20:07 03/09/17 07:59 03/09/17 12:08 03/09/17 17:33 Bedside Glucose 138 121 134 137 Medications Medications Current Medications Enoxaparin Sodium (Lovenox) 40 mg DAILY SC Last administered on 03/07/17 09:15 ; Admin Dose 40 MG; Start 02/26/17 at 09:00 Acetaminophen (Tylenol Tab) 650 mg Q6H PRN PO PAIN AND OR ELEVATED TEMP; Start 02/26/17 at 00:00 Potassium Chloride (Klor-Con 20) 20 meq DAILY PO Last administered on 03/09/17 09:50; Admin Dose 20 MEQ; Start 02/26/17 at 09:00 Insulin Glargine (Lantus) 10 unit DAILY@20 SC ; Start 02/26/17 at 20:00 Diagnostic Test (Pha) (Accu-Chek) 1 ea 02 XX ; Start 02/26/17 at 02:00 Atorvastatin Calcium (Lipitor) 40 mg DAILY PO Last administered on 03/09/17 09: 51; Admin Dose 40 MG; Start 02/26/17 at 09:00 Clopidogrel Bisulfate (plaVIX) 75 mg DAILY PO Last administered on 03/09/17 09: 54; Admin Dose 75 MG; Start 02/26/17 at 09:00 Diphenhydramine HCl (Benadryl) 25 mg TID PRN PO ITCHING Last administered on 09:12; Admin Dose 25 MG; Start 02/26/17 at 00:30 Fluoxetine HCl (Prozac) 10 mg DAILY PO Last administered on 03/09/17 09:52; Admin Dose 10 MG; Start 02/26/17 at 09:00 Montelukast Sodium (Singulair) 10 mg DAILY PO Last administered on 03/09/17 09: 52; Admin Dose 10 MG; Start 02/26/17 at 09:00 Nystatin 1 applic BID TOP Last administered on 03/09/17 09:55; Admin Dose 1 APPLIC; Start 02/26/17 at 09:00 Pantoprazole (Protonix Tab) 40 mg DAILY PO Last administered on 03/09/17 09:54 ; Admin Dose 40 MG; Start 02/26/17 at 09:00 Paroxetine HCl (Paxil) 10 mg DAILY PO Last administered on 03/09/17 09:53; Admin Dose 10 MG; Start 02/26/17 at 09:00 Ropinirole HCl (Requip) 0.25 mg DAILY PO Last administered on 03/09/17 09:54; Admin Dose 0.25 MG; Start 02/26/17 at 09:00 Valsartan (Diovan) 80 mg DAILY PO Last administered on 03/09/17 09:51; Admin Dose 80 MG; Start 02/26/17 at 09:00 Zolpidem Tartrate (Ambien) 5 mg QHS PRN PO INSOMNIA; Start 02/26/17 at 00:30 Miscellaneous Information 1 ea NOTE XX ; Start 02/26/17 at 01:00 Glucose (Glutose) 15 gm Q15M PRN PO DECREASED GLUCOSE; Start 02/26/17 at 01:00 Glucose (Glutose) 22.5 gm Q15M PRN PO DECREASED GLUCOSE; Start 02/26/17 at 01: 00 Dextrose (D50w Syringe) 25 ml Q15M PRN IV DECREASED GLUCOSE; Start 02/26/17 at 01:00 Dextrose (D50w Syringe) 50 ml Q15M PRN IV DECREASED GLUCOSE; Start 02/26/17 at 01:00 Glucagon (Glucagen) 1 mg Q15M PRN IM DECREASED GLUCOSE; Start 02/26/17 at 01:00 Glucose (Glutose) 15 gm Q15M PRN BUCCAL DECREASED GLUCOSE; Start 02/26/17 at 01 :00 Albuterol (Ventolin Hfa) 2 puff Q4H PRN INH SHORTNESS OF BREATH Last administered on 03/09/17 11:08; Admin Dose 2 PUFF; Start 02/26/17 at 01:00 Linagliptin (Tradjenta) 5 mg DAILY PO Last administered on 03/09/17 09:54; Admin Dose 5 MG; Start 02/27/17 at 09:00 Ondansetron HCl (Zofran Inj) 4 mg Q6H PRN IV NAUSEA AND/OR VOMITING; Start at 17:30 Magnesium Oxide (Mag-Ox 400) 400 mg DAILY PO Last administered on 03/09/17 09: 52; Admin Dose 400 MG; Start 02/28/17 at 19:30 Carvedilol (Coreg) 3.125 mg BID PO Last administered on 03/09/17 09:52; Admin Dose 3.125 MG; Start 03/01/17 at 21:00 Ibuprofen (Motrin) 600 mg Q6H PRN PO PAIN Last administered on 03/09/17 17:49; Admin Dose 600 MG; Start 03/01/17 at 15:30 Ferrous Sulfate (Ferrous Sulfate (Ec)) 325 mg TID PO Last administered on 09:52; Admin Dose 325 MG; Start 03/05/17 at 09:00 BLUE JIMÉNEZ MD Mar 09, 2017 18:47
[2017-03-09 19:30] VITALS: BP 126/59; RESP 18
[2017-03-09] MEDS: INSULIN GLARGINE [LANtus] 3 ML PEN SC SCH (20:00)
[2017-03-10 02:00] VITALS: BP 99/52; RESP 18
[2017-03-10] MEDS: ACCU-CHEK XX SCH (02:00)
[2017-03-10] MEDS: FUROSEMIDE 40 MG TAB PO SCH ×2 (05:43→17:18)
[2017-03-10 06:00] VITALS: BP 118/59; PULSE 78; RESP 19
[2017-03-10] MEDS: ALBUTEROL/IPRATROPIUM (NEB) 3 ML AMP HHN SCH ×3 (08:02→17:06)
[2017-03-10] MEDS: INSULIN ASPART [NOVOLOG] 3 ML PEN SC SCH ×4 (08:15→20:24)
[2017-03-10 08:46] VITALS: BP 126/58; RESP 18
[2017-03-10] MEDS: ENOXAPARIN 40 MG/0.4 ML SYG SC SCH (09:00)
[2017-03-10] MEDS: CLOPIDOGREL 75 MG TAB PO SCH (09:05)
[2017-03-10] MEDS: ROPINIROLE 0.25 MG TAB PO SCH (09:05)
[2017-03-10] MEDS: POTASSIUM CHLORIDE (SR) 20 MEQ TAB PO SCH (09:05)
[2017-03-10] MEDS: PANTOPRAZOLE (EC) 40 MG TAB PO SCH (09:05)
[2017-03-10] MEDS: metFORMIN 500 MG TAB PO SCH ×2 (09:06→17:13)
[2017-03-10] MEDS: ATORVASTATIN 40 MG TAB PO SCH (09:06)
[2017-03-10] MEDS: LINAGLIPTIN 5 MG TABLET PO SCH (09:06)
[2017-03-10] MEDS: FERROUS SULFATE (EC) 325 MG TAB PO SCH ×3 (09:06→20:18)
[2017-03-10] MEDS: VALSARTAN 80 MG TAB PO SCH (09:07)
[2017-03-10] MEDS: FLUOXETINE 10 MG CAP PO SCH (09:07)
[2017-03-10] MEDS: PAROXETINE 10 MG TAB PO SCH (09:07)
[2017-03-10] MEDS: MONTELUKAST 10 MG TAB PO SCH (09:07)
[2017-03-10] MEDS: MAGNESIUM OXIDE 400 MG TAB PO SCH (09:07)
[2017-03-10] MEDS: NYSTATIN 15 GM POWDER BTL TOP SCH ×2 (09:08→20:24)
--- NOTE | 2017-03-10 10:23 | CONS ---
Date/Time of Note Date/Time of Note DATE: 03/10/17 TIME: 10:21 Assessment/Plan Assessment/Plan Chief Complaint/Hosp Course IMP: 1.CHF-systolic acute on chronic. EF 30-35% by echo this admit. Improving volume status 2.HTN 3.HL 4.LE wound/PAD 5.LE edema 6.cad 7. DM 8. Anemia Recc: -Now on med-eurg -Continue statin -Continue lasix diuresis as patient will comply at current dose and follow volume status closely -Continue diovan/coreg -Continue plavix for now -Ongoing heme eval Problems: Consultation Date/Type/Reason Admit Date/Time Feb 25, 2017 at 21:45 Initial Consult Date 02/27/17 Type of Consultation: cardiology Reason for Consultation CHF Referring Provider: MARILU FRIED MD Exam/Review of Systems Vital Signs Vitals Vital Signs Date Time Temp Pulse Resp B/P Pulse Ox O2 Delivery O2 Flow Rate FiO2 03/10/17 08:46 98.3 70 18 126/58 97 03/10/17 08:02 21 03/10/17 06:00 Room Air 03/06/17 22:03 2.0 Intake and Output 03/09/17 03/09/17 03/10/17 15:00 23:00 07:00 Intake Total 1440 ml Output Total 3200 ml Balance -1760 ml Exam Review of Systems: CONSTITUTIONAL: No fevers, chills. PULMONARY: No sob CARDIOVASCULAR: No chest pain/palpitations GASTROINTESTINAL: No nausea/vomiting. GENITOURINARY: No hematuria/dysuria. MUSCULOSKELETAL: No myagias/arthalgias. PSYCHIATRIC: The patient denies depression. NEUROLOGIC: No weakness Constitutional: alert, oriented Psych: no complaints Head: normocephalic ENMT: mucosa pink and moist Neck: jvd (9 cm water), supple Respiratory: diminished breath sounds (at bases/B) Cardiovascular: regular rate and rhythm Gastrointestinal: non-tender, soft Musculoskeletal: muscle tone (normal) Extremities: edema (none) Neurological: other (No focal defiicts) Results Result Diagram: 03/08/17 1330 03/08/17 1330 Results 24 hrs Laboratory Tests Test 03/09/17 12:08 03/09/17 17:33 03/09/17 20:33 03/10/17 07:49 Bedside Glucose 134 137 143 118 Medications Medications Current Medications Enoxaparin Sodium (Lovenox) 40 mg DAILY SC Last administered on 03/07/17 09:15 ; Admin Dose 40 MG; Start 02/26/17 at 09:00 Acetaminophen (Tylenol Tab) 650 mg Q6H PRN PO PAIN AND OR ELEVATED TEMP; Start 02/26/17 at 00:00 Potassium Chloride (Klor-Con 20) 20 meq DAILY PO Last administered on 03/10/17 09:05; Admin Dose 20 MEQ; Start 02/26/17 at 09:00 Insulin Glargine (Lantus) 10 unit DAILY@20 SC ; Start 02/26/17 at 20:00 Diagnostic Test (Pha) (Accu-Chek) 1 ea 02 XX ; Start 02/26/17 at 02:00 Atorvastatin Calcium (Lipitor) 40 mg DAILY PO Last administered on 03/10/17 09: 06; Admin Dose 40 MG; Start 02/26/17 at 09:00 Clopidogrel Bisulfate (plaVIX) 75 mg DAILY PO Last administered on 03/10/17 09: 05; Admin Dose 75 MG; Start 02/26/17 at 09:00 Diphenhydramine HCl (Benadryl) 25 mg TID PRN PO ITCHING Last administered on 09:12; Admin Dose 25 MG; Start 02/26/17 at 00:30 Fluoxetine HCl (Prozac) 10 mg DAILY PO Last administered on 03/10/17 09:07; Admin Dose 10 MG; Start 02/26/17 at 09:00 Montelukast Sodium (Singulair) 10 mg DAILY PO Last administered on 03/10/17 09: 07; Admin Dose 10 MG; Start 02/26/17 at 09:00 Nystatin 1 applic BID TOP Last administered on 03/10/17 09:08; Admin Dose 1 APPLIC; Start 02/26/17 at 09:00 Pantoprazole (Protonix Tab) 40 mg DAILY PO Last administered on 03/10/17 09:05 ; Admin Dose 40 MG; Start 02/26/17 at 09:00 Paroxetine HCl (Paxil) 10 mg DAILY PO Last administered on 03/10/17 09:07; Admin Dose 10 MG; Start 02/26/17 at 09:00 Ropinirole HCl (Requip) 0.25 mg DAILY PO Last administered on 03/10/17 09:05; Admin Dose 0.25 MG; Start 02/26/17 at 09:00 Valsartan (Diovan) 80 mg DAILY PO Last administered on 03/10/17 09:07; Admin Dose 80 MG; Start 02/26/17 at 09:00 Zolpidem Tartrate (Ambien) 5 mg QHS PRN PO INSOMNIA; Start 02/26/17 at 00:30 Miscellaneous Information 1 ea NOTE XX ; Start 02/26/17 at 01:00 Glucose (Glutose) 15 gm Q15M PRN PO DECREASED GLUCOSE; Start 02/26/17 at 01:00 Glucose (Glutose) 22.5 gm Q15M PRN PO DECREASED GLUCOSE; Start 02/26/17 at 01: 00 Dextrose (D50w Syringe) 25 ml Q15M PRN IV DECREASED GLUCOSE; Start 02/26/17 at 01:00 Dextrose (D50w Syringe) 50 ml Q15M PRN IV DECREASED GLUCOSE; Start 02/26/17 at 01:00 Glucagon (Glucagen) 1 mg Q15M PRN IM DECREASED GLUCOSE; Start 02/26/17 at 01:00 Glucose (Glutose) 15 gm Q15M PRN BUCCAL DECREASED GLUCOSE; Start 02/26/17 at 01 :00 Albuterol (Ventolin Hfa) 2 puff Q4H PRN INH SHORTNESS OF BREATH Last administered on 03/09/17 11:08; Admin Dose 2 PUFF; Start 02/26/17 at 01:00 Linagliptin (Tradjenta) 5 mg DAILY PO Last administered on 03/10/17 09:06; Admin Dose 5 MG; Start 02/27/17 at 09:00 Ondansetron HCl (Zofran Inj) 4 mg Q6H PRN IV NAUSEA AND/OR VOMITING; Start at 17:30 Magnesium Oxide (Mag-Ox 400) 400 mg DAILY PO Last administered on 03/10/17 09: 07; Admin Dose 400 MG; Start 02/28/17 at 19:30 Carvedilol (Coreg) 3.125 mg BID PO Last administered on 03/10/17 09:08; Admin Dose 3.125 MG; Start 03/01/17 at 21:00 Ibuprofen (Motrin) 600 mg Q6H PRN PO PAIN Last administered on 03/09/17 17:49; Admin Dose 600 MG; Start 03/01/17 at 15:30 Ferrous Sulfate (Ferrous Sulfate (Ec)) 325 mg TID PO Last administered on 09:06; Admin Dose 325 MG; Start 03/05/17 at 09:00 JACQUELINE HORNE Mar 10, 2017 10:23
--- NOTE | 2017-03-10 11:16 | PN ---
Date/Time of Note Date/Time of Note DATE: 03/10/17 TIME: 11:16 Assessment/Plan VTE Prophylaxis VTE Prophylaxis Intervention: other Lines/Catheters IV Catheter Type (from Nrsg): [place] Lock Urinary Cath still in place: Yes Reason Cath still needed: skin wounds contaminated by urine Assessment/Plan Chief Complaint/Hosp Course -CHF exacerbation, continue Lasix. Dr. Slater is following in cardiology consultation. -Coronary artery disease, continue Plavix. -Hypertension, continue Coreg. -Hyperlipidemia, continue statin. -COPD, continue DuoNeb. -Diabetes mellitus type 2, hemoglobin A1c is 8.3, continue metformin, Tradjenta , Lantus, and NovoLog per mild algorithm sliding scale. -Morbid obesity with BMI of 61. -Peripheral vascular disease, continue Plavix. Dr. Louise is following in vascular surgery consultation. Problems: Subjective 24 Hr Interval Summary Free Text/Dictation Patient has no complaints Exam/Review of Systems Vital Signs Vitals Vital Signs Date Time Temp Pulse Resp B/P Pulse Ox O2 Delivery O2 Flow Rate FiO2 03/10/17 08:46 98.3 70 18 126/58 97 03/10/17 08:02 21 03/10/17 06:00 Room Air 03/06/17 22:03 2.0 Intake and Output 03/09/17 03/09/17 03/10/17 15:00 23:00 07:00 Intake Total 1440 ml Output Total 3200 ml Balance -1760 ml Exam Constitutional: well developed Head: atraumatic, normocephalic Neck: supple Respiratory: clear to auscultation Cardiovascular: regular rate and rhythm Gastrointestinal: non-tender, soft Extremities: normal pulses Results Result Diagram: 03/08/17 1330 03/08/17 1330 Results 24 hrs Laboratory Tests Test 03/09/17 12:08 03/09/17 17:33 03/09/17 20:33 03/10/17 07:49 Bedside Glucose 134 137 143 118 Medications Medications Current Medications Enoxaparin Sodium (Lovenox) 40 mg DAILY SC Last administered on 03/07/17t 09:15 ; Admin Dose 40 MG; Start 02/26/17 at 09:00 Acetaminophen (Tylenol Tab) 650 mg Q6H PRN PO PAIN AND OR ELEVATED TEMP; Start 02/26/17 at 00:00 Potassium Chloride (Klor-Con 20) 20 meq DAILY PO Last administered on 03/10/17 09:05; Admin Dose 20 MEQ; Start 02/26/17 at 09:00 Insulin Glargine (Lantus) 10 unit DAILY@20 SC ; Start 02/26/17 at 20:00 Diagnostic Test (Pha) (Accu-Chek) 1 ea 02 XX ; Start 02/26/17 at 02:00 Atorvastatin Calcium (Lipitor) 40 mg DAILY PO Last administered on 03/10/17 09: 06; Admin Dose 40 MG; Start 02/26/17 at 09:00 Clopidogrel Bisulfate (plaVIX) 75 mg DAILY PO Last administered on 03/10/17 09: 05; Admin Dose 75 MG; Start 02/26/17 at 09:00 Diphenhydramine HCl (Benadryl) 25 mg TID PRN PO ITCHING Last administered on 09:12; Admin Dose 25 MG; Start 02/26/17 at 00:30 Fluoxetine HCl (Prozac) 10 mg DAILY PO Last administered on 03/10/17 09:07; Admin Dose 10 MG; Start 02/26/17 at 09:00 Montelukast Sodium (Singulair) 10 mg DAILY PO Last administered on 03/10/17 09: 07; Admin Dose 10 MG; Start 02/26/17 at 09:00 Nystatin 1 applic BID TOP Last administered on 03/10/17 09:08; Admin Dose 1 APPLIC; Start 02/26/17 at 09:00 Pantoprazole (Protonix Tab) 40 mg DAILY PO Last administered on 03/10/17 09:05 ; Admin Dose 40 MG; Start 02/26/17 at 09:00 Paroxetine HCl (Paxil) 10 mg DAILY PO Last administered on 03/10/17 09:07; Admin Dose 10 MG; Start 02/26/17 at 09:00 Ropinirole HCl (Requip) 0.25 mg DAILY PO Last administered on 03/10/17 09:05; Admin Dose 0.25 MG; Start 02/26/17 at 09:00 Valsartan (Diovan) 80 mg DAILY PO Last administered on 03/10/17 09:07; Admin Dose 80 MG; Start 02/26/17 at 09:00 Zolpidem Tartrate (Ambien) 5 mg QHS PRN PO INSOMNIA; Start 02/26/17 at 00:30 Miscellaneous Information 1 ea NOTE XX ; Start 02/26/17 at 01:00 Glucose (Glutose) 15 gm Q15M PRN PO DECREASED GLUCOSE; Start 02/26/17 at 01:00 Glucose (Glutose) 22.5 gm Q15M PRN PO DECREASED GLUCOSE; Start 02/26/17 at 01: 00 Dextrose (D50w Syringe) 25 ml Q15M PRN IV DECREASED GLUCOSE; Start 02/26/17 at 01:00 Dextrose (D50w Syringe) 50 ml Q15M PRN IV DECREASED GLUCOSE; Start 02/26/17 at 01:00 Glucagon (Glucagen) 1 mg Q15M PRN IM DECREASED GLUCOSE; Start 02/26/17 at 01:00 Glucose (Glutose) 15 gm Q15M PRN BUCCAL DECREASED GLUCOSE; Start 02/26/17 at 01 :00 Albuterol (Ventolin Hfa) 2 puff Q4H PRN INH SHORTNESS OF BREATH Last administered on 03/09/17 11:08; Admin Dose 2 PUFF; Start 02/26/17 at 01:00 Linagliptin (Tradjenta) 5 mg DAILY PO Last administered on 03/10/17 09:06; Admin Dose 5 MG; Start 02/27/17 at 09:00 Ondansetron HCl (Zofran Inj) 4 mg Q6H PRN IV NAUSEA AND/OR VOMITING; Start at 17:30 Magnesium Oxide (Mag-Ox 400) 400 mg DAILY PO Last administered on 03/10/17 09: 07; Admin Dose 400 MG; Start 02/28/17 at 19:30 Carvedilol (Coreg) 3.125 mg BID PO Last administered on 03/10/17 09:08; Admin Dose 3.125 MG; Start 03/01/17 at 21:00 Ibuprofen (Motrin) 600 mg Q6H PRN PO PAIN Last administered on 03/09/17 17:49; Admin Dose 600 MG; Start 03/01/17 at 15:30 Ferrous Sulfate (Ferrous Sulfate (Ec)) 325 mg TID PO Last administered on 09:06; Admin Dose 325 MG; Start 03/05/17 at 09:00 CHOLO KEEN 9, 2017 11:16
[2017-03-10 17:18] VITALS: BP 137/70; PULSE 83
[2017-03-10] MEDS: INSULIN GLARGINE [LANtus] 3 ML PEN SC SCH (19:57)
[2017-03-10 20:00] VITALS: BP 149/65; RESP 20
[2017-03-10] MEDS: IBUPROFEN 200 MG TAB PO PRN (20:18)
--- NOTE | 2017-03-11 00:04 | CONS ---
Date/Time of Note Date/Time of Note DATE: 03/11/17 TIME: 00:03 Assessment/Plan Assessment/Plan Chief Complaint/Hosp Course MICROCYTOSIS MONITOR IRON DEFICIENCY PO IRON HX ANEMIA MONITOR CLOSELY LOOKS COMPENSATED AT PRESENT LEUKOPENIA RESOLVED MONITOR CHF exacerbation, continue Lasix. cardiology consultation. Coronary artery disease, continue Plavix. Hypertension Hyperlipidemia, continue statin. COPD Diabetes mellitus type 2, will check hemoglobin A1c, continue Lantus and NovoLog per mild algorithm sliding scale. Morbid obesity with BMI of 61. Peripheral vascular disease Problems: Consultation Date/Type/Reason Admit Date/Time Feb 25, 2017 at 21:45 Type of Consultation: hemeon Referring Provider: MARILU FRIED MD 24 HR Interval Summary Free Text/Dictation ALL NOTED Exam/Review of Systems Vital Signs Vitals Vital Signs Date Time Temp Pulse Resp B/P Pulse Ox O2 Delivery O2 Flow Rate FiO2 03/10/17 20:00 98.2 94 20 149/65 96 03/10/17 17:06 21 03/10/17 06:00 Room Air Intake and Output 03/10/17 03/10/17 03/11/17 15:00 23:00 07:00 Intake Total 1020 ml 600 ml Output Total 1400 ml 3000 ml Balance -380 ml -2400 ml Exam Const: Well-developed, well-nourished Head: Atraumatic, normocephalic Eyes: Normal Conjunctiva, PERRLA, EOMI, normal sclera, no nystagmus ENT: Normal External Ears, Nose and Mouth, moist mucus membranes. Neck: Full range of motion. No meningismus, no lymphadenopathy. Resp: Clear to auscultation bilaterally, no wheezing, rhonchi, rales Cardio: Regular rate and rhythm, no murmurs, S1 S2 present positive gallop Abd: Soft, non tender x 4, massive pannus with edema and hardness normal bowel sounds, no guarding or rebound, no pulsitile abdominal masses or bruits Skin: No petechiae or rashes, no ecchymosis , no maculopapular rash Back: No midline or flank tenderness Ext: No cyanosis severe edema to both legs and edema to her pannus, FROM x 4, normal inspection, neurovascularly intact x 4 Neur: Awake and alert, STR 5/5 x 4, sensation intact x 4, no focal findings, cerebellum intact Psych: Normal Mood and Affect Results Result Diagram: 03/08/17 1330 03/08/17 1330 Results 24 hrs Laboratory Tests Test 03/10/17 07:49 03/10/17 12:03 03/10/17 17:11 03/10/17 20:20 Bedside Glucose 118 117 126 134 Medications Medications Current Medications Enoxaparin Sodium (Lovenox) 40 mg DAILY SC Last administered on 03/07/17 09:15 ; Admin Dose 40 MG; Start 02/26/17 at 09:00 Acetaminophen (Tylenol Tab) 650 mg Q6H PRN PO PAIN AND OR ELEVATED TEMP; Start 02/26/17 at 00:00 Potassium Chloride (Klor-Con 20) 20 meq DAILY PO Last administered on 03/10/17 09:05; Admin Dose 20 MEQ; Start 02/26/17 at 09:00 Insulin Glargine (Lantus) 10 unit DAILY@20 SC ; Start 02/26/17 at 20:00 Diagnostic Test (Pha) (Accu-Chek) 1 ea 02 XX ; Start 02/26/17 at 02:00 Atorvastatin Calcium (Lipitor) 40 mg DAILY PO Last administered on 03/10/17 09: 06; Admin Dose 40 MG; Start 02/26/17 at 09:00 Clopidogrel Bisulfate (plaVIX) 75 mg DAILY PO Last administered on 03/10/17 09: 05; Admin Dose 75 MG; Start 02/26/17 at 09:00 Diphenhydramine HCl (Benadryl) 25 mg TID PRN PO ITCHING Last administered on 09:12; Admin Dose 25 MG; Start 02/26/17 at 00:30 Fluoxetine HCl (Prozac) 10 mg DAILY PO Last administered on 03/10/17 09:07; Admin Dose 10 MG; Start 02/26/17 at 09:00 Montelukast Sodium (Singulair) 10 mg DAILY PO Last administered on 03/10/17 09: 07; Admin Dose 10 MG; Start 02/26/17 at 09:00 Nystatin 1 applic BID TOP Last administered on 03/10/17 20:24; Admin Dose 1 APPLIC; Start 02/26/17 at 09:00 Pantoprazole (Protonix Tab) 40 mg DAILY PO Last administered on 03/10/17 09:05 ; Admin Dose 40 MG; Start 02/26/17 at 09:00 Paroxetine HCl (Paxil) 10 mg DAILY PO Last administered on 03/10/17 09:07; Admin Dose 10 MG; Start 02/26/17 at 09:00 Ropinirole HCl (Requip) 0.25 mg DAILY PO Last administered on 03/10/17 09:05; Admin Dose 0.25 MG; Start 02/26/17 at 09:00 Valsartan (Diovan) 80 mg DAILY PO Last administered on 03/10/17 09:07; Admin Dose 80 MG; Start 02/26/17 at 09:00 Zolpidem Tartrate (Ambien) 5 mg QHS PRN PO INSOMNIA; Start 02/26/17 at 00:30 Miscellaneous Information 1 ea NOTE XX ; Start 02/26/17 at 01:00 Glucose (Glutose) 15 gm Q15M PRN PO DECREASED GLUCOSE; Start 02/26/17 at 01:00 Glucose (Glutose) 22.5 gm Q15M PRN PO DECREASED GLUCOSE; Start 02/26/17 at 01: 00 Dextrose (D50w Syringe) 25 ml Q15M PRN IV DECREASED GLUCOSE; Start 02/26/17 at 01:00 Dextrose (D50w Syringe) 50 ml Q15M PRN IV DECREASED GLUCOSE; Start 02/26/17 at 01:00 Glucagon (Glucagen) 1 mg Q15M PRN IM DECREASED GLUCOSE; Start 02/26/17 at 01:00 Glucose (Glutose) 15 gm Q15M PRN BUCCAL DECREASED GLUCOSE; Start 02/26/17 at 01 :00 Albuterol (Ventolin Hfa) 2 puff Q4H PRN INH SHORTNESS OF BREATH Last administered on 03/09/17 11:08; Admin Dose 2 PUFF; Start 02/26/17 at 01:00 Linagliptin (Tradjenta) 5 mg DAILY PO Last administered on 03/10/17 09:06; Admin Dose 5 MG; Start 02/27/17 at 09:00 Ondansetron HCl (Zofran Inj) 4 mg Q6H PRN IV NAUSEA AND/OR VOMITING; Start at 17:30 Magnesium Oxide (Mag-Ox 400) 400 mg DAILY PO Last administered on 03/10/17 09: 07; Admin Dose 400 MG; Start 02/28/17 at 19:30 Carvedilol (Coreg) 3.125 mg BID PO Last administered on 03/10/17 20:19; Admin Dose 3.125 MG; Start 03/01/17 at 21:00 Ibuprofen (Motrin) 600 mg Q6H PRN PO PAIN Last administered on 03/10/17 20:18; Admin Dose 600 MG; Start 03/01/17 at 15:30 Ferrous Sulfate (Ferrous Sulfate (Ec)) 325 mg TID PO Last administered on 20:18; Admin Dose 325 MG; Start 03/05/17 at 09:00 BLUE JIMÉNEZ MD Mar 11, 2017 00:04
[2017-03-11] MEDS: ACCU-CHEK XX SCH (01:30)
[2017-03-11 02:00] VITALS: BP 128/57; RESP 20
[2017-03-11] MEDS: FUROSEMIDE 40 MG TAB PO SCH ×3 (06:00→17:11)
[2017-03-11 07:33] VITALS: BP 131/82; RESP 20
[2017-03-11] MEDS: INSULIN ASPART [NOVOLOG] 3 ML PEN SC SCH ×4 (08:15→20:42)
[2017-03-11] MEDS: PANTOPRAZOLE (EC) 40 MG TAB PO SCH (08:35)
[2017-03-11] MEDS: FERROUS SULFATE (EC) 325 MG TAB PO SCH ×3 (08:35→20:42)
[2017-03-11] MEDS: MAGNESIUM OXIDE 400 MG TAB PO SCH (08:35)
[2017-03-11] MEDS: ROPINIROLE 0.25 MG TAB PO SCH (08:36)
[2017-03-11] MEDS: LINAGLIPTIN 5 MG TABLET PO SCH (08:36)
[2017-03-11] MEDS: VALSARTAN 80 MG TAB PO SCH (08:36)
[2017-03-11] MEDS: MONTELUKAST 10 MG TAB PO SCH (08:36)
[2017-03-11] MEDS: metFORMIN 500 MG TAB PO SCH ×2 (08:36→17:09)
[2017-03-11] MEDS: CLOPIDOGREL 75 MG TAB PO SCH (08:36)
[2017-03-11] MEDS: FLUOXETINE 10 MG CAP PO SCH (08:36)
[2017-03-11] MEDS: ATORVASTATIN 40 MG TAB PO SCH (08:37)
[2017-03-11] MEDS: PAROXETINE 10 MG TAB PO SCH (08:37)
[2017-03-11] MEDS: NYSTATIN 15 GM POWDER BTL TOP SCH ×2 (08:38→20:44)
[2017-03-11] MEDS: ENOXAPARIN 40 MG/0.4 ML SYG SC SCH (08:38)
[2017-03-11] MEDS: POTASSIUM CHLORIDE (SR) 20 MEQ TAB PO SCH (08:45)
[2017-03-11] MEDS: ALBUTEROL/IPRATROPIUM (NEB) 3 ML AMP HHN SCH ×3 (09:37→17:00)
--- NOTE | 2017-03-11 11:08 | CONS ---
Date/Time of Note Date/Time of Note DATE: 03/11/17 TIME: 11:06 Assessment/Plan Assessment/Plan Chief Complaint/Hosp Course IMP: 1.CHF-systolic acute on chronic. EF 30-35% by echo this admit. Improving volume status 2.HTN 3.HL 4.LE wound/PAD 5.LE edema 6.cad 7. DM 8. Anemia Recc: -On med-eurg -Continue statin -Continue lasix diuresis po as patient will comply at current dose and follow volume status closely -Continue diovan/coreg -Continue plavix for now -Ongoing heme eval Problems: Consultation Date/Type/Reason Admit Date/Time Feb 25, 2017 at 21:45 Initial Consult Date 02/27/17 Type of Consultation: cardiology Reason for Consultation CHF Referring Provider: MARILU FRIED MD Exam/Review of Systems Vital Signs Vitals Vital Signs Date Time Temp Pulse Resp B/P Pulse Ox O2 Delivery O2 Flow Rate FiO2 03/11/17 09:38 76 20 96 21 03/11/17 07:33 98.8 131/82 03/10/17 06:00 Room Air Intake and Output 03/10/17 03/10/17 03/11/17 15:00 23:00 07:00 Intake Total 1020 ml 600 ml 720 ml Output Total 1400 ml 3000 ml 950 ml Balance -380 ml -2400 ml -230 ml Exam Review of Systems: CONSTITUTIONAL: No fevers, chills. PULMONARY: mild sob CARDIOVASCULAR: No chest pain/palpitations GASTROINTESTINAL: No nausea/vomiting. GENITOURINARY: No hematuria/dysuria. MUSCULOSKELETAL: No myagias/arthalgias. PSYCHIATRIC: The patient denies depression. NEUROLOGIC: No weakness Constitutional: alert Psych: no complaints Head: normocephalic ENMT: mucosa pink and moist Neck: jvd (9 cm water), supple Respiratory: diminished breath sounds (at bases/B) Cardiovascular: regular rate and rhythm Gastrointestinal: non-tender, soft Musculoskeletal: muscle tone (normal) Extremities: pitting pedal edema (BIlateral) Neurological: other (No focal deficits) Results Result Diagram: 03/08/17 1330 03/08/17 1330 Results 24 hrs Laboratory Tests Test 03/10/17 12:03 03/10/17 17:11 03/10/17 20:20 03/11/17 08:07 Bedside Glucose 117 126 134 130 Medications Medications Current Medications Enoxaparin Sodium (Lovenox) 40 mg DAILY SC Last administered on 03/07/17 09:15 ; Admin Dose 40 MG; Start 02/26/17 at 09:00 Acetaminophen (Tylenol Tab) 650 mg Q6H PRN PO PAIN AND OR ELEVATED TEMP; Start 02/26/17 at 00:00 Potassium Chloride (Klor-Con 20) 20 meq DAILY PO Last administered on 08:45; Admin Dose 20 MEQ; Start 02/26/17 at 09:00 Insulin Glargine (Lantus) 10 unit DAILY@20 SC ; Start 02/26/17 at 20:00 Diagnostic Test (Pha) (Accu-Chek) 1 ea 02 XX ; Start 02/26/17 at 02:00 Atorvastatin Calcium (Lipitor) 40 mg DAILY PO Last administered on 03/11/17 08 :37; Admin Dose 40 MG; Start 02/26/17 at 09:00 Clopidogrel Bisulfate (plaVIX) 75 mg DAILY PO Last administered on 03/11/17 08 :36; Admin Dose 75 MG; Start 02/26/17 at 09:00 Diphenhydramine HCl (Benadryl) 25 mg TID PRN PO ITCHING Last administered on 09:12; Admin Dose 25 MG; Start 02/26/17 at 00:30 Fluoxetine HCl (Prozac) 10 mg DAILY PO Last administered on 03/11/17 08:36; Admin Dose 10 MG; Start 02/26/17 at 09:00 Montelukast Sodium (Singulair) 10 mg DAILY PO Last administered on 03/11/17 08 :36; Admin Dose 10 MG; Start 02/26/17 at 09:00 Nystatin 1 applic BID TOP Last administered on 03/11/17 08:38; Admin Dose 1 APPLIC; Start 02/26/17 at 09:00 Pantoprazole (Protonix Tab) 40 mg DAILY PO Last administered on 03/11/17 08:35 ; Admin Dose 40 MG; Start 02/26/17 at 09:00 Paroxetine HCl (Paxil) 10 mg DAILY PO Last administered on 03/11/17 08:37; Admin Dose 10 MG; Start 02/26/17 at 09:00 Ropinirole HCl (Requip) 0.25 mg DAILY PO Last administered on 03/11/17 08:36; Admin Dose 0.25 MG; Start 02/26/17 at 09:00 Valsartan (Diovan) 80 mg DAILY PO Last administered on 03/11/17 08:36; Admin Dose 80 MG; Start 02/26/17 at 09:00 Zolpidem Tartrate (Ambien) 5 mg QHS PRN PO INSOMNIA; Start 02/26/17 at 00:30 Miscellaneous Information 1 ea NOTE XX ; Start 02/26/17 at 01:00 Glucose (Glutose) 15 gm Q15M PRN PO DECREASED GLUCOSE; Start 02/26/17 at 01:00 Glucose (Glutose) 22.5 gm Q15M PRN PO DECREASED GLUCOSE; Start 02/26/17 at 01: 00 Dextrose (D50w Syringe) 25 ml Q15M PRN IV DECREASED GLUCOSE; Start 02/26/17 at 01:00 Dextrose (D50w Syringe) 50 ml Q15M PRN IV DECREASED GLUCOSE; Start 02/26/17 at 01:00 Glucagon (Glucagen) 1 mg Q15M PRN IM DECREASED GLUCOSE; Start 02/26/17 at 01:00 Glucose (Glutose) 15 gm Q15M PRN BUCCAL DECREASED GLUCOSE; Start 02/26/17 at 01 :00 Albuterol (Ventolin Hfa) 2 puff Q4H PRN INH SHORTNESS OF BREATH Last administered on 03/09/17 11:08; Admin Dose 2 PUFF; Start 02/26/17 at 01:00 Linagliptin (Tradjenta) 5 mg DAILY PO Last administered on 03/11/17 08:36; Admin Dose 5 MG; Start 02/27/17 at 09:00 Ondansetron HCl (Zofran Inj) 4 mg Q6H PRN IV NAUSEA AND/OR VOMITING; Start at 17:30 Magnesium Oxide (Mag-Ox 400) 400 mg DAILY PO Last administered on 03/11/17 08: 35; Admin Dose 400 MG; Start 02/28/17 at 19:30 Carvedilol (Coreg) 3.125 mg BID PO Last administered on 03/11/17 08:35; Admin Dose 3.125 MG; Start 03/01/17 at 21:00 Ibuprofen (Motrin) 600 mg Q6H PRN PO PAIN Last administered on 03/10/17 20:18; Admin Dose 600 MG; Start 03/01/17 at 15:30 Ferrous Sulfate (Ferrous Sulfate (Ec)) 325 mg TID PO Last administered on 08:35; Admin Dose 325 MG; Start 03/05/17 at 09:00 JACQUELINE HORNE Mar 11, 2017 11:08
[2017-03-11] MEDS: IBUPROFEN 200 MG TAB PO PRN (17:08)
[2017-03-11 17:11] VITALS: BP 145/73; PULSE 72
--- NOTE | 2017-03-11 18:32 | PN ---
Date/Time of Note Date/Time of Note DATE: 03/11/17 TIME: 18:30 Assessment/Plan VTE Prophylaxis VTE Prophylaxis Intervention: SCD's Lines/Catheters [facility] Urinary Cath still in place: Yes Reason Cath still needed: urinary retention Assessment/Plan Chief Complaint/Hosp Course Patient denies any chest pain, denies shortness of breath. Assessment/Plan -CHF exacerbation, continue Lasix. Dr. Slater is following in cardiology consultation. -Coronary artery disease, continue Plavix. -Hypertension, continue Coreg. -Hyperlipidemia, continue statin. -COPD, continue DuoNeb. -Diabetes mellitus type 2, hemoglobin A1c is 8.3, continue metformin, Tradjenta , Lantus, and NovoLog per mild algorithm sliding scale. -Morbid obesity with BMI of 61. -Peripheral vascular disease, continue Plavix. Dr. Louise is following in vascular surgery consultation. Further recommendations based on clinical course. Plan of care discussed with Dr. Randall. Problems: Exam/Review of Systems Vital Signs Vitals Vital Signs Date Time Temp Pulse Resp B/P Pulse Ox O2 Delivery O2 Flow Rate FiO2 03/11/17 17:11 72 145/73 03/11/17 14:38 20 94 21 03/11/17 07:33 98.8 03/10/17 06:00 Room Air Intake and Output 03/10/17 03/10/17 03/11/17 15:00 23:00 07:00 Intake Total 1020 ml 600 ml 720 ml Output Total 1400 ml 3000 ml 950 ml Balance -380 ml -2400 ml -230 ml Exam Constitutional: alert, oriented Head: atraumatic, normocephalic Neck: supple Respiratory: diminished breath sounds Cardiovascular: nl pulses Gastrointestinal: non-tender, soft Extremities: edema, other Neurological: nl mental status Skin: nl turgor Results Result Diagram: 03/08/17 1330 03/08/17 1330 Results 24 hrs Laboratory Tests Test 03/10/17 20:20 03/11/17 08:07 03/11/17 11:33 03/11/17 17:16 Bedside Glucose 134 130 138 127 Medications Medications Current Medications Enoxaparin Sodium (Lovenox) 40 mg DAILY SC Last administered on 03/07/17t 09:15 ; Admin Dose 40 MG; Start 02/26/17 at 09:00 Acetaminophen (Tylenol Tab) 650 mg Q6H PRN PO PAIN AND OR ELEVATED TEMP; Start 02/26/17 at 00:00 Potassium Chloride (Klor-Con 20) 20 meq DAILY PO Last administered on 08:45; Admin Dose 20 MEQ; Start 02/26/17 at 09:00 Insulin Glargine (Lantus) 10 unit DAILY@20 SC ; Start 02/26/17 at 20:00 Diagnostic Test (Pha) (Accu-Chek) 1 ea 02 XX ; Start 02/26/17 at 02:00 Atorvastatin Calcium (Lipitor) 40 mg DAILY PO Last administered on 03/11/17 08 :37; Admin Dose 40 MG; Start 02/26/17 at 09:00 Clopidogrel Bisulfate (plaVIX) 75 mg DAILY PO Last administered on 03/11/17 08 :36; Admin Dose 75 MG; Start 02/26/17 at 09:00 Diphenhydramine HCl (Benadryl) 25 mg TID PRN PO ITCHING Last administered on 09:12; Admin Dose 25 MG; Start 02/26/17 at 00:30 Fluoxetine HCl (Prozac) 10 mg DAILY PO Last administered on 03/11/17 08:36; Admin Dose 10 MG; Start 02/26/17 at 09:00 Montelukast Sodium (Singulair) 10 mg DAILY PO Last administered on 03/11/17 08 :36; Admin Dose 10 MG; Start 02/26/17 at 09:00 Nystatin 1 applic BID TOP Last administered on 03/11/17 08:38; Admin Dose 1 APPLIC; Start 02/26/17 at 09:00 Pantoprazole (Protonix Tab) 40 mg DAILY PO Last administered on 03/11/17 08:35 ; Admin Dose 40 MG; Start 02/26/17 at 09:00 Paroxetine HCl (Paxil) 10 mg DAILY PO Last administered on 03/11/17 08:37; Admin Dose 10 MG; Start 02/26/17 at 09:00 Ropinirole HCl (Requip) 0.25 mg DAILY PO Last administered on 03/11/17 08:36; Admin Dose 0.25 MG; Start 02/26/17 at 09:00 Valsartan (Diovan) 80 mg DAILY PO Last administered on 03/11/17 08:36; Admin Dose 80 MG; Start 02/26/17 at 09:00 Zolpidem Tartrate (Ambien) 5 mg QHS PRN PO INSOMNIA; Start 02/26/17 at 00:30 Miscellaneous Information 1 ea NOTE XX ; Start 02/26/17 at 01:00 Glucose (Glutose) 15 gm Q15M PRN PO DECREASED GLUCOSE; Start 02/26/17 at 01:00 Glucose (Glutose) 22.5 gm Q15M PRN PO DECREASED GLUCOSE; Start 02/26/17 at 01: 00 Dextrose (D50w Syringe) 25 ml Q15M PRN IV DECREASED GLUCOSE; Start 02/26/17 at 01:00 Dextrose (D50w Syringe) 50 ml Q15M PRN IV DECREASED GLUCOSE; Start 02/26/17 at 01:00 Glucagon (Glucagen) 1 mg Q15M PRN IM DECREASED GLUCOSE; Start 02/26/17 at 01:00 Glucose (Glutose) 15 gm Q15M PRN BUCCAL DECREASED GLUCOSE; Start 02/26/17 at 01 :00 Albuterol (Ventolin Hfa) 2 puff Q4H PRN INH SHORTNESS OF BREATH Last administered on 03/09/17 11:08; Admin Dose 2 PUFF; Start 02/26/17 at 01:00 Linagliptin (Tradjenta) 5 mg DAILY PO Last administered on 03/11/17 08:36; Admin Dose 5 MG; Start 02/27/17 at 09:00 Ondansetron HCl (Zofran Inj) 4 mg Q6H PRN IV NAUSEA AND/OR VOMITING; Start at 17:30 Magnesium Oxide (Mag-Ox 400) 400 mg DAILY PO Last administered on 03/11/17 08: 35; Admin Dose 400 MG; Start 02/28/17 at 19:30 Carvedilol (Coreg) 3.125 mg BID PO Last administered on 03/11/17 08:35; Admin Dose 3.125 MG; Start 03/01/17 at 21:00 Ibuprofen (Motrin) 600 mg Q6H PRN PO PAIN Last administered on 03/11/17 17:08 ; Admin Dose 600 MG; Start 03/01/17 at 15:30 Ferrous Sulfate (Ferrous Sulfate (Ec)) 325 mg TID PO Last administered on t 13:23; Admin Dose 325 MG; Start 03/05/17 at 09:00 ADENIKE DE GUZMAN Mar 11, 2017 18:32
[2017-03-11] MEDS: INSULIN GLARGINE [LANtus] 3 ML PEN SC SCH (20:00)
[2017-03-11 20:44] VITALS: BP 176/78; RESP 20
--- NOTE | 2017-03-11 23:29 | CONS ---
Date/Time of Note Date/Time of Note DATE: 03/11/17 TIME: 23:28 Assessment/Plan Assessment/Plan Chief Complaint/Hosp Course MICROCYTOSIS MONITOR IRON DEFICIENCY PO IRON HX ANEMIA MONITOR CLOSELY LOOKS COMPENSATED AT PRESENT LEUKOPENIA RESOLVED MONITOR CHF exacerbation, continue Lasix. cardiology consultation. Coronary artery disease, continue Plavix. Hypertension Hyperlipidemia, continue statin. COPD Diabetes mellitus type 2, will check hemoglobin A1c, continue Lantus and NovoLog per mild algorithm sliding scale. Morbid obesity with BMI of 61. Peripheral vascular disease Problems: Consultation Date/Type/Reason Admit Date/Time Feb 25, 2017 at 21:45 Type of Consultation: HEMEON Referring Provider: MARILU FRIED MD 24 HR Interval Summary Free Text/Dictation ALL NOTED Exam/Review of Systems Vital Signs Vitals Vital Signs Date Time Temp Pulse Resp B/P Pulse Ox O2 Delivery O2 Flow Rate FiO2 03/11/17 20:44 98.2 20 20 176/78 98 03/11/17 14:38 21 03/10/17 06:00 Room Air Intake and Output 03/10/17 03/10/17 03/11/17 15:00 23:00 07:00 Intake Total 1020 ml 600 ml 720 ml Output Total 1400 ml 3000 ml 950 ml Balance -380 ml -2400 ml -230 ml Exam Const: Well-developed, well-nourished Head: Atraumatic, normocephalic Eyes: Normal Conjunctiva, PERRLA, EOMI, normal sclera, no nystagmus ENT: Normal External Ears, Nose and Mouth, moist mucus membranes. Neck: Full range of motion. No meningismus, no lymphadenopathy. Resp: Clear to auscultation bilaterally, no wheezing, rhonchi, rales Cardio: Regular rate and rhythm, no murmurs, S1 S2 present positive gallop Abd: Soft, non tender x 4, massive pannus with edema and hardness normal bowel sounds, no guarding or rebound, no pulsitile abdominal masses or bruits Skin: No petechiae or rashes, no ecchymosis , no maculopapular rash Back: No midline or flank tenderness Ext: No cyanosis severe edema to both legs and edema to her pannus, FROM x 4, normal inspection, neurovascularly intact x 4 Neur: Awake and alert, STR 5/5 x 4, sensation intact x 4, no focal findings, cerebellum intact Psych: Normal Mood and Affect Results Result Diagram: 03/08/17 1330 03/08/17 1330 Results 24 hrs Laboratory Tests Test 03/11/17 08:07 03/11/17 11:33 03/11/17 17:16 03/11/17 20:40 Bedside Glucose 130 138 127 130 Medications Medications Current Medications Enoxaparin Sodium (Lovenox) 40 mg DAILY SC Last administered on 03/07/17 09:15 ; Admin Dose 40 MG; Start 02/26/17 at 09:00 Acetaminophen (Tylenol Tab) 650 mg Q6H PRN PO PAIN AND OR ELEVATED TEMP; Start 02/26/17 at 00:00 Potassium Chloride (Klor-Con 20) 20 meq DAILY PO Last administered on 08:45; Admin Dose 20 MEQ; Start 02/26/17 at 09:00 Insulin Glargine (Lantus) 10 unit DAILY@20 SC ; Start 02/26/17 at 20:00 Diagnostic Test (Pha) (Accu-Chek) 1 ea 02 XX ; Start 02/26/17 at 02:00 Atorvastatin Calcium (Lipitor) 40 mg DAILY PO Last administered on 03/11/17 08 :37; Admin Dose 40 MG; Start 02/26/17 at 09:00 Clopidogrel Bisulfate (plaVIX) 75 mg DAILY PO Last administered on 03/11/17 08 :36; Admin Dose 75 MG; Start 02/26/17 at 09:00 Diphenhydramine HCl (Benadryl) 25 mg TID PRN PO ITCHING Last administered on 09:12; Admin Dose 25 MG; Start 02/26/17 at 00:30 Fluoxetine HCl (Prozac) 10 mg DAILY PO Last administered on 03/11/17 08:36; Admin Dose 10 MG; Start 02/26/17 at 09:00 Montelukast Sodium (Singulair) 10 mg DAILY PO Last administered on 03/11/17 08 :36; Admin Dose 10 MG; Start 02/26/17 at 09:00 Nystatin 1 applic BID TOP Last administered on 03/11/17 20:44; Admin Dose 1 APPLIC; Start 02/26/17 at 09:00 Pantoprazole (Protonix Tab) 40 mg DAILY PO Last administered on 03/11/17 08:35 ; Admin Dose 40 MG; Start 02/26/17 at 09:00 Paroxetine HCl (Paxil) 10 mg DAILY PO Last administered on 03/11/17 08:37; Admin Dose 10 MG; Start 02/26/17 at 09:00 Ropinirole HCl (Requip) 0.25 mg DAILY PO Last administered on 03/11/17 08:36; Admin Dose 0.25 MG; Start 02/26/17 at 09:00 Valsartan (Diovan) 80 mg DAILY PO Last administered on 03/11/17 08:36; Admin Dose 80 MG; Start 02/26/17 at 09:00 Zolpidem Tartrate (Ambien) 5 mg QHS PRN PO INSOMNIA; Start 02/26/17 at 00:30 Miscellaneous Information 1 ea NOTE XX ; Start 02/26/17 at 01:00 Glucose (Glutose) 15 gm Q15M PRN PO DECREASED GLUCOSE; Start 02/26/17 at 01:00 Glucose (Glutose) 22.5 gm Q15M PRN PO DECREASED GLUCOSE; Start 02/26/17 at 01: 00 Dextrose (D50w Syringe) 25 ml Q15M PRN IV DECREASED GLUCOSE; Start 02/26/17 at 01:00 Dextrose (D50w Syringe) 50 ml Q15M PRN IV DECREASED GLUCOSE; Start 02/26/17 at 01:00 Glucagon (Glucagen) 1 mg Q15M PRN IM DECREASED GLUCOSE; Start 02/26/17 at 01:00 Glucose (Glutose) 15 gm Q15M PRN BUCCAL DECREASED GLUCOSE; Start 02/26/17 at 01 :00 Albuterol (Ventolin Hfa) 2 puff Q4H PRN INH SHORTNESS OF BREATH Last administered on 03/09/17 11:08; Admin Dose 2 PUFF; Start 02/26/17 at 01:00 Linagliptin (Tradjenta) 5 mg DAILY PO Last administered on 03/11/17 08:36; Admin Dose 5 MG; Start 02/27/17 at 09:00 Ondansetron HCl (Zofran Inj) 4 mg Q6H PRN IV NAUSEA AND/OR VOMITING; Start at 17:30 Magnesium Oxide (Mag-Ox 400) 400 mg DAILY PO Last administered on 03/11/17 08: 35; Admin Dose 400 MG; Start 02/28/17 at 19:30 Carvedilol (Coreg) 3.125 mg BID PO Last administered on 03/11/17 20:42; Admin Dose 3.125 MG; Start 03/01/17 at 21:00 Ibuprofen (Motrin) 600 mg Q6H PRN PO PAIN Last administered on 03/11/17 17:08 ; Admin Dose 600 MG; Start 03/01/17 at 15:30 Ferrous Sulfate (Ferrous Sulfate (Ec)) 325 mg TID PO Last administered on 20:42; Admin Dose 325 MG; Start 03/05/17 at 09:00 BLEU JIMÉNEZ MD Mar 11, 2017 23:28
[2017-03-12] MEDS: IBUPROFEN 200 MG TAB PO PRN ×3 (00:30→21:46)
[2017-03-12] MEDS: ACCU-CHEK XX SCH (02:00)
[2017-03-12 02:31] VITALS: BP 156/72
[2017-03-12 02:34] VITALS: BP 153/76; RESP 20
[2017-03-12] MEDS: FUROSEMIDE 40 MG TAB PO SCH ×3 (05:52→17:43)
[2017-03-12 07:24] VITALS: BP 149/76; RESP 20
[2017-03-12] MEDS: INSULIN ASPART [NOVOLOG] 3 ML PEN SC SCH ×4 (08:15→21:00)
[2017-03-12] MEDS: ALBUTEROL/IPRATROPIUM (NEB) 3 ML AMP HHN SCH ×3 (08:52→17:07)
[2017-03-12] MEDS: ENOXAPARIN 40 MG/0.4 ML SYG SC SCH (09:00)
[2017-03-12] MEDS: LINAGLIPTIN 5 MG TABLET PO SCH (09:01)
[2017-03-12] MEDS: FERROUS SULFATE (EC) 325 MG TAB PO SCH ×3 (09:01→21:44)
[2017-03-12] MEDS: ATORVASTATIN 40 MG TAB PO SCH (09:02)
[2017-03-12] MEDS: PANTOPRAZOLE (EC) 40 MG TAB PO SCH (09:02)
[2017-03-12] MEDS: ROPINIROLE 0.25 MG TAB PO SCH (09:06)
[2017-03-12] MEDS: POTASSIUM CHLORIDE (SR) 20 MEQ TAB PO SCH (09:07)
[2017-03-12] MEDS: MONTELUKAST 10 MG TAB PO SCH (09:07)
[2017-03-12] MEDS: MAGNESIUM OXIDE 400 MG TAB PO SCH (09:09)
[2017-03-12] MEDS: metFORMIN 500 MG TAB PO SCH ×2 (09:09→17:42)
[2017-03-12] MEDS: FLUOXETINE 10 MG CAP PO SCH (09:10)
[2017-03-12] MEDS: CLOPIDOGREL 75 MG TAB PO SCH (09:10)
[2017-03-12] MEDS: PAROXETINE 10 MG TAB PO SCH (09:11)
[2017-03-12] MEDS: VALSARTAN 80 MG TAB PO SCH (09:11)
[2017-03-12] MEDS: NYSTATIN 15 GM POWDER BTL TOP SCH ×2 (09:34→21:44)
--- NOTE | 2017-03-12 10:27 | CONS ---
Date/Time of Note Date/Time of Note DATE: 03/12/17 TIME: 10:26 Assessment/Plan Assessment/Plan Chief Complaint/Hosp Course LEUKOPENIA WILL RECHECK COUNT IN AM PT IS REFUSING BLOOD WORK MICROCYTOSIS MONITOR IRON DEFICIENCY PO IRON HX ANEMIA MONITOR CLOSELY LOOKS COMPENSATED AT PRESENT CHF exacerbation, continue Lasix. cardiology consultation. Coronary artery disease, continue Plavix. Hypertension Hyperlipidemia, continue statin. COPD Diabetes mellitus type 2, will check hemoglobin A1c, continue Lantus and NovoLog per mild algorithm sliding scale. Morbid obesity with BMI of 61. Peripheral vascular disease Problems: Consultation Date/Type/Reason Admit Date/Time Feb 25, 2017 at 21:45 [facility] Referring Provider: MARILU FRIED MD 24 HR Interval Summary Free Text/Dictation ALL NOTED Exam/Review of Systems Vital Signs Vitals Vital Signs Date Time Temp Pulse Resp B/P Pulse Ox O2 Delivery O2 Flow Rate FiO2 03/12/17 08:54 20 98 21 03/12/17 07:24 98.1 79 149/76 03/10/17 06:00 Room Air Intake and Output 03/11/17 03/11/17 03/12/17 15:00 23:00 07:00 Intake Total 200 ml 720 ml Output Total 2300 ml Balance 200 ml -1580 ml Exam Const: Well-developed, well-nourished Head: Atraumatic, normocephalic Eyes: Normal Conjunctiva, PERRLA, EOMI, normal sclera, no nystagmus ENT: Normal External Ears, Nose and Mouth, moist mucus membranes. Neck: Full range of motion. No meningismus, no lymphadenopathy. Resp: Clear to auscultation bilaterally, no wheezing, rhonchi, rales Cardio: Regular rate and rhythm, no murmurs, S1 S2 present positive gallop Abd: Soft, non tender x 4, massive pannus with edema and hardness normal bowel sounds, no guarding or rebound, no pulsitile abdominal masses or bruits Skin: No petechiae or rashes, no ecchymosis , no maculopapular rash Back: No midline or flank tenderness Ext: No cyanosis severe edema to both legs and edema to her pannus, FROM x 4, normal inspection, neurovascularly intact x 4 Neur: Awake and alert, STR 5/5 x 4, sensation intact x 4, no focal findings, cerebellum intact Psych: Normal Mood and Affect Results Result Diagram: 03/08/17 1330 03/08/17 1330 Results 24 hrs Laboratory Tests Test 03/11/17 11:33 03/11/17 17:16 03/11/17 20:40 03/12/17 08:04 Bedside Glucose 138 127 130 117 Medications Medications Current Medications Enoxaparin Sodium (Lovenox) 40 mg DAILY SC Last administered on 03/07/17 09:15 ; Admin Dose 40 MG; Start 02/26/17 at 09:00 Acetaminophen (Tylenol Tab) 650 mg Q6H PRN PO PAIN AND OR ELEVATED TEMP; Start 02/26/17 at 00:00 Potassium Chloride (Klor-Con 20) 20 meq DAILY PO Last administered on 09:07; Admin Dose 20 MEQ; Start 02/26/17 at 09:00 Insulin Glargine (Lantus) 10 unit DAILY@20 SC ; Start 02/26/17 at 20:00 Diagnostic Test (Pha) (Accu-Chek) 1 ea 02 XX ; Start 02/26/17 at 02:00 Atorvastatin Calcium (Lipitor) 40 mg DAILY PO Last administered on 03/12/17 09 :02; Admin Dose 40 MG; Start 02/26/17 at 09:00 Clopidogrel Bisulfate (plaVIX) 75 mg DAILY PO Last administered on 03/12/17 09 :10; Admin Dose 75 MG; Start 02/26/17 at 09:00 Diphenhydramine HCl (Benadryl) 25 mg TID PRN PO ITCHING Last administered on 09:12; Admin Dose 25 MG; Start 02/26/17 at 00:30 Fluoxetine HCl (Prozac) 10 mg DAILY PO Last administered on 03/12/17 09:10; Admin Dose 10 MG; Start 02/26/17 at 09:00 Montelukast Sodium (Singulair) 10 mg DAILY PO Last administered on 03/12/17 09 :07; Admin Dose 10 MG; Start 02/26/17 at 09:00 Nystatin 1 applic BID TOP Last administered on 03/12/17 09:34; Admin Dose 1 APPLIC; Start 02/26/17 at 09:00 Pantoprazole (Protonix Tab) 40 mg DAILY PO Last administered on 03/12/17 09:02 ; Admin Dose 40 MG; Start 02/26/17 at 09:00 Paroxetine HCl (Paxil) 10 mg DAILY PO Last administered on 03/12/17 09:11; Admin Dose 10 MG; Start 02/26/17 at 09:00 Ropinirole HCl (Requip) 0.25 mg DAILY PO Last administered on 03/12/17 09:06; Admin Dose 0.25 MG; Start 02/26/17 at 09:00 Valsartan (Diovan) 80 mg DAILY PO Last administered on 03/12/17 09:11; Admin Dose 80 MG; Start 02/26/17 at 09:00 Zolpidem Tartrate (Ambien) 5 mg QHS PRN PO INSOMNIA; Start 02/26/17 at 00:30 Miscellaneous Information 1 ea NOTE XX ; Start 02/26/17 at 01:00 Glucose (Glutose) 15 gm Q15M PRN PO DECREASED GLUCOSE; Start 02/26/17 at 01:00 Glucose (Glutose) 22.5 gm Q15M PRN PO DECREASED GLUCOSE; Start 02/26/17 at 01: 00 Dextrose (D50w Syringe) 25 ml Q15M PRN IV DECREASED GLUCOSE; Start 02/26/17 at 01:00 Dextrose (D50w Syringe) 50 ml Q15M PRN IV DECREASED GLUCOSE; Start 02/26/17 at 01:00 Glucagon (Glucagen) 1 mg Q15M PRN IM DECREASED GLUCOSE; Start 02/26/17 at 01:00 Glucose (Glutose) 15 gm Q15M PRN BUCCAL DECREASED GLUCOSE; Start 02/26/17 at 01 :00 Albuterol (Ventolin Hfa) 2 puff Q4H PRN INH SHORTNESS OF BREATH Last administered on 03/09/17 11:08; Admin Dose 2 PUFF; Start 02/26/17 at 01:00 Linagliptin (Tradjenta) 5 mg DAILY PO Last administered on 03/12/17 09:01; Admin Dose 5 MG; Start 02/27/17 at 09:00 Ondansetron HCl (Zofran Inj) 4 mg Q6H PRN IV NAUSEA AND/OR VOMITING; Start at 17:30 Magnesium Oxide (Mag-Ox 400) 400 mg DAILY PO Last administered on 03/12/17 09: 09; Admin Dose 400 MG; Start 02/28/17 at 19:30 Carvedilol (Coreg) 3.125 mg BID PO Last administered on 03/12/17 09:04; Admin Dose 3.125 MG; Start 03/01/17 at 21:00 Ibuprofen (Motrin) 600 mg Q6H PRN PO PAIN Last administered on 03/12/17 09:33 ; Admin Dose 600 MG; Start 03/01/17 at 15:30 Ferrous Sulfate (Ferrous Sulfate (Ec)) 325 mg TID PO Last administered on 09:01; Admin Dose 325 MG; Start 03/05/17 at 09:00 BLUE JIMÉNEZ MD Mar 12, 2017 10:27
--- NOTE | 2017-03-12 11:26 | CONS ---
Date/Time of Note Date/Time of Note DATE: 03/12/17 TIME: 11:25 Assessment/Plan Assessment/Plan Additional Assessment/Plan 1.CHF- Syst/Diastolic acute on chronic. EF 30-35% by echo this admit- con't diuresis - fluid restriction advises 1L per day - STILL ONGOING, con't DIURESIS 2.HTN- wrll Rx, con't med tx. - IN GOOD RANGE NOW 3.HL 4.LE wound/PAD - skin care in place 5.LE edema - con'r elevation - fluid restriction now - IMPROVED, con't t restrict fluids ELEVATION ADVISED 6.cad - no CP, con't med rx 7. DM - on meds, keep euglycemic. Consultation Date/Type/Reason Admit Date/Time Feb 25, 2017 at 21:45 Initial Consult Date 02/27/17 Type of Consultation: [facility] Referring Provider: MARILU FRIED MD 24 HR Interval Summary Free Text/Dictation NO acute change - off tele - con't Rx ROS: No fever, no chills, no nausea, no vomiting, no diarrhea/constipation No recent weight changes No chest pain, no PND, no orthopnea No dizziness, blurred vision No thirst, no heat or cold intolerance Exam/Review of Systems Vital Signs Vitals Vital Signs Date Time Temp Pulse Resp B/P Pulse Ox O2 Delivery O2 Flow Rate FiO2 03/12/17 08:54 20 98 21 03/12/17 07:24 98.1 79 149/76 03/10/17 06:00 Room Air Intake and Output 03/11/17 03/11/17 03/12/17 15:00 23:00 07:00 Intake Total 200 ml 720 ml Output Total 2300 ml Balance 200 ml -1580 ml Exam General: WN/WD/NAD, AOx 3 HEENT: Unicetric/atraumatic/EOMI (follow commands) NECK: JVD elevated, no thyromegaly Lymph: no lymphadenopathy HEART: regular with no S3, II/ systolic murmur at apex LUNGS: Coarse sounds ABD: soft, NT, ND, +BS : Intact Neuro: non focal SKIN: chronic changes EXT: + edema Results Result Diagram: 03/08/17 1330 03/08/17 1330 Results 24 hrs Laboratory Tests Test 03/11/17 11:33 03/11/17 17:16 03/11/17 20:40 03/12/17 08:04 Bedside Glucose 138 127 130 117 Medications Medications Current Medications Enoxaparin Sodium (Lovenox) 40 mg DAILY SC Last administered on 03/07/17 09:15 ; Admin Dose 40 MG; Start 02/26/17 at 09:00 Acetaminophen (Tylenol Tab) 650 mg Q6H PRN PO PAIN AND OR ELEVATED TEMP; Start 02/26/17 at 00:00 Potassium Chloride (Klor-Con 20) 20 meq DAILY PO Last administered on 09:07; Admin Dose 20 MEQ; Start 02/26/17 at 09:00 Insulin Glargine (Lantus) 10 unit DAILY@20 SC ; Start 02/26/17 at 20:00 Diagnostic Test (Pha) (Accu-Chek) 1 ea 02 XX ; Start 02/26/17 at 02:00 Atorvastatin Calcium (Lipitor) 40 mg DAILY PO Last administered on 03/12/17 09 :02; Admin Dose 40 MG; Start 02/26/17 at 09:00 Clopidogrel Bisulfate (plaVIX) 75 mg DAILY PO Last administered on 03/12/17 09 :10; Admin Dose 75 MG; Start 02/26/17 at 09:00 Diphenhydramine HCl (Benadryl) 25 mg TID PRN PO ITCHING Last administered on 09:12; Admin Dose 25 MG; Start 02/26/17 at 00:30 Fluoxetine HCl (Prozac) 10 mg DAILY PO Last administered on 03/12/17 09:10; Admin Dose 10 MG; Start 02/26/17 at 09:00 Montelukast Sodium (Singulair) 10 mg DAILY PO Last administered on 03/12/17 09 :07; Admin Dose 10 MG; Start 02/26/17 at 09:00 Nystatin 1 applic BID TOP Last administered on 03/12/17 09:34; Admin Dose 1 APPLIC; Start 02/26/17 at 09:00 Pantoprazole (Protonix Tab) 40 mg DAILY PO Last administered on 03/12/17 09:02 ; Admin Dose 40 MG; Start 02/26/17 at 09:00 Paroxetine HCl (Paxil) 10 mg DAILY PO Last administered on 03/12/17 09:11; Admin Dose 10 MG; Start 02/26/17 at 09:00 Ropinirole HCl (Requip) 0.25 mg DAILY PO Last administered on 03/12/17 09:06; Admin Dose 0.25 MG; Start 02/26/17 at 09:00 Valsartan (Diovan) 80 mg DAILY PO Last administered on 03/12/17 09:11; Admin Dose 80 MG; Start 02/26/17 at 09:00 Zolpidem Tartrate (Ambien) 5 mg QHS PRN PO INSOMNIA; Start 02/26/17 at 00:30 Miscellaneous Information 1 ea NOTE XX ; Start 02/26/17 at 01:00 Glucose (Glutose) 15 gm Q15M PRN PO DECREASED GLUCOSE; Start 02/26/17 at 01:00 Glucose (Glutose) 22.5 gm Q15M PRN PO DECREASED GLUCOSE; Start 02/26/17 at 01: 00 Dextrose (D50w Syringe) 25 ml Q15M PRN IV DECREASED GLUCOSE; Start 02/26/17 at 01:00 Dextrose (D50w Syringe) 50 ml Q15M PRN IV DECREASED GLUCOSE; Start 02/26/17 at 01:00 Glucagon (Glucagen) 1 mg Q15M PRN IM DECREASED GLUCOSE; Start 02/26/17 at 01:00 Glucose (Glutose) 15 gm Q15M PRN BUCCAL DECREASED GLUCOSE; Start 02/26/17 at 01 :00 Albuterol (Ventolin Hfa) 2 puff Q4H PRN INH SHORTNESS OF BREATH Last administered on 03/09/17 11:08; Admin Dose 2 PUFF; Start 02/26/17 at 01:00 Linagliptin (Tradjenta) 5 mg DAILY PO Last administered on 03/12/17 09:01; Admin Dose 5 MG; Start 02/27/17 at 09:00 Ondansetron HCl (Zofran Inj) 4 mg Q6H PRN IV NAUSEA AND/OR VOMITING; Start at 17:30 Magnesium Oxide (Mag-Ox 400) 400 mg DAILY PO Last administered on 03/12/17 09: 09; Admin Dose 400 MG; Start 02/28/17 at 19:30 Carvedilol (Coreg) 3.125 mg BID PO Last administered on 03/12/17 09:04; Admin Dose 3.125 MG; Start 03/01/17 at 21:00 Ibuprofen (Motrin) 600 mg Q6H PRN PO PAIN Last administered on 03/12/17 09:33 ; Admin Dose 600 MG; Start 03/01/17 at 15:30 Ferrous Sulfate (Ferrous Sulfate (Ec)) 325 mg TID PO Last administered on 09:01; Admin Dose 325 MG; Start 03/05/17 at 09:00 ITZ BRAGA MD Mar 12, 2017 11:26
[2017-03-12 14:36] LABS: ADD SCAN DIFF NO
[2017-03-12 14:38] LABS: ABNORMAL IP MESSAGE 1; BASOPHIL # 0.1 10^3/ul (0.0-0.1); BASOPHILS % 1.1 % (0.0-2.0); EOSINOPHILS # 0.1 10^3/ul (0.0-0.5); EOSINOPHILS % 2.3 % (0.0-7.0); HEMATOCRIT 43.5 % (37.0-47.0); HEMOGLOBIN 13.3 g/dl (12.0-16.0); LYMPHOCYTES # 0.6 10^3/ul (0.8-2.9); LYMPHOCYTES % 12.9 % (15.0-51.0); MEAN CORPUSCULAR HEMOGLOBIN 24.4 pg (29.0-33.0); MEAN CORPUSCULAR HGB CONC 30.6 g/dl (32.0-37.0); MEAN CORPUSCULAR VOLUME 79.7 fl (82.0-101.0); MEAN PLATELET VOLUME 10.8 fl (7.4-10.4); MONOCYTE # 0.4 10^3/ul (0.3-0.9); MONOCYTES % 8.4 % (0.0-11.0); NEUTROPHIL # 3.3 10^3/ul (1.6-7.5); NEUTROPHILS % 75.1 % (39.0-77.0); PLATELET COUNT 200 10^3/UL (140-415); RED BLOOD COUNT 5.46 10^6/ul (4.20-5.40); RED CELL DISTRIBUTION WIDTH 21.3 % (11.5-14.5); WHITE BLOOD COUNT 4.4 10^3/ul (4.8-10.8)
--- NOTE | 2017-03-12 14:51 | PN ---
Date/Time of Note Date/Time of Note DATE: 03/12/17 TIME: 14:40 Assessment/Plan VTE Prophylaxis VTE Prophylaxis Intervention: SCD's Lines/Catheters [facility] [place] [facility] Urinary Cath still in place: Yes Reason Cath still needed: urinary retention Assessment/Plan Chief Complaint/Hosp Course Blood sugar is well controlled, patient refused routine labs, patient denies any chest pain denies shortness of breath. Assessment/Plan -CHF exacerbation, continue Lasix. Dr. Slater is following in cardiology consultation. -Bilateral lower extremities edema, improving, continue fluid restriction and BLE elevation. -Coronary artery disease, continue Plavix. -Hypertension, continue Coreg. -Hyperlipidemia, continue statin. -COPD, continue DuoNeb. -Diabetes mellitus type 2, hemoglobin A1c is 8.3, continue metformin, Tradjenta , Lantus, and NovoLog per mild algorithm sliding scale. -Morbid obesity with BMI of 61. -Peripheral vascular disease, continue Plavix. Dr. Louise is following in vascular surgery consultation. Further recommendations based on clinical course. Plan of care discussed with Dr. Randall. Problems: Exam/Review of Systems Vital Signs Vitals Vital Signs Date Time Temp Pulse Resp B/P Pulse Ox O2 Delivery O2 Flow Rate FiO2 03/12/17 13:24 83 17 100 21 03/12/17 07:24 98.1 149/76 03/10/17 06:00 Room Air Intake and Output 03/11/17 03/11/17 03/12/17 15:00 23:00 07:00 Intake Total 200 ml 720 ml Output Total 2300 ml Balance 200 ml -1580 ml Exam Constitutional: alert, oriented Head: atraumatic, normocephalic Neck: supple Respiratory: clear Cardiovascular: nl pulses Gastrointestinal: non-tender, soft Extremities: edema, other Neurological: nl mental status Skin: nl turgor Results Result Diagram: 03/08/17 1330 03/08/17 1330 Results 24 hrs Laboratory Tests Test 03/11/17 17:16 03/11/17 20:40 03/12/17 08:04 03/12/17 12:09 Bedside Glucose 127 130 117 129 Medications Medications Current Medications Enoxaparin Sodium (Lovenox) 40 mg DAILY SC Last administered on 03/07/17t 09:15 ; Admin Dose 40 MG; Start 02/26/17 at 09:00 Acetaminophen (Tylenol Tab) 650 mg Q6H PRN PO PAIN AND OR ELEVATED TEMP; Start 02/26/17 at 00:00 Potassium Chloride (Klor-Con 20) 20 meq DAILY PO Last administered on 09:07; Admin Dose 20 MEQ; Start 02/26/17 at 09:00 Insulin Glargine (Lantus) 10 unit DAILY@20 SC ; Start 02/26/17 at 20:00 Diagnostic Test (Pha) (Accu-Chek) 1 ea 02 XX ; Start 02/26/17 at 02:00 Atorvastatin Calcium (Lipitor) 40 mg DAILY PO Last administered on 03/12/17 09 :02; Admin Dose 40 MG; Start 02/26/17 at 09:00 Clopidogrel Bisulfate (plaVIX) 75 mg DAILY PO Last administered on 03/12/17 09 :10; Admin Dose 75 MG; Start 02/26/17 at 09:00 Diphenhydramine HCl (Benadryl) 25 mg TID PRN PO ITCHING Last administered on 09:12; Admin Dose 25 MG; Start 02/26/17 at 00:30 Fluoxetine HCl (Prozac) 10 mg DAILY PO Last administered on 03/12/17 09:10; Admin Dose 10 MG; Start 02/26/17 at 09:00 Montelukast Sodium (Singulair) 10 mg DAILY PO Last administered on 03/12/17 09 :07; Admin Dose 10 MG; Start 02/26/17 at 09:00 Nystatin 1 applic BID TOP Last administered on 03/12/17 09:34; Admin Dose 1 APPLIC; Start 02/26/17 at 09:00 Pantoprazole (Protonix Tab) 40 mg DAILY PO Last administered on 03/12/17 09:02 ; Admin Dose 40 MG; Start 02/26/17 at 09:00 Paroxetine HCl (Paxil) 10 mg DAILY PO Last administered on 03/12/17 09:11; Admin Dose 10 MG; Start 02/26/17 at 09:00 Ropinirole HCl (Requip) 0.25 mg DAILY PO Last administered on 03/12/17 09:06; Admin Dose 0.25 MG; Start 02/26/17 at 09:00 Valsartan (Diovan) 80 mg DAILY PO Last administered on 03/12/17 09:11; Admin Dose 80 MG; Start 02/26/17 at 09:00 Zolpidem Tartrate (Ambien) 5 mg QHS PRN PO INSOMNIA; Start 02/26/17 at 00:30 Miscellaneous Information 1 ea NOTE XX ; Start 02/26/17 at 01:00 Glucose (Glutose) 15 gm Q15M PRN PO DECREASED GLUCOSE; Start 02/26/17 at 01:00 Glucose (Glutose) 22.5 gm Q15M PRN PO DECREASED GLUCOSE; Start 02/26/17 at 01: 00 Dextrose (D50w Syringe) 25 ml Q15M PRN IV DECREASED GLUCOSE; Start 02/26/17 at 01:00 Dextrose (D50w Syringe) 50 ml Q15M PRN IV DECREASED GLUCOSE; Start 02/26/17 at 01:00 Glucagon (Glucagen) 1 mg Q15M PRN IM DECREASED GLUCOSE; Start 02/26/17 at 01:00 Glucose (Glutose) 15 gm Q15M PRN BUCCAL DECREASED GLUCOSE; Start 02/26/17 at 01 :00 Albuterol (Ventolin Hfa) 2 puff Q4H PRN INH SHORTNESS OF BREATH Last administered on 03/09/17 11:08; Admin Dose 2 PUFF; Start 02/26/17 at 01:00 Linagliptin (Tradjenta) 5 mg DAILY PO Last administered on 03/12/17 09:01; Admin Dose 5 MG; Start 02/27/17 at 09:00 Ondansetron HCl (Zofran Inj) 4 mg Q6H PRN IV NAUSEA AND/OR VOMITING; Start at 17:30 Magnesium Oxide (Mag-Ox 400) 400 mg DAILY PO Last administered on 03/12/17 09: 09; Admin Dose 400 MG; Start 02/28/17 at 19:30 Carvedilol (Coreg) 3.125 mg BID PO Last administered on 03/12/17 09:04; Admin Dose 3.125 MG; Start 03/01/17 at 21:00 Ibuprofen (Motrin) 600 mg Q6H PRN PO PAIN Last administered on 03/12/17 09:33 ; Admin Dose 600 MG; Start 03/01/17 at 15:30 Ferrous Sulfate (Ferrous Sulfate (Ec)) 325 mg TID PO Last administered on t 13:07; Admin Dose 325 MG; Start 03/05/17 at 09:00 ADENIKE DE GUZMAN Mar 12, 2017 14:50
[2017-03-12 14:57] LABS: CALCIUM 8.8 mg/dl (8.4-10.2); CREATININE 0.56 mg/dl (0.44-1.00); POTASSIUM 3.7 mmol/L (3.5-5.1)
[2017-03-12 19:39] VITALS: BP 117/72; RESP 20
[2017-03-12] MEDS: INSULIN GLARGINE [LANtus] 3 ML PEN SC SCH (20:00)
[2017-03-12] MEDS: DIPHENHYDRAMINE 25 MG CAP PO PRN (21:48)
[2017-03-13] MEDS: ACCU-CHEK XX SCH (02:00)
[2017-03-13] MEDS: FUROSEMIDE 40 MG TAB PO SCH ×3 (06:00→17:58)
[2017-03-13 07:52] VITALS: BP 126/76; RESP 16
[2017-03-13] MEDS: INSULIN ASPART [NOVOLOG] 3 ML PEN SC SCH ×4 (08:15→21:00)
[2017-03-13] MEDS: LINAGLIPTIN 5 MG TABLET PO SCH (08:19)
[2017-03-13] MEDS: CLOPIDOGREL 75 MG TAB PO SCH (08:20)
[2017-03-13] MEDS: VALSARTAN 80 MG TAB PO SCH (08:22)
[2017-03-13] MEDS: MAGNESIUM OXIDE 400 MG TAB PO SCH (08:22)
[2017-03-13] MEDS: ROPINIROLE 0.25 MG TAB PO SCH (08:23)
[2017-03-13] MEDS: MONTELUKAST 10 MG TAB PO SCH (08:23)
[2017-03-13] MEDS: FLUOXETINE 10 MG CAP PO SCH (08:24)
[2017-03-13] MEDS: PANTOPRAZOLE (EC) 40 MG TAB PO SCH (08:25)
[2017-03-13] MEDS: POTASSIUM CHLORIDE (SR) 20 MEQ TAB PO SCH (08:25)
[2017-03-13] MEDS: ATORVASTATIN 40 MG TAB PO SCH (08:25)
[2017-03-13] MEDS: PAROXETINE 10 MG TAB PO SCH (08:26)
[2017-03-13] MEDS: metFORMIN 500 MG TAB PO SCH ×2 (08:27→17:58)
[2017-03-13] MEDS: FERROUS SULFATE (EC) 325 MG TAB PO SCH ×3 (08:30→21:09)
[2017-03-13] MEDS: DIPHENHYDRAMINE 25 MG CAP PO PRN (08:31)
[2017-03-13] MEDS: ENOXAPARIN 40 MG/0.4 ML SYG SC SCH (09:00)
[2017-03-13] MEDS: ALBUTEROL/IPRATROPIUM (NEB) 3 ML AMP HHN SCH ×3 (09:32→16:41)
[2017-03-13] MEDS: NYSTATIN 15 GM POWDER BTL TOP SCH ×2 (09:40→21:10)
--- NOTE | 2017-03-13 13:18 | CONS ---
Date/Time of Note Date/Time of Note DATE: 03/13/17 TIME: 13:16 Assessment/Plan Assessment/Plan Chief Complaint/Hosp Course IMP: 1.CHF-systolic acute on chronic. EF 30-35% by echo this admit. Improving volume status 2.HTN 3.HL 4.LE wound/PAD 5.LE edema 6.cad 7. DM 8. Anemia Recc: -On med-eurg -Continue statin -Continue lasix diuresis po as patient will comply at current dose and follow volume status closely -Continue diovan/coreg -Continue plavix -D/C planning Problems: Consultation Date/Type/Reason Admit Date/Time Feb 25, 2017 at 21:45 Initial Consult Date 02/27/17 Type of Consultation: cardiology Reason for Consultation CHF Referring Provider: MARILU FRIED MD Exam/Review of Systems Vital Signs Vitals Vital Signs Date Time Temp Pulse Resp B/P Pulse Ox O2 Delivery O2 Flow Rate FiO2 03/13/17 09:34 77 18 97 21 03/13/17 07:52 97.6 126/76 03/10/17 06:00 Room Air Intake and Output 03/12/17 03/12/17 03/13/17 15:00 23:00 07:00 Intake Total 1080 ml 580 ml Output Total 2500 ml 2650 ml Balance -1420 ml -2070 ml Exam Review of Systems: CONSTITUTIONAL: No fevers, chills. PULMONARY: No sob CARDIOVASCULAR: No chest pain/palpitations GASTROINTESTINAL: No nausea/vomiting. GENITOURINARY: No hematuria/dysuria. MUSCULOSKELETAL: No myagias/arthalgias. PSYCHIATRIC: The patient denies depression. NEUROLOGIC: No weakness Constitutional: alert Psych: no complaints Head: normocephalic ENMT: mucosa pink and moist Neck: jvd (9 cm water), supple Respiratory: diminished breath sounds (at bases/B) Cardiovascular: regular rate and rhythm Gastrointestinal: non-tender, other (obese), soft Musculoskeletal: muscle tone Extremities: pitting pedal edema (bilateral) Neurological: lethargic Results Result Diagram: 03/12/17 1405 03/12/17 1405 Results 24 hrs Laboratory Tests Test 03/12/17 14:05 03/12/17 17:19 03/12/17 21:43 03/13/17 07:59 White Blood Count 4.4 L Red Blood Count 5.46 H Hemoglobin 13.3 Hematocrit 43.5 Mean Corpuscular Volume 79.7 L Mean Corpuscular Hemoglobin 24.4 L Mean Corpuscular Hemoglobin Concent 30.6 L Red Cell Distribution Width 21.3 H Platelet Count 200 # Mean Platelet Volume 10.8 H Neutrophils % 75.1 Lymphocytes % 12.9 L Monocytes % 8.4 Eosinophils % 2.3 Basophils % 1.1 Nucleated Red Blood Cells % 0.0 Neutrophils # 3.3 Lymphocytes # 0.6 L Monocytes # 0.4 Eosinophils # 0.1 Basophils # 0.1 Nucleated Red Blood Cells # 0.0 Sodium Level 136 Potassium Level 3.7 Chloride Level 99 Carbon Dioxide Level 28 Anion Gap 13 Blood Urea Nitrogen 18 Creatinine 0.56 Glucose Level 127 Calcium Level 8.8 Bedside Glucose 152 116 100 Test 03/13/17 12:03 Bedside Glucose 152 Medications Medications Current Medications Enoxaparin Sodium (Lovenox) 40 mg DAILY SC Last administered on 03/07/17 09:15 ; Admin Dose 40 MG; Start 02/26/17 at 09:00 Acetaminophen (Tylenol Tab) 650 mg Q6H PRN PO PAIN AND OR ELEVATED TEMP; Start 02/26/17 at 00:00 Potassium Chloride (Klor-Con 20) 20 meq DAILY PO Last administered on 08:25; Admin Dose 20 MEQ; Start 02/26/17 at 09:00 Insulin Glargine (Lantus) 10 unit DAILY@20 SC ; Start 02/26/17 at 20:00 Diagnostic Test (Pha) (Accu-Chek) 1 ea 02 XX ; Start 02/26/17 at 02:00 Atorvastatin Calcium (Lipitor) 40 mg DAILY PO Last administered on 03/13/17 08 :25; Admin Dose 40 MG; Start 02/26/17 at 09:00 Clopidogrel Bisulfate (plaVIX) 75 mg DAILY PO Last administered on 03/13/17 08 :20; Admin Dose 75 MG; Start 02/26/17 at 09:00 Diphenhydramine HCl (Benadryl) 25 mg TID PRN PO ITCHING Last administered on 08:31; Admin Dose 25 MG; Start 02/26/17 at 00:30 Fluoxetine HCl (Prozac) 10 mg DAILY PO Last administered on 03/13/17 08:24; Admin Dose 10 MG; Start 02/26/17 at 09:00 Montelukast Sodium (Singulair) 10 mg DAILY PO Last administered on 03/13/17 08 :23; Admin Dose 10 MG; Start 02/26/17 at 09:00 Nystatin 1 applic BID TOP Last administered on 03/13/17 09:40; Admin Dose 1 APPLIC; Start 02/26/17 at 09:00 Pantoprazole (Protonix Tab) 40 mg DAILY PO Last administered on 03/13/17 08:25 ; Admin Dose 40 MG; Start 02/26/17 at 09:00 Paroxetine HCl (Paxil) 10 mg DAILY PO Last administered on 03/13/17 08:26; Admin Dose 10 MG; Start 02/26/17 at 09:00 Ropinirole HCl (Requip) 0.25 mg DAILY PO Last administered on 03/13/17 08:23; Admin Dose 0.25 MG; Start 02/26/17 at 09:00 Valsartan (Diovan) 80 mg DAILY PO Last administered on 03/13/17 08:22; Admin Dose 80 MG; Start 02/26/17 at 09:00 Zolpidem Tartrate (Ambien) 5 mg QHS PRN PO INSOMNIA; Start 02/26/17 at 00:30 Miscellaneous Information 1 ea NOTE XX ; Start 02/26/17 at 01:00 Glucose (Glutose) 15 gm Q15M PRN PO DECREASED GLUCOSE; Start 02/26/17 at 01:00 Glucose (Glutose) 22.5 gm Q15M PRN PO DECREASED GLUCOSE; Start 02/26/17 at 01: 00 Dextrose (D50w Syringe) 25 ml Q15M PRN IV DECREASED GLUCOSE; Start 02/26/17 at 01:00 Dextrose (D50w Syringe) 50 ml Q15M PRN IV DECREASED GLUCOSE; Start 02/26/17 at 01:00 Glucagon (Glucagen) 1 mg Q15M PRN IM DECREASED GLUCOSE; Start 02/26/17 at 01:00 Glucose (Glutose) 15 gm Q15M PRN BUCCAL DECREASED GLUCOSE; Start 02/26/17 at 01 :00 Albuterol (Ventolin Hfa) 2 puff Q4H PRN INH SHORTNESS OF BREATH Last administered on 03/09/17 11:08; Admin Dose 2 PUFF; Start 02/26/17 at 01:00 Linagliptin (Tradjenta) 5 mg DAILY PO Last administered on 03/13/17 08:19; Admin Dose 5 MG; Start 02/27/17 at 09:00 Ondansetron HCl (Zofran Inj) 4 mg Q6H PRN IV NAUSEA AND/OR VOMITING; Start at 17:30 Magnesium Oxide (Mag-Ox 400) 400 mg DAILY PO Last administered on 03/13/17 08: 22; Admin Dose 400 MG; Start 02/28/17 at 19:30 Carvedilol (Coreg) 3.125 mg BID PO Last administered on 03/13/17 08:28; Admin Dose 3.125 MG; Start 03/01/17 at 21:00 Ibuprofen (Motrin) 600 mg Q6H PRN PO PAIN Last administered on 03/12/17 21:46 ; Admin Dose 600 MG; Start 03/01/17 at 15:30 Ferrous Sulfate (Ferrous Sulfate (Ec)) 325 mg TID PO Last administered on 13:01; Admin Dose 325 MG; Start 03/05/17 at 09:00 JACQUELINE HORNE Mar 13, 2017 13:18
--- NOTE | 2017-03-13 13:37 | CONS ---
Date/Time of Note Date/Time of Note DATE: 03/13/17 TIME: 13:36 Assessment/Plan Assessment/Plan Chief Complaint/Hosp Course LEUKOPENIA WILL RECHECK COUNT IN AM PT IS REFUSING BLOOD WORK MICROCYTOSIS MONITOR IRON DEFICIENCY PO IRON HX ANEMIA MONITOR CLOSELY LOOKS COMPENSATED AT PRESENT CHF exacerbation, continue Lasix. cardiology consultation. Coronary artery disease, continue Plavix. Hypertension Hyperlipidemia, continue statin. COPD Diabetes mellitus type 2, will check hemoglobin A1c, continue Lantus and NovoLog per mild algorithm sliding scale. Morbid obesity with BMI of 61. Peripheral vascular disease Problems: Consultation Date/Type/Reason Admit Date/Time Feb 25, 2017 at 21:45 Type of Consultation: [facility] Referring Provider: MARILU FRIED MD Exam/Review of Systems Vital Signs Vitals Vital Signs Date Time Temp Pulse Resp B/P Pulse Ox O2 Delivery O2 Flow Rate FiO2 03/13/17 09:34 77 18 97 21 03/13/17 07:52 97.6 126/76 03/10/17 06:00 Room Air Intake and Output 03/12/17 03/12/17 03/13/17 15:00 23:00 07:00 Intake Total 1080 ml 580 ml Output Total 2500 ml 2650 ml Balance -1420 ml -2070 ml Results Result Diagram: 03/12/17 1405 03/12/17 1405 Results 24 hrs Laboratory Tests Test 03/12/17 14:05 03/12/17 17:19 03/12/17 21:43 03/13/17 07:59 White Blood Count 4.4 L Red Blood Count 5.46 H Hemoglobin 13.3 Hematocrit 43.5 Mean Corpuscular Volume 79.7 L Mean Corpuscular Hemoglobin 24.4 L Mean Corpuscular Hemoglobin Concent 30.6 L Red Cell Distribution Width 21.3 H Platelet Count 200 # Mean Platelet Volume 10.8 H Neutrophils % 75.1 Lymphocytes % 12.9 L Monocytes % 8.4 Eosinophils % 2.3 Basophils % 1.1 Nucleated Red Blood Cells % 0.0 Neutrophils # 3.3 Lymphocytes # 0.6 L Monocytes # 0.4 Eosinophils # 0.1 Basophils # 0.1 Nucleated Red Blood Cells # 0.0 Sodium Level 136 Potassium Level 3.7 Chloride Level 99 Carbon Dioxide Level 28 Anion Gap 13 Blood Urea Nitrogen 18 Creatinine 0.56 Glucose Level 127 Calcium Level 8.8 Bedside Glucose 152 116 100 Test 03/13/17 12:03 Bedside Glucose 152 Medications Medications Current Medications Enoxaparin Sodium (Lovenox) 40 mg DAILY SC Last administered on 03/07/17 09:15 ; Admin Dose 40 MG; Start 02/26/17 at 09:00 Acetaminophen (Tylenol Tab) 650 mg Q6H PRN PO PAIN AND OR ELEVATED TEMP; Start 02/26/17 at 00:00 Potassium Chloride (Klor-Con 20) 20 meq DAILY PO Last administered on 08:25; Admin Dose 20 MEQ; Start 02/26/17 at 09:00 Insulin Glargine (Lantus) 10 unit DAILY@20 SC ; Start 02/26/17 at 20:00 Diagnostic Test (Pha) (Accu-Chek) 1 ea 02 XX ; Start 02/26/17 at 02:00 Atorvastatin Calcium (Lipitor) 40 mg DAILY PO Last administered on 03/13/17 08 :25; Admin Dose 40 MG; Start 02/26/17 at 09:00 Clopidogrel Bisulfate (plaVIX) 75 mg DAILY PO Last administered on 03/13/17 08 :20; Admin Dose 75 MG; Start 02/26/17 at 09:00 Diphenhydramine HCl (Benadryl) 25 mg TID PRN PO ITCHING Last administered on 08:31; Admin Dose 25 MG; Start 02/26/17 at 00:30 Fluoxetine HCl (Prozac) 10 mg DAILY PO Last administered on 03/13/17 08:24; Admin Dose 10 MG; Start 02/26/17 at 09:00 Montelukast Sodium (Singulair) 10 mg DAILY PO Last administered on 03/13/17 08 :23; Admin Dose 10 MG; Start 02/26/17 at 09:00 Nystatin 1 applic BID TOP Last administered on 03/13/17 09:40; Admin Dose 1 APPLIC; Start 02/26/17 at 09:00 Pantoprazole (Protonix Tab) 40 mg DAILY PO Last administered on 03/13/17 08:25 ; Admin Dose 40 MG; Start 02/26/17 at 09:00 Paroxetine HCl (Paxil) 10 mg DAILY PO Last administered on 03/13/17 08:26; Admin Dose 10 MG; Start 02/26/17 at 09:00 Ropinirole HCl (Requip) 0.25 mg DAILY PO Last administered on 03/13/17 08:23; Admin Dose 0.25 MG; Start 02/26/17 at 09:00 Valsartan (Diovan) 80 mg DAILY PO Last administered on 03/13/17 08:22; Admin Dose 80 MG; Start 02/26/17 at 09:00 Zolpidem Tartrate (Ambien) 5 mg QHS PRN PO INSOMNIA; Start 02/26/17 at 00:30 Miscellaneous Information 1 ea NOTE XX ; Start 02/26/17 at 01:00 Glucose (Glutose) 15 gm Q15M PRN PO DECREASED GLUCOSE; Start 02/26/17 at 01:00 Glucose (Glutose) 22.5 gm Q15M PRN PO DECREASED GLUCOSE; Start 02/26/17 at 01: 00 Dextrose (D50w Syringe) 25 ml Q15M PRN IV DECREASED GLUCOSE; Start 02/26/17 at 01:00 Dextrose (D50w Syringe) 50 ml Q15M PRN IV DECREASED GLUCOSE; Start 02/26/17 at 01:00 Glucagon (Glucagen) 1 mg Q15M PRN IM DECREASED GLUCOSE; Start 02/26/17 at 01:00 Glucose (Glutose) 15 gm Q15M PRN BUCCAL DECREASED GLUCOSE; Start 02/26/17 at 01 :00 Albuterol (Ventolin Hfa) 2 puff Q4H PRN INH SHORTNESS OF BREATH Last administered on 03/09/17 11:08; Admin Dose 2 PUFF; Start 02/26/17 at 01:00 Linagliptin (Tradjenta) 5 mg DAILY PO Last administered on 03/13/17 08:19; Admin Dose 5 MG; Start 02/27/17 at 09:00 Ondansetron HCl (Zofran Inj) 4 mg Q6H PRN IV NAUSEA AND/OR VOMITING; Start at 17:30 Magnesium Oxide (Mag-Ox 400) 400 mg DAILY PO Last administered on 03/13/17 08: 22; Admin Dose 400 MG; Start 02/28/17 at 19:30 Carvedilol (Coreg) 3.125 mg BID PO Last administered on 03/13/17 08:28; Admin Dose 3.125 MG; Start 03/01/17 at 21:00 Ibuprofen (Motrin) 600 mg Q6H PRN PO PAIN Last administered on 03/12/17 21:46 ; Admin Dose 600 MG; Start 03/01/17 at 15:30 Ferrous Sulfate (Ferrous Sulfate (Ec)) 325 mg TID PO Last administered on 13:01; Admin Dose 325 MG; Start 03/05/17 at 09:00 BLUE JIMÉNEZ MD Mar 13, 2017 13:37
[2017-03-13 14:46] LABS: ADD SCAN DIFF NO
--- NOTE | 2017-03-13 14:53 | PN ---
Date/Time of Note Date/Time of Note DATE: 03/13/17 TIME: 14:51 Assessment/Plan VTE Prophylaxis VTE Prophylaxis Intervention: SCD's Lines/Catheters [facility] ([facility] Sal[facility] Lock Urinary Cath still in place: No Assessment/Plan Chief Complaint/Hosp Course Patient denies any shortness of breath denies chest pain, will ask PT to reevaluate patient for DC planning. Assessment/Plan -CHF exacerbation, continue Lasix. Dr. Slater is following in cardiology consultation. -Bilateral lower extremities edema, improving, continue fluid restriction and BLE elevation. -Coronary artery disease, continue Plavix. -Hypertension, continue Coreg. -Hyperlipidemia, continue statin. -COPD, continue DuoNeb. -Diabetes mellitus type 2, hemoglobin A1c is 8.3, continue metformin, Tradjenta , Lantus, and NovoLog per mild algorithm sliding scale. -Morbid obesity with BMI of 61. -Peripheral vascular disease, continue Plavix. Dr. Louise is following in vascular surgery consultation. Further recommendations based on clinical course. Plan of care discussed with Dr. Randall. Problems: Exam/Review of Systems Vital Signs Vitals Vital Signs Date Time Temp Pulse Resp B/P Pulse Ox O2 Delivery O2 Flow Rate FiO2 03/13/17 09:34 77 18 97 21 03/13/17 07:52 97.6 126/76 03/10/17 06:00 Room Air Intake and Output 03/12/17 03/12/17 03/13/17 15:00 23:00 07:00 Intake Total 1080 ml 580 ml Output Total 2500 ml 2650 ml Balance -1420 ml -2070 ml Exam Constitutional: alert, oriented Head: atraumatic, normocephalic Neck: supple Respiratory: clear Cardiovascular: nl pulses Gastrointestinal: non-tender, soft Extremities: edema, other Neurological: nl mental status Skin: nl turgor Results Result Diagram: 03/12/17 1405 03/12/17 1405 Results 24 hrs Laboratory Tests Test 03/12/17 17:19 03/12/17 21:43 03/13/17 07:59 03/13/17 12:03 Bedside Glucose 152 116 100 152 Medications Medications Current Medications Enoxaparin Sodium (Lovenox) 40 mg DAILY SC Last administered on 03/07/17t 09:15 ; Admin Dose 40 MG; Start 02/26/17 at 09:00 Acetaminophen (Tylenol Tab) 650 mg Q6H PRN PO PAIN AND OR ELEVATED TEMP; Start 02/26/17 at 00:00 Potassium Chloride (Klor-Con 20) 20 meq DAILY PO Last administered on 08:25; Admin Dose 20 MEQ; Start 02/26/17 at 09:00 Insulin Glargine (Lantus) 10 unit DAILY@20 SC ; Start 02/26/17 at 20:00 Diagnostic Test (Pha) (Accu-Chek) 1 ea 02 XX ; Start 02/26/17 at 02:00 Atorvastatin Calcium (Lipitor) 40 mg DAILY PO Last administered on 03/13/17 08 :25; Admin Dose 40 MG; Start 02/26/17 at 09:00 Clopidogrel Bisulfate (plaVIX) 75 mg DAILY PO Last administered on 03/13/17 08 :20; Admin Dose 75 MG; Start 02/26/17 at 09:00 Diphenhydramine HCl (Benadryl) 25 mg TID PRN PO ITCHING Last administered on 08:31; Admin Dose 25 MG; Start 02/26/17 at 00:30 Fluoxetine HCl (Prozac) 10 mg DAILY PO Last administered on 03/13/17 08:24; Admin Dose 10 MG; Start 02/26/17 at 09:00 Montelukast Sodium (Singulair) 10 mg DAILY PO Last administered on 03/13/17 08 :23; Admin Dose 10 MG; Start 02/26/17 at 09:00 Nystatin 1 applic BID TOP Last administered on 03/13/17 09:40; Admin Dose 1 APPLIC; Start 02/26/17 at 09:00 Pantoprazole (Protonix Tab) 40 mg DAILY PO Last administered on 03/13/17 08:25 ; Admin Dose 40 MG; Start 02/26/17 at 09:00 Paroxetine HCl (Paxil) 10 mg DAILY PO Last administered on 03/13/17 08:26; Admin Dose 10 MG; Start 02/26/17 at 09:00 Ropinirole HCl (Requip) 0.25 mg DAILY PO Last administered on 03/13/17 08:23; Admin Dose 0.25 MG; Start 02/26/17 at 09:00 Valsartan (Diovan) 80 mg DAILY PO Last administered on 03/13/17 08:22; Admin Dose 80 MG; Start 02/26/17 at 09:00 Zolpidem Tartrate (Ambien) 5 mg QHS PRN PO INSOMNIA; Start 02/26/17 at 00:30 Miscellaneous Information 1 ea NOTE XX ; Start 02/26/17 at 01:00 Glucose (Glutose) 15 gm Q15M PRN PO DECREASED GLUCOSE; Start 02/26/17 at 01:00 Glucose (Glutose) 22.5 gm Q15M PRN PO DECREASED GLUCOSE; Start 02/26/17 at 01: 00 Dextrose (D50w Syringe) 25 ml Q15M PRN IV DECREASED GLUCOSE; Start 02/26/17 at 01:00 Dextrose (D50w Syringe) 50 ml Q15M PRN IV DECREASED GLUCOSE; Start 02/26/17 at 01:00 Glucagon (Glucagen) 1 mg Q15M PRN IM DECREASED GLUCOSE; Start 02/26/17 at 01:00 Glucose (Glutose) 15 gm Q15M PRN BUCCAL DECREASED GLUCOSE; Start 02/26/17 at 01 :00 Albuterol (Ventolin Hfa) 2 puff Q4H PRN INH SHORTNESS OF BREATH Last administered on 03/09/17 11:08; Admin Dose 2 PUFF; Start 02/26/17 at 01:00 Linagliptin (Tradjenta) 5 mg DAILY PO Last administered on 03/13/17 08:19; Admin Dose 5 MG; Start 02/27/17 at 09:00 Ondansetron HCl (Zofran Inj) 4 mg Q6H PRN IV NAUSEA AND/OR VOMITING; Start at 17:30 Magnesium Oxide (Mag-Ox 400) 400 mg DAILY PO Last administered on 03/13/17 08: 22; Admin Dose 400 MG; Start 02/28/17 at 19:30 Carvedilol (Coreg) 3.125 mg BID PO Last administered on 03/13/17 08:28; Admin Dose 3.125 MG; Start 03/01/17 at 21:00 Ibuprofen (Motrin) 600 mg Q6H PRN PO PAIN Last administered on 03/12/17 21:46 ; Admin Dose 600 MG; Start 03/01/17 at 15:30 Ferrous Sulfate (Ferrous Sulfate (Ec)) 325 mg TID PO Last administered on t 13:01; Admin Dose 325 MG; Start 03/05/17 at 09:00 ADENIKE DE GUZMAN Mar 13, 2017 14:53
[2017-03-13 14:54] LABS: ABNORMAL IP MESSAGE 1; BASOPHILS % 0.9 % (0.0-2.0); EOSINOPHILS # 0.1 10^3/ul (0.0-0.5); EOSINOPHILS % 3.1 % (0.0-7.0); HEMATOCRIT 43.4 % (37.0-47.0); HEMOGLOBIN 13.4 g/dl (12.0-16.0); LYMPHOCYTES # 0.6 10^3/ul (0.8-2.9); LYMPHOCYTES % 13.1 % (15.0-51.0); MEAN CORPUSCULAR HEMOGLOBIN 24.7 pg (29.0-33.0); MEAN CORPUSCULAR HGB CONC 30.9 g/dl (32.0-37.0); MEAN CORPUSCULAR VOLUME 79.9 fl (82.0-101.0); MEAN PLATELET VOLUME 10.7 fl (7.4-10.4); MONOCYTE # 0.4 10^3/ul (0.3-0.9); MONOCYTES % 8.7 % (0.0-11.0); NEUTROPHIL # 3.3 10^3/ul (1.6-7.5); NEUTROPHILS % 73.8 % (39.0-77.0); PLATELET COUNT 201 10^3/UL (140-415); RED BLOOD COUNT 5.43 10^6/ul (4.20-5.40); RED CELL DISTRIBUTION WIDTH 21.4 % (11.5-14.5); WHITE BLOOD COUNT 4.5 10^3/ul (4.8-10.8)
[2017-03-13 19:48] VITALS: BP 120/72; RESP 20
[2017-03-13] MEDS: INSULIN GLARGINE [LANtus] 3 ML PEN SC SCH (20:00)
[2017-03-13] MEDS: IBUPROFEN 200 MG TAB PO PRN (21:53)
[2017-03-14] MEDS: ACCU-CHEK XX SCH (02:00)
[2017-03-14 03:15] VITALS: BP 99/57; RESP 18
[2017-03-14] MEDS: FUROSEMIDE 40 MG TAB PO SCH ×2 (06:00→17:16)
[2017-03-14 07:28] VITALS: BP 114/53; RESP 18
[2017-03-14] MEDS: INSULIN ASPART [NOVOLOG] 3 ML PEN SC SCH ×4 (08:03→20:53)
[2017-03-14] MEDS: metFORMIN 500 MG TAB PO SCH ×2 (08:04→18:33)
[2017-03-14] MEDS: ALBUTEROL/IPRATROPIUM (NEB) 3 ML AMP HHN SCH ×3 (08:13→16:35)
[2017-03-14] MEDS: ENOXAPARIN 40 MG/0.4 ML SYG SC SCH (09:00)
[2017-03-14] MEDS: FERROUS SULFATE (EC) 325 MG TAB PO SCH ×3 (09:30→20:53)
[2017-03-14] MEDS: MONTELUKAST 10 MG TAB PO SCH (09:31)
[2017-03-14] MEDS: CLOPIDOGREL 75 MG TAB PO SCH (09:31)
[2017-03-14] MEDS: LINAGLIPTIN 5 MG TABLET PO SCH (09:31)
[2017-03-14] MEDS: FLUOXETINE 10 MG CAP PO SCH (09:31)
[2017-03-14] MEDS: MAGNESIUM OXIDE 400 MG TAB PO SCH (09:32)
[2017-03-14] MEDS: ROPINIROLE 0.25 MG TAB PO SCH (09:32)
[2017-03-14] MEDS: VALSARTAN 80 MG TAB PO SCH (09:32)
[2017-03-14] MEDS: PAROXETINE 10 MG TAB PO SCH (09:32)
[2017-03-14] MEDS: ATORVASTATIN 40 MG TAB PO SCH (09:33)
[2017-03-14] MEDS: PANTOPRAZOLE (EC) 40 MG TAB PO SCH (09:33)
[2017-03-14] MEDS: DIPHENHYDRAMINE 25 MG CAP PO PRN ×2 (09:33→22:55)
[2017-03-14] MEDS: POTASSIUM CHLORIDE (SR) 20 MEQ TAB PO SCH (09:33)
[2017-03-14] MEDS: NYSTATIN 15 GM POWDER BTL TOP SCH ×2 (09:34→20:54)
[2017-03-14] MEDS: IBUPROFEN 200 MG TAB PO PRN (09:35)
--- NOTE | 2017-03-14 12:57 | CONS ---
Date/Time of Note Date/Time of Note DATE: 03/14/17 TIME: 12:55 Assessment/Plan Assessment/Plan Chief Complaint/Hosp Course IMP: 1.CHF-systolic acute on chronic. EF 30-35% by echo this admit. Improving volume status 2.HTN 3.HL 4.LE wound/PAD 5.LE edema 6.cad 7. DM 8. Anemia Recc: -On med-eurg -Continue statin -Continue lasix diuresis po as patient will comply at current dose and follow volume status closely -Continue diovan/coreg -Continue plavix -D/C planning Problems: Consultation Date/Type/Reason Admit Date/Time Feb 25, 2017 at 21:45 Initial Consult Date 02/27/17 Type of Consultation: cardiology Reason for Consultation CHF Referring Provider: MARILU FRIED MD Exam/Review of Systems Vital Signs Vitals Vital Signs Date Time Temp Pulse Resp B/P Pulse Ox O2 Delivery O2 Flow Rate FiO2 03/14/17 12:39 66 18 92 21 03/14/17 07:28 98.1 114/53 Intake and Output 03/13/17 03/13/17 03/14/17 15:00 23:00 07:00 Intake Total 1080 ml 500 ml Output Total 2100 ml 1450 ml Balance -1020 ml -950 ml Exam Review of Systems: CONSTITUTIONAL: No fevers, chills. PULMONARY: No sob CARDIOVASCULAR: No chest pain/palpitations GASTROINTESTINAL: No nausea/vomiting. GENITOURINARY: No hematuria/dysuria. MUSCULOSKELETAL: No myagias/arthalgias. PSYCHIATRIC: The patient denies depression. NEUROLOGIC: lethargic Constitutional: alert Psych: no complaints Head: normocephalic ENMT: mucosa pink and moist Neck: jvd (9 cm water), supple Respiratory: diminished breath sounds (at bases/B) Cardiovascular: regular rate and rhythm Gastrointestinal: non-tender, soft Musculoskeletal: muscle tone (normal) Extremities: edema (none) Neurological: other (No focal ) Results Result Diagram: 03/13/17 1420 03/12/17 1405 Results 24 hrs Laboratory Tests Test 03/13/17 14:20 03/13/17 16:50 03/13/17 21:07 03/14/17 08:03 White Blood Count 4.5 L Red Blood Count 5.43 H Hemoglobin 13.4 Hematocrit 43.4 Mean Corpuscular Volume 79.9 L Mean Corpuscular Hemoglobin 24.7 L Mean Corpuscular Hemoglobin Concent 30.9 L Red Cell Distribution Width 21.4 H Platelet Count 201 Mean Platelet Volume 10.7 H Neutrophils % 73.8 Lymphocytes % 13.1 L Monocytes % 8.7 Eosinophils % 3.1 Basophils % 0.9 Nucleated Red Blood Cells % 0.0 Neutrophils # 3.3 Lymphocytes # 0.6 L Monocytes # 0.4 Eosinophils # 0.1 Basophils # 0.0 Nucleated Red Blood Cells # 0.0 Bedside Glucose 128 120 91 Test 03/14/17 12:10 Bedside Glucose 119 Medications Medications Current Medications Enoxaparin Sodium (Lovenox) 40 mg DAILY SC Last administered on 03/07/17 09:15 ; Admin Dose 40 MG; Start 02/26/17 at 09:00 Acetaminophen (Tylenol Tab) 650 mg Q6H PRN PO PAIN AND OR ELEVATED TEMP; Start 02/26/17 at 00:00 Potassium Chloride (Klor-Con 20) 20 meq DAILY PO Last administered on 09:33; Admin Dose 20 MEQ; Start 02/26/17 at 09:00 Insulin Glargine (Lantus) 10 unit DAILY@20 SC ; Start 02/26/17 at 20:00 Diagnostic Test (Pha) (Accu-Chek) 1 ea 02 XX ; Start 02/26/17 at 02:00 Atorvastatin Calcium (Lipitor) 40 mg DAILY PO Last administered on 03/14/17 09 :33; Admin Dose 40 MG; Start 02/26/17 at 09:00 Clopidogrel Bisulfate (plaVIX) 75 mg DAILY PO Last administered on 03/14/17 09 :31; Admin Dose 75 MG; Start 02/26/17 at 09:00 Diphenhydramine HCl (Benadryl) 25 mg TID PRN PO ITCHING Last administered on 09:33; Admin Dose 25 MG; Start 02/26/17 at 00:30 Fluoxetine HCl (Prozac) 10 mg DAILY PO Last administered on 03/14/17 09:31; Admin Dose 10 MG; Start 02/26/17 at 09:00 Montelukast Sodium (Singulair) 10 mg DAILY PO Last administered on 03/14/17 09 :31; Admin Dose 10 MG; Start 02/26/17 at 09:00 Nystatin 1 applic BID TOP Last administered on 03/14/17 09:34; Admin Dose 1 APPLIC; Start 02/26/17 at 09:00 Pantoprazole (Protonix Tab) 40 mg DAILY PO Last administered on 03/14/17 09:33 ; Admin Dose 40 MG; Start 02/26/17 at 09:00 Paroxetine HCl (Paxil) 10 mg DAILY PO Last administered on 03/14/17 09:32; Admin Dose 10 MG; Start 02/26/17 at 09:00 Ropinirole HCl (Requip) 0.25 mg DAILY PO Last administered on 03/14/17 09:32; Admin Dose 0.25 MG; Start 02/26/17 at 09:00 Valsartan (Diovan) 80 mg DAILY PO Last administered on 03/14/17 09:32; Admin Dose 80 MG; Start 02/26/17 at 09:00 Zolpidem Tartrate (Ambien) 5 mg QHS PRN PO INSOMNIA; Start 02/26/17 at 00:30 Miscellaneous Information 1 ea NOTE XX ; Start 02/26/17 at 01:00 Glucose (Glutose) 15 gm Q15M PRN PO DECREASED GLUCOSE; Start 02/26/17 at 01:00 Glucose (Glutose) 22.5 gm Q15M PRN PO DECREASED GLUCOSE; Start 02/26/17 at 01: 00 Dextrose (D50w Syringe) 25 ml Q15M PRN IV DECREASED GLUCOSE; Start 02/26/17 at 01:00 Dextrose (D50w Syringe) 50 ml Q15M PRN IV DECREASED GLUCOSE; Start 02/26/17 at 01:00 Glucagon (Glucagen) 1 mg Q15M PRN IM DECREASED GLUCOSE; Start 02/26/17 at 01:00 Glucose (Glutose) 15 gm Q15M PRN BUCCAL DECREASED GLUCOSE; Start 02/26/17 at 01 :00 Albuterol (Ventolin Hfa) 2 puff Q4H PRN INH SHORTNESS OF BREATH Last administered on 03/09/17 11:08; Admin Dose 2 PUFF; Start 02/26/17 at 01:00 Linagliptin (Tradjenta) 5 mg DAILY PO Last administered on 03/14/17 09:31; Admin Dose 5 MG; Start 02/27/17 at 09:00 Ondansetron HCl (Zofran Inj) 4 mg Q6H PRN IV NAUSEA AND/OR VOMITING; Start at 17:30 Magnesium Oxide (Mag-Ox 400) 400 mg DAILY PO Last administered on 03/14/17 09: 32; Admin Dose 400 MG; Start 02/28/17 at 19:30 Carvedilol (Coreg) 3.125 mg BID PO Last administered on 03/14/17 09:32; Admin Dose 3.125 MG; Start 03/01/17 at 21:00 Ibuprofen (Motrin) 600 mg Q6H PRN PO PAIN Last administered on 03/14/17 09:35 ; Admin Dose 600 MG; Start 03/01/17 at 15:30 Ferrous Sulfate (Ferrous Sulfate (Ec)) 325 mg TID PO Last administered on 09:30; Admin Dose 325 MG; Start 03/05/17 at 09:00 JACQUELINE HORNE Mar 14, 2017 12:57
--- NOTE | 2017-03-14 13:07 | PN ---
Date/Time of Note Date/Time of Note DATE: 03/14/17 TIME: 13:06 Assessment/Plan VTE Prophylaxis VTE Prophylaxis Intervention: other Lines/Catheters [facility] Sal[facility] Lock Urinary Cath still in place: Yes Assessment/Plan Assessment/Plan -CHF exacerbation, continue Lasix. Dr. Slater is following in cardiology consultation. -Bilateral lower extremities edema, improving, continue fluid restriction and BLE elevation. -Coronary artery disease, continue Plavix. -Hypertension, continue Coreg. -Hyperlipidemia, continue statin. -COPD, continue DuoNeb. -Diabetes mellitus type 2, hemoglobin A1c is 8.3, continue metformin, Tradjenta , Lantus, and NovoLog per mild algorithm sliding scale. -Morbid obesity with BMI of 61. -Peripheral vascular disease, continue Plavix. Dr. Louise is following in vascular surgery consultation. Further recommendations based on clinical course. Plan of care discussed with Dr. Randall. Subjective 24 Hr Interval Summary Respiratory: no complaints Cardiovascular: no complaints Gastrointestinal: no complaints Exam/Review of Systems Vital Signs Vitals Vital Signs Date Time Temp Pulse Resp B/P Pulse Ox O2 Delivery O2 Flow Rate FiO2 03/14/17 12:39 66 18 92 21 03/14/17 07:28 98.1 114/53 Intake and Output 03/13/17 03/13/17 03/14/17 14:59 22:59 06:59 Intake Total 1080 ml 500 ml Output Total 2100 ml 1450 ml Balance -1020 ml -950 ml Exam Constitutional: alert, obese Respiratory: clear to auscultation, normal air movement Cardiovascular: nl pulses, regular rate and rhythm Gastrointestinal: other, soft Extremities: edema Neurological: nl mental status, nl speech Results Result Diagram: 03/13/17 1420 03/12/17 1405 Results 24 hrs Laboratory Tests Test 03/13/17 14:20 03/13/17 16:50 03/13/17 21:07 03/14/17 08:03 White Blood Count 4.5 L Red Blood Count 5.43 H Hemoglobin 13.4 Hematocrit 43.4 Mean Corpuscular Volume 79.9 L Mean Corpuscular Hemoglobin 24.7 L Mean Corpuscular Hemoglobin Concent 30.9 L Red Cell Distribution Width 21.4 H Platelet Count 201 Mean Platelet Volume 10.7 H Neutrophils % 73.8 Lymphocytes % 13.1 L Monocytes % 8.7 Eosinophils % 3.1 Basophils % 0.9 Nucleated Red Blood Cells % 0.0 Neutrophils # 3.3 Lymphocytes # 0.6 L Monocytes # 0.4 Eosinophils # 0.1 Basophils # 0.0 Nucleated Red Blood Cells # 0.0 Bedside Glucose 128 120 91 Test 03/14/17 12:10 Bedside Glucose 119 Medications Medications Current Medications Enoxaparin Sodium (Lovenox) 40 mg DAILY SC Last administered on 03/07/17 09:15 ; Admin Dose 40 MG; Start 02/26/17 at 09:00 Acetaminophen (Tylenol Tab) 650 mg Q6H PRN PO PAIN AND OR ELEVATED TEMP; Start 02/26/17 at 00:00 Potassium Chloride (Klor-Con 20) 20 meq DAILY PO Last administered on 09:33; Admin Dose 20 MEQ; Start 02/26/17 at 09:00 Insulin Glargine (Lantus) 10 unit DAILY@20 SC ; Start 02/26/17 at 20:00 Diagnostic Test (Pha) (Accu-Chek) 1 ea 02 XX ; Start 02/26/17 at 02:00 Atorvastatin Calcium (Lipitor) 40 mg DAILY PO Last administered on 03/14/17 09 :33; Admin Dose 40 MG; Start 02/26/17 at 09:00 Clopidogrel Bisulfate (plaVIX) 75 mg DAILY PO Last administered on 03/14/17 09 :31; Admin Dose 75 MG; Start 02/26/17 at 09:00 Diphenhydramine HCl (Benadryl) 25 mg TID PRN PO ITCHING Last administered on 09:33; Admin Dose 25 MG; Start 02/26/17 at 00:30 Fluoxetine HCl (Prozac) 10 mg DAILY PO Last administered on 03/14/17 09:31; Admin Dose 10 MG; Start 02/26/17 at 09:00 Montelukast Sodium (Singulair) 10 mg DAILY PO Last administered on 03/14/17 09 :31; Admin Dose 10 MG; Start 02/26/17 at 09:00 Nystatin 1 applic BID TOP Last administered on 03/14/17 09:34; Admin Dose 1 APPLIC; Start 02/26/17 at 09:00 Pantoprazole (Protonix Tab) 40 mg DAILY PO Last administered on 03/14/17 09:33 ; Admin Dose 40 MG; Start 02/26/17 at 09:00 Paroxetine HCl (Paxil) 10 mg DAILY PO Last administered on 03/14/17 09:32; Admin Dose 10 MG; Start 02/26/17 at 09:00 Ropinirole HCl (Requip) 0.25 mg DAILY PO Last administered on 03/14/17 09:32; Admin Dose 0.25 MG; Start 02/26/17 at 09:00 Valsartan (Diovan) 80 mg DAILY PO Last administered on 03/14/17 09:32; Admin Dose 80 MG; Start 02/26/17 at 09:00 Zolpidem Tartrate (Ambien) 5 mg QHS PRN PO INSOMNIA; Start 02/26/17 at 00:30 Miscellaneous Information 1 ea NOTE XX ; Start 02/26/17 at 01:00 Glucose (Glutose) 15 gm Q15M PRN PO DECREASED GLUCOSE; Start 02/26/17 at 01:00 Glucose (Glutose) 22.5 gm Q15M PRN PO DECREASED GLUCOSE; Start 02/26/17 at 01: 00 Dextrose (D50w Syringe) 25 ml Q15M PRN IV DECREASED GLUCOSE; Start 02/26/17 at 01:00 Dextrose (D50w Syringe) 50 ml Q15M PRN IV DECREASED GLUCOSE; Start 02/26/17 at 01:00 Glucagon (Glucagen) 1 mg Q15M PRN IM DECREASED GLUCOSE; Start 02/26/17 at 01:00 Glucose (Glutose) 15 gm Q15M PRN BUCCAL DECREASED GLUCOSE; Start 02/26/17 at 01 :00 Albuterol (Ventolin Hfa) 2 puff Q4H PRN INH SHORTNESS OF BREATH Last administered on 03/09/17 11:08; Admin Dose 2 PUFF; Start 02/26/17 at 01:00 Linagliptin (Tradjenta) 5 mg DAILY PO Last administered on 03/14/17 09:31; Admin Dose 5 MG; Start 02/27/17 at 09:00 Ondansetron HCl (Zofran Inj) 4 mg Q6H PRN IV NAUSEA AND/OR VOMITING; Start at 17:30 Magnesium Oxide (Mag-Ox 400) 400 mg DAILY PO Last administered on 03/14/17 09: 32; Admin Dose 400 MG; Start 02/28/17 at 19:30 Carvedilol (Coreg) 3.125 mg BID PO Last administered on 03/14/17 09:32; Admin Dose 3.125 MG; Start 03/01/17 at 21:00 Ibuprofen (Motrin) 600 mg Q6H PRN PO PAIN Last administered on 03/14/17 09:35 ; Admin Dose 600 MG; Start 03/01/17 at 15:30 Ferrous Sulfate (Ferrous Sulfate (Ec)) 325 mg TID PO Last administered on 09:30; Admin Dose 325 MG; Start 03/05/17 at 09:00 VERONICA CHERRY Mar 14, 2017 13:07
[2017-03-14 14:25] VITALS: BP 111/53; RESP 18
[2017-03-14 16:45] LABS: CALCIUM 8.9 mg/dl (8.4-10.2); CREATININE 0.64 mg/dl (0.44-1.00); POTASSIUM 3.8 mmol/L (3.5-5.1)
--- NOTE | 2017-03-14 19:07 | CONS ---
Date/Time of Note Date/Time of Note DATE: 03/14/17 TIME: 19:07 Assessment/Plan Assessment/Plan Chief Complaint/Hosp Course LEUKOPENIA WILL RECHECK COUNT IN AM PT IS REFUSING BLOOD WORK MICROCYTOSIS MONITOR IRON DEFICIENCY PO IRON HX ANEMIA MONITOR CLOSELY LOOKS COMPENSATED AT PRESENT CHF exacerbation, continue Lasix. cardiology consultation. Coronary artery disease, continue Plavix. Hypertension Hyperlipidemia, continue statin. COPD Diabetes mellitus type 2, will check hemoglobin A1c, continue Lantus and NovoLog per mild algorithm sliding scale. Morbid obesity with BMI of 61. Peripheral vascular disease Problems: Consultation Date/Type/Reason Admit Date/Time Feb 25, 2017 at 21:45 Type of Consultation: [facility] Referring Provider: MARILU FRIED MD Exam/Review of Systems Vital Signs Vitals Vital Signs Date Time Temp Pulse Resp B/P Pulse Ox O2 Delivery O2 Flow Rate FiO2 03/14/17 16:36 76 18 98 21 03/14/17 14:25 98.3 111/53 Intake and Output 03/13/17 03/13/17 03/14/17 15:00 23:00 07:00 Intake Total 1080 ml 500 ml Output Total 2100 ml 1450 ml Balance -1020 ml -950 ml Results Result Diagram: 03/13/17 1420 03/14/17 1615 Results 24 hrs Laboratory Tests Test 03/13/17 21:07 03/14/17 08:03 03/14/17 12:10 03/14/17 16:15 Bedside Glucose 120 91 119 Sodium Level 136 Potassium Level 3.8 Chloride Level 98 Carbon Dioxide Level 29 Anion Gap 13 Blood Urea Nitrogen 18 Creatinine 0.64 Glucose Level 126 Calcium Level 8.9 Test 03/14/17 17:15 Bedside Glucose 124 Medications Medications Current Medications Enoxaparin Sodium (Lovenox) 40 mg DAILY SC Last administered on 03/07/17 09:15 ; Admin Dose 40 MG; Start 02/26/17 at 09:00 Acetaminophen (Tylenol Tab) 650 mg Q6H PRN PO PAIN AND OR ELEVATED TEMP; Start 02/26/17 at 00:00 Potassium Chloride (Klor-Con 20) 20 meq DAILY PO Last administered on 09:33; Admin Dose 20 MEQ; Start 02/26/17 at 09:00 Insulin Glargine (Lantus) 10 unit DAILY@20 SC ; Start 02/26/17 at 20:00 Diagnostic Test (Pha) (Accu-Chek) 1 ea 02 XX ; Start 02/26/17 at 02:00 Atorvastatin Calcium (Lipitor) 40 mg DAILY PO Last administered on 03/14/17 09 :33; Admin Dose 40 MG; Start 02/26/17 at 09:00 Clopidogrel Bisulfate (plaVIX) 75 mg DAILY PO Last administered on 03/14/17 09 :31; Admin Dose 75 MG; Start 02/26/17 at 09:00 Diphenhydramine HCl (Benadryl) 25 mg TID PRN PO ITCHING Last administered on 09:33; Admin Dose 25 MG; Start 02/26/17 at 00:30 Fluoxetine HCl (Prozac) 10 mg DAILY PO Last administered on 03/14/17 09:31; Admin Dose 10 MG; Start 02/26/17 at 09:00 Montelukast Sodium (Singulair) 10 mg DAILY PO Last administered on 03/14/17 09 :31; Admin Dose 10 MG; Start 02/26/17 at 09:00 Nystatin 1 applic BID TOP Last administered on 03/14/17 09:34; Admin Dose 1 APPLIC; Start 02/26/17 at 09:00 Pantoprazole (Protonix Tab) 40 mg DAILY PO Last administered on 03/14/17 09:33 ; Admin Dose 40 MG; Start 02/26/17 at 09:00 Paroxetine HCl (Paxil) 10 mg DAILY PO Last administered on 03/14/17 09:32; Admin Dose 10 MG; Start 02/26/17 at 09:00 Ropinirole HCl (Requip) 0.25 mg DAILY PO Last administered on 03/14/17 09:32; Admin Dose 0.25 MG; Start 02/26/17 at 09:00 Valsartan (Diovan) 80 mg DAILY PO Last administered on 03/14/17 09:32; Admin Dose 80 MG; Start 02/26/17 at 09:00 Zolpidem Tartrate (Ambien) 5 mg QHS PRN PO INSOMNIA; Start 02/26/17 at 00:30 Miscellaneous Information 1 ea NOTE XX ; Start 02/26/17 at 01:00 Glucose (Glutose) 15 gm Q15M PRN PO DECREASED GLUCOSE; Start 02/26/17 at 01:00 Glucose (Glutose) 22.5 gm Q15M PRN PO DECREASED GLUCOSE; Start 02/26/17 at 01: 00 Dextrose (D50w Syringe) 25 ml Q15M PRN IV DECREASED GLUCOSE; Start 02/26/17 at 01:00 Dextrose (D50w Syringe) 50 ml Q15M PRN IV DECREASED GLUCOSE; Start 02/26/17 at 01:00 Glucagon (Glucagen) 1 mg Q15M PRN IM DECREASED GLUCOSE; Start 02/26/17 at 01:00 Glucose (Glutose) 15 gm Q15M PRN BUCCAL DECREASED GLUCOSE; Start 02/26/17 at 01 :00 Albuterol (Ventolin Hfa) 2 puff Q4H PRN INH SHORTNESS OF BREATH Last administered on 03/09/17 11:08; Admin Dose 2 PUFF; Start 02/26/17 at 01:00 Linagliptin (Tradjenta) 5 mg DAILY PO Last administered on 03/14/17 09:31; Admin Dose 5 MG; Start 02/27/17 at 09:00 Ondansetron HCl (Zofran Inj) 4 mg Q6H PRN IV NAUSEA AND/OR VOMITING; Start at 17:30 Magnesium Oxide (Mag-Ox 400) 400 mg DAILY PO Last administered on 03/14/17 09: 32; Admin Dose 400 MG; Start 02/28/17 at 19:30 Carvedilol (Coreg) 3.125 mg BID PO Last administered on 03/14/17 09:32; Admin Dose 3.125 MG; Start 03/01/17 at 21:00 Ibuprofen (Motrin) 600 mg Q6H PRN PO PAIN Last administered on 03/14/17 09:35 ; Admin Dose 600 MG; Start 03/01/17 at 15:30 Ferrous Sulfate (Ferrous Sulfate (Ec)) 325 mg TID PO Last administered on 13:54; Admin Dose 325 MG; Start 03/05/17 at 09:00 BLUE JIMÉNEZ MD Mar 14, 2017 19:07
[2017-03-14] MEDS: INSULIN GLARGINE [LANtus] 3 ML PEN SC SCH (20:00)
[2017-03-14 20:12] VITALS: BP 151/72; RESP 18
[2017-03-15 02:00] VITALS: BP 129/80; RESP 18
[2017-03-15] MEDS: ACCU-CHEK XX SCH (02:00)
[2017-03-15] MEDS: FUROSEMIDE 40 MG TAB PO SCH (05:44)
[2017-03-15] MEDS: INSULIN ASPART [NOVOLOG] 3 ML PEN SC SCH ×2 (07:59→11:52)
[2017-03-15] MEDS: metFORMIN 500 MG TAB PO SCH (07:59)
[2017-03-15 08:09] VITALS: BP 129/70; RESP 16
[2017-03-15] MEDS: ALBUTEROL/IPRATROPIUM (NEB) 3 ML AMP HHN SCH (08:42)
[2017-03-15] MEDS: ENOXAPARIN 40 MG/0.4 ML SYG SC SCH (09:00)
[2017-03-15] MEDS: CLOPIDOGREL 75 MG TAB PO SCH (09:12)
[2017-03-15] MEDS: PANTOPRAZOLE (EC) 40 MG TAB PO SCH (09:12)
[2017-03-15] MEDS: MONTELUKAST 10 MG TAB PO SCH (09:12)
[2017-03-15] MEDS: ATORVASTATIN 40 MG TAB PO SCH (09:12)
[2017-03-15] MEDS: FERROUS SULFATE (EC) 325 MG TAB PO SCH (09:12)
[2017-03-15] MEDS: PAROXETINE 10 MG TAB PO SCH (09:12)
[2017-03-15] MEDS: LINAGLIPTIN 5 MG TABLET PO SCH (09:13)
[2017-03-15] MEDS: ROPINIROLE 0.25 MG TAB PO SCH (09:13)
[2017-03-15] MEDS: FLUOXETINE 10 MG CAP PO SCH (09:13)
[2017-03-15] MEDS: POTASSIUM CHLORIDE (SR) 20 MEQ TAB PO SCH (09:13)
[2017-03-15] MEDS: MAGNESIUM OXIDE 400 MG TAB PO SCH (09:13)
[2017-03-15] MEDS: VALSARTAN 80 MG TAB PO SCH (09:14)
[2017-03-15] MEDS: NYSTATIN 15 GM POWDER BTL TOP SCH (09:16)
--- NOTE | 2017-03-15 12:40 | PDOCDIS ---
Discharge Instructions CONDITION Patient Condition: Good HOME CARE INSTRUCTIONS: Diet Instructions: 2gm NaSpecial Diet: carb control ACTIVITY: Activity Restrictions: Slowly Increase Activity FOLLOW UP/APPOINTMENTS Follow-up Plan Follow-up with PMD in 1 to 2weeks follow-up with cardiology in 1 to2 weeks ADENIKE DE GUZMAN Mar 15, 2017 12:40
--- NOTE | 2017-03-15 20:39 | CONS ---
Date/Time of Note Date/Time of Note DATE: 03/15/17 TIME: 10:38 Assessment/Plan Assessment/Plan Chief Complaint/Hosp Course LEUKOPENIA WILL RECHECK COUNT IN AM PT IS REFUSING BLOOD WORK MICROCYTOSIS MONITOR IRON DEFICIENCY PO IRON HX ANEMIA MONITOR CLOSELY LOOKS COMPENSATED AT PRESENT CHF exacerbation, continue Lasix. cardiology consultation. Coronary artery disease, continue Plavix. Hypertension Hyperlipidemia, continue statin. COPD Diabetes mellitus type 2, will check hemoglobin A1c, continue Lantus and NovoLog per mild algorithm sliding scale. Morbid obesity with BMI of 61. Peripheral vascular disease Problems: Consultation Date/Type/Reason Admit Date/Time Feb 25, 2017 at 21:45 Type of Consultation: [facility] Referring Provider: MARILU FRIED MD Exam/Review of Systems Vital Signs Vitals Vital Signs Date Time Temp Pulse Resp B/P Pulse Ox O2 Delivery O2 Flow Rate FiO2 03/15/17 08:09 98.2 70 16 129/70 99 03/14/17 16:36 21 Intake and Output 03/14/17 03/14/17 03/15/17 15:00 23:00 07:00 Intake Total 1660 ml 400 ml Output Total 2000 ml 2500 ml Balance -340 ml -2100 ml Results Result Diagram: 03/13/17 1420 03/14/17 1615 Results 24 hrs Laboratory Tests Test 03/14/17 20:52 03/15/17 07:59 03/15/17 11:51 Bedside Glucose 130 118 135 BLUE JIMÉNEZ MD Mar 15, 2017 20:38
--- NOTE | 2017-03-17 21:02 | DS ---
Date/Time of Note Date/Time of Note DATE: 03/17/17 TIME: 20:57 Discharge Summary Admission/Discharge Info Admit Date/Time Feb 25, 2017 at 21:45 Discharge Date/Time Mar 15, 2017 at 13:10 Discharge Diagnosis -CHF exacerbation, continue Lasix. -Hypertension. -Hyperlipidemia -COPD, continue DuoNeb. -Diabetes mellitus type 2, hemoglobin 1c is 8.3, continue metformin, Tradjenta, Lantus, and NovoLog per mild algorithm sliding scale. -Morbid obesity with BMI of 61. -Peripheral vascular disease, continue Plavix. Dr. Louise is following in vascular surgery consultation. Patient Condition: Good Hx of Present Illness The patient is 51-year-old female with extensive past medical history which includes morbid obesity, wheelchair bound, diabetes, hypertension, dyslipidemia , coronary artery disease, anemia of chronic disease, GERD, bilateral lower extremity cellulitis, peripheral vascular disease, COPD, hypoventilation syndrome. Patient presented to the emergency room with complaints of bilateral lower extremities edema, abdominal swelling and shortness of breath. Chest x- ray revealed cardiomegaly and pulmonary edema. Patient was given intravenous Lasix in the emergency room and admitted for further evaluation and management to telemetry floor. Patient denies any chest pain denies any nausea vomiting diarrhea. Hospital Course -CHF exacerbation, continue Lasix. Dr. Slater is following in cardiology consultation. -Bilateral lower extremities edema, improving, continue fluid restriction and BLE elevation. -Coronary artery disease, continue Plavix. -Hypertension, continue Coreg. -Hyperlipidemia, continue statin. -COPD, continue DuoNeb. -Diabetes mellitus type 2, hemoglobin A1c is 8.3, continue metformin, Tradjenta , Lantus, and NovoLog per mild algorithm sliding scale. -Morbid obesity with BMI of 61. -Peripheral vascular disease, continue Plavix. Dr. Louise is following in vascular surgery consultation. Pt d/nitin to [facility] Home Meds Reported Medications Silver Sulfadiazine (Silver Sulfadiazine) 400 Gm Cream..g., 400 GM TP NEEDED Y for PRN APPLY TO INFECTED AREA 02/25/17 Fluoxetine Hcl* (Fluoxetine Hcl*) 10 Mg Capsule, 10 MG PO DAILY, CAP 02/25/17 Ibuprofen* (Ibuprofen*) 600 Mg Tablet, 600 MG PO Q4H Y for PAIN, TAB 4/6/17 Metformin Hcl* (Metformin Hcl*) 500 Mg Tablet, 500 MG PO WITH BREAKFAST DINNE, # 60 TAB 12/06/16 Paroxetine Hcl* (Paroxetine*) 10 Mg Tablet, 10 MG PO DAILY, TAB 12/06/16 Albuterol Sulfate* (Ventolin HFA*) 18 Gm Hfa.aer.ad, 2 PUFF INHALATION Q4H Y for SHORTNESS OF BREATH, #1 INHALER 12/06/16 Furosemide* (Lasix*) 20 Mg Tablet, 20 MG PO DAILY, TAB 12/06/16 Montelukast Sodium* (Montelukast Sodium*) 10 Mg Tablet, 10 MG PO DAILY, #30 TAB 05/05/16 Glipizide* (Glipizide*) 10 Mg Tablet, 10 MG PO BID, TAB 05/05/16 Diphenhydramine Hcl* (Diphenhydramine Hcl*) 25 Mg Capsule, 25 MG PO TID Y for ITCHING, CAP 05/05/16 Atorvastatin* (Atorvastatin*) 40 Mg Tablet, 40 MG PO DAILY, #30 TAB 05/05/16 Zolpidem Tartrate* (Zolpidem Tartrate*) 5 Mg Tablet, 5 MG PO QHS Y for INSOMNIA , #30 TAB 05/05/16 Valsartan* (Diovan*) 80 Mg Tablet, 80 MG PO DAILY, TAB 05/05/16 Silver Sulfadiazine* (SSD*) 1% - 20 Gm Cream.gm., 1 APPLIC TOP BID, #1 TUB 05/05/16 Pantoprazole* (Protonix*) 40 Mg Tablet.dr, 40 MG PO DAILY, TAB 05/05/16 Nystatin (Nystatin Powder) 1 Each Powder.ea., 1 APPLIC TOPICAL BID, #1 BOTTLE 05/05/16 Ropinirole Hcl* (Ropinirole Hcl*) 0.25 Mg Tablet, 0.25 MG PO DAILY, TAB 05/05/16 Clopidogrel Bisulfate (Clopidogrel) 75 Mg Tablet, 75 MG PO DAILY, #30 TAB 05/05/16 Follow-up Plan f/up with PMD in 1-2 weeks. Primary Care Provider Patsy Clarke Time spent on discharge: > 30 minutes ADENIKE DE GUZMAN Mar 17, 2017 21:01
== END 2017-03-15 13:10 | DRG 292 ==
LOC: E/R 14:13 → TEL 21:45 → MS2 02-28 01:43
PROVIDERS: ADMIT Family Medicine; ATTEND Internal Medicine
DX: I50.23 Acute on chronic systolic (congestive) heart failure (principal); Z68.44 Body mass index [BMI] 60.0-69.9, adult; E11.42 Type 2 diabetes mellitus with diabetic polyneuropathy; L03.115 Cellulitis of right lower limb; I73.9 Peripheral vascular disease, unspecified; L03.116 Cellulitis of left lower limb; I11.0 Hypertensive heart disease with heart failure; E66.01 Morbid (severe) obesity due to excess calories; J44.9 Chronic obstructive pulmonary disease, unspecified; E11.9 Type 2 diabetes mellitus without complications; R60.9 Edema, unspecified; I25.10 Atherosclerotic heart disease of native coronary artery without angina pectoris; E78.5 Hyperlipidemia, unspecified; D64.9 Anemia, unspecified; D72.819 Decreased white blood cell count, unspecified; I87.8 Other specified disorders of veins; Z74.01 Bed confinement status; Z99.3 Dependence on wheelchair
CPT/HCPCS: 36415; 71010; 80048; 80053; 80061; 82728; 82962; 83036; 83540; 83880; 84484; 85025; 85610; 85730; 87086; 93005; 93306; 93970; 94640; 94664; 96374; 97162; J1940; J1650; J1815; J2405